=== PATIENT | female | born 1960 | race Caucasian/White ===

== ENCOUNTER 2022-10-07 07:04 | Outpatient (CLI) | payer OTHER, SELFPAY ==
--- OUTSIDE RECORDS SUMMARY | 2022-10-07 07:08 | XMS_ITS | Encounter Summary ---
:1960 Author Organization [facility] Address [address] [place] [address] Care Team Providers Name Role Phone Unavailable Primary Care Provider Unavailable Reason for Visit Reason Comments Body Fluid Exposure Encounter Details Date Type Department Care Team Description 01/05/2021 - Emergency [facility] Exposure Biological 01/06/[address] Fluid (Primary Dx) [facility] [address] Social History Tobacco Use Types Packs/Day Years Used Date Smoking Tobacco: Never Sex Assigned at Date Recorded Not on file documented as of this encounter Plan of Treatment Not on filedocumented as of this encounter Visit Diagnoses Diagnosis Exposure Biological Fluid - Primary documented in this encounter
--- OUTSIDE RECORDS SUMMARY | 2022-10-07 07:08 | XMS_ITS | Encounter Summary ---
:1960 Author Organization [facility] Address [address] [place] [address] Care Team Providers Name Role Phone Unavailable Primary Care Provider Unavailable Encounter Details Date Type Department Care Team Description 10/07/2014 Hospital Encounter HX [facility] OBGYSavanna Chaves M.D. Social History Tobacco Use Types Packs/Day Years Used Date Smoking Tobacco: Never Assessed Sex Assigned at Date Recorded Not on file documented as of this encounter Last Filed Vital Signs Vital Sign Reading Time Taken Comments Blood Pressure 122/76 10/07/2014 1:49 PM DRAWING OPERATOR Pulse - - Temperature - - Respiratory Rate - - Oxygen Saturation - - Inhaled Oxygen Concentration - - Weight - - Height 168 cm (5' 6.14) 10/07/2014 1:49 PM DRAWING OPERATOR Body Mass Index - - documented in this encounter Progress Notes Savanna Galeas M.D. - 10/07/2014 1:39 PM CST [id number] CHIEF COMPLAINT/REASON FOR VISIT Vaginal dryness. HISTORY OF PRESENT ILLNESS Ms. Carpenter is a 54-year-old white female who I saw in June of this year with the complaints of vaginal dryness and pain with intercourse. She was perimenopausal. She has not had a period in the last year. She has been using Vagifem twice a day. She states she is noting less pain with intercourse and is happy with that, but is wondering whether she is really seeing much of a change with vaginal dryness. VITAL SIGNS Please see the EMR. PHYSICAL EXAMINATION The introitus does seem to be much more flexible to digital exam. It appears to be well estrogenizedand well moisturized. Bimanual exam shows no tenderness. IMPRESSION/REPORT/PLAN Good response to vaginal estrogen therapy. PLAN: I discussed with the patient the fact that since I do think she has seen improvement with her pain with intercourse, that I do believe she is having a good response; that it may take a little longer to see the improvement vaginally. We discussed not placing the tablet quite so deeply in the vagina and also discussed the possibility of switching to cream therapy, but she would like to stay with the tablet a little bit longer. We have recommended that she try this for 3 more months. She does have 2 refills left after the next 3 months. If she is satisfied, then she may continue for the full year. Otherwise, she is to return in 3 months and we will discuss this further. Savanna Galeas M.D./sommer Electronically Signed By: SAVANNA GALEAS MD On: 10/08/2014 02:54 PM Source: [facility] MHSDOLBEYNONRADSYS Document Id: [id number] ING OPERATOR documented in this encounter Miscellaneous Notes Miscellaneous - Conversion, Historical Provider Ser - 10/07/2014 1:49 PM DRAWING OPERATOR Adult State Appellate Clerk Intake/History Adult State Appellate Clerk Intake/History Entered On: 10/07/2014 13:51 DRAWING OPERATOR Performed On: 10/07/2014 13:49 DRAWING OPERATOR by AL PORTER Intake Chief Complaint : recheck on vagifem Onset of Symptoms : dryness some discharge no odor no itching Ambulatory Intake Additional Information : no menses x 1 yr Systolic Blood Pressure : 122 mmHg Diastolic Blood Pressure : 76 mmHg NIBP Mean : 91 mmHg BP Location : Left upper extremity Blood Pressure Cuff Size : Regular Height : 168 cm(Converted to: 5 ft 6 inch(es), 66 inch(es)) AL PORTER - 10/07/2014 13:49 DRAWING OPERATOR General Info Information Given By : Patient Languages : Togolese Is Patient Female and 13-50 no hysterectomy : Yes Status : Confirmed negative Are you ? : No AL PORTER - 10/07/2014 13:49 DRAWING OPERATOR Subjective Pain Symptoms : No AL PORTER 10/07/2014 13:49 DRAWING OPERATOR Dependent Habits Tobacco Use/Currently Using : No Exposure to Tobacco Smoke : Other: Never Smoking Status : Never smoker AL PORTER 10/07/2014 13:49 DRAWING OPERATOR Tobacco Use Grid Last Use : never AL PORTER 10/07/2014 13:49 DRAWING OPERATOR Caffeine Use Grid Caffeine Use : Current Type : Coffee Frequency : Daily AL PORTER 10/07/2014 13:49 DRAWING OPERATOR ID Screen Travel Within Last 21 Days : [place] 10/07/2014 13:49 DRAWING OPERATOR [facility] Document Id: [id number] DRAWING OPERATOR!33 documented in this encounter Plan of Treatment Not on filedocumented as of this encounter Visit Diagnoses Not on filedocumented in this encounter
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
--- OUTSIDE RECORDS SUMMARY | 2022-10-07 07:08 | XMS_ITS | Encounter Summary ---
:1960 Author Organization [facility] Address [address] [place] [address] Care Team Providers Name Role Phone Unavailable Primary Care Provider Unavailable Encounter Details Date Type Department Care Team Description 12/26/2014 Hospital Encounter [facility]X [facility] Leopoldo Jarvis M.D. [address] [place], [place] [address] (Wo rk) Social History Tobacco Use Types Packs/Day Years Used Date Smoking Tobacco: Never Assessed Sex Assigned at Date Recorded Not on file documented as of this encounter Last Filed Vital Signs Vital Sign Reading Time Taken Comments Blood Pressure 98/60 12/26/2014 2:47 PM EMT I/99 Pulse 72 12/26/2014 2:47 PM EMT I/99 Temperature - - Respiratory Rate 20 12/26/2014 2:47 PM EMT I/99 Oxygen Saturation - - Inhaled Oxygen Concentration - - Weight 67 kg (147 lb 11.3 oz) 12/26/2014 2:47 PM EMT I/99 Height 168 cm (5' 6.14) 12/26/2014 2:47 PM EMT I/99 Body Mass Index 23.74 12/26/2014 2:47 PM EMT I/99 documented in this encounter Progress Notes Micah Jarvis M.D. - 12/26/2014 2:36 PM CST [id number] CHIEF COMPLAINT/REASON FOR VISIT Heel pain. On review, this patient's today for a chief complaint of heel pain. On review, no history of any injury, no change in usual activity, she states it seems to act up when she has been on feet longer and has been walking more. Does not really have the pain when she first wakes up in the morning as much though. PAST MEDICAL/SURGICAL HISTORY Remarkable for hypothyroidism. She is coming up due for a physical on review with the patient. We discussed getting her set up for future labs, et cetera. It looks like her physical is in December. MEDICATIONS Please see EMR. ALLERGIES Please see EMR. PHYSICAL EXAMINATION Shows vital signs to be stable. Very pleasant. Appears to be in no distress. Examination reveals findings consistent with plantar fascitis of the left foot. On review, she has no erythema, no rubor, and there is no history of trauma as I said. IMPRESSION/REPORT/PLAN Plantar fascitis left foot. PLAN: May take anti-inflammatories, ice after offending activities, and stretches. I also discussed I in fact got her set up with arch supports here from the clinic she is going to try in her new shoes. Also discussed importance of choosing shoes wisely and also getting rid of shoes when they are wearing out from the inside out. Finally, discussed stretching techniques for the foot and also discussed using a rolling pin technique to help stretch out the bottom of the foot. Will review this when I see her for a physical in the next month. Micah Jarvis M.D./sommer Electronically Signed By: MICAH JARVIS MD On: 12/31/2014 05:55 PM Source: [facility] MHSDOLBEYNONRADSYS Document Id: [id number] I/99 documented in this encounter Miscellaneous Notes Miscellaneous - Lashay Clark L.P.N. - 12/26/2014 2:52 PM CST Health Assessment Health Assessment Entered On: 12/26/2014 14:54 EMT I/99 Performed On: 12/26/2014 14:52 EMT I/99 by LASHAY CLARK LPN Health Assessment Complete Health Assessment Complete or Modified : Annual Health Assessment Annual Health Assessment Completed : Yes LASHAY CLARK LPN - 12/26/2014 14:52 EMT I/99 Nutrition Nutrition Risk Factors by History Adult : None LASHAY CLARK LPN - 12/26/2014 14:52 EMT I/99 Functional Current Daily Living Assistance : None LASHAY CLARK LPN - 12/26/2014 14:52 EMT I/99 Dependent Habits Tobacco Use/Currently Using : No Exposure to Tobacco Smoke : Other: Never Smoking Status : Never smoker LASHAY CLARK LPN - 12/26/2014 14:52 EMT I/99 Tobacco Use Grid Last Use : never LASHAY CLARK LPN - 12/26/2014 14:52 EMT I/99 Alcohol Use : Yes LASHAY CLARK LPN - 12/26/2014 14:52 EMT I/99 Caffeine Use Grid Caffeine Use : Current Type : Coffee Frequency : Daily LASHAY CLARK LPN - 12/26/2014 14:52 EMT I/99 AUDIT Tool How Often Do You Have A Drink : Monthly or less How Many Drinks in a Day When Drinking : 1 or 2 Six or More Drinks On One Occassion : Never Audit Phase 1 Score : 1 LASHAY CLARK LPN - 12/26/2014 14:52 EMT I/99 Psychosocial Domestic Abuse Concerns : None Christian Preference : No qualifying data available. LASHAY CLARK LPN - 12/26/2014 14:52 EMT I/99 Advance Directive Advanced Directives : No Advance Directive Additional Information : No LASHAY CLARK LPN - 12/26/2014 14:52 EMT I/99 Educ Needs Learning Style Preference Adult Grid Patient : Demonstration, Printed materials, Verbal explanation, Video/Educational TV Family : None LASHAY CLARK LPN - 12/26/2014 14:52 EMT I/99 Source: [facility] POWERCHART Document Id: [id number] EMT I/99!36 I/99 Miscellaneous - Lashay Clark L.P.N. 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 Temperature Oral : 36.7 DegC(Converted to: 98.1 DegF) Peripheral Pulse Rate : 72 /min Respiratory Rate : 20 /min Heart Rhythm : Regular Systolic Blood Pressure : 98 mmHg Diastolic Blood Pressure : 60 mmHg NIBP Mean : 73 mmHg BP Location : Right upper extremity Blood Pressure Cuff Size : Regular Height : 168 cm(Converted to: 5 ft 6 inch(es), 66 inch(es)) Actual Weight : 67.0 kg(Converted to: 147 lb 11 oz) Weight Source : Standing scale Dosing Weight Clinic : 67 kg Clinic BSA : 1.77 Body Mass Index : 23.74 kg/m2 LASHAY CLARK LPN - 12/26/2014 14:47 EMT I/99 General Info Information Given By : Patient Preferred Communication Mode : Verbal Languages : Turkish Is Patient Female and 13-50 no hysterectomy : No LASHAY CLARK LPN - 12/26/2014 14:47 EMT I/99 Subjective Pain Symptoms : Yes LASHAY CLARK LPN - 12/26/2014 14:47 EMT I/99 Pain Scale Pain Scale Verbal 0-10 : Open LASHAY CLARK LPN - 12/26/2014 14:47 EMT I/99 Pain Pain Assessment Grid Pain 1 Location : Other: Heel Laterality : Left Intensity : 3 LASHAY CLARK LPN - 12/26/2014 14:47 EMT I/99 Dependent Habits Tobacco Use/Currently Using : No Exposure to Tobacco Smoke : Other: Never Smoking Status : Never smoker LASHAY CLARK LPN - 12/26/2014 14:47 EMT I/99 Tobacco Use Grid Last Use : never LASHAY CLARK LPN - 12/26/2014 14:47 EMT I/99 Caffeine Use Grid Caffeine Use : Current Type : Coffee Frequency : Daily LASHAY CLARK LPN - 12/26/2014 14:47 EMT I/99 ID Screen Travel Within Last 21 Days : No LASHAY CLARK LPN - 12/26/2014 14:47 EMT I/99 [facility] Document Id: [id number] EMT I/99!47 I/99 documented in this encounter Plan of Treatment Not on filedocumented as of this encounter Visit Diagnoses Not on filedocumented in this encounter
--- OUTSIDE RECORDS SUMMARY | 2022-10-07 07:08 | XMS_ITS | Encounter Summary ---
:1960 Author Organization [facility] Address [address] [place] [address] Care Team Providers Name Role Phone Unavailable Primary Care Provider Unavailable Encounter Details Date Type Department Care Team Description 01/21/2015 Hospital Encounter HX [facility] OBGYSavanna Chaves M.D. Social History Tobacco Use Types Packs/Day Years Used Date Smoking Tobacco: Never Assessed Sex Assigned at Date Recorded Not on file documented as of this encounter Last Filed Vital Signs Vital Sign Reading Time Taken Comments Blood Pressure 120/74 01/21/2015 3:39 PM DENTAL MANAGER Pulse - - Temperature - - Respiratory Rate - - Oxygen Saturation - - Inhaled Oxygen Concentration - - Weight - - Height 167 cm (5' 5.75) 01/21/2015 3:39 PM DENTAL MANAGER Body Mass Index - - documented in this encounter Progress Notes Savanna Galeas M.D. - 01/21/2015 3:30 PM CST [id number] CHIEF COMPLAINT/REASON FOR VISIT Abnormal uterine bleeding. HISTORY OF PRESENT ILLNESS Ibis is a 54-year-old white female who when I saw her previously in September of 2014 was perimenopausal, was complaining of vaginal dryness and we had tried her on vaginal cream and had switched herto a Vagifem tablet for the vaginal dryness. She has been doing well with this. She does state that she has had some breast tenderness that was present prior to the Vagifem, but then this increased andshe had 16 days of vaginal bleeding close to a period. This started on January 01 and she still isspotting today. The patient did not have significant cramping with the bleeding. I explained to the patient that our understanding of vaginal cream and Vagifem tablets is that it does not raise the systemic level of estrogen and, therefore, I do not believe that it is the cause for her bleeding. She has stopped the Vagifem and she has been bleeding because she worried that the tablet would not be absorbed, but I have told her that she may restart this after we have our biopsy results available. She consented to an endometrial biopsy. During this procedure the universal protocol was utilized. The patient's identity was confirmed by no less than 2 patient identifiers, correct procedure was verified, correct site was verified and marked as applicable and a final pause was completed. With a accountant clerk present, a bed bimanual exam was performed. The uterus was upper limits of normal size, symmetrical, nontender and mid position. The adnexa without masses. A speculum was then placed exposing the cervix. The uterus was anteverted. The cervix visualized and the patient was asked if shewas allergic to local anesthetic or iodine, which she declined. The cervix was then sprayed with Hurricaine, because of the position of the cervix, a single-tooth tenaculum was applied to the anterior lip of the cervix to allow the canal to be straightened. The Pipelle was then inserted. The uterus sounded 8 cm and a moderate amount of tissue obtained with the Pipelle. This was submitted for pathologic evaluation. IMPRESSION/REPORT/PLAN Perimenopausal bleeding. PLAN: The patient may restart her Vagifem tablets, now that her bleeding has lessened significantly.We will await the biopsy results. I am expecting this will be proliferative endometrium, and due to a spontaneous production of estrogen either by her ovaries or by other exogenous estrogen sources. Wedid discuss the fact that if hyperplasia was present, then she would need to use progesterone and I would recommend she would stop the Vagifem during progesterone therapy. The patient tolerated the procedure well. I will call her with the results of her biopsy. Savanna Galeas M.D./sommer Electronically Signed By: SAVANNA GALEAS MD On: 01/23/2015 08:21 AM Source: [facility] MHSDOLBEYNONRADSYS Document Id: [id number] AL MANAGER documented in this encounter Miscellaneous Notes Miscellaneous - Savanna Galeas M.D. - 01/21/2015 4:00 PM CST Ambulatory Patient Summary [facility] [address] [place] [address] [place] [id number] Visit Information Name: ANABELL MIRELLA HAINES [facility] Number: [id number] Current Date: 01/21/2015 16:00:40 Physicians Attending Provider: SAVANNA GALEAS MD Primary Care Provider: PCP, UNASSIGNED - ZACHARY SHARPE YANCYANAMIRELLA FARRAH has been given the following list of follow-up instructions, medication list,and patient education materials: Follow-up Instructions Your Medications Here is a list of your medications. It is important to take your medications as directed. Use a pillbox or chart to help remind you to take your medications. Please let your doctor or nurse know if you have problems taking your medications. Medication/Strength How to Take Indications/Special Instructions/Comments/Notes for Patient Medication Changes/Routing albuterol (albuterol 90 mcg/inh inhalation aerosol with adapter) 2 puff(s), Inhalation, four times aday as needed for Shortness of breath / Wheezing aspirin (aspirin 81 mg oral tablet) 1 Tablet(s), Oral, once a day calcium-vitamin D (Caltrate 600+D Soft Chews oral tablet, chewable) 1 Tablet(s), Chewed, two times aday estradiol topical (Vagifem 10 mcg vaginal tablet) 10 mcg, Vaginal, 2 times a week fexofenadine (Kathi 180 mg oral tablet) 1 Tablet(s), Oral, once a day glucosamine-chondroitin (Cosamin DS 500 mg-400 mg oral tablet) once a day guaifenesin (Mucinex 600 mg oral tablet, extended release) 1 Tablet(s), Oral, every 12 hours levothyroxine (Synthroid 125 mcg (0.125 mg) oral tablet) 1 Tablet(s), Oral, once a day levothyroxine (Synthroid 125 mcg (0.125 mg) oral tablet) 1 Tablet(s), Oral, once a day mometasone nasal (Nasonex 50 mcg/inh nasal spray) 2 [place](s), Nostrils(Both), once a day naproxen (naproxen) 200 mg, Oral, once a day omeprazole (omeprazole 20 mg oral enteric coated tablet) 1 Tablet(s), Oral, once a day (do not crushor chew) omeprazole (omeprazole 20 mg oral enteric coated tablet) 1 Tablet(s), Oral, once a day (do not crushor chew) pseudoephedrine (Sudafed 60 mg oral tablet) 1 Tablet(s), Oral, four times a day as needed for Congestion SUMAtriptan (sumatriptan 50 mg oral tablet) 2 Tablet(s), Oral, once as needed for migraine headache Stop Taking the Following Medications: Medication list as of 01-21-15 16:00 Attention: If you have any medications at home that are not on this list, DO NOT take them until youcontact your provider for clarification. Give a copy of your medication list to your primary care provider. Update your medication list any time medications or doses are changed and carry your medication list at all times in case of emergency. 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 Your Goals/Additional instructions: Source: [facility] POWERCHART Document Id: [id number] AL MANAGER Miscellaneous - Savanna Galeas M.D. - 01/21/2015 4:00 PM CST Ambulatory Discharge Medication List [facility] [address] [place] [id number] Visit Information Name: MIRELLA BROOKS [facility] Number: [id number] Visit Date: 01/21/2015 16:00:38 Attending Provider: SAVANNA GALEAS MD Primary Care Provider: PCP, UNASSIGNED - ANA HUNTSON FARRAH has been given the following list of medications: Your Medications It is important to take your medications as directed. Use a pill box or chart to help remind you to take your medications. Please let your doctor or nurse know if you have problems taking your medications. Medication/Strength How to Take Indications/Special Instructions/Comments/Notes for Patient Medication Changes/Routing albuterol (albuterol 90 mcg/inh inhalation aerosol with adapter) 2 puff(s), Inhalation, four times aday as needed for Shortness of breath / Wheezing aspirin (aspirin 81 mg oral tablet) 1 Tablet(s), Oral, once a day calcium-vitamin D (Caltrate 600+D Soft Chews oral tablet, chewable) 1 Tablet(s), Chewed, two times aday estradiol topical (Vagifem 10 mcg vaginal tablet) 10 mcg, Vaginal, 2 times a week fexofenadine (Kathi 180 mg oral tablet) 1 Tablet(s), Oral, once a day glucosamine-chondroitin (Cosamin DS 500 mg-400 mg oral tablet) once a day guaifenesin (Mucinex 600 mg oral tablet, extended release) 1 Tablet(s), Oral, every 12 hours levothyroxine (Synthroid 125 mcg (0.125 mg) oral tablet) 1 Tablet(s), Oral, once a day levothyroxine (Synthroid 125 mcg (0.125 mg) oral tablet) 1 Tablet(s), Oral, once a day mometasone nasal (Nasonex 50 mcg/inh nasal spray) 2 [place](s), Nostrils(Both), once a day naproxen (naproxen) 200 mg, Oral, once a day omeprazole (omeprazole 20 mg oral enteric coated tablet) 1 Tablet(s), Oral, once a day (do not crushor chew) omeprazole (omeprazole 20 mg oral enteric coated tablet) 1 Tablet(s), Oral, once a day (do not crushor chew) pseudoephedrine (Sudafed 60 mg oral tablet) 1 Tablet(s), Oral, four times a day as needed for Congestion SUMAtriptan (sumatriptan 50 mg oral tablet) 2 Tablet(s), Oral, once as needed for migraine headache Stop Taking the Following Medications: Medication list as of 01-21-15 16:00 Attention: If you have any medications at home that are not on this list, DO NOT take them until youcontact your provider for clarification. Give a copy of your medication list to your primary care provider. Update your medication list any time medications or doses are changed and carry your medication list at all times in case of emergency. 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 Intake/History Entered On: 01/21/2015 15:45 DENTAL MANAGER Performed On: 01/21/2015 15:39 DENTAL MANAGER by AL PORTER Intake Chief Complaint : Heavy bleeding x 16 + days LMP Date : 01/01/2015 Ambulatory Intake Additional Information : some spotting today lots of clots lots of cramping @ beginning of menses Systolic Blood Pressure : 120 mmHg Diastolic Blood Pressure : 74 mmHg NIBP Mean : 89 mmHg BP Location : Left upper extremity Blood Pressure Cuff Size : Regular Height : 167 cm(Converted to: 5 ft 6 inch(es), 66 inch(es)) AL PORTER - 01/21/2015 15:39 DENTAL MANAGER General Info Information Given By : Patient Languages : Palauan Is Patient Female and 13-50 no hysterectomy : Yes Status : Confirmed negative Are you ? : No AL PORTER 01/21/2015 15:39 DENTAL MANAGER Subjective Pain Symptoms : No AL PORTER 01/21/2015 15:39 DENTAL MANAGER Dependent Habits Tobacco Use/Currently Using : No Exposure to Tobacco Smoke : Other: Never Smoking Status : Never smoker AL PORTER 01/21/2015 15:39 DENTAL MANAGER Tobacco Use Grid Last Use : never AL PORTER 01/21/2015 15:39 DENTAL MANAGER Caffeine Use Grid Caffeine Use : Current Type : Coffee Frequency : Daily AL PORTER 01/21/2015 15:39 DENTAL MANAGER ID Screen Travel Within Last 21 Days : No AL PORTER 01/21/2015 15:39 DENTAL MANAGER Source: [facility] [employer] Document Id: [id number] DENTAL MANAGER!33 documented in this encounter Plan of Treatment Not on filedocumented as of this encounter Procedures Procedure Name Priority Date/Time Associated Diagnosis Comme nts SURGICAL PATHOLOGY Routine 01/21/2015 10:50 AM Re sults for this DENTAL MANAGER procedure are i n the results section. documented in this encounter Results Pathology Surgical Pathology (01/21/2015 10:50 AM DENTAL MANAGER) Specimen (Source) Anatomical Collection Method Collection Time Re ceived Time Location / / Volume Laterality 01/21/2015 10:50 AM DENTAL MANAGER Narrative [facility] - 01/23/2015 9:47 AM DENTAL MANAGER [facility] in [address] [place] [address] Patient Name: MIRELLA BROOKS Patient ID #: [id number] Collected: 01/21/2015 Address: City/State/Zip: [address] [place] [address] ??[phone] Received: Reported: 01/22/2015 01/23/2015 Soc. Sec. #: ?/Age/Sex 1960 (Age: 54) ??F Physician(s): ML GALEAS MD Copy To: ? [facility] ??[id number] [address] [facility], ??[place] ??[address] SURGICAL PATHOLOGY REPORT FINAL DIAGNOSIS: ENDOMETRIAL BIOPSY: --- SIMPLE HYPERPLASIA WITH GLANDULAR AN D STROMAL BREAKDOWN AND FIBRIN THROMBI. CASE REVIEWED WITH DR. ARTIS BERRIOS. pap/01/23/2015 MALINA WILEY M.D. Report electronically released. Interpretation by MALINA WILEY M.D. SPECIMEN(S) RECEIVED: ENDOMETRIAL BIOPSY CLINICAL HISTORY: POSTMENOPAUSAL BLEEDING GROSS DESCRIPTION: Submitted as endometrial biopsy are hemo rrhagic ren tissue fragments filtering to 2 cm. ESB, one cassette. ([id number]) [facility] [place]/01/22/2015 MICROSCOPIC DESCRIPTION: Reviewed by Malina Wiley M.D.; Path ologist [facility]/01/23/2015 Savanna Galeas M.D. LAB SURG PATH ORDERABLES Performing Organization Address City/State/ZIP Code Phon e Number [facility] documented in this encounter Visit Diagnoses Not on filedocumented in this encounter
--- OUTSIDE RECORDS SUMMARY | 2022-10-07 07:08 | XMS_ITS | Encounter Summary ---
:1960 Author Organization [facility] Address [address] [place] [address] Care Team Providers Name Role Phone Unavailable Primary Care Provider Unavailable Encounter Details Date Type Department Care Team Description 01/21/2015 Hospital Encounter HX NO MAPPING Doug Rodriguez M.D. 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 However, the narrative phrase printed from the coding software may appear abbreviated, or result in slightly different terminology. Coded By: ROSALIE MULLER Date Saved: 01/28/2015 05:16 pm [facility] Document Id: [id number] documented in this encounter Plan of Treatment Not on filedocumented as of this encounter Visit Diagnoses Not on filedocumented in this encounter
--- OUTSIDE RECORDS SUMMARY | 2022-10-07 07:08 | XMS_ITS | Encounter Summary ---
:1960 Author Organization [facility] Address [address] [place] [address] Care Team Providers Name Role Phone Unavailable Primary Care Provider Unavailable Encounter Details Date Type Department Care Team Description 01/16/2015 Hospital Encounter HX [facility] Destiny Syed M.D. [address] [place], [place] [phone] (Wo rk) Social History Tobacco Use Types Packs/Day Years Used Date Smoking Tobacco: Never Assessed Sex Assigned at Date Recorded Not on file documented as of this encounter Last Filed Vital Signs Vital Sign Reading Time Taken Comments Blood Pressure - - Pulse - - Temperature - - Respiratory Rate - - Oxygen Saturation - - Inhaled Oxygen Concentration - - Weight - - Height 167 cm (5' 5.75) 01/16/2015 4:27 PM [employer] Body Mass Index - - documented in this encounter Miscellaneous Notes Telephone Encounter - Conversion, Historical Provider Ser - 11/11/2015 12:52 PM CST *Phone MessageMapMyFitness joaquin Document Contains Addenda Addendum by KANDICE TORRES LPN on 11 November 2015 16:27:46 [employer] LMTCB to schedule an appointment. 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 Med [facility]) To: Family Med 2E Nurse; Sent: 11/11/2015 12:52:19 [employer] Subject: *Phone Message- joaquin Caller is: ( x ) Patient ( ) Mother ( ) Father ( ) Spouse ( ) Daughter ( ) Son ( ) Pharmacy ( ) Other: Physician: Patient MRN #: Reason for Call: Message: would like a call, was a pt of hand knitter and would like joaquin to take over hormone therapy [phone] Advice/Action: Source used: ( ) Verbalizes understanding of instructions ( ) Instructed to call back if symptoms worsen or do not resolve ( ) Refused to see provider ( ) Appointment Scheduled ( ) OK to leave message on voice mail ( ) Patient told to expect return call: ( ) today ( ) tomorrow ( ) next work day ( ) Patient's email ( ) Patient told physician out of office, will call upon return call on ( ) ( ) Patient told physician out of office, routed to other physician ( ) Other ( ) Call back telephone number ( ) Call back cell phone number ( ) [facility] Document Id: [id number] documented in this encounter Plan of Treatment Not on filedocumented as of this encounter Procedures Procedure Name Priority Date/Time Associated Diagnosis Comme nts BI BREAST SCREENING Routine 01/16/2015 4:34 PM Re sults for this BILATERAL [employer] procedure are i n the results section. documented in this encounter Results BI Breast Screening Bilateral (01/16/2015 4:34 PM [employer]PER[employer]) Anatomical Region Laterality Modality Breast Bilateral Mammography Specimen (Source) Anatomical Collection Method Collection Time Re ceived Time Location / / Volume Laterality 01/16/2015 4:34 PM [employer] Addenda Addendum by ProviderDevaughn M.D. o n 01/16/2015 4:34 PM [employer] RAD^^^OW MA Mammo Screening w ??CADD 01/16/2015 16:34:03 Impressions 01/20/2015 9:36 AM [employer] No mammographic findings for malignancy in either breast. Recommendations: ??I recommend a follow- up mammogram in 1 year, self breast exams at least once per month and clinical breast exam at least once per year. ??Of note, benign f indings should not deter biopsy in the setting of a palpable abno rmality. ??The false negative rate of mammography is approximately 10% . CODE: 1-NEGATIVE Appropriate letter sent. Full field digital mammography is used a nd Computer Aided Detection is performed on the digital mammogram im ages. 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 Breast density diminishes mammographic s ensitivity for detection of malignancy. Procedure Note Angel Marti M.D. / ProviderOfelia M.D. - 04/06/2017 EXAM: IN Mammo Screening w/ CADD INDICATION: screen COMPARISON: 12/20/2012, 10/26/2011, 10/23 FINDINGS: Heterogeneously dense breast p arenchyma bilaterally. Breast density diminishes mammographic s ensitivity for detection of malignancy. IMPRESSION: No mammographic findings for malignancy in either breast. Recommendations: I recommend a follow-up mammogram in 1 year, self breast exams at least once per month and clinical breast exam at least once per year. Of note, benign fin dings should not deter biopsy in the setting of a palpable abno rmality. The false negative rate of mammography is approximately 10% . CODE: 1-NEGATIVE Appropriate letter sent. Full field digital mammography is used a nd Computer Aided Detection is performed on the digital mammogram im ages. Caitlyn Norman R.T.(R), R.T.(R)(M) IMG BI PROCEDURES documented in this encounter Visit Diagnoses Not on filedocumented in this encounter
--- OUTSIDE RECORDS SUMMARY | 2022-10-07 07:08 | XMS_ITS | Encounter Summary ---
:1960 Author Organization [facility] Address [address] [place] [address] Care Team Providers Name Role Phone Unavailable Primary Care Provider Unavailable Encounter Details Date Type Department Care Team Description 08/28/2013 Hospital Encounter HX NO MAPPING Torin Haddad M.D. [address] [phone] (Wo rk) Social History Tobacco Use Types Packs/Day Years Used Date Smoking Tobacco: Never Assessed Sex Assigned at Date Recorded Not on file documented as of this encounter Plan of Treatment Not on filedocumented as of this encounter Visit Diagnoses Not on filedocumented in this encounter
--- OUTSIDE RECORDS SUMMARY | 2022-10-07 07:08 | XMS_ITS | Encounter Summary ---
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 REVISED REPORT - 29-Sep-2016 10:20:00 EXAM: CT scan of the Head without IV con trast COMPARISON: None. IMPRESSION/FINDINGS: Normal head CT. This includes normal intracranial conten ts, specifically no acute hemorrhage, infarction, mass effect, or fracture. The paranasal sinuses are clear. Electronically signed by: Hasmukh Christensen MD. [id number] 29-Sep-2016 10:20 Jeremy Pierce MD [phone] 29-Sep-2016 10:[address] PROCEDURES documented in this encounter Visit Diagnoses Not on filedocumented in this encounter
--- OUTSIDE RECORDS SUMMARY | 2022-10-07 07:08 | XMS_ITS | Encounter Summary ---
:1960 Author Organization [facility] Address [address] [place] [address] Care Team Providers Name Role Phone Unavailable Primary Care Provider Unavailable Encounter Details Date Type Department Care Team Description 10/23/[address] [facility] Luisa Zuniga i, M.D. [address] [place] [address] [id number] (Wo rk) Social History Tobacco Use Types Packs/Day Years Used Date Smoking Tobacco: Never Assessed Sex Assigned at Date Recorded Not on file documented as of this encounter Miscellaneous Notes Miscellaneous - Ariel, Historical Provider Ser - 10/26/2013 12:58 PM NETWORK OPERATIONS PROJECT MANAGER General Message Document Contains Addenda Addendum by TERESITA CHAHAL on 26 October 2013 13:39:28 NETWORK OPERATIONS PROJECT MANAGER noted From: ADELINE LUTZ To: ZACHARY Zuniga Nurse; Sent: 10/26/2013 12:58:17 NETWORK OPERATIONS PROJECT MANAGER Subject: General Message All preop information, dictation 10/22/2013, EKG 08/15/2013 and labs 10/23/[address] Thierry Reich @ [facility] [phone]. Source: [facility] POWERCHART Document Id: [id number] Miscellaneous - Norma Zuniga M.D. - 10/23/2013 2:44 PM CST Results Notification Document Contains Addenda Addendum by NORMA ZUNIGA MD on 24 October 2013 13:01:35 NETWORK OPERATIONS PROJECT MANAGER noted. Addendum by ZULEYMA MARC on 24 October 2013 12:47:58 NETWORK OPERATIONS PROJECT MANAGER From: ZULEYMA MRAC (ZACHARY Zuniga Nurse) To: NORMA ZUNIGA MD; Sent: 10/24/2013 12:47:58 NETWORK OPERATIONS PROJECT MANAGER Show up: 10/24/2013 12:47:00 NETWORK OPERATIONS PROJECT MANAGER Subject: RE: Results Notification Addendum by ZULEYMA MARC on 24 October 2013 12:47:50 NETWORK OPERATIONS PROJECT MANAGER patient notified, patient wanted you to know that her brother had a PE many years ago. From: NORMA ZUNIGA MD To: ZACHARY Zuniga Nurse; Sent: 10/23/2013 14:44:33 NETWORK OPERATIONS PROJECT MANAGER ! Show up: 10/23/2013 20:44:33 [facility] Subject: Results Notification Actions: Notify patient of results Reminder Comments: negative for infection Results: Date Result Name Ind Value Ref Range 10/23/2013 14:16 UA Color YELLOW (YELLOW - ) 10/23/2013 14:16 UA Spec Grav 1.025 (>=1.030 - ) 10/23/2013 14:16 UA pH 6.0 (8.5 - ) 10/23/2013 14:16 UA Protein Negative (Negative - ) 10/23/2013 14:16 UA Glucose Negative (Negative - ) 10/23/2013 14:16 UA Ketones Negative (Negative - ) 10/23/2013 14:16 UA Bili Negative (Negative - ) 10/23/2013 14:16 UA Urobilinogen 0.2 (1.0 - ) 10/23/2013 14:16 UA Blood Negative (Negative - ) 10/23/2013 14:16 UA Nitrite Negative (Negative - ) 10/23/2013 14:16 UA Leuk Est Negative (Negative - ) 10/23/2013 14:16 UA WBC 1-3 10/23/2013 14:16 UA RBC Negative (0-2 - ) 10/23/2013 14:16 UA Bacteria (*) Few (Negative - ) 10/23/2013 14:16 UA Mucous Negative (Negative - ) 10/23/2013 14:16 UA Comments sperm present 10/23/2013 14:16 UA Epi Few (Negative - ) 10/23/2013 14:16 UA Casts None Seen (None Seen - ) 10/23/2013 14:16 UA Crystals None Seen (None Seen - ) Source: [facility] POWERCHART Document Id: [id number] Electronically signed by Conversion, [facility] Potter Or Ceramic Artist [id number] at 04/27/2017 2:59 PM CDT documented in this encounter Plan of Treatment Not on filedocumented as of this encounter Procedures Procedure Name Priority Date/Time Associated Comments Diagnosis URINALYSIS WITH Routine 10/23/2013 2:16 PM Result s for this MICROSCOPIC NETWORK OPERATIONS PROJECT MANAGER procedure are i n the results section. documented in this encounter Results (ABNORMAL) Urinalysis, Complete, Includes Microscopic (10/23/2013 2:16 PM NETWORK OPERATIONS PROJECT MANAGER) [facility] gist Method Time Signature Source Clean Void POWERCHART Urine HXUr Color YELLOW YELLOW POWERCHART Glucose Negative Negative POWERCHART HXBILIRUBIN Negative Negative POWERCHART Ketones, QL(U) Negative Negative POWERCHART Specific 1.025 >=1.030 POWERCHART Cranks, POCT, U pH, POCT, Urine 6.0 8.5 POWERCHART Protein, Ur, Dip Negative Negative POWERCHART Urobilinogen 0.2 1.0 POWERCHART HXNITRITE Negative Negative POWERCHART HXBLOOD Negative Negative POWERCHART Leukocyte Negative Negative POWERCHART Esterase HXUr WBC 1-3 POWERCHART Red Blood Cell Negative 0 - 2 POWERCHART Clump, Urine HXUr Bacteria Few (A) Negative POWERCHART HXUr Epithelial Few Negative POWERCHART HX MUCOUS Negative Negative POWERCHART THREADS HX Ur Casts None Seen None Seen POWERCHART Crystals None Seen None Seen POWERCHART Comment sperm POWERCHART present Specimen (Source) Anatomical Collection Method Collection Time Re ceived Time Location / / Volume Laterality Urine 10/23/2013 2:16 PM NETWORK OPERATIONS PROJECT MANAGER Norma Zuniga M.D. LAB URINE ORDERABLES Performing Organization Address City/State/ZIP Code Phon e Number POWERCHART documented in this encounter Visit Diagnoses Not on filedocumented in this encounter
--- OUTSIDE RECORDS SUMMARY | 2022-10-07 07:08 | XMS_ITS | Encounter Summary ---
:1960 Author Organization [facility] Address [address] [place] [address] Care Team Providers Name Role Phone Unavailable Primary Care Provider Unavailable Encounter Details Date Type Department Care Team Description 07/15/2014 Hospital Encounter HX [facility] OBGYSavanna Chaves M.D. Social History Tobacco Use Types Packs/Day Years Used Date Smoking Tobacco: Never Assessed Sex Assigned at Date Recorded Not on file documented as of this encounter Last Filed Vital Signs Vital Sign Reading Time Taken Comments Blood Pressure 120/78 07/15/2014 3:48 PM CDT Pulse - - Temperature - - Respiratory Rate - - Oxygen Saturation - - Inhaled Oxygen Concentration - - Weight - - Height 168 cm (5' 6.14) 07/15/2014 3:48 PM CDT Body Mass Index - - documented in this encounter Progress Notes Savanna Rodriguez M.D. - 07/15/2014 3:36 PM CDT [id number] CHIEF COMPLAINT/REASON FOR VISIT Menopausal symptoms. HISTORY OF PRESENT ILLNESS Ms. Carpenter is a 53-year-old white female, is here with the complaints of hot flashes and vaginal changes that she attributes to the menopause. She states her primary concern is her vaginal complaints. She states she can handle her hot flashes. Of interest is that the patient had been treated with vaginal estrogen previously by Dr. Gerald Yang and I did do a transvaginal taping for her for urinaryincontinence in 2009. In 2008 Dr. Yang had thought she was perimenopausal at that time. VITAL SIGNS Blood pressure of 120/78. PHYSICAL EXAMINATION On bimanual exam her introitus is not stenotic. There is some evidence of vaginal moisture but it isslightly decreased and the patient does state that the exam feels like intercourse, not particularlypainful but not particularly normal. IMPRESSION/REPORT/PLAN Menopausal vulvovaginal symptoms. PLAN: After the patient was allowed to change clothes, I discussed with her vaginal estrogen therapy. We discussed the fact that this does not raise her systemic levels of estrogen, and that we do not need to provide her with progesterone therapy at the same time, that she will probably note no signifi cant improvement in her hot flashes, but that hopefully she will see improvement. We decided on using Vagifem tablets as opposed to cream. We did discuss the advantage of allowing her to apply the cream to certain areas if she feels that these need this area of special application, but she is desirousof trying the tablet first. She is instructed to begin this twice a week. If she finds that she can control her symptoms with a less than twice a week dosage she is welcome to stretch out the interval between doses, but I recommended that she keep the dose at the at least 1 tablet a week. Approximately 30 minutes of exam and consultation time associated with this visit. Savanna Rodriguez M.D./sommer Electronically Signed By: SAVANNA RODRIGUEZ MD On: 07/16/2014 11:39 AM Source: [facility] MHSDOLBEYNONRADSYS Document Id: [id number] documented in this encounter Miscellaneous Notes Miscellaneous - Savanna Rodriguez M.D. - 07/15/2014 4:10 PM CDT Ambulatory Patient Summary [facility] [address] [place] [address] [id number] Visit Information Name: CATHERINE CARPENTER [facility] Number: [id number] Current Date: 07/15/2014 16:10:38 Physicians Attending Provider: SAVANNA RODRIGUEZ MD Primary Care Provider: PCP, UNASSIGNED - CATHERINE HUNT has been given the following list of [...] tablet) 1 Tablet(s), Oral, once a day *calcium-vitamin D (Caltrate 600+D Soft Chews oral tablet, chewable) 1 Tablet(s), Chewed, two times a day fexofenadine (Kathi 180 mg oral tablet) 1 Tablet(s), Oral, once a day guaifenesin (Mucinex 600 mg oral tablet, extended release) 1 Tablet(s), Oral, every 12 hours levothyroxine (Synthroid 125 mcg (0.125 mg) oral tablet) 1 Tablet(s), Oral, once a day mometasone nasal (Nasonex 50 mcg/inh nasal spray) 2 [place](s), Nostrils(Both), once a day omeprazole (omeprazole 20 mg oral enteric coated tablet) 1 Tablet(s), Oral, once a day (do not crushor chew) pseudoephedrine (Sudafed 60 mg oral tablet) 1 Tablet(s), Oral, four times a day as needed for Congestion sumatriptan (sumatriptan 50 mg oral tablet) 2 Tablet(s), Oral, once as needed for migraine headache * You have let us know that you are not taking this medication as listed. Please talk with your primary care provider or the health care provider who prescribed the medication as soon as possible. Stop Taking the Following Medications: Medication list as of 07-15-14 16:10 Attention: If you have any medications at home that are not on this list, DO NOT take them until youcontact your provider for clarification. Give a copy of your medication list to your primary care provider. Update your medication list any time medications or doses are changed and carry your medication list at all times in case of emergency. Electronically Signed By: SAVANNA RODRIGUEZ MD Signed On:15-JUL-2014 16:10:31 Your Allergies & Intolerances Substance Reaction Symptoms [...] Active 07/21/2011 Well adult exam Active 10/26/2011 Your Upcoming Appointments Date Time Location Reason Provider No Appointments found Attention: Contact your local Clinic if further appointment detail needed. Your Goals/Additional instructions: Source: [facility] POWERCHART Document Id: [id number] Miscellaneous - Savanna Rodriguez M.D. - 07/15/2014 4:10 PM CDT Ambulatory Discharge Medication List [address] [id number] Visit Information Name: CATHERINE CARPENTER [facility] Number: [id number] Visit Date: 07/15/2014 16:10:36 Attending Provider: SAVANNA RODRIGUEZ MD Primary Care Provider: PCP, UNASSIGNED - CATHERINE HUNT has been given the following list of [...] tablet) 1 Tablet(s), Oral, once a day *calcium-vitamin D (Caltrate 600+D Soft Chews oral tablet, chewable) 1 Tablet(s), Chewed, two times a day fexofenadine (Kathi 180 mg oral tablet) 1 Tablet(s), Oral, once a day guaifenesin (Mucinex 600 mg oral tablet, extended release) 1 Tablet(s), Oral, every 12 hours levothyroxine (Synthroid 125 mcg (0.125 mg) oral tablet) 1 Tablet(s), Oral, once a day mometasone nasal (Nasonex 50 mcg/inh nasal spray) 2 [place](s), Nostrils(Both), once a day omeprazole (omeprazole 20 mg oral enteric coated tablet) 1 Tablet(s), Oral, once a day (do not crushor chew) pseudoephedrine (Sudafed 60 mg oral tablet) 1 Tablet(s), Oral, four times a day as needed for Congestion sumatriptan (sumatriptan 50 mg oral tablet) 2 Tablet(s), Oral, once as needed for migraine headache * You have let us know that you are not taking this medication as listed. Please talk with your primary care provider or the health care provider who prescribed the medication as soon as possible. Stop Taking the Following Medications: Medication list as of 07-15-14 16:10 Attention: If you have any medications at home that are not on this list, DO NOT take them until youcontact your provider for clarification. Give a copy of your medication list to your primary care provider. Update your medication list any time medications or doses are changed and carry your medication list at all times in case of emergency. Electronically Signed By: SAVANNA RODRIGUEZ MD Signed On:15-JUL-2014 16:10:31 Additional Information: Source: [facility] POWERCHART Document Id: [id number] Miscellaneous - Conversion, Historical Provider Ser - 07/15/2014 3:48 PM CDT Adult Heel Stainer Intake/History Adult Heel Stainer Intake/History Entered On: 07/15/2014 15:51 CDT Performed On: 07/15/2014 15:48 CDT by AL PORTER Intake Chief Complaint : menopausal sx vaginal dryness, hot flashes Onset of Symptoms : painfull intercourse Ambulatory Intake Additional Information : no menses x 6 months Systolic Blood Pressure : 120 mmHg Diastolic Blood Pressure : 78 mmHg NIBP Mean : 92 mmHg BP Location : Left upper extremity Blood Pressure Cuff Size : Regular Height : 168 cm(Converted to: 5 ft 6 inch(es), 66 inch(es)) AL PORTER - 07/15/2014 15:48 CDT General Info Information Given By : Patient Languages : Slovenian Is Patient Female and 13-50 no hysterectomy : Yes Status : Confirmed negative Are you ? : No AL PORTER - 07/15/2014 15:48 CDT Subjective Pain Symptoms : No AL PORTER 07/15/2014 15:48 CDT Dependent Habits Tobacco Use/Currently Using : No Exposure to Tobacco Smoke : Other: Never Smoking Status : Never smoker AL PORTER - 07/15/2014 15:48 CDT Tobacco Use Grid Last Use : never AL PORTER 07/15/2014 15:48 CDT Caffeine Use Grid Caffeine Use : Current Type : Coffee Frequency : Daily AL PORTER - 07/15/2014 15:48 CDT [facility] Document Id: [id number] CDT!31 documented in this encounter Plan of Treatment Not on filedocumented as of this encounter Visit Diagnoses Not on filedocumented in this encounter
--- OUTSIDE RECORDS SUMMARY | 2022-10-07 07:08 | XMS_ITS | Encounter Summary ---
:1960 Author Organization [facility] Address [address] [place] [address] Care Team Providers Name Role Phone Unavailable Primary Care Provider Unavailable Encounter Details Date Type Department Care Team Description 04/29/2015 Hospital Encounter HX NO MAPPING Doug Rodriguez M.D. Social History Tobacco Use Types Packs/Day Years Used Date Smoking Tobacco: Never Assessed Sex Assigned at Date Recorded Not on file documented as of this encounter Miscellaneous Notes Miscellaneous - Conversion, Historical Provider Ser - 04/29/2015 11:59 PM CDT Coding Summary-Paper Based CODING DATE: 05/14/2015 FINAL [facility] STATUS: * Discharged to Home or Self Care PAYOR: [employer] ADMIT DX: REASON FOR VISIT DX: FINAL DX: PRINCIPAL: 616.0 Cervicitis and Endocervicitis SECONDARY: 622.8 Other Specified Noninflammatory Disorders of Cervix 621.30 Endometrial hyperplasia, not otherwise specified PROCEDURES DOCTOR NAME DATE NOTE: The code number assigned matches the documented diagnosis and / or procedure in the patient's chart. However, the narrative phrase printed from the coding software may appear abbreviated, or result in slightly different terminology. Coded By: ROSALIE MULLER Date Saved: 05/14/2015 09:53 pm Source: [facility] Document Id: [id number] documented in this encounter Plan of Treatment Not on filedocumented as of this encounter Visit Diagnoses Not on filedocumented in this encounter
--- OUTSIDE RECORDS SUMMARY | 2022-10-07 07:08 | XMS_ITS | Encounter Summary ---
:1960 Author Organization [facility] Address [address] [place] [address] Care Team Providers Name Role Phone Unavailable Primary Care Provider Unavailable Encounter Details Date Type Department Care Team Description 01/16/2015 Hospital Encounter [facility]X [facility] Leopoldo Jarvis M.D. [address] [place], [place] [address] (Wo rk) Social History Tobacco Use Types Packs/Day Years Used Date Smoking Tobacco: Never Assessed Sex Assigned at Date Recorded Not on file documented as of this encounter Last Filed Vital Signs Vital Sign Reading Time Taken Comments Blood Pressure 106/64 01/16/2015 2:59 PM TECHNICAL COMMUNICATION TEACHER Pulse 72 01/16/2015 2:59 PM TECHNICAL COMMUNICATION TEACHER Temperature - - Respiratory Rate - - Oxygen Saturation - - Inhaled Oxygen Concentration - - Weight 67.9 kg (149 lb 11.1 oz) 01/16/2015 2:59 PM TECHNICAL COMMUNICATION TEACHER Height 167 cm (5' 5.75) 01/16/2015 2:59 PM TECHNICAL COMMUNICATION TEACHER Body Mass Index 24.35 01/16/2015 2:59 PM TECHNICAL COMMUNICATION TEACHER documented in this encounter H&P Notes Micah Jarvis M.D. - 01/16/2015 2:45 PM CST [id number] CHIEF COMPLAINT/REASON FOR VISIT Annual examination. On review, this patient presents for scheduled annual examination. On review, in general she is doing well. She has had, for the last 2 weeks, she has been having menstrual bleeding, in fact is currently bleeding for today's visit so it has been probably closer to 3 weeks. 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 In the past she has been seen by Doug Rodriguez in this regard. We also discussed her plantar fascitis which had been much improved after a visit I had with her on 12/26. She would like to have another set of orthotics which we set her up for today. PAST MEDICAL/SURGICAL HISTORY Reviewed. 1. Mild intermittent asthma. 2. Hypothyroidism. 3. GERD. 4. Allergic rhinitis. 5. History of atrial fibrillation status post ablation back in 1999 with no recurrent issues. 6. Osteoarthritis of the right knee status post right arthroscopic surgery. 8. Right torn labrum. 9. Status post tubal ligation. 10. Status post bladder sling for stress incontinence. 11. History of migraines with aura. FAMILY HISTORY Mother had coronary artery disease and stroke. Her father also had coronary artery disease and congestive heart failure. Her maternal grandmother also had a stroke. No family history of malignant hyperthermia that she knows of, or colon cancer. 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 She has occasional alcohol intake. Denies tobacco use. MEDICATIONS Albuterol inhaler as needed. Kathi 180 mg by mouth daily. Aspirin. Caltrate. Cosamin. Mucinex 600 mg by mouth 2 times a day as needed. Naproxen as needed. Nasonex. Omeprazole 20 mg by mouth daily. Sudafed. Sumatriptan 100 mg by mouth at bedtime. Synthroid 125 mcg by mouth each day. Vagifem. ALLERGIES Calcium channel blockers, cats and Tenormin. SYSTEMS REVIEW Negative for ongoing generalized, eye, ENT, cardiac, respiratory, GI, skin, neurologic, mental health, lymphatic, or blood concerns. VITAL SIGNS Temperature 36.8, heart rate 72, blood pressure 106/64. Height of 167. Weight of 67.9. BMI 24.35. PHYSICAL EXAMINATION GENERAL: On review, she is thin, healthy in appearance. Very pleasant and cooperative on interview. HEENT: Her head is atraumatic. Ears are clear. Oropharynx moist. Pupils are PERRLA. NECK: Supple. LUNGS: Clear. CARDIOVASCULAR: Regular rate and rhythm. BREASTS: Reveal normal breasts on palpation and inspection. <__IM_1: Words cut off/unclear __> PELVIS: I did not do a pelvic examination today because she is actively bleeding and will plan to follow up with DIRECTOR PRODUCT DEVELOPMENT for that. EXTREMITIES: No cyanosis, clubbing or edema. IMPRESSION/REPORT/PLAN 1. Annual examination. 2. Menometrorrhagia. I advised followup with Gynecology. 3. Plantar fascitis, improved. 4. Primary hypothyroidism with recently reassuring TSH. PLAN: At this point, I think in general she is doing well. She does need to follow up with gynecology, as we discussed. For now, continue with the current medication regimen. No particular changes are made in her currentmedications. In regard to her asthma, I reviewed an asthma action plan with her. Her ACT score is 25. Micah Jarvis M.D./sommer Electronically Signed By: MICAH JARVIS MD On: 02/22/2015 09:19 PM Source: [facility] MHSDOLBEYNONRADSYS Document Id: [id number] documented in this encounter Procedure Notes Conversion, Historical Provider Ser - 01/16/2015 10:06 AM CST Asthma Control Test (12 yrs and older) Asthma Control Test (12 yrs and older) Entered On: 01/17/2015 10:07 TECHNICAL COMMUNICATION TEACHER Performed On: 01/16/2015 10:06 TECHNICAL COMMUNICATION TEACHER by JUAN LUIS GALEANO ACT Past 4 weeks asthma interfered with work, school, or home : None of the Time Past 4 weeks how often short of breath : Not at all Past 4 weeks symptoms effect sleep : Not at all Past 4 weeks how often inhaler or nebulizer used : Not at all Past 4 weeks rate your asthma control : Completely controlled ACT Score : 25 JUAN LUIS GALEANO - 01/17/2015 10:06 TECHNICAL COMMUNICATION TEACHER Source: [facility] POWERCHART Document Id: [id number] TECHNICAL COMMUNICATION TEACHER!8 documented in this encounter Nursing Notes Conversion, Historical Provider Ser - 01/16/2015 10:08 AM CST Asthma Assessment Asthma Assessment Entered On: 01/17/2015 10:17 TECHNICAL COMMUNICATION TEACHER Performed On: 01/16/2015 10:08 TECHNICAL COMMUNICATION TEACHER by FROYLANJUAN LUIS Abdelrahman History ED visits past yr for asthma w/o hospital stay : 0 Hospitalizations/Overnight Stays in Past yr for Asthma : 0 JUAN LUIS GALEANO - 01/17/2015 10:08 TECHNICAL COMMUNICATION TEACHER Asthma Precipitating Factors Grid Animals : Yes Mold : Yes Pollen : Yes Smoke : Yes Upper Respiratory Infection : Yes Weather Changes : Yes JUAN LUIS GALEANO - 01/17/2015 10:08 TECHNICAL COMMUNICATION TEACHER Asthma Control/Therapy Test Scores Asthma Action Plan Provided/Reviewed : Provided to the patient SHELLIE AVILA Anne - 01/29/2015 13:14 TECHNICAL COMMUNICATION TEACHER Adult Asthma Control Test Score : 25 Asthma Action Plan Copy : Scanned into EMR JUAN LUIS GALEANO - 01/17/2015 10:08 TECHNICAL COMMUNICATION TEACHER [facility]: [id number] TECHNICAL COMMUNICATION TEACHER!3 documented in this encounter Miscellaneous Notes Miscellaneous - Isacc Han R.N. - 01/23/2016 11:44 AM CST Med Management-Synthroid Document Contains Addenda Addendum by LASHAY CLARK LPN on 23 January 2016 13:54:49 TECHNICAL COMMUNICATION TEACHER TSH entered. Patient notified and will call back to schedule lab appt at a better convenience. Addendum by MICAH JARVIS MD on 23 January 2016 12:49:14 TECHNICAL COMMUNICATION TEACHER From: MICAH JARVIS MD To: [facility] Med Nurse; Sent: 01/23/2016 12:49:14 TECHNICAL COMMUNICATION TEACHER Subject: FW: Med Management-Synthroid needs tsh Addendum by MICAH JARVIS MD on 23 January 2016 12:49:02 TECHNICAL COMMUNICATION TEACHER Approved Order:levothyroxine (Synthroid 125 mcg (0.125 mg) oral tablet) 1 tab(s) PO Daily Qty: 30 tab(s) Refills: 0 Route To Pharmacy - [facility] Signed by MICAH JARVIS MD 01/23/2016 12:48:58 From: ISACC HAN RN ( Nurse Line) To: MICAH JARVIS MD; Sent: 01/23/2016 11:44:57 TECHNICAL COMMUNICATION TEACHER Subject: Med Management-Synthroid On hold pending signature Order:levothyroxine (Synthroid 125 mcg (0.125 mg) oral tablet) 1 tab(s) PO Daily Qty: 30 tab(s) Refills: 0 Route To Pharmacy - [facility] Caller is: ( ) Patient ( ) Mother ( ) Father ( ) Spouse ( ) Daughter ( ) Son ( [facility] ) Pharmacy ( ) Other: Provider: [facility]: Name of Medications Needing Refill:Synthroid Last Refill Date: Additional Information:Comp exam 01/16/15 Per EMR- last TSH 08/15/13 Last / Future Appointment:No pending appt Disposition: ( ) Send to Pharmacy ( ) Call to Pharmacy ( ) 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 - 04/10/2015 2:31 PM CDT Med Management - synthroid Document Contains Addenda Addendum by MICAH JARVIS MD on 10 Apr 2015 17:50:32 CDT From: MICAH JARVIS MD Sent: 04/10/2015 17:50:32 CDT Subject: RE:Med Management - synthroid Approved Order:levothyroxine (Synthroid 125 mcg (0.125 mg) oral tablet) 1 tab(s) PO Daily Qty: 90 tab(s) Refills: 0 Route To Pharmacy [facility] Signed by MICAH JARVIS MD 04/10/2015 17:50:28 [facility]: [facility]AC[facility] GAN [facility] To: MICAH JARVIS MD; Sent: 04/10/2015 14:31:41 CDT Subject: Med Management - synthroid On hold pending signature Order:levothyroxine (Synthroid 125 mcg (0.125 mg) oral tablet) 1 tab(s) PO Daily Qty: 90 tab(s) Refills: 0 Route To Pharmacy - [facility] Caller is: ( ) Patient ( ) Mother ( ) Father ( ) Spouse ( ) Daughter ( ) Son ( [facility] ) Pharmacy ( ) Other: Provider: [facility]: [place] Name of Medications Needing Refill: Synthroid Last Refill Date: Additional Information: Comp exam 01/16/15 does discuss med, however recent TSH results not noted in EMR - ok to reorder?? Last / Future Appointment: Disposition: ( ) Send to Pharmacy ( ) Call to Pharmacy ( ) Patient will pick pack worker Script ( ) Mail Rx to Patient Source: [facility] POWERCHART Document Id: [id number] Electronically signed by Conversion, [facility] Service Or Work Dispatcher [id number] at 04/25/2017 1:01 AM CDT Miscellaneous - Santana Stephens, L.P.N. - 01/16/2015 2:59 PM CST Adult Convenience Store Manager Intake/History Adult Convenience Store Manager Intake/History Entered On: 01/16/2015 15:03 TECHNICAL COMMUNICATION TEACHER Performed On: 01/16/2015 14:59 TECHNICAL COMMUNICATION TEACHER by SANTANA STEPHENS Intake Chief Complaint : physical Temperature Oral : 36.8 DegC(Converted to: 98.2 DegF) Peripheral Pulse Rate : 72 /min Heart Rhythm : Regular Systolic Blood Pressure : 106 mmHg Diastolic Blood Pressure : 64 mmHg NIBP Mean : 78 mmHg BP Location : Right upper extremity Blood Pressure Cuff Size : Regular Height : 167.0 cm(Converted to: 5 ft 6 inch(es), 66 inch(es)) Actual Weight : 67.9 kg(Converted to: 149 lb 11 oz) Weight Source : Standing scale Dosing Weight Clinic : 67.9 kg Clinic BSA : 1.77 Body Mass Index : 24.35 kg/m2 SANTANA STEPHENS - 01/16/2015 14:59 TECHNICAL COMMUNICATION TEACHER General Info Information Given By : Patient Preferred Communication Mode : Verbal Languages : [place] Is Patient Female and 13-50 no hysterectomy : No SANTANA STEPHENS 01/16/2015 14:59 TECHNICAL COMMUNICATION TEACHER Subjective Pain Symptoms : Yes SANTANA STEPHENS 01/16/2015 14:59 TECHNICAL COMMUNICATION TEACHER Pain Scale Pain Scale Verbal 0-10 : Open SANTANA STEPHENS 01/16/2015 14:59 TECHNICAL COMMUNICATION TEACHER Pain Pain Assessment Grid Pain 1 Location : Foot Laterality : Left (Comment: heel [SANTANA STPEHENS 01/16/2015 14:59 TECHNICAL COMMUNICATION TEACHER] ) SANTANA STEPHENS 01/16/2015 14:59 TECHNICAL COMMUNICATION TEACHER Dependent Habits Tobacco Use/Currently Using : No Exposure to Tobacco Smoke : Other: Never Smoking Status : Never smoker SANTANA STEPHENS 01/16/2015 14:59 TECHNICAL COMMUNICATION TEACHER Tobacco Use Grid Last Use : never SANTANA STEPHENS 01/16/2015 14:59 TECHNICAL COMMUNICATION TEACHER Caffeine Use Grid Caffeine Use : Current Type : Coffee Frequency : Daily SANTANA STEPHENS 01/16/2015 14:59 TECHNICAL COMMUNICATION TEACHER ID Screen Travel Within Last 21 Days : No SANTANA STEPHENS 01/16/2015 14:59 TECHNICAL COMMUNICATION TEACHER [facility] Document Id: [id number] TECHNICAL COMMUNICATION TEACHER!45 NICAL COMMUNICATION TEACHER Miscellaneous - Santana Stephens L.P.N. - 01/16/2015 2:59 PM CST Health Assessment Health Assessment Entered On: 01/16/2015 15:05 TECHNICAL COMMUNICATION TEACHER Performed On: 01/16/2015 14:59 TECHNICAL COMMUNICATION TEACHER by SANTANA STEPHENS Health Assessment Complete Health Assessment Complete or Modified : Annual Health Assessment Annual Health Assessment Completed : Yes SANTANA STEPHENS 01/16/2015 14:59 TECHNICAL COMMUNICATION TEACHER Nutrition Nutrition Risk Factors by History Adult : None SANTANA STEPHENS 01/16/2015 14:59 TECHNICAL COMMUNICATION TEACHER Functional Current Daily Living Assistance : None SANTANA STEPHENS 01/16/2015 14:59 TECHNICAL COMMUNICATION TEACHER Dependent Habits Tobacco Use/Currently Using : No Exposure to Tobacco Smoke : Other: Never Smoking Status : Never smoker SANTANA STEPHENS P - 01/16/2015 14:59 TECHNICAL COMMUNICATION TEACHER Tobacco Use Grid Last Use : never SANTANA STEPHENS 01/16/2015 14:59 TECHNICAL COMMUNICATION TEACHER Caffeine Use Grid Caffeine Use : Current Type : Coffee Frequency : Daily SANTANA STEPHENS P - 01/16/2015 14:59 TECHNICAL COMMUNICATION TEACHER Psychosocial Domestic Abuse Concerns : None Latter-Day Preference : No qualifying data available. SANTANA STEPHENS P 01/16/2015 14:59 TECHNICAL COMMUNICATION TEACHER Advance Directive Advanced Directives : No Advance Directive Additional Information : No SANTANA STEPHENS - 01/16/2015 14:59 TECHNICAL COMMUNICATION TEACHER Educ Needs Learning Style Preference Adult Grid Patient : Video/Educational TV, Demonstration Family : None SANTANA STEPHENS 01/16/2015 14:59 TECHNICAL COMMUNICATION TEACHER Source: [facility] [employer] [facility] Document Id: [id number] TECHNICAL COMMUNICATION TEACHER!30 NICAL COMMUNICATION TEACHER documented in this encounter Plan of Treatment Not on filedocumented as of this encounter Visit Diagnoses Not on filedocumented in this encounter
--- OUTSIDE RECORDS SUMMARY | 2022-10-07 07:08 | XMS_ITS | Encounter Summary ---
:1960 Author Organization [facility] Address [address] [place] [address] Care Team Providers Name Role Phone Unavailable Primary Care Provider Unavailable Encounter Details Date Type Department Care Team Description 04/29/2015 Hospital Encounter HX [facility] OBGYSavanna Chaves M.D. Social History Tobacco Use Types Packs/Day Years Used Date Smoking Tobacco: Never Assessed Sex Assigned at Date Recorded Not on file documented as of this encounter Last Filed Vital Signs Vital Sign Reading Time Taken Comments Blood Pressure 110/68 04/29/2015 1:49 PM CDT Pulse - - Temperature - - Respiratory Rate - - Oxygen Saturation - - Inhaled Oxygen Concentration - - Weight - - Height 167 cm (5' 5.75) 04/29/2015 1:49 PM CDT Body Mass Index - - documented in this encounter Progress Notes Savanna Galeas M.D. - 04/29/2015 1:41 PM CDT [id number] CHIEF COMPLAINT/REASON FOR VISIT Followup on endometrial hyperplasia. HISTORY OF PRESENT ILLNESS Ibis is a 54-year-old postmenopausal female, who was started on vaginal estrogens because of complaints of vaginal dryness and dyspareunia. She presented on the 21 of January with a complaint of abnormal uterine bleeding, and an endometrial biopsy was performed that showed simple hyperplasia with glandular and stromal breakdown. The patient was treated with 3 months of progesterone therapy 10 days each month, which she completed in March and she now returns for an endometrial biopsy. The patientstated she had minimal bleeding after each course of progesterone. VITAL SIGNS Blood pressure 110/68. PHYSICAL EXAMINATION GENERAL: Showed a well-nourished, well-developed female. PROCEDURE During this procedure the universal protocol was utilized. The patient's identity was confirmed by no less than 2 patient identifiers, correct procedure was verified, correct site was verified and marked as applicable and a final pause was completed. With a rod mill operator present, a sterile speculum was placed in vagina exposing the cervix. The cervix was then sprayed with Hurricaine, prepped with Betadine and prior to doing this the patient was asked if she was allergic which she declined as she had 3 months ago. The Pipelle was attempted to be inserted. It could not be inserted. A single-tooth tenaculum was applied to the anterior lip of the cervix.Using the cervical os binder the cervix was dilated and the Pipelle then advance to 7.5 cm, and a specimen obtained by suction. The patient tolerated the procedure well. A small amount of tissue was obtained and submitted for pathologic evaluation. I reassured the patient that I believe this will showthat the hyperplasia has resolved. I did advise her that we should have the results next week that she should hear from me with those results, and that if she does not hear in 2 weeks to give me a call. She informed to me that she would be traveling and so therefore I can leave a message if the results are expected and I explained to her what an expected result means. The patient is comfortable with this. If she needs further therapy she will return for this. Savanna Galeas M.D./sommer Electronically Signed By: SAVANNA GALEAS MD On: 04/30/2015 11:00 AM Source: [facility] MHSDOLBEYNONRADSYS Document Id: [id number] documented in this encounter Miscellaneous Notes Miscellaneous - Savanna Galeas M.D. - 04/29/2015 3:56 PM CDT Ambulatory Patient Summary [address] [id number] Visit Information Name: CATHERINE BROOKS [facility] Number: [id number] Current Date: 04/29/2015 15:56:35 Physicians Attending Provider: SAVANNA GALEAS MD Primary Care Provider: PCP, UNASSIGNED - OW CATHERINE BROOKS has been given the following list of [...] tablet) 1 Tablet(s), Oral, once a day medroxyPROGESTERone (Provera 10 mg oral tablet) 1 Tablet(s), Oral, once a day I tab PO Daily for 10 days starting 34 4 and 54 mometasone nasal (Nasonex 50 mcg/inh nasal spray) 2 Henning(s), Nostrils(Both), once a day naproxen (naproxen) 200 [...] the Following Medications: Medication list as of 04-29-15 15:56 Attention: If you have any medications at [...] Electronically Signed By: SAVANNA GALEAS MD Signed On:29-APR-2015 15:56:25 Your Allergies & Intolerances Substance Reaction Symptoms [...] appointment detail needed. Your Goals/Additional instructions: Source: [facility] POWERCHART Document Id: [id number] Miscellaneous - Savanna Galeas M.D. - 04/29/2015 3:56 PM CDT Ambulatory Discharge Medication List [facility] [address] [facility] [place] [id number] Visit Information Name: CATHERINE BROOKS [facility] Number: [id number] Visit Date: 04/29/2015 15:56:33 Attending Provider: SAVANNA GALEAS MD Primary Care Provider: PCP, UNASSIGNED - OW CATHERINE BROOKS has been given the following list of [...] tablet) 1 Tablet(s), Oral, once a day medroxyPROGESTERone (Provera 10 mg oral tablet) 1 Tablet(s), Oral, once a day I tab PO Daily for 10 days starting 01/294 and 5 mometasone nasal (Nasonex 50 mcg/inh nasal spray) 2 Henning(s), Nostrils(Both), once a day naproxen (naproxen) 200 [...] the Following Medications: Medication list as of 04-29-15 15:56 Attention: If you have any medications at [...] Electronically Signed By: SAVANNA GALEAS MD Signed On:29-APR-2015 15:56:25 Additional Information: Source: [facility] POWERCHART Document Id: [id number] Miscellaneous - Antolin Reich - 04/29/2015 1:49 PM CDT Adult Interactive Project Manager Intake/History Adult Interactive Project Manager Intake/History Entered On: 04/29/2015 13:53 CDT Performed On: 04/29/2015 13:49 CDT by ANTOLIN REICH Intake Chief Complaint : endo biopsy Systolic Blood Pressure : 110 mmHg Diastolic Blood Pressure : 68 mmHg NIBP Mean : 82 mmHg BP Location : Left upper extremity Blood Pressure Cuff Size : Large Height : 167 cm(Converted to: 5 ft 6 inch(es), 66 inch(es)) ANTOLIN REICH - 04/29/2015 13:49 CDT General Info Information Given By : Patient Preferred Communication Mode : Verbal Languages : Austrian Is Patient Female and 13-50 no hysterectomy : ANTOLIN Gama - 04/29/2015 13:49 CDT Subjective Pain Symptoms : ANTOLIN Gama - 04/29/2015 13:49 CDT Dependent Habits Tobacco Use/Currently Using : No Exposure to Tobacco Smoke : Other: Never Smoking Status : Never smoker ANTOLIN REICH - 04/29/2015 13:49 CDT Caffeine Use Grid Caffeine Use : Current Type : Coffee Frequency : Daily ANTOLIN REICH - 04/29/2015 13:49 CDT ID Screen Travel Within Last 21 Days : No Contact with someone with Ebola : No ANTOLIN REICH - 04/29/2015 13:49 CDT Source: [facility] [place] Document Id: [id number] CDT!28 documented in this encounter Plan of Treatment Not on filedocumented as of this encounter Procedures Procedure Name Priority Date/Time Associated Diagnosis Comme nts SURGICAL PATHOLOGY Routine 04/29/2015 11:32 AM Re sults for this CDT procedure are i n the results section. documented in this encounter Results Pathology Surgical Pathology (04/29/2015 11:32 AM CDT) Specimen (Source) Anatomical Collection Method Collection Time Re ceived Time Location / / Volume Laterality 04/29/2015 11:32 AM CDT Narrative [facility] - 05/01/2015 10:06 AM CDT [facility] in [address] [place] [id number] Patient Name: CATHERINE BROOKS Patient ID #: [id number] Collected: 04/29/2015 Address: City/State/Zip: [address] [place] [address] ??[phone] Received: Reported: 04/30/2015 05/01/2015 Soc. Sec. #: ?/Age/Sex (Age: 54) ??F Physician(s): ML GALEAS MD Copy To: ? [facility] ??[id number] [address] [facility], ??[place] ??[address] SURGICAL PATHOLOGY REPORT FINAL DIAGNOSIS: ENDOMETRIUM, BIOPSY: --- SUPERFICIAL FRAGMENTS OF PROLIFERATI VE TYPE ENDOMETRIUM AND ACCOMPANYING MILD ACUTE AND CHRONIC CERV ICITIS WITH SQUAMOUS METAPLASIA. pap/05/01/2015 KEESHA LIN M.D. Report electronically released. Interpretation by KEESHA LIN M.D. SPECIMEN(S) RECEIVED: ENDOMETRIAL BIOPSY CLINICAL HISTORY: ENDOMETRIAL HYPERPLASIA GROSS DESCRIPTION: Submitted as endometrial biopsy are ren tissue fragments filtering to 0.5 cm. ESB, one cassette. ([id number]) [facility]/04/30/2015 MICROSCOPIC DESCRIPTION: Reviewed by Keesha Lin M.D.; Patholo [facility]/05/01/2015 Savanna Galeas M.D. LAB SURG PATH ORDERABLES Performing Organization Address City/State/ZIP Code Phon e Number [facility] documented in this encounter Visit Diagnoses Not on filedocumented in this encounter
--- OUTSIDE RECORDS SUMMARY | 2022-10-07 07:08 | XMS_ITS | Encounter Summary ---
:1960 Author Organization [facility] Address [address] [place] [address] Care Team Providers Name Role Phone Unavailable Primary Care Provider Unavailable Encounter Details Date Type Department Care Team Description 10/22/2013 Hospital Encounter HX [facility] Norma Christensen M.D. INTERNMED [address] [facility], [facility] [address] [place], [place] [address] (Wo rk) Social History Tobacco Use Types Packs/Day Years Used Date Smoking Tobacco: Never Assessed Sex Assigned at Date Recorded Not on file documented as of this encounter Last Filed Vital Signs Vital Sign Reading Time Taken Comments Blood Pressure 104/70 10/22/2013 3:37 PM INVESTIGATOR FRAUD Pulse 80 10/22/2013 3:37 PM INVESTIGATOR FRAUD Temperature - - Respiratory Rate 16 10/22/2013 3:37 PM INVESTIGATOR FRAUD Oxygen Saturation - - Inhaled Oxygen Concentration - - Weight 63.4 kg (139 lb 12.4 oz) 10/22/2013 3:37 PM INVESTIGATOR FRAUD Height - - Body Mass Index 22.46 08/22/2013 7:58 AM CDT documented in this encounter H&P Notes Norma Christensen M.D. - 10/22/2013 3:03 PM CST [id number] CHIEF COMPLAINT/REASON FOR VISIT This is a preoperative examination for a right hip arthroscopy and labral repair with Dr. Shani Reich at [facility] on October 30, 2013. HISTORY OF PRESENT ILLNESS Mrs. Carpenter is a 53-year-old female who comes in today for preoperative examination. She has no complaints other than right hip pain. She states that she has been in her usual state of health and hasnot had any issues. She recently just completed a colonoscopy and did well with the anesthesia. Her METS are estimated to be greater than 4 and she has not had any issues with anesthesia in the past except having some nausea after completing procedure. She does not have a history of coronary disease, diabetes mellitus, heart failure, chronic kidney disease or stroke. MEDICATIONS Albuterol 2 puffs 4 times a day as needed for shortness of breath. Calcium plus vitamin D 1 tablet twice a day. Kathi 180 mg daily. Levothyroxine 125 mcg daily. Nasonex 50 mcg 2 sprays to both nostrils daily. Omeprazole 20 mg daily. Sumatriptan 100 mg once as needed for migraine headache. Aspirin 81 mg daily, she has not been taking this for the last month. Mucinex as needed. Sudafed as needed for congestion. ALLERGIES Environmental. Food. Calcium channel francisco j. Cats. Tenormin. SYSTEMS REVIEW Denies fevers, chills, chest pain, shortness of breath, nausea, vomiting, diarrhea, dysuria, leg swelling, orthopnea, PND. Positive for right hip pain. PAST MEDICAL/SURGICAL HISTORY 1. Mild intermittent asthma. 2. Hypothyroidism. 3. [...] colon cancer. 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 She has occasional alcohol intake. Denies tobacco use. VITAL SIGNS TEMP: 36.3 degrees Celsius. HEART RATE: 80. RESPIRATORY RATE: 16. BLOOD PRESSURE: 104/70. WEIGHT: 63.4 kg. PHYSICAL EXAMINATION GENERAL: Resting comfortably, in no apparent distress. EYES: Pupils equal, round and reactive to light. Extraocular muscles intact. No scleral icterus, conjunctival injection. THROAT: No pharyngeal erythema or exudate noted. NECK: Supple. No cervical lymphadenopathy palpated. HEART: Regular rate and rhythm. No murmurs, rubs or gallops. LUNGS: Clear to auscultation bilaterally. No wheezes, rales or rhonchi. ABDOMEN: Soft, nontender, nondistended. Normal bowel sounds. No suprapubic tenderness to palpation. EXTREMITIES: No lower extremity edema noted. +2 pedal pulses bilaterally. NEURO: Alert and orient x3. Antalgic gait noted. DIAGNOSTIC: EKG 08/15/2013: Normal sinus rhythm at 93 beats per minute. Normal intervals. No acute ST changes noted. Urinalysis: Negative for infection. IMPRESSION/REPORT/PLAN Preoperative examination. I have been asked to evaluate Mrs. Carpenter for surgery. Dr. Shani Reich is planning to do a right hip arthroscopy and labrum repair at [facility] on October 30, 2013. Her RCRI is estimated to be 0. She is low risk for the proposed procedure and is cleared for any level of anesthesia up to and including general anesthesia. She was instructed to not restart aspirin therapy prior to her surgery and also told to hold all medications except Synthroid themorning of her procedure. Please fax a copy of this to [phone]. Norma Christensen M.D./carl cc: Electronically Signed By: NORMA CHRISTENSEN MD On: 10/24/2013 07:55 AM Source: [facility] MHSDOLBEYNONRADSYS Document Id: [id number] STIGATOR FRAUD documented in this encounter Miscellaneous Notes Miscellaneous - Norma Christensen M.D. - 10/22/2013 4:09 PM CST Ambulatory Patient Summary [facility] [address] [place] [id number] Visit Information Name: CATHERINE CARPENTER [facility] Number: [id number] Current Date: 10/22/2013 16:09:48 Physicians Attending Provider: NORMA CHRISTENSEN MD Primary Care Provider: NORMA CHRISTENSEN MD CATHERINE CARPENTER FARRAH has been given the following list [...] chewable) 1 Tablet(s), Chewed, two times aday fexofenadine (Kathi 180 mg oral tablet) 1 Tablet(s), Oral, once a day guaifenesin (Mucinex 600 mg oral tablet, extended release) 1 Tablet(s), Oral, every 12 hours levothyroxine (Synthroid 125 mcg (0.125 mg) oral tablet) 1 Tablet(s), Oral, once a day mometasone nasal (Nasonex 50 mcg/inh nasal spray) 2 [place](s), Nostrils(Both), once a day omeprazole (omeprazole 20 mg oral enteric coated tablet) 1 Tablet(s), Oral, once a day (do not crushor chew) pseudoephedrine (Sudafed 60 mg oral tablet) 1 Tablet(s), Oral, four times a day as needed for Congestion sumatriptan (sumatriptan 50 mg oral tablet) 2 Tablet(s), Oral, once as needed for migraine headache Stop Taking the Following Medications: Medication list as of 10-22-13 16:09 Attention: If you have any medications at home that are not on this list, DO NOT take them until youcontact your provider for clarification. Give a copy of your medication list to your primary care provider. Update your medication list any time medications or doses are changed and carry your medication list at all times in case of emergency. Your Allergies & Intolerances Substance Reaction Symptoms [...] appointment detail needed. Your Goals/Additional instructions: Source: [facility] POWERCHART Document Id: [id number] STIGATOR FRAUD Miscellaneous - Norma Christensen M.D. - 10/22/2013 4:09 PM CST Ambulatory Depart Summary [facility] [address] [place] [id number] Visit Information Name: CATHERINE CARPENTER [facility] Number: [id number] Visit Date: 10/22/2013 16:09:42 Attending Provider: NORMA CHRISTENSEN MD Primary Care Provider: NORMA CHRISTENSEN MD CATHERINE CARPENTER has been given the following list of [...] chewable) 1 Tablet(s), Chewed, two times aday fexofenadine (Kathi 180 mg oral tablet) 1 Tablet(s), Oral, once a day guaifenesin (Mucinex 600 mg oral tablet, extended release) 1 Tablet(s), Oral, every 12 hours levothyroxine (Synthroid 125 mcg (0.125 mg) oral tablet) 1 Tablet(s), Oral, once a day mometasone nasal (Nasonex 50 mcg/inh nasal spray) 2 [place](s), Nostrils(Both), once a day omeprazole (omeprazole 20 mg oral enteric coated tablet) 1 Tablet(s), Oral, once a day (do not crushor chew) pseudoephedrine (Sudafed 60 mg oral tablet) 1 Tablet(s), Oral, four times a day as needed for Congestion sumatriptan (sumatriptan 50 mg oral tablet) 2 Tablet(s), Oral, once as needed for migraine headache Stop Taking the Following Medications: Medication list as of 10-22-13 16:09 Attention: If you have any medications at home that are not on this list, DO NOT take them until youcontact your provider for clarification. Give a copy of your medication list to your primary care provider. Update your medication list any time medications or doses are changed and carry your medication list at all times in case of emergency. 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 shani Reich at [facility] on 10-30. Fax to [phone] or dictate to [phone] Temperature Oral : 36.3 DegC(Converted to: 97.3 DegF) Peripheral Pulse Rate : 80 /min Respiratory Rate : 16 /min Systolic Blood Pressure : 104 mmHg Diastolic Blood Pressure : 70 mmHg NIBP Mean : 81 mmHg BP Location : Right upper extremity Blood Pressure Cuff Size : Regular Actual Weight : 63.4 kg(Converted to: 139 lb 12 oz) Dosing Weight Clinic : 63.4 kg ZULEYMA MARC 10/22/2013 15:37 INVESTIGATOR FRAUD General Info Information Given By : Patient Preferred Communication Mode : Verbal Languages : Uzbek ZULEYMA MARC 10/22/2013 15:37 INVESTIGATOR FRAUD Subjective Pain Symptoms : Yes ZULEYMA MARC 10/22/2013 15:37 INVESTIGATOR FRAUD Pain Pain Assessment Grid Pain 1 Location : Hip Laterality : Right ZULEYMA MARC 10/22/2013 15:37 INVESTIGATOR FRAUD Dependent Habits Tobacco Use/Currently Using : No Exposure to Tobacco Smoke : Other: Never Smoking Status : Never smoker Alcohol Use : Yes ZULEYMA MARC 10/22/2013 15:37 INVESTIGATOR FRAUD Caffeine Use Grid Caffeine Use : Current Type : Coffee Frequency : Daily ZULEYMA MARC 10/22/2013 15:37 INVESTIGATOR FRAUD [email or web address] Document Id: [id number] INVESTIGATOR FRAUD!34 documented in this encounter Plan of Treatment Not on filedocumented as of this encounter Visit Diagnoses Not on filedocumented in this encounter
--- OUTSIDE RECORDS SUMMARY | 2022-10-07 07:08 | XMS_ITS | Encounter Summary ---
:1960 Author Organization [facility] Address [address] [place] [address] Care Team Providers Name Role Phone Unavailable Primary Care Provider Unavailable Encounter Details Date Type Department Care Team Description 10/16/2013 Hospital Encounter HX [facility]ILY[facility] Elaine Lua M.D. Social History Tobacco Use Types Packs/Day Years Used Date Smoking Tobacco: Never Assessed Sex Assigned at Date Recorded Not on file documented as of this encounter Last Filed Vital Signs Vital Sign Reading Time Taken Comments Blood Pressure 102/62 10/16/2013 10:03 AM WATCHGUARD Pulse 76 10/16/2013 10:03 AM WATCHGUARD Temperature - - Respiratory Rate - - Oxygen Saturation - - Inhaled Oxygen Concentration - - Weight 64 kg (141 lb 1.5 oz) 10/16/2013 10:03 AM WATCHGUARD Height - - Body Mass Index 22.68 08/22/2013 7:58 AM CDT documented in this encounter Progress Notes Miky Lua M.D. - 10/16/2013 9:45 AM CST [id number] CHIEF COMPLAINT/REASON FOR VISIT Ear discomfort. HISTORY OF PRESENT ILLNESS Catherine presents with onset of irritation about the right ear that she would like have checked as sheis facing right hip surgery relatively soon and best wishes are offered this regard. Interest is expressed in seeking to identify any evidence of infection. No other acute symptomatic concerns are voiced. SYSTEMS REVIEW No other current acute HEENT or cardiorespiratory positive. MEDICATIONS As per EMR. VITAL SIGNS As charted. PHYSICAL EXAMINATION Healthy-appearing female. HEENT: TMs and canals completely clear evidence of infection. I see 1 tiny hair in the right external auditory canal and the patient declined removal of this. There is no pain on retraction of the pinna. Slight tenderness is evident at the right TMJ joint but overall the patient tolerates jaw range ofmotion quite well. Nose is free of congestion. Nasopharynx is not red. NECK: Without acute adenopathy. CARDIOVASCULAR: Regular. LUNGS: Clear. IMPRESSION/REPORT/PLAN Right ear region discomfort as described, etiology uncertain with quite benign exam. Possible low grade TMJ. DIAGNOSTIC: None further at this time. THERAPEUTIC: Conservative with local heat to the area as well as nonsteroidal. Seek to avoid chewingor biting on firm foods for now, i.e. a softer diet. PATIENT ED: Reviewed the above. Followup as needed lack of steady clinical quieting. Miky Lua M.D./elisha Electronically Signed By: MIKY LUA MD On: 10/17/2013 03:29 PM Source: [facility] MHSDOLBEYNONRADSYS Document Id: [id number] HGUARD documented in this encounter Miscellaneous Notes Miscellaneous - Miky Lua M.D. - 10/16/2013 10:20 AM CST Ambulatory Patient Summary [facility] [address] [place] [id number] Visit Information Name: CATHERINE BROOKS [facility] Number: [id number] Current Date: 10/16/2013 10:20:14 Physicians Attending Provider: MIKY LUA MD Primary Care Provider: NORMA ZUNIGA MD CATHERINE BROOKS has been given the following [...] you have problems taking your medications. Medication/Strength Dose Route Frequency Indications/Special Instructions/Comments/Notes calcium-vitamin D (Caltrate 600+D Soft Chews oral tablet, chewable) 1 tab(s) Chewed two times a day albuterol (albuterol 90 mcg/inh inhalation aerosol with adapter) 2 puff(s) Inhalation four times a day as needed for Shortness of breath / Wheezing mometasone nasal (Nasonex 50 mcg/inh nasal spray) 2 spray(s) Nostrils(Both) once a day fexofenadine (Kathi 180 mg oral tablet) 180 mg Oral once a day omeprazole (omeprazole 20 mg oral enteric coated tablet) 20 mg Oral once a day (do not crush or chew) levothyroxine (Synthroid 125 mcg (0.125 mg) oral tablet) 125 mcg Oral once a day sumatriptan (sumatriptan 50 mg oral tablet) 100 mg Oral once as needed for migraine headache pseudoephedrine (Sudafed 60 mg oral tablet) 60 mg Oral four times a day as needed for Congestion guaifenesin (Mucinex 600 mg oral tablet, extended release) 600 mg Oral every 12 hours aspirin (aspirin 81 mg oral tablet) 1 tab(s) Oral once a day Attention: If you have any medications at home that are not on this list, DO NOT take them until youcontact your provider for clarification. Your Allergies & Intolerances Substance Reaction Symptoms [...] Upcoming Appointments Date Time Location Reason Provider 10/22/2013 15:10 [facility] preop for hip surgery 10/30/[address] Reich in the [facility]-will bring forms Norma Zuniga MD Attention: Contact your local Clinic if further appointment detail needed. Your Goals/Additional instructions: Source: [facility] POWERCHART Document Id: [id number] HGUARD Miscellaneous - Miky Lua M.D. - 10/16/2013 10:20 AM CST Ambulatory Depart Summary [facility] [address] [place] [address] Visit Information Name: CATHERINE BROOKS [facility] Number: [id number] Visit Date: 10/16/2013 10:20:13 Attending Provider: MIKY LUA MD Primary Care Provider: NORMA ZUNIGA MD CATHERINE BROOKS has been given the following list of medications: Your Medications It is important to take your medications as directed. Use a pill box or chart to help remind you to take your medications. Please let your doctor or nurse know if you have problems taking your medications. Medication/Strength Dose Route Frequency Indications/Special Instructions/Comments/Notes calcium-vitamin D (Caltrate 600+D Soft Chews oral tablet, chewable) 1 tab(s) Chewed two times a day albuterol (albuterol 90 mcg/inh inhalation aerosol with adapter) 2 puff(s) Inhalation four times a day as needed for Shortness of breath / Wheezing mometasone nasal (Nasonex 50 mcg/inh nasal spray) 2 spray(s) Nostrils(Both) once a day fexofenadine (Kathi 180 mg oral tablet) 180 mg Oral once a day omeprazole (omeprazole 20 mg oral enteric coated tablet) 20 mg Oral once a day (do not crush or chew) levothyroxine (Synthroid 125 mcg (0.125 mg) oral tablet) 125 mcg Oral once a day sumatriptan (sumatriptan 50 mg oral tablet) 100 mg Oral once as needed for migraine headache pseudoephedrine (Sudafed 60 mg oral tablet) 60 mg Oral four times a day as needed for Congestion guaifenesin (Mucinex 600 mg oral tablet, extended release) 600 mg Oral every 12 hours aspirin (aspirin 81 mg oral tablet) 1 tab(s) Oral once a day Attention: If you have any medications at home that are not on this list, DO NOT take them until youcontact your provider for clarification. Additional Information: Source: 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 Intake/History Entered On: 10/16/2013 10:06 WATCHGUARD Performed On: 10/16/2013 10:03 WATCHGUARD by MONICA MOREL Intake Chief Complaint : Rightside ear pain Temperature Oral : 36.7 DegC(Converted to: 98.1 DegF) Peripheral Pulse Rate : 76 /min Heart Rhythm : Regular Systolic Blood Pressure : 102 mmHg Diastolic Blood Pressure : 62 mmHg NIBP Mean : 75 mmHg BP Location : Right upper extremity Blood Pressure Cuff Size : Regular Actual Weight : 64 kg(Converted to: 141 lb 2 oz) Weight Source : Standing scale Dosing Weight Clinic : 64 kg MONICA MOREL - 10/16/2013 10:03 WATCHGUARD General Info Information Given By : Patient Languages : Omani MONICA MOREL - 10/16/2013 10:03 WATCHGUARD Subjective Pain Symptoms : Yes MONICA MOREL - 10/16/2013 10:03 WATCHGUARD Pain Pain Assessment Grid Pain 1 Location : Ear MONICA MOREL - 10/16/2013 10:03 WATCHGUARD Dependent Habits Tobacco Use/Currently Using : No Exposure to Tobacco Smoke : Other: Never Smoking Status : Never smoker MONICA MOREL - 10/16/2013 10:03 WATCHGUARD Caffeine Use Grid Caffeine Use : Current Type : Coffee Frequency : Daily MONICA MOREL - 10/16/2013 10:03 WATCHGUARD Source: [facility] POWERCHART Document Id: [id number] WATCHGUARD!32 HGUARD documented in this encounter Plan of Treatment Not on filedocumented as of this encounter Visit Diagnoses Not on filedocumented in this encounter
--- OUTSIDE RECORDS SUMMARY | 2022-10-07 07:08 | XMS_ITS | Clinical Summary ---
:1960 Author Organization [facility] Address [address] [place] [address] Care Team Providers Name Role Phone Unavailable Primary Care Provider Unavailable Source Comments Patient records contain information from all sites at [facility]. For routine questions regarding patient records, call [phone] during business hours, M-F 8:00 AM - 5:00 PM Central Time. 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 Overview: Asthma, Instrinsic, unspecified Immunizations Name Administration Dates Next Due H1N1 Inj 12/10/2009 Influenza (IM) Preservative Free 09/03/2009, 10/01/2008 Influenza Split 09/26/2006 Influenza, Seasonal, Injectable 09/19/2007 Influenza, Unspecified 09/11/2013, 08/12/2012, 08/18/2011, 09/07/2010 PPSV23 01/16/2015, 02/13/2004 Td (Adult), adsorbed 10/26/2011 Td Preservative Free (TENIVAC, 02/13/2004 DECAVAC) influenza high dose (65 years or 09/17/2016 older) (PF) Social History Tobacco Use Types Packs/Day Years Used Date Smoking Tobacco: Never Sex Assigned at Date Recorded Not on file Last Filed Vital Signs Vital Sign Reading Time Taken Comments Blood Pressure 109/55 09/29/2016 4:15 PM NIBP - Value from CDT [employer]. Pulse 92 09/29/2016 4:15 PM Value from [employer]. CDT Temperature - - Respiratory Rate 20 09/29/2016 4:15 PM [facility] 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
--- OUTSIDE RECORDS SUMMARY | 2022-10-07 07:08 | XMS_ITS | Encounter Summary ---
:1960 Author Organization [facility] Address [address] [place] [address] Care Team Providers Name Role Phone Unavailable Primary Care Provider Unavailable Encounter Details Date Type Department Care Team Description 01/06/2015 Hospital Encounter HX [facility] Leopoldo Jarvis M.D. [address], [place] [address] (Wo rk) Social History [...] - - Height 168 cm (5' 6.14) 01/06/2015 8:17 AM MAIL COURIER Body Mass Index - - documented in this encounter Miscellaneous Notes Miscellaneous - Micah Jarvis M.D. - 01/09/2015 8:52 AM CST Results Notification Document Contains Addenda Addendum by JAY STEPHENS on 09 January 2015 15:27:08 MAIL COURIER pt notified From: MICAH JARVIS MD To: ZACHARY Jarvis Nurse; Sent: 01/09/2015 08:52:41 MAIL COURIER ! Show up: 01/09/2015 08:52:41 MAIL COURIER Subject: Results Notification Actions: Notify patient of results Reminder Comments: Labs are reassuring Results: Date Result Name Ind Value Ref Range 01/06/2015 08:27 Glucose Fasting 88 mg/dL (70 - 99) 01/06/2015 08:27 Cholesterol 191 mg/dL ( - <=200) 01/06/2015 08:27 Trig 88 mg/dL ( - <=150) 01/06/2015 08:27 HDL 58 mg/dL (40 - 60) 01/06/2015 08:27 LDL Calculated (H) 115 mg/dL (0 - 100) 01/06/2015 08:27 Chol/HDL Ratio 3.29 (2.20 - 4.40) 01/06/2015 08:27 LDL/HDL 2 Source: [facility] AssisteraCHART Document Id: [id number] Electronically signed by Conversion, [facility] Wreath Machine Tender [id number] at 04/24/2017 7:59 PM CDT documented in this encounter Plan of Treatment Not on filedocumented as of this encounter Procedures Procedure Name Priority Date/Time Associated Diagnosis Comme nts LIPID PANEL, S Routine 01/06/2015 8:27 AM Results for this MAIL COURIER procedure are i n the results section. GLUCOSE, FASTING, Routine 01/06/2015 8:27 AM Resu lts for this S/P MAIL COURIER procedure are i n the results section. documented in this encounter Results Glucose, Fasting (01/06/2015 8:27 AM MAIL COURIER) P athologist Signature Glucose, 88 70 - 99 POWERCHART Fasting, S MGDL Specimen (Source) Anatomical Collection Method Collection Time Re ceived Time Location / / Volume Laterality Blood 01/06/2015 8:27 AM MAIL COURIER Micah Jarvis M.D. LAB BLOOD NON ADD-ON Performing Organization Address City/State/ZIP Code Phon e Number POWERCHART (ABNORMAL) Lipid Panel (01/06/2015 8:27 AM MAIL COURIER) Patholo gist Method Time Signature Calculated LDL 115 (H) 0 - 100 POWERCHART MGDL Total 3.29 2.20 - POWERCHART Cholesterol/HDL 4.40 Ratio Cholesterol, Total 191 <=200 POWERCHART MGDL HX HDL 58 40 - 60 POWERCHART MGDL Triglycerides 88 <=150 POWERCHART MGDL HXLDL/HDL 2 POWERCHART Specimen (Source) Anatomical Collection Method Collection Time Re ceived Time Location / / Volume Laterality Blood 01/06/2015 8:27 AM MAIL COURIER Micah Jarvis M.D. LAB BLOOD ADD-ON Performing Organization Address City/State/ZIP Code Phon e Number POWERCHART documented in this encounter Visit Diagnoses Not on filedocumented in this encounter
--- OUTSIDE RECORDS SUMMARY | 2022-10-07 07:09 | XMS_ITS | Encounter Summary ---
:1960 Author Organization [facility] Address [address] [place] [address] Care Team Providers Name Role Phone Unavailable Primary Care Provider Unavailable Encounter Details Date Type Department Care Team Description 05/05/2012 Hospital Encounter HX [facility] Misael Shaw M.D. [address] [place] [address], [address] [place], [place] [phone] (Wo rk) Social History Tobacco Use Types Packs/Day Years Used Date Smoking Tobacco: Never Assessed Sex Assigned at Date Recorded Not on file documented as of this encounter Last Filed Vital Signs Vital Sign Reading Time Taken Comments Blood Pressure 106/68 05/05/2012 9:15 AM CDT Pulse - - Temperature - - Respiratory Rate - - Oxygen Saturation - - Inhaled Oxygen Concentration - - Weight 67 kg (147 lb 11.3 oz) 05/05/2012 9:15 AM CDT Height 170.5 cm (5' 7.13) 05/05/2012 9:15 AM CDT Body Mass Index 23.05 05/05/2012 9:15 AM CDT documented in this encounter Nursing Notes Isacc Camp, L.P.N. - 05/05/2012 9:13 AM CDT Nurse Only Documentation Nurse Only Documentation Entered On: 05/05/2012 9:15 CDT Performed On: 05/05/2012 9:13 CDT by ISACC CAMP Nurse Only Documentation Nurse Only Visit Documentation : Saw Dr Tucker in clinic in March. Patient now arrives in clinic stating medrol dose pack helped trochanteric bursitis pain 50- 75% but now pain is escalating. Wanting tosee if she can get an injection and possible PT. Placed on Dr Hardy schedule for evaluation and treatment of right hip trochanteric bursitis. ISACC CAMP - 05/05/2012 9:13 CDT Allergy Allergies (Active) calcium channel blockers Estimated Onset Date: Unspecified ; Reactions: lips burn ; Created By: BETH LUNA; Reaction Status: Active ; Category: Drug ; Substance: calcium channel blockers ; Type:Allergy ; Updated By: BETH LUNA; Reviewed Date: 04/25/2012 11:11 CDT Cats Estimated Onset Date: Unspecified ; Created By: BETH LUNA; Reaction Status: Active ; Category: Environment ; Substance: Cats ; Type: Allergy ; Updated By: BETH LUNA; Reviewed Date:04/25/2012 11:11 CDT Other Environmental Estimated Onset Date: Unspecified ; Reactions: Itchy watery eyes ; Comment: seasonal, hayfever ; Created By: DENISE ZAPIEN; Reaction Status: Active ; Category: Drug ; Substance: Other Environmental ; Type: Allergy ; Severity: Moderate ; Updated By: DENISE ZAPIEN; Reviewed Date: 04/25/2012 11:13 CDT Other food Estimated Onset Date: Unspecified ; Reactions: Itching ; Comment: kiwi ; Created By: DENISE ZAPIEN; Reaction Status: Active ; Category: Drug ; Substance: Other food ; Type: Allergy ; Severity: Mild ; Updated By: DENISE ZAPIEN; Reviewed Date: 04/25/2012 11:12 CDT Tenormin Estimated Onset Date: Unspecified ; Reactions: insomnia, depression, breathing problems ; Created By: ROVERTO GONZALEZ; Reaction Status: Active ; Category: Drug ; Substance: Tenormin ; Type: Allergy ; Updated By: ROVERTO GONZALEZ; Reviewed Date: 04/25/2012 11:11 CDT 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 Intake/History Entered On: 05/05/2012 9:19 CDT Performed On: 05/05/2012 9:15 CDT by DENISE ZAPIEN Intake Chief Complaint : Right hip pain, pain on the outside of the hip Medrol dose pack worked for a while Onset of Symptoms : gradually increased since tuesday Systolic Blood Pressure : 106mmHg Diastolic Blood Pressure : 68mmHg NIBP Mean : 81mmHg BP Location : Right upper extremity Blood Pressure Cuff Size : Regular Height : 170.5cm(Converted to: 5ft 7inch(es), 67.13inch(es)) Actual Weight : 67.0kg(Converted to: 147lb 11oz) Dosing Weight Clinic : 67.00kg Clinic BSA : 1.78 Body Mass Index : 23.05kg/m2 DENISE ZAPIEN - 05/05/2012 9:15 CDT Subjective Pain Symptoms : Yes DENISE ZAPIEN - 05/05/2012 9:15 CDT Pain Pain Assessment Grid Pain 1 Location : Hip Laterality : Right Intensity : 5 DENISE ZAPIEN - 05/05/2012 9:15 CDT Dependent Habits Tobacco Use/Currently Using : No Smoking Status : Former smoker DENISE ZAPIEN - 05/05/2012 9:15 CDT Allergy Allergies (Active) calcium channel blockers Estimated Onset Date: Unspecified ; Reactions: lips burn ; Created By: BETH LUNA; Reaction Status: Active ; Category: Drug ; Substance: calcium channel blockers ; Type:Allergy ; Updated By: BETH LUNA; Reviewed Date: 05/05/2012 9:15 CDT Cats Estimated Onset Date: Unspecified ; Created By: BETH LUNA; Reaction Status: Active ; Category: Environment ; Substance: Cats ; Type: Allergy ; Updated By: BETH LUNA; Reviewed Date:05/05/2012 9:15 CDT Other Environmental Estimated Onset Date: Unspecified ; Reactions: Itchy watery eyes ; Comment: seasonal, hayfever ; Created By: DENISE ZAPIEN; Reaction Status: Active ; Category: Drug ; Substance: Other Environmental ; Type: Allergy ; Severity: Moderate ; Updated By: DENISE ZAPIEN; Reviewed Date: 05/05/2012 9:15 CDT Other food Estimated Onset Date: Unspecified ; Reactions: Itching ; Comment: kiwi ; Created By: DENISE ZAPIEN; Reaction Status: Active ; Category: Drug ; Substance: Other food ; Type: Allergy ; Severity: Mild ; Updated By: DENISE ZAPIEN; Reviewed Date: 05/05/2012 9:15 CDT Tenormin Estimated Onset Date: Unspecified ; Reactions: insomnia, depression, breathing problems ; Created By: ROVERTO GONZALEZ; Reaction Status: Active ; Category: Drug ; Substance: Tenormin ; Type: Allergy ; Updated By: ROVERTO GONZALEZ; Reviewed Date: 05/05/2012 9:15 CDT Source[facility] GreenlotsCHART Document Id: [id number] documented in this encounter Plan of Treatment Not on filedocumented as of this encounter Visit Diagnoses Not on filedocumented in this encounter
--- OUTSIDE RECORDS SUMMARY | 2022-10-07 07:09 | XMS_ITS | Encounter Summary ---
:1960 Author Organization [facility] Address [address] [place] [address] Care Team Providers Name Role Phone Unavailable Primary Care Provider Unavailable Encounter Details Date Type Department Care Team Description 11/05/2010 Hospital Encounter HX [facility] SURGERY Elian Pritchett M.D. Social History Tobacco Use Types Packs/Day Years Used Date Smoking Tobacco: Never Assessed Sex Assigned at Date Recorded Not on file documented as of this encounter Progress Notes Elian Pritchett M.D. - 11/05/2010 12:00 AM CST [id number] HISTORY OF PRESENT ILLNESS Ms. Carpenter has a keratotic appearing lesion on the right elbow and a smaller one adjacent to it. Both of these are about 6 or 7 mm in diameter. Both lesions were removed using the hyfrecator today without any difficulty. IMPRESSION / REPORT / PLAN The patient is released to see us again on a p.r.n. basis. If the lesions recur, I advised her that we will excise them. Elian Pritchett M.D. srbereket Electronically Signed By:ELIAN PRITCHETT MD On 11/13/2010 08:49 AM Source: [facility] MHSDOLBEYNONRADSYS Document Id: [id number] [employer]ARE [employer] documented in this encounter Plan of Treatment Not on filedocumented as of this encounter Visit Diagnoses Not on filedocumented in this encounter
--- OUTSIDE RECORDS SUMMARY | 2022-10-07 07:09 | XMS_ITS | Encounter Summary ---
:1960 Author Organization [facility] Address [address] [place] [address] Care Team Providers Name Role Phone Unavailable Primary Care Provider Unavailable Encounter Details Date Type Department Care Team Description 08/01/2013 Hospital Encounter HX [facility] Howard Peñaloza M.D. [address] [place] [address] [phone] (Wo rk) Social History Tobacco Use Types Packs/Day Years Used Date Smoking Tobacco: Never Assessed Sex Assigned at Date Recorded Not on file documented as of this encounter Progress Notes Kisha Aguilar, C.O.T. - 08/01/2013 11:06 AM CDT [facility] Exam [facility] Exam Entered On: 08/01/2013 11:22 CDT Performed On: 08/01/2013 11:06 CDT by KISHA AGUILAR Chief Complaint and History Pain Symptoms : No Smoking Status : Former smoker Comment : Pt here for complete eye exam No [facility] Family History Reviewed : 08/01/2013 CDT KISHA AGUILAR - 08/01/2013 11:06 CDT Optometry Exam Familty History Grid Cancer : Grandparents, uncle Cardiovascular : Mother, Father Diabetes : aunt Respiratory : Self Stroke : Mother, Grandparents Thyroid : Self KISHA AGUILAR - 08/01/2013 11:06 CDT Vision Testing Right Eye Vision Testing : With glasses - primary, 20/20 Left Eye Vision Testing : With glasses - primary, 20/20 Both Eyes Vision Testing : With glasses - primary, 20/20 KISHA AGUILAR - 08/01/2013 11:06 CDT Refraction Current Glasses Rx Grid Glasses/RE Glasses/LE Sphere : -0.50 -0.75 ADD : +1.25 +1.25 KISHA AGUILAR 08/01/2013 11:06 CDT KISHA AGUILAR 08/01/2013 11:06 CDT Right Eye Manifest Grid Date : 07/21/2011 CDT 08/01/2013 CDT Performed by : Tech Sphere : -0.50 -0.25 Visual Acuity Distance : 20/20 20/20 ADD : +1.25 +1.50 Visual Acuity Near : J-1+ J-1 KISHA AGUILAR 08/01/2013 11:06 CDT KISHA AGUILAR - 08/01/2013 11:06 CDT Left Eye Manifest Grid Date : 07/21/2011 CDT 08/01/2013 CDT Performed by : Tech Sphere : -0.75 -0.75 Visual Acuity Distance : 20/20 20/20 ADD : +1.25 +1.50 Visual Acuity Near : J-1+ J-1 KISHA AGUILAR 08/01/2013 11:06 CDT KISHA AGUILAR 08/01/2013 11:06 CDT Ocular Testing EOMS : Normal Pupils : PERRLA Cover Test : Normal Comment : castellano full KISHA AGUILAR 08/01/2013 11:06 CDT Intraoccular Pressures Intraoccular Pressures Grid Date : 07/21/2011 CDT 07/21/2011 CDT 08/01/2013 CDT 08/01/2013 CDT Eye : RE LE RE LE Applanation : 16 16 16 16 Eye Drops : Fluress Fluress Comments : 3:31 KISHA AGUILAR 08/01/2013 11:06 CDT KISHA AGUILAR 08/01/2013 11:06 CDT KISHA AGUILAR 08/01/2013 11:06 CDT KISHA AGUILAR 08/01/2013 11:06 CDT Source: [facility] POWERCHART Document Id: [id number] documented in this encounter H&P Notes Willy Villa M.D. - 08/01/2013 10:54 AM CDT [id number] Very pleasant lady comes in today for just a routine check on her eyes, but she has had to have steroids in the past. No signs of glaucoma. No signs of cataracts. IMPRESSION/REPORT/PLAN We will see her back in 2 years. I did discuss that we would like to dilate her eyes at that time. Otherwise, everything looks fairly stable. Willy Villa M.D./ernestine Electronically Signed By: WILLY VILLA MD On: 08/06/2013 07:56 AM Source: [facility] MHSDOLBEYNONRADSYAbdelrahman Document Id: [id number] documented in this encounter Plan of Treatment Not on filedocumented as of this encounter Visit Diagnoses Not on filedocumented in this encounter
--- OUTSIDE RECORDS SUMMARY | 2022-10-07 07:09 | XMS_ITS | Encounter Summary ---
:1960 Author Organization [facility] Address [address] [place] [address] Care Team Providers Name Role Phone Unavailable Primary Care Provider Unavailable Encounter Details Date Type Department Care Team Description 10/16/2010 Hospital Encounter HX [facility] OBGYN Savanna Rodriguez M.D. Social History Tobacco Use Types Packs/Day Years Used Date Smoking Tobacco: Never Assessed Sex Assigned at Date Recorded Not on file documented as of this encounter Progress Notes Savanna Rodriguez M.D. - 10/16/2010 12:00 AM CST [id number] HISTORY OF PRESENT ILLNESS Ms. Carpenter is a 50-year-old white female who had seen me previously regarding loss of urine while running. Exam disclosed a mild cystocele and her history was consistent with pure stress incontinence. I did discuss with her urologic evaluation prior to surgery and also provided her with a pamphlet from the [employer] describing the TVT procedure. The patient is now desirous of proceeding with surgery and here to discuss the risks of surgery. She has opted not to perform urologic evaluation. IMPRESSION / REPORT / PLAN The procedure is again reviewed with the patient. The risk of injury to the bladder discussed. The need for cystoscopy discussed. The possibility of voiding difficulties after surgery including a 20% chance that she may need to leave the hospital with an indwelling catheter and a 10% chance that she may need intermittent self-catheterization postoperatively. She understands the need for surgical clearance. She understands the 20% failure rate of the mesh procedure and the need for decreased activity for a month after surgery. She is also advised today to stop her 81 mg aspirin program to reduce the possibility of bleeding at surgery. Savanna Rodriguez M.D. 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 - 10/16/2010 8:58 AM CST Ambulatory Patient Summary [address] [address] Visit Information Name: CATHERINE CARPENTER Current Date: 10/16/2010 08:58:32 Primary Care Provider: MARGI ARNOLD MD Your Medications Here is a list of your medications. It is important to take your medications as directed. Use a pillbox or chart to help remind you to take your medications. Please let your doctor or nurse know if you have problems taking your medications. Medication/Strength Dose Route Frequency Indications/Special Instructions/Comments fluticasone (Flovent 110 mcg/inh inhalation aerosol with adapter) 2 puff(s) Inhalation two times a day aspirin (aspirin 81 mg oral tablet) 1 tab(s) Oral once a day albuterol (albuterol 90 mcg/inh inhalation aerosol with adapter) 2 puff(s) Inhalation four times a day as needed for Shortness of breath / Wheezing famotidine (Pepcid 20 mg oral tablet) 20 mg Oral once a day fexofenadine (Kathi 180 mg oral tablet) 1 tab(s) Oral once a day mometasone nasal (Nasonex 50 mcg/inh nasal spray) 2 spray(s) Nostrils(Both) once a day levothyroxine (Synthroid 125 mcg (0.125 mg) oral tablet) 1 tab(s) Oral once a day Your Allergies & Intolerances Substance Reaction Symptoms Category Comments Tenormin insomnia Drug Tenormin depression Drug Tenormin breathing problems Drug Your Problem List Problem Status Onset Comments Allergic Rhinitis, Cause Unspecified Active 04/10/2007 Unspecified Hypothyroidism Active 04/10/2007 Papanicolaou Smear of Cervix with Low Grade Squamous Intraepithelial Lesion (LGSIL) Active 05/13/2008 Rash and Other Nonspecific Skin Eruption Active 05/15/2009 Excessive or Frequent Menstruation Active 08/06/2009 Premenstrual Tension Syndromes Active 08/06/2009 Routine General Medical Examination at a Health Care Facility Active 08/15/2009 Your Recommendations We want to make sure you get the tests, immunizations, and guidance you need to stay healthy. Here is a customized list of recommendations, based on information we have in your medical record. Your doctor may have additional recommendations for you, based on your personal medical history and risk factors. You can help us by calling us to make an appointment when you are due for your tests. Additional information regarding recommendations: Test/Treatment Last Done Next Due Additional Information Screening Mammogram every 1 year Women 40-75 10/06/2009 10/06/2010 X-rays of breast to check for breast cancer. Screening Pap Smear every 3 years Women 21-65 07/29/2010 07/28/2013 Checks for signs of cancer of the cervix. Lipid Panel every 5 years Age 20-75 02/13/2008 02/11/2013 Checks blood for good (HDL) and bad (LDL) cholesterol. Know your numbers, they are one indicator of your risk for heart attack and stroke. Vaccine: Tetanus every 10 years 02/13/2004 02/10/2014 Immunization to help prevent you from getting the serious disease Tetanus (Lockjaw). Your Upcoming Appointments Date Time Location Reason Provider 10/19/2010 08:30 [facility] Lab preop 10/23/2010 09:30 [facility] PREOP - SURG 12-1- Margi Fowler MD 11/10/2010 08:30 [facility] PATIENT SAFETY SITTER 2 WK PSTOP Blanca Gee NP 12/08/2010 08:30 [facility] PATIENT SAFETY SITTER 6 WK PSTOP Savanna Rodriguez MD Your Goals/Additional instructions: Source: [facility] POWERCHART Document Id: [id number] Electronically signed by Conversion, [facility] Superintendent [employer] [phone] at 05/02/2017 4:19 AM CDT Miscellaneous - Savanna Rodriguez M.D. - 10/16/2010 8:58 AM CST Ambulatory Depart Summary [facility] [address] [place] [id number] Visit Information Name: CATHERINE CARPENTER Current Date: 10/16/2010 08:58:31 Primary Care Provider: MARGI ARNOLD MD CATHERINE CARPENTER has been given the following list of medications: Your Medications It is important to take your medications as directed. Use a pill box or chart to help remind you to take your medications. Please let your doctor or nurse know if you have problems taking your medications. Medication/Strength Dose Route Frequency Indications/Special Instructions/Comments fluticasone (Flovent 110 mcg/inh inhalation aerosol with adapter) 2 puff(s) Inhalation two times a day aspirin (aspirin 81 mg oral tablet) 1 tab(s) Oral once a day albuterol (albuterol 90 mcg/inh inhalation aerosol with adapter) 2 puff(s) Inhalation four times a day as needed for Shortness of breath / Wheezing famotidine (Pepcid 20 mg oral tablet) 20 mg Oral once a day fexofenadine (Kathi 180 mg oral tablet) 1 tab(s) Oral once a day mometasone nasal (Nasonex 50 mcg/inh nasal spray) 2 spray(s) Nostrils(Both) once a day levothyroxine (Synthroid 125 mcg (0.125 mg) oral tablet) 1 tab(s) Oral once a day Additional Information: Yes - Current list of reconciled medications is provided and explained to the patient and/or family, guardian/caregiver. 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 Representative Intake/History Entered On: 10/16/2010 8:36 SLICING MACHINE FEEDER Performed On: 10/16/2010 8:34 SLICING MACHINE FEEDER by AL PORTER Intake Chief Complaint: Consult about TVT scheduled 10/28/2010 Systolic Blood Pressure: 104mmHg Diastolic Blood Pressure: 68mmHg NIBP Mean: 80mmHg BP Location: Left upper extremity AL PORTER 10/16/2010 8:34 SLICING MACHINE FEEDER Subjective Pain Symptoms: No AL PORTER 10/16/2010 8:34 SLICING MACHINE FEEDER Dependent Habits Tobacco Use/Currently Using: No AL PORTER 10/16/2010 8:34 SLICING MACHINE FEEDER Allergies Allergies (Active) Tenormin Estimated Onset Date: Unspecified ; Reactions: insomnia, depression, breathing problems ; Created By: ROVERTO GONZALEZ; Reaction Status: Active ; Category: Drug ; Substance: Tenormin ; Type: Allergy ; Updated By: ROVERTO GONZALEZ; Reviewed Date: 06/22/2010 8:26 CDT [facility] Document Id: [id number] SLICING MACHINE FEEDER!11 documented in this encounter Plan of Treatment Not on filedocumented as of this encounter Visit Diagnoses Not on filedocumented in this encounter
--- OUTSIDE RECORDS SUMMARY | 2022-10-07 07:09 | XMS_ITS | Encounter Summary ---
:1960 Author Organization [facility] Address [address] [place] [address] Care Team Providers Name Role Phone Unavailable Primary Care Provider Unavailable Encounter Details Date Type Department Care Team Description 08/15/2013 Hospital Encounter HX [facility] LAB Luisa Christensen i, M.D. [address] [facility], [facility] [address] [phone] (Wo rk) Social History Tobacco Use Types Packs/Day Years Used Date Smoking Tobacco: Never Assessed Sex Assigned at Date Recorded Not on file documented as of this encounter Plan of Treatment Not on filedocumented as of this encounter Procedures Procedure Name Priority Date/Time Associated Diagnosis Comme nts LIPID PANEL, S Routine 08/15/2013 10:13 AM Result s for this CDT procedure are i n the results section. CBC WITHOUT Routine 08/15/2013 10:13 AM Results for this DIFFERENTIAL, B CDT procedure ar e in the results section. THYROID-STIMULATING Routine 08/15/2013 10:13 AM R esults for this HORMONE-SENSITIVE CDT procedure are in (S-TSH) the results section. T4 (THYROXINE), Routine 08/15/2013 10:13 AM Resul ts for this FREE, S CDT procedure are i n the results section. BASIC METABOLIC Routine 08/15/2013 10:13 AM Resul ts for this PANEL, S/P CDT procedure are i n the results section. documented in this encounter Results CBC without Differential (08/15/2013 10:13 AM CDT) P athologist Signature Leukocytes 8.2 3.4 - 10.5 POWERCHART X109L Erythrocytes 4.47 3.90 - 5.03 POWERCHART [id number] Hemoglobin 13.9 12.0 - 15.5 POWERCHART GDL Hematocrit 42.9 34.9 - 44.5 POWERCHART MCV 96.0 82.0 - 98.0 POWERCHART FL HX RDW 13.8 11.9 - 15.5 POWERCHART Platelet Count 305 150 - 450 POWERCHART X109L Specimen (Source) Anatomical Collection Method Collection Time Re ceived Time Location / / Volume Laterality Blood 08/15/2013 10:13 AM CDT Ju Christensen M.D. LAB BLOOD ADD-ON Performing Organization Address City/State/ZIP Code Phon e Number POWERCHART Thyroid-Stimulating Hormone-Sensitive (s-TSH) (08/15/2013 10:13 AM CDT) athologist Signature TSH 1.15 0.30 - 5.00 POWERCHART (Thyrotropin) MIUL Specimen (Source) Anatomical Collection Method Collection Time Re ceived Time Location / / Volume Laterality Blood 08/15/2013 10:13 AM CDT Ju Christensen M.D. LAB BLOOD ADD-ON Performing Organization Address City/State/ZIP Code Phon e Number POWERCHART (ABNORMAL) Lipid Panel (08/15/2013 10:13 AM CDT) [facility] gist Method Time Signature Calculated LDL 103 (H) 0 - 100 POWERCHART MGDL Total 3.31 2.20 - POWERCHART Cholesterol/HDL 4.40 Ratio Cholesterol, Total 179 <=200 POWERCHART MGDL HX HDL 54 40 - 60 POWERCHART MGDL Triglycerides 111 <=150 POWERCHART MGDL HXLDL/HDL 2 POWERCHART Specimen (Source) Anatomical Collection Method Collection Time Re ceived Time Location / / Volume Laterality Blood 08/15/2013 10:13 AM CDT Ju Christensen M.D. LAB BLOOD ADD-ON Performing Organization Address City/State/ZIP Code Phon e Number POWERCHART T4 (Thyroxine), Free (08/15/2013 10:13 AM CDT) P athologist Signature T4 (Thyroxine), 1.73 0.80 - 1.80 POWERCHART Free, S NGDL Specimen (Source) Anatomical Collection Method Collection Time Re ceived Time Location / / Volume Laterality Blood 08/15/2013 10:13 AM CDT Ju Christensen M.D. LAB BLOOD ADD-ON Performing Organization Address City/State/ZIP Code Phon e Number POWERCHART (ABNORMAL) BMP (Basic Metabolic Panel) (08/15/2013 10:13 AM CDT) Analysis [facility]formed [facility] Time Signature BUN (Blood Urea 18 6 - 21 POWERCHART Nitrogen), S MGDL Chloride, S 103 100 - 108 POWERCHART MMOLL CO2 Total 29 26 - 102 POWERCHART MMOLL Creatinine 1.0 0.6 - 1.1 POWERCHART MGDL Glucose, 90 70 - 99 POWERCHART Fasting, S MGDL Calcium, Total, 10.5 (H) 8.9 - 10.1 POWERCHART S MGDL Sodium, S 138 135 - 145 POWERCHART MMOLL Potassium, S 4.3 3.6 - 5.2 POWERCHART MMOLL HXeGFR (MDRD) 59 (L) >=60 POWERCHART [id number] eGFR >60 >=60 POWERCHART Black/ [id number] [place] Specimen (Source) Anatomical Collection Method Collection Time Re ceived Time Location / / Volume Laterality Blood 08/15/2013 10:13 AM CDT Ju Christensen M.D. LAB BLOOD ADD-ON Performing Organization Address City/State/ZIP Code Phon e Number POWERCHART documented in this encounter Visit Diagnoses Not on filedocumented in this encounter
--- OUTSIDE RECORDS SUMMARY | 2022-10-07 07:09 | XMS_ITS | Encounter Summary ---
:1960 Author Organization [facility] Address [address] [place] [address] Care Team Providers Name Role Phone Unavailable Primary Care Provider Unavailable Encounter Details Date Type Department Care Team Description 12/20/2012 Hospital Encounter HX [facility] INTERNMED Ann Marie Abrams M.D. [address] [place] [address] (Wo rk) Social History Tobacco Use Types Packs/Day Years Used Date Smoking Tobacco: Never Assessed Sex Assigned at Date Recorded Not on file documented as of this encounter Last Filed Vital Signs Vital Sign Reading Time Taken Comments Blood Pressure 114/76 12/20/2012 1:55 PM VULCANIZING PRESS OPERATOR Pulse 76 12/20/2012 1:55 PM VULCANIZING PRESS OPERATOR Temperature - - Respiratory Rate 16 12/20/2012 1:55 PM VULCANIZING PRESS OPERATOR Oxygen Saturation - - Inhaled Oxygen Concentration - - Weight 66.5 kg (146 lb 9.7 oz) 12/20/2012 1:55 PM VULCANIZING PRESS OPERATOR Height 168 cm (5' 6.14) 12/20/2012 1:55 PM VULCANIZING PRESS OPERATOR Body Mass Index 23.56 12/20/2012 1:55 PM VULCANIZING PRESS OPERATOR documented in this encounter H&P Notes Ann Marie Serna M.D. - 12/20/2012 1:02 PM CST [id number] CHIEF COMPLAINT/REASON FOR VISIT Mrs. Carpenter comes in today in order to establish care and have an annual physical done. HISTORY OF PRESENT ILLNESS Mrs. Carpenter is a 52-year-old middle-aged female, G4, P4, A0 with a history of allergic rhinitis, bronchial asthma, classic migraine with aura, osteoarthritis of the knees status post right knee arthroscopy, past history of atrial fibrillation status post radiofrequency ablation back in 1999 without any recurrence of arrhythmia, that was seen and evaluated today in order to establish primary care and have her annual physical. The patient has no physical complaints at the present time. She did have influenza around [facility] and ended up going [facility] in [facility] due to persistent symptoms of nasal stuffiness, purulent nasal discharge, productive cough, wheezing, and progressive shortness of breath. Therefore, was prescribed amoxicillin for 10 days and she already completed therapy. Since she was treated, she has not been wheezing. Has not been needing her short-acting beta agonist since this past weekend. She uses her inhaled corticosteroid daily but has not been very compli ant on her non-sedating antihistamine and daily internasal steroid for her allergic rhinitis. She denies any daytime asthma symptoms and no nocturnal asthma symptoms either. She does admit that when she gets an upper respiratory tract infection, it might last several weeks. Denies any recent Emergency Department visit. At the present time, she denies any fever, chills, cough, sore throat. She does have residual nasal stuffiness that is clear, watery discharge now. No shortness of breath. No pleuritic chest pain. No palpitations or irregular heart rate. No nausea, vomiting, abdominal pain, diarrhea,dysuria, or foul-smelling urine. PAST MEDICAL/SURGICAL HISTORY 1. Allergic rhinitis 2. Bronchial asthma 3. Classic migraines with aura 4. Gastroesophageal reflux disease 5. Hypothyroidism 6. Osteoarthritis of the knee status post right arthroscopic surgery 7. Past history of atrial fibrillation status post radiofrequency ablation back in 1999 8. Status post bladder sling, stress incontinence surgery 9. Status post tubal ligation TOXIC HABITS: No tobacco. Drinks alcohol very seldom, 1-2 drinks a month. No illicit drug exposure. SOCIAL HISTORY , lives in [place]. Has 4 grown kids. No grand kids. 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 FAMILY HISTORY Mother had early coronary artery disease. She at 55 after having open heart surgery, CABG by 4-bypass graft. Had a stroke after the surgery. Also her father had early coronary artery disease beginning at the age of 5555 years old and at the age of 7474 years old of congestive heart failure. She also has 2 brothers and 1 sister, all alive. One of her brothers has high cholesterol. CURRENT MEDICATIONS Reviewed as per EMR. No changes done on today's visit. SYSTEMS REVIEW All systems reviewed and remarkable for residual nasal stuffiness with watery nasal discharge, but otherwise no additional respiratory symptoms. No cardiopulmonary positives. No gastrointestinal complaints or genitourinary complaints. VITAL SIGNS TEMPERATURE: 36.1 RESPIRATORY RATE: 16/min HEART RATE: 76 bpm BLOOD PRESSURE: 114/76 mmHg WEIGHT: 66.5 kg HEIGHT: 168 cm PHYSICAL EXAM GENERAL: Well groomed, well nourished, pleasant female, in no acute respiratory distress or pain. Oriented in time, person or place. HEENT: Normocephalic, atraumatic, normal hair distribution. No periorbital edema. Extraocular movements intact. No jaundice. Conjunctiva not injected. Pupillary light reflex reactive bilaterally. Pupils symmetric. Nasal mucosa intact. Moist oral mucosa. Oropharynx non- erythematous. External auditory c anals clear and intact. Tympanic membranes translucent with visible cone of light bilaterally. Neck supple, trachea midline. No visible or palpable goiter. No cervical or supraclavicular lymphadenopathy. No audible carotid bruits. No JVD or HJR at 30 degrees. LUNGS: Clear to auscultation bilaterally. HEART: Regular rate and rhythm. No audible murmurs. No S3, no S4. No rubs or clicks. ABDOMEN: Non-distended, soft, depressible. Normal and active bowel sounds, nontender. No palpable organomegaly. EXTREMITIES: No pitting edema, normal distribution. No skin discoloration. IMPRESSION/REPORT/PLAN 1. Allergic rhinitis. Patient noncompliant with Kathi and Flonase. Reinforcement of daily use of Kathi and daily use of Flonase and reinforced also that she should avoid known allergens and triggers. Also I did orient her that if her allergic rhinitis is uncontrolled, her asthma is going to be exac erbated and will worsen. She agreed and understood that she will take her Flonase and Kathi as sheis supposed to. 2. Bronchial asthma, status post acute exacerbation. Patient recently treated for acute bacterial sinusitis complicated by bronchitis with amoxicillin for 14 days, and so far she has not had any further daytime asthma symptoms or nocturnal symptoms, and she is not using the short-acting beta agonist therapy anymore since this past weekend. She is doing much better. Since she has mild persistent asthma, she will continue using inhaled corticosteroids with fluticasone daily and albuterol as needed forrescue therapy. Asthma at the present time considered well controlled. 3. Classic migraines with aura. Patient has not had any migraines. Over the last year, she only had 2 episodes of migraines. She uses sumatriptan for acute abortive therapy. No preventive prophylactic therapy since her migraines are not that often. Will continue current medical therapy. 4. Hypothyroidism, well controlled and stable. Will repeat TSH prior to next visit to be sure that her current Synthroid dose is adequate, although patient without any clinical signs or symptoms suggestive of uncontrolled thyroid disorder. 5. Gastroesophageal reflux disease. Will continue on daily omeprazole. Will follow up with patient within 3 months for annual physical, labs prior. Ann Marie Serna M.D./ernestine Electronically Signed By: ANN MARIE SERNA MD On: 12/27/2012 09:41 AM Source: [facility] MHSDOLBEYNONRADSYS Document Id: [id number] ANIZING PRESS OPERATOR documented in this encounter Procedure Notes Conversion, Historical Provider Ser - 12/20/2012 1:55 PM CST Asthma Control Test (12 yrs and older) Asthma Control Test (12 yrs and older) Entered On: 12/20/2012 14:03 VULCANIZING PRESS OPERATOR Performed On: 12/20/2012 13:55 VULCANIZING PRESS OPERATOR by ZULEYMA MARC ACT Past 4 weeks asthma interfered with work, school, or home : A little of the Time Past 4 weeks how often short of breath : Not at all Past 4 weeks symptoms effect sleep : 2 or 3 nights a week Past 4 weeks how often inhaler or nebulizer used : 3 or more times per day Past 4 weeks rate your asthma control : Poorly controlled ACT Score : 14 ZULEYMA MARC - 12/20/2012 13:55 VULCANIZING PRESS OPERATOR Source: [facility] POWERCHART Document Id: [id number] documented in this encounter Miscellaneous Notes Telephone Encounter - Ryne Bowman Sree RSandiNSandi - 02/19/2013 4:08 PM CDT concerns re: upcoming colonoscopy Document Contains Addenda Addendum by ZULEYMA MARC on 20 February 2013 16:17:55 CDT patient notified Addendum by ANN MARIE SERNA MD on 20 February 2013 13:28:04 CDT From: ANN MARIE SERNA MD To: ZACHARY Serna Nurse; Sent: 02/20/2013 13:28:04 CDT Subject: RE: concerns re: upcoming colonoscopy Addendum by ANN MARIE SERNA MD on 20 February 2013 13:27:52 CDT needs ekg indeed needs preop too and HbA1C i ordered for screening of diabetes Addendum by ZULEYMA MARC on 19 February 2013 16:18:20 CDT From: ZULEYMA MARC (ZACHARY Serna Nurse) To: ANN MARIE SERNA MD; Sent: 02/19/2013 16:18:20 CDT Subject: FW: concerns re: upcoming colonoscopy Addendum by ZULEYMA MARC on 19 February 2013 16:18:08 CDT Spoke with patient and let her know you are out, but that she does need a pre- op. Patient is wondering about the A1C and wants to verify that all labs for pre-op are ordered. From: RYNE BOWMAN To: ZACHARY Serna Nurse; Sent: 02/19/2013 16:08:57 CDT Subject: concerns re: upcoming colonoscopy Caller is: ) Patient ( ) Mother ( ) Father ( ) Spouse ( ) Daughter ( ) Son ( ) Pharmacy ( ) Other: Physician: Sonny Patient MRN #: Reason for Call: Message: S. concerns regarding colonoscopy B. 1- Was seen in Nov and told to do labs in February prior to her colonoscopy. Scheduling told her sheneeds to do a Pre-Op for her colonoscopy and she needs an EKG prior to colonoscopy since she's >50yrs. 2- Also, she was ordered an A1C and she states she is not diabetic. A. 1- Can Dr. Dennis order the EKG? 2- Does she need an A1C and pre-op? R. Please give a call back tomorrow. Nurseline advised she does need a pre-op within 30 days of her colonoscopy. Advice/Action: Source used: ( ) Verbalizes understanding [...] back cell phone number ( ) Source: [facility] POWERCHART Document Id: [id number] Electronically signed by Conversion, [facility] Filter Tender [id number] at 04/27/2017 6:47 PM CDT Telephone Encounter - Conversion, Historical Provider Ser - 01/10/2013 10:11 AM CST Phone Message From: ASHLEY ALBERTO Sent: 01/10/2013 10:11:13 VULCANIZING PRESS OPERATOR Subject: Phone Message Caller is: ( ) Patient ( ) Mother ( ) Father ( ) Spouse ( ) Daughter ( ) Son ( ) Pharmacy ( ) Other: Physician: Patient MRN #: Reason for Call: Message: pt calling to see what PCP recently ordered for calcium supplement Advice/Action: Source used: ( ) Verbalizes understanding [...] back cell phone number ( ) Source: [facility] [employer] Document Id: [id number] Miscellaneous - Ann Marie Serna M.D. - 12/20/2012 2:54 PM VULCANIZING PRESS OPERATOR Ambulatory Patient Summary [address] [address] Visit Information Name: CATHERINE CARPENTER [facility] Number: [id number] Current Date: 12/20/2012 14:54:37 Physicians Attending Provider: ANN MARIE SERNA MD Primary Care Provider: PCP, UNASSIGNED Your Medications Here is a list of your medications. It is important to take your medications as directed. Use a pillbox or chart to help remind you to take your medications. Please let your doctor or nurse know if you have problems taking your medications. Medication/Strength Dose Route Frequency Indications/Special Instructions/Comments calcium-vitamin D (Caltrate 600+D Soft Chews oral tablet, chewable) 1 tab(s) Chewed two times a day albuterol (albuterol 90 mcg/inh inhalation aerosol with adapter) 2 puff(s) Inhalation four times a day as needed for Shortness of breath / Wheezing mometasone nasal (Nasonex 50 mcg/inh nasal spray) 2 spray(s) Nostrils(Both) once a day ketotifen ophthalmic (ketotifen 0.025% ophthalmic solution) 1 drop(s) Eyes(Both) every 8 hours fluticasone (fluticasone 220 mcg/inh inhalation aerosol with adapter) 1 puff Inhalation two times a day fexofenadine (Kathi 180 [...] Oral once as needed for migraine headache *pseudoephedrine (Sudafed 60 mg oral tablet) 60 mg Oral four times a day as needed for Congestion *guaifenesin (Mucinex 600 mg oral tablet, extended release) 600 mg Oral every 12 hours aspirin (aspirin 81 mg oral tablet) 1 tab(s) Oral once a day * You have let us know that you are not taking this medication as listed. Please talk with your primary care provider or the health care provider who prescribed the medication as soon as possible. Attention: If you have any medications at [...] Time Location Reason Provider No Appointments found Your Goals/Additional instructions: Source: [facility] POWERCHART Document Id: [id number] ANIZING PRESS OPERATOR Miscellaneous - Ann Marie Serna M.D. - 12/20/2012 2:54 PM VULCANIZING PRESS OPERATOR Ambulatory Depart Summary [facility] [address] [place] [address] Visit Information Name: CATHERINE CARPENTER FARRAH [facility] Number: [id number] Visit Date: 12/20/2012 14:54:36 Attending Provider: ANN MARIE SERNA MD Primary Care Provider: PCP, UNASSIGNED CATHERINE CARPENTER has been given the following list of medications: Your Medications It is important to take your medications as directed. Use a pill box or chart to help remind you to take your medications. Please let your doctor or nurse know if you have problems taking your medications. Medication/Strength Dose Route Frequency Indications/Special Instructions/Comments calcium-vitamin D (Caltrate 600+D Soft Chews oral tablet, chewable) 1 tab(s) Chewed two times a day albuterol (albuterol 90 mcg/inh inhalation aerosol with adapter) 2 puff(s) Inhalation four times a day as needed for Shortness of breath / Wheezing mometasone nasal (Nasonex 50 mcg/inh nasal spray) 2 spray(s) Nostrils(Both) once a day ketotifen ophthalmic (ketotifen 0.025% ophthalmic solution) 1 drop(s) Eyes(Both) every 8 hours fluticasone (fluticasone 220 mcg/inh inhalation aerosol with adapter) 1 puff Inhalation two times a day fexofenadine (Kathi 180 [...] Oral once as needed for migraine headache *pseudoephedrine (Sudafed 60 mg oral tablet) 60 mg Oral four times a day as needed for Congestion *guaifenesin (Mucinex 600 mg oral tablet, extended release) 600 mg Oral every 12 hours aspirin (aspirin 81 mg oral tablet) 1 tab(s) Oral once a day * You have let us know that you are not taking this medication as listed. Please talk with your primary care provider or the health care provider who prescribed the medication as soon as possible. Attention: If you have any medications at home that are not on this list, DO NOT take them until youcontact your provider for clarification. Additional Information: Source: [facility] POWERCHART Document Id: [id number] ANIZING PRESS OPERATOR Miscellaneous - Conversion, Historical Provider Ser - 12/20/2012 2:05 PM VULCANIZING PRESS OPERATOR Quality Measures Quality Measures Entered On: 12/20/2012 14:05 VULCANIZING PRESS OPERATOR Performed On: 12/20/2012 14:05 VULCANIZING PRESS OPERATOR by ZULEYMA MARC Asthma Asthma Action Plan Provided/Reviewed : Provided to the patient Asthma Action Plan Copy : Scanned into EMR SHELLIE AVILA - 06/06/2013 10:32 CDT ED visits past yr for asthma w/o hospital stay : 0 Hospitalizations/Overnight Stays in Past yr for Asthma : 0 ZULEYMA MARC - 12/20/2012 14:05 VULCANIZING PRESS OPERATOR Source: [facility] [employer] Document Id: [id number] Miscellaneous - Conversion, Historical Provider Ser - 12/20/2012 1:55 PM VULCANIZING PRESS OPERATOR Adult Ships Or [employer]arg[employer] Loader Intake/History Adult Ships Or Barges Loader Intake/History Entered On: 12/20/2012 14:02 VULCANIZING PRESS OPERATOR Performed On: 12/20/2012 13:55 VULCANIZING PRESS OPERATOR by ZULEYMA MARC Intake Chief Complaint : Establish Care - medication refills completed: health assessment & ACT Temperature Oral : 36.1C(Converted to: 97.0DegF) Peripheral Pulse Rate : 76/min Respiratory Rate : 16/min Systolic Blood Pressure : 114mmHg Diastolic Blood Pressure : 76mmHg NIBP Mean : 89mmHg BP Location : Right upper extremity Blood Pressure Cuff Size : Regular Height : 168cm(Converted to: 5ft 6inch(es), 66.14inch(es)) Actual Weight : 66.5kg(Converted to: 146lb 10oz) Dosing Weight Clinic : 66.50kg Clinic BSA : 1.76 Body Mass Index : 23.56kg/m2 ZULEYMA MARC 12/20/2012 13:55 VULCANIZING PRESS OPERATOR Subjective Pain Symptoms : No ZULEYMA MARC 12/20/2012 13:55 VULCANIZING PRESS OPERATOR Dependent Habits Tobacco Use/Currently Using : No Exposure to Tobacco Smoke : Other: Never Smoking Status : Never smoker Alcohol Use : Yes ZULEYMA MARC 12/20/2012 13:55 VULCANIZING PRESS OPERATOR Caffeine Use Grid Caffeine Use : Current Type : Coffee Frequency : Daily ZULEYMA MARC 12/20/2012 13:55 VULCANIZING PRESS OPERATOR Allergy Allergies (Active) calcium channel blockers Estimated Onset Date: Unspecified ; Reactions: lips burn ; Created By: BETH LUNA; Reaction Status: Active ; Category: Drug ; Substance: calcium channel blockers ; Type:Allergy ; Updated By: BETH LUNA; Reviewed Date: 12/20/2012 13:46 VULCANIZING PRESS OPERATOR Cats Estimated Onset Date: Unspecified ; Created By: BETH LUNA; Reaction Status: Active ; Category: Environment ; Substance: Cats ; Type: Allergy ; Updated By: BETH LUNA; Reviewed Date:12/20/2012 13:46 VULCANIZING PRESS OPERATOR Other Environmental Estimated Onset Date: Unspecified ; Reactions: Itchy watery eyes ; Comment: seasonal, hayfever ; Created By: DENISE ZAPIEN; Reaction Status: Active ; Category: Drug ; Substance: Other Environmental ; Type: Allergy ; Severity: Moderate ; Updated By: DENISE ZAPIEN; Reviewed Date: 12/20/2012 13:46 VULCANIZING PRESS OPERATOR Other food Estimated Onset Date: Unspecified ; Reactions: Itching ; Comment: kiwi ; Created By: DENISE ZAPIEN; Reaction Status: Active ; Category: Drug ; Substance: Other food ; Type: Allergy ; Severity: Mild ; Updated By: DENISE ZAPIEN; Reviewed Date: 12/20/2012 13:46 VULCANIZING PRESS OPERATOR Tenormin Estimated Onset Date: Unspecified ; Reactions: insomnia, depression, breathing problems ; Created By: ROVERTO GONZALEZ; Reaction Status: Active ; Category: Drug ; Substance: Tenormin ; Type: Allergy ; Updated By: ROVERTO GONZALEZ; Reviewed Date: 12/20/2012 13:46 VULCANIZING PRESS OPERATOR Source: [employer] Document Id: [id number] Miscellaneous - Conversion, Historical Provider Ser - 12/20/2012 1:55 PM VULCANIZING PRESS OPERATOR Health Assessment Health Assessment Entered On: 12/20/2012 14:05 VULCANIZING PRESS OPERATOR Performed On: 12/20/2012 13:55 VULCANIZING PRESS OPERATOR by ZULEYMA MARC Health Assessment Complete Health Assessment Complete or Modified : Annual Health Assessment Annual Health Assessment Completed : Yes ZULEYMA MARC 12/20/2012 13:55 VULCANIZING PRESS OPERATOR Nutrition Nutrition Risk Factors by History Adult : ZULEYMA [place] 12/20/2012 13:55 VULCANIZING PRESS OPERATOR Functional Current Daily Living Assistance : ZULEYMA Rowland 12/20/2012 13:55 VULCANIZING PRESS OPERATOR Dependent Habits Tobacco Use/Currently Using : No Exposure to Tobacco Smoke : Other: Never Smoking Status : Never smoker ZULEYMA MARC 12/20/2012 13:55 VULCANIZING PRESS OPERATOR Caffeine Use Grid Caffeine Use : Current Type : Coffee Frequency : Daily ZULEYMA MARC 12/20/2012 13:55 VULCANIZING PRESS OPERATOR Psychosocial Domestic Abuse Concerns : ZULEYMA Rowland 12/20/2012 13:55 VULCANIZING PRESS OPERATOR Advance Directive Advanced Directives : ZULEYMA [place] 12/20/2012 13:55 VULCANIZING PRESS OPERATOR Educ Needs Learning Style Preference Adult Grid Patient : Demonstration Family : ZULEYMA Rowland 12/20/2012 13:55 VULCANIZING PRESS OPERATOR Source: [employer] Document Id: [id number] documented in this encounter Plan of Treatment Not on filedocumented as of this encounter Visit Diagnoses Not on filedocumented in this encounter
--- OUTSIDE RECORDS SUMMARY | 2022-10-07 07:09 | XMS_ITS | Encounter Summary ---
:1960 Author Organization [facility] Address [address] [place] [address] Care Team Providers Name Role Phone Unavailable Primary Care Provider Unavailable Encounter Details Date Type Department Care Team Description 06/20/2012 Hospital Encounter [facility]X [facility] MRI Adolfo Hardy Jr., M.D. [address] [place] [address] (Wo rk) Social History Tobacco Use Types Packs/Day Years Used Date Smoking Tobacco: Never Assessed Sex Assigned at Date Recorded Not on file documented as of this encounter Plan of Treatment Not on filedocumented as of this encounter Procedures Procedure Name Priority Date/Time Associated Diagnosis Comme nts MR HIP RIGHT WITH Routine 06/20/2012 2:56 PM Resu lts for this IV CONTRAST CDT procedure are i n the results section. documented in this encounter Results MR Hip Right with IV Contrast (06/20/2012 2:56 PM CDT) Anatomical Region Laterality Modality Lower Extremity, Hip Right Magnetic Resonance Specimen (Source) Anatomical Collection Method Collection Time Re ceived Time Location / / Volume Laterality 06/20/2012 2:56 PM CDT Addenda Addendum by Provider, My Cantor 06/20/2012 2:56 PM CDT RAD^^^OW MR Hip Right w contrast 06/20/2012 14:56:00 Impressions 06/21/2012 7:14 AM CDT 1. Small anterior superior right labral tear. 2. Small amount of fluid adjacent to the right greater trochanter, the proper clinical setting this can be seen with trochanteric bursitis. 3. Mild distal gluteus medius and minimu s tendinopathy. Narrative 06/21/2012 7:14 AM CDT EXAM: ??MR Hip Right w/ contrast (MRI ar throgram). AGE: ??51 years old. GENDER: ??Female. INDICATION: ??Probable femoral acetabula r impingement rt hip COMPARISON: ??Examination performed in [place] with plain radiographs of the right hip and pelvis April 25, 2012. FINDINGS: During injection, patient moved, needle need to be repositioned, transiently there was some infiltration of the pericapsular soft tissues. Tiny tear at the chondral labral junctio n involving the anterior superior right labrum with an associated approximately 5 mm x 4 mm. Labral cyst/ganglia (series 4 image 6, s eries 3 image 6, series 5 image 18, series 6 image 18 on series 8 image 10 and series 7 image 10). Small amount of subchondral cystic changes and marginal osteophytes along the peripheral margin of the right hip. Very tiny bony protuberance along the peripheral m argin of the proximal right lateral femoral head neck junction (seri es 8 image 15). Small amount of fluid along the peripher al margin of the right greater trochanter (series 8 image 18, s eries 4 image 15), suggestive of mild right trochanteric bursitis; cli nical correlation with point tenderness would be helpful. Tendinopathy of the distal gluteus mediu s and minimus tendons. TECHNIQUE: Using sterile technique, local anesthesi a, and fluoroscopic guidance, a 22-gauge spinal needle was advanced in to the patient's right hip joint. Intra-articular position was conf irmed with a small joint of iodinated contrast. Subsequently, 10 mL of a 1:200 solution of gadolinium and sterile saline were injec lisbeth into the right hip joint. Images were saved to the archive for doc umentation. Patient tolerated the procedure well and there were no imm ediate complications. Fluoroscopy time was 41 seconds. Patient seen, evaluated, and history rev iewed. Discussed risks, benefits, alternatives for procedure, an d obtained informed consent. Risks discussed included but were not li mited to risk of infection. Patient understands information and ques tions answered. Immediately prior to starting the procedure, in the presence of the assisting personnel, procedural pause was conducte d to verify correct patient identity and verification of procedure t o be performed, and as applicable, correct side and site, corre ct patient position, availability of implants, special equipm ent, or special requirements, and all image and specimen identificatio n data. During this procedure the [facility] Protocol was utilized. The patient's identity was confirmed by no less than 2 patient iden tifiers, correct procedure was verified, correct site was verified and marked as applicable and a final pause was completed. Procedure Note Angel Marti M.D. / ProviderOfelia M.D. - 04/20/2017 EXAM: MR Hip Right w/ contrast (MRI arth rogram). AGE: [age] years old. GENDER: Female. INDICATION: Probable femoral acetabular impingement rt hip COMPARISON: Examination performed in [facility] with plain radiographs of the right hip and pelvis April 25, 2012. FINDINGS: During injection, patient moved, needle need to be repositioned, transiently there was some infiltration of the pericapsular soft tissues. Tiny tear at the chondral labral junctio n involving the anterior superior right labrum with an associated approximately 5 mm x 4 mm. Labral cyst/ganglia (series 4 image 6, s eries 3 image 6, series 5 image 18, series 6 image 18 on series 8 image 10 and series 7 image 10). Small amount of subchondral cystic changes and marginal osteophytes along the peripheral margin of the right hip. Very tiny bony protuberance along the peripheral m argin of the proximal right lateral femoral head neck junction (seri es 8 image 15). Small amount of fluid along the peripher al margin of the right greater trochanter (series 8 image 18, s eries 4 image 15), suggestive of mild right trochanteric bursitis; cli nical correlation with point tenderness would be helpful. Tendinopathy of the distal gluteus mediu s and minimus tendons. TECHNIQUE: Using sterile technique, local anesthesi a, and fluoroscopic guidance, a 22-gauge spinal needle was advanced in to the patient's right hip joint. Intra-articular position was conf irmed with a small joint of iodinated contrast. Subsequently, 10 mL of a 1:200 solution of gadolinium and sterile saline were injec lisbeth into the right hip joint. Images were saved to the archive for doc umentation. Patient tolerated the procedure well and there were no imm ediate complications. Fluoroscopy time was 41 seconds. Patient seen, evaluated, and history rev iewed. Discussed risks, benefits, alternatives for procedure, an d obtained informed consent. Risks discussed included but were not li mited to risk of infection. Patient understands information and ques tions answered. Immediately prior to starting the procedure, in the presence of the assisting personnel, procedural pause was conducte d to verify correct patient identity and verification of procedure t o be performed, and as applicable, correct side and site, corre ct patient position, availability of implants, special equipm ent, or special requirements, and all image and specimen identificatio n data. During this procedure the [facility] Protocol was utilized. The patient's identity was confirmed by no less than 2 patient iden tifiers, correct procedure was verified, correct site was verified and marked as applicable and a final pause was completed. IMPRESSION: 1. Small anterior superior right labral tear. 2. Small amount of fluid adjacent to the right greater trochanter, the proper clinical setting this can be seen with trochanteric bursitis. 3. Mild distal gluteus medius and minimu s tendinopathy. Tracey Dickson.T.(R)(CT), R.T.(R), R.T.(R)(MR) I MG MRI PROCEDURES documented in this encounter Visit Diagnoses Not on filedocumented in this encounter
--- OUTSIDE RECORDS SUMMARY | 2022-10-07 07:09 | XMS_ITS | Encounter Summary ---
:1960 Author Organization [facility] Address [address] [place] [address] Care Team Providers Name Role Phone Unavailable Primary Care Provider Unavailable Encounter Details Date Type Department Care Team Description 05/11/2011 Hospital Encounter HX [facility] INTERNMED Zully Arnold M.D. [address] [place], [place] [address] (Wo rk) Social History Tobacco Use Types Packs/Day Years Used Date Smoking Tobacco: Never Assessed Sex Assigned at Date Recorded Not on file documented as of this encounter Progress Notes Margi Arnold M.D. - 05/11/2011 12:00 AM CDT [id number] HISTORY OF PRESENT ILLNESS Catherine comes in today primarily because her eyes have been bothering her. For a couple of weeks she has been somewhat uncomfortable, mostly with very itchy eyes. She is using moisturizing drops. She has been taking Kathi regularly, but she is still uncomfortable. She states she has not really been wheezing, having sweats, chills or fevers. She is not short of breath. She does feel as if her asthma may act up at some point. She did do the asthma control test on which she scored a total of 22. We also made out an asthma action plan. She does state that she has one from in the past. CURRENT MEDICATIONS Kathi 180 mg daily. Albuterol inhaler as needed. Aspirin 81 mg daily. Flovent 110 mcg. She has been taking 2 puffs twice daily. Nasonex spray as needed. Omeprazole 20 mg daily. Synthroid 125 mcg daily. PAST MEDICAL / SURGICAL HISTORY 1) Asthma. 2) Hypothyroidism. 3) History of menometrorrhagia, status post hysterectomy. VITALS SIGNS TEMP: 37.1 Celsius PULSE: 72 RESP RATE: 16 BLOOD PRESSURE: 120/64 WEIGHT: 69.9 kg PHYSICAL EXAM GENERAL: She appears well. SKIN: Warm and dry. HEAD: Unremarkable. EYES: Conjunctivae and fundi appear benign. ENT: Ears and pharynx are clear. LUNGS: Clear to auscultation. HEART: Sounds are regular. IMPRESSION / REPORT / PLAN 1) Allergic symptoms, probably worse now because of high pollen count. PLAN: 1) We are going to start with ketotifen eye drops. If these are not helpful, we would consider Patanol. 2) Asthma action plan. 3) I did give her a prescription for 220 mcg Flovent inhaler, as this should be less expensive than what she is doing now. My Kowalski Electronically Signed By: MARGI ARNOLD MD On: 05/13/2011 06:23 PM Source: [facility] [email or web address] Document Id: [id number] documented in this encounter Miscellaneous Notes Miscellaneous - Dede Small LSandiP.N. - 05/12/2011 9:01 AM CDT Quality Measures Quality Measures Entered On: 05/12/2011 9:01 CDT Performed On: 05/12/2011 9:01 CDT by DEDE SMALL Asthma Asthma Control Test (ACT) Score: 22 DEDE SMALL - 05/12/2011 9:01 CDT Source: [facility] POWERCHART Document Id: [id number] CDT!3 Miscellaneous - Dede Small L.P.N. - 05/11/2011 12:34 PM CDT Adult Contingents Supervisor Intake/History Adult Contingents Supervisor Intake/History Entered On: 05/11/2011 12:37 CDT Performed On: 05/11/2011 12:34 CDT by DEDE SMALL Intake Chief Complaint: c/o increased allergy syptoms over the weekend Temperature Core: 37.1C(Converted to: 98.8DegF) Peripheral Pulse Rate: 72/min Systolic Blood Pressure: 120mmHg Diastolic Blood Pressure: 64mmHg NIBP Mean: 83mmHg BP Location: Right upper extremity Actual Weight: 69.900kg(Converted to: 154lb 2oz) Dosing Weight Clinic: 69.90kg DEDE SMALL - 05/11/2011 12:34 CDT Subjective Pain Symptoms: No DEDE SMALL - 05/11/2011 12:34 CDT Dependent Habits Tobacco Use/Currently Using: No Alcohol Use: No DEDE SMALL - 05/11/2011 12:34 CDT Allergy Allergies (Active) calcium channel blockers Estimated Onset Date: Unspecified ; Reactions: lips burn ; Created By: BETH LUNA; Reaction Status: Active ; Category: Drug ; Substance: calcium channel blockers ; Type:Allergy ; Updated By: BETH LUNA; Reviewed Date: 12/08/2010 8:43 FAMILY RESOURCE COORDINATOR Cats Estimated Onset Date: Unspecified ; Created By: BETH LUNA; Reaction Status: Active ; Category: Environment ; Substance: Cats ; Type: Allergy ; Updated By: BETH LUNA; Reviewed Date:12/08/2010 8:43 FAMILY RESOURCE COORDINATOR Tenormin Estimated Onset Date: Unspecified ; Reactions: insomnia, depression, breathing problems ; Created By: ROVERTO GONZALEZ; Reaction Status: Active ; Category: Drug ; Substance: Tenormin ; Type: Allergy ; Updated By: ROVERTO GONZALEZ; Reviewed Date: 12/08/2010 8:43 FAMILY RESOURCE COORDINATOR Source: [facility] [employer]ART Document Id: [id number] CDT!16 documented in this encounter Plan of Treatment Not on filedocumented as of this encounter Visit Diagnoses Not on filedocumented in this encounter
--- OUTSIDE RECORDS SUMMARY | 2022-10-07 07:09 | XMS_ITS | Encounter Summary ---
:1960 Author Organization [facility] Address [address] [place] [address] Care Team Providers Name Role Phone Unavailable Primary Care Provider Unavailable Encounter Details Date Type Department Care Team Description 08/15/2013 Hospital Encounter HX [facility] LAB Luisa Christensen i, M.D. [address] [place] [address], [facility] [address] [place] [phone] (Wo rk) Social History Tobacco Use Types Packs/Day Years Used Date Smoking Tobacco: Never Assessed Sex Assigned at Date Recorded Not on file documented as of this encounter Plan of Treatment Not on filedocumented as of this encounter Visit Diagnoses Not on filedocumented in this encounter
--- OUTSIDE RECORDS SUMMARY | 2022-10-07 07:09 | XMS_ITS | Encounter Summary ---
:1960 Author Organization [facility] Address [address] [place] [address] Care Team Providers Name Role Phone Unavailable Primary Care Provider Unavailable Encounter Details Date Type Department Care Team Description 08/22/2013 Hospital Encounter HX [facility] Norma Zuniga M.D. INTERNMED [address] [facility], [facility] [address], [place] [address] (Wo rk) Social History Tobacco Use Types Packs/Day Years Used Date Smoking Tobacco: Never Assessed Sex Assigned at Date Recorded Not on file documented as of this encounter Last Filed Vital Signs Vital Sign Reading Time Taken Comments Blood Pressure 110/72 08/22/2013 7:58 AM CDT Pulse 76 08/22/2013 7:58 AM CDT Temperature - - Respiratory Rate 18 08/22/2013 7:58 AM CDT Oxygen Saturation - - Inhaled Oxygen Concentration - - Weight 62.9 kg (138 lb 10.7 oz) 08/22/2013 7:58 AM CDT Height 168 cm (5' 6.14) 08/22/2013 7:58 AM CDT Body Mass Index 22.29 08/22/2013 7:58 AM CDT documented in this encounter H&P Notes Norma Zuniga M.D. - 08/22/2013 7:48 AM CDT [id number] CHIEF COMPLAINT/REASON FOR VISIT Establish care and colonoscopy. HISTORY OF PRESENT ILLNESS Mrs. Styles is a 53-year-old female who comes in today to establish care and to get set up for colonoscopy. She states she is not having any current issues and has been trying to remain very active. Her METs are estimated to be greater than 4 and she has not had any issues with anesthesia in the pastexcept for having some nausea after completing a procedure. She is due for a screening colonoscopy and denies a family history of colon cancer. She has not had any issues with blood in her stool or nausea or vomiting or diarrhea. CURRENT MEDICATIONS Albuterol 2 puffs 4 times a day as needed for shortness of breath. Calcium vitamin D twice a day. Kathi 180 mg daily as needed for allergy symptoms. Fluticasone 1 puff twice a day. Synthroid 125 mcg daily. Nasonex 2 sprays both nostrils daily as needed. Omeprazole 20 mg daily. Sumatriptan 100 mg once as needed for migraine. Aspirin 81 mg daily. Mucinex 600 mg every 12 hours as needed for allergy symptoms. Sudafed 60 mg 4 times a day as needed for congestion. ALLERGIES Environmental. Kiwi. Calcium channel blockers. Cats. Tenormin. SYSTEMS REVIEW Denies fevers, chills, chest pain, shortness of breath, leg swelling, nausea, vomiting, diarrhea, blood in stool, dysuria. PAST MEDICAL/SURGICAL HISTORY 1. Mild intermittent asthma. [...] colon cancer. 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 She has occasional alcohol intake. Denies tobacco use. VITAL SIGNS TEMPERATURE: 37 degrees Celsius. HEART RATE: 76. RESPIRATORY RATE: 18. BLOOD PRESSURE: 110/72. Her weight is 62.9 kg. PHYSICAL EXAMINATION GENERAL: Resting comfortably in no apparent distress. EYES: Pupils equal, round, reactive to light. Extraocular muscles intact. No scleral icterus or conjunctival injection. ENT: No pharyngeal erythema or exudate noted. Moist mucous membranes. NECK: Supple. No cervical lymphadenopathy. No thyromegaly. HEART: Regular rate and rhythm. No murmurs, rubs or gallops. LUNGS: Clear to auscultation bilaterally. No wheezes, rales or rhonchi. ABDOMEN: Soft, nontender, nondistended. Normal bowel sounds. No rebound or guarding. EXTREMITIES: No edema. +2 pedal pulses bilaterally. NEURO: Alert and oriented times 3. Cranial nerves intact. Normal gait. DIAGNOSTIC: EKG: Normal sinus rhythm at 93 beats per minute. Normal intervals. No acute ST changes noted. Labs: Hemoglobin 13.9, hematocrit 42.9%, white blood cells 8.2, platelets 305. Sodium 138, potassium4.3, glucose 90, creatinine 1, BUN 18, calcium 10.5. TSH 1.15, free T4 1.738. Cholesterol 179, triglycerides 111, HDL 54, LDL 103. IMPRESSION/REPORT/PLAN 1. Preoperative examination. Mrs. Styles is a 53-year-old female who is here for medical clearance for her screening colonoscopy. She is low risk for the proposed procedure and is a suitable candidate. She is cleared for any level of anesthesia up to and including general anesthesia. She will complete the colonoscopy prep including Dulcolax the day before and GoLYTELY prep. She will stop her aspirin5 days prior to the scheduled procedure. She will also take her levothyroxine the morning of her procedure and hold all other medications. 2. Hypothyroidism. Her thyroid function tests are at goal. Continue on her current dose of Synthroid. Norma Zuniga M.D./celeste Electronically Signed By: NORMA ZUNIGA MD On: 08/29/2013 08:53 AM Source: [facility] MHSDOLBEYNONRADSYS Document Id: [id number] documented in this encounter Procedure Notes Conversion, Historical Provider Ser - 08/22/2013 8:30 AM CDT GI Procedures Scheduling Questionnaire GI Procedures Scheduling Questionnaire Entered On: 08/22/2013 8:31 CDT Performed On: 08/22/2013 8:30 CDT by ZULEYMA MARC GI Procedure Scheduling Questionnaire GI Arlyn/Currently taking Coumadin Currently taking Coumadin : No Currently taking Plavix : No Patient is a Diabetic : No Stent in Past 12 Months : No Antibiotics Prior to Dental Procedure : No History of Bacterial Endocarditis : No History of Heart Valve Replacement : No History of Joint Replacement : No ZULEYMA MARC - 08/22/2013 8:30 CDT GI Arlyn/Patient Instructions Given : In person ZULEYMA MARC - 08/22/2013 8:30 CDT Source: [employer] Document Id: [id number]!12 documented in this encounter Miscellaneous Notes Miscellaneous - Norma Zuniga M.D. - 08/22/2013 8:18 AM CDT Ambulatory Patient Summary [facility] [address] [place] [id number] Visit Information Name: CATHERINE BROOKS [facility] Number: [id number] Current Date: 08/22/2013 08:18:50 Physicians Attending Provider: NORMA ZUNIGA MD Primary Care Provider: NORMA ZUNIGA MD Your Medications Here is a list of your medications. It is important to take your medications as directed. Use a pillbox or chart to help remind you to take your medications. Please let your doctor or nurse know if you have problems taking your medications. Medication/Strength Dose Route Frequency Indications/Special Instructions/Comments/Notes polyethylene glycol 3350 with electrolytes (GoLYTELY oral powder for reconstitution) 240 mL Oral every 10 minutes start the evening before your scheduled colonoscopy bisacodyl (bisacodyl 5 mg oral delayed release tablet) 10 mg Oral two times a day start the day before your colonoscopy *calcium-vitamin D (Caltrate 600+D Soft Chews oral tablet, chewable) 1 tab(s) Chewed two times a day albuterol (albuterol 90 mcg/inh inhalation aerosol with adapter) 2 puff(s) Inhalation four times a day as needed for Shortness of breath / Wheezing *mometasone nasal (Nasonex 50 mcg/inh nasal spray) 2 spray(s) Nostrils(Both) once a day *fluticasone (fluticasone 220 mcg/inh inhalation aerosol with adapter) 1 puff Inhalation two times aday *fexofenadine (Kathi 180 mg oral tablet) 180 mg [...] release) 600 mg Oral every 12 hours *aspirin (aspirin 81 mg oral tablet) 1 tab(s) [...] No Appointments found Your Goals/Additional instructions: Source: [facility] POWERCHART Document Id: [id number] Miscellaneous - Norma Zuniga M.D. - 08/22/2013 8:18 AM CDT Ambulatory Depart Summary [facility] [address] [place] [address] Visit Information Name: CATHERINE BROOKS [facility] Number: [id number] Visit Date: 08/22/2013 08:18:50 Attending Provider: NORMA ZUNIGA MD Primary Care Provider: NORMA ZUNIGA MD ANABELL HAINES CATHERINE YAN has been given the following list of medications: Your Medications It is important to take your medications as directed. Use a pill box or chart to help remind you to take your medications. Please let your doctor or nurse know if you have problems taking your medications. Medication/Strength Dose Route Frequency Indications/Special Instructions/Comments/Notes polyethylene glycol 3350 with electrolytes (GoLYTELY oral powder for reconstitution) 240 mL Oral every 10 minutes start the evening before your scheduled colonoscopy bisacodyl (bisacodyl 5 mg oral delayed release tablet) 10 mg Oral two times a day start the day before your colonoscopy *calcium-vitamin D (Caltrate 600+D Soft Chews oral tablet, chewable) 1 tab(s) Chewed two times a day albuterol (albuterol 90 mcg/inh inhalation aerosol with adapter) 2 puff(s) Inhalation four times a day as needed for Shortness of breath / Wheezing *mometasone nasal (Nasonex 50 mcg/inh nasal spray) 2 spray(s) Nostrils(Both) once a day *fluticasone (fluticasone 220 mcg/inh inhalation aerosol with adapter) 1 puff Inhalation two times aday *fexofenadine (Kathi 180 mg oral tablet) 180 mg [...] release) 600 mg Oral every 12 hours *aspirin (aspirin 81 mg oral tablet) 1 tab(s) [...] youcontact your provider for clarification. Additional Information: Yes - . 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 Entered On: 08/22/2013 8:02 CDT Performed On: 08/22/2013 7:58 CDT by ZULEYMA MARC Intake Chief Complaint : Pre-op for colonoscopy - establish care - review labs Temperature Oral : 37.0 DegC(Converted to: 98.6 DegF) Peripheral Pulse Rate : 76 /min Respiratory Rate : 18 /min Systolic Blood Pressure : 110 mmHg Diastolic Blood Pressure : 72 mmHg NIBP Mean : 85 mmHg BP Location : Right upper extremity Blood Pressure Cuff Size : Regular Height : 168 cm(Converted to: 5 ft 6 inch(es), 66.14 inch(es)) Actual Weight : 62.9 kg(Converted to: 138 lb 11 oz) Dosing Weight Clinic : 62.9 kg Clinic BSA : 1.71 Body Mass Index : 22.29 kg/m2 ZULEYMA MARC - 08/22/2013 7:58 CDT General Info Information Given By : Patient Languages : Zambian ZULEYMA MARC - 08/22/2013 7:58 CDT Subjective Pain Symptoms : No ZULEYMA MARC - 08/22/2013 7:58 CDT Dependent Habits Tobacco Use/Currently Using : No Exposure to Tobacco Smoke : Other: Never Smoking Status : Never smoker Alcohol Use : Yes ZULEYMA MARC - 08/22/2013 7:58 CDT Caffeine Use Grid Caffeine Use : Current Type : Coffee Frequency : Daily ZULEYMA MARC - 08/22/2013 7:58 CDT [facility] Document Id: [id number] CDT!31 Telephone Encounter - Conversion, Historical Provider Ser - 08/06/2013 9:00 AM CDT Phone Message - Labs prior to appointment - ok to wait Document Contains Addenda Addendum by ZULEYMA MARC on 10 August 2013 13:31:26 CDT Call patient at [phone]. patient notified the orders are in Addendum by NORMA ZUNIGA MD on 10 August 2013 13:07:39 CDT From: NORMA ZUNIGA MD To: ZACHARY Zuniga Nurse; Sent: 08/10/2013 13:07:39 CDT Subject: RE: Phone Message - Labs prior to appointment - ok to wait yes. Labs are ordered. From: ZULEYMA MARC (ZACHARY Zuniga Nurse) To: NORMA ZUNIGA MD; Sent: 08/06/2013 09:00:35 CDT Subject: Phone Message - Labs prior to appointment - ok to wait Caller is: ( ) Patient ( ) Mother ( ) Father ( ) Spouse ( ) Daughter ( ) Son ( ) Pharmacy ( ) Other: Physician: Fermin Patient MRN #: Reason for Call: Message: Patient would like to schedule her labs prior to her physical, which is also a pre-op for colonoscopy so she wants to make sure there are orders to blood work and EKG Advice/Action: Source used: ( ) Verbalizes understanding [...] back cell phone number ( ) Source: [facility] [employer] Document Id: [id number] documented in this encounter Plan of Treatment Not on filedocumented as of this encounter Visit Diagnoses Not on filedocumented in this encounter
--- OUTSIDE RECORDS SUMMARY | 2022-10-07 07:09 | XMS_ITS | Encounter Summary ---
:1960 Author Organization [facility] Address [address] [place] [address] Care Team Providers Name Role Phone Unavailable Primary Care Provider Unavailable Encounter Details Date Type Department Care Team Description 11/10/2012 Hospital Encounter HX [facility] XRAY Provider, Marisoli owen Social History Tobacco Use Types Packs/Day Years Used Date Smoking Tobacco: Never Assessed Sex Assigned at Date Recorded Not on file documented as of this encounter Plan of Treatment Not on filedocumented as of this encounter Procedures Procedure Name Priority Date/Time Associated Diagnosis Comme nts DX HIP AND PELVIS Routine 11/10/2012 1:08 PM Resu lts for this RIGHT 1 VIEW [employer] procedure are i n the results section. documented in this encounter Results DX Hips And Pelvis Right 1 View (11/10/2012 1:08 PM [employer]) Anatomical Region Laterality Modality Lower Extremity, Pelvis, Hip Right Radiographi c Imaging Specimen (Source) Anatomical Collection Method Collection Time Re ceived Time Location / / Volume Laterality 11/10/2012 1:08 PM [employer] Addenda Addendum by Provider, My Cantor 11/10/2012 1:08 PM [employer] RAD^^^OW XR Hip Right Lat w/Pelvis 11/10/2012 13:08:33 Impressions 11/10/2012 1:43 PM [employer] ??No appreciable acute osseous injury. Degenerative findings as noted above. Narrative 11/10/2012 1:43 PM [employer] EXAM: ??XR Pelvis Hip Right 1 view AGE: ??52 years old. GENDER: ??Female. INDICATION: ??Dick order, not otherwise specified. COMPARISON: ??17/08/2012. FINDINGS: ??Negative for fractures. Mild/moderate degenerative changes both hips, more pronounced on left. Moderate facet arthropathy lower lumbar spine. Procedure Note Angel Marti M.D. / Provider, Ofelia fine M.D. - 04/20/2017 EXAM: XR Pelvis Hip Right 1 view AGE: [age] years old. GENDER: Female. INDICATION: Dick order, not otherwise sp ecified. COMPARISON: 17/08/2012. FINDINGS: Negative for fractures. Mild/moderate degenerative changes both hips, more pronounced on left. Moderate facet arthropathy lower lumbar spine. IMPRESSION: No appreciable acute osseous injury. Degenerative findings as noted above. Violeta Matthew(Yessi) [facility] documented in this encounter Visit Diagnoses Not on filedocumented in this encounter
--- OUTSIDE RECORDS SUMMARY | 2022-10-07 07:09 | XMS_ITS | Encounter Summary ---
:1960 Author Organization [facility] Address [address] [place] [address] Care Team Providers Name Role Phone Unavailable Primary Care Provider Unavailable Encounter Details Date Type Department Care Team Description 08/04/2011 Hospital Encounter HX [facility] Howard Bright M.D. [address] [place], [place] [phone] (Wo rk) Social History Tobacco Use Types Packs/Day Years Used Date Smoking Tobacco: Never Assessed Sex Assigned at Date Recorded Not on file documented as of this encounter Plan of Treatment Not on filedocumented as of this encounter Visit Diagnoses Not on filedocumented in this encounter
--- OUTSIDE RECORDS SUMMARY | 2022-10-07 07:09 | XMS_ITS | Encounter Summary ---
:1960 Author Organization [facility] Address [address] [place] [address] Care Team Providers Name Role Phone Unavailable Primary Care Provider Unavailable Encounter Details Date Type Department Care Team Description 06/23/2012 Hospital Encounter HX [facility] Poncho Hardy Jr., M.D. [address] [place] [address] (Wo rk) Social History Tobacco Use Types Packs/Day Years Used Date Smoking Tobacco: Never Assessed Sex Assigned at Date Recorded Not on file documented as of this encounter Last Filed Vital Signs Vital Sign Reading Time Taken Comments Blood Pressure 100/66 06/23/2012 8:32 AM CDT Pulse - - Temperature - - Respiratory Rate - - Oxygen Saturation - - Inhaled Oxygen Concentration - - Weight 68.8 kg (151 lb 10.8 oz) 06/23/2012 8:32 AM CDT Height 168 cm (5' 6.14) 06/23/2012 8:32 AM CDT Body Mass Index 24.38 06/23/2012 8:32 AM CDT documented in this encounter Progress Notes Poncho Hardy Jr., M.D. - 06/23/2012 12:00 AM CDT [id number] CHIEF COMPLAINT Right hip pain HISTORY OF PRESENT ILLNESS Catherine is a 51-year-old female who presents to the clinic today for a follow-up of her persistent right hip pain. Since our last visit the patient has noted no alleviation of her symptoms. She reports having a lot of difficulty sleeping. The patient rates her pain a 3-4/10 in severity during day with it being much worse at night. She notes she is active individual, and her pain hinders her quality of life. She has no other complaints at this time. VITAL SIGNS HEIGHT: 168 cm WEIGHT: 68.8 kg BLOOD PRESSURE: 100/66 mmHg PHYSICAL EXAM GENERAL: The patient is a pleasant female in no acute distress. Well developed, well nourished, near ideal weight. MENTAL: The patient has a normal mood and affect. She is alert and oriented to person, place, and time. EXTREMITIES: Physical exam unchanged from previous evaluation. DIAGNOSTIC TESTS IMAGING: X-rays taken 04/25/2012 of the bilateral hip (1 view) demonstrates some left hip osteophytes formation of the lateral aspect of the acetabulum. No acute right hip injury. MRI taken 06/20/2012 of the right hip demonstrates a small anterior superior right labral tear, a small amount of fluid adjacent to the right greater trochanter, and mild distal gluteus medius and minimus tendinopathy. IMPRESSION / REPORT / PLAN 1. Right hip femoral acetabular impingement. PLAN: 1. The patient was referred to Radiology for an intraarticular steroid injection in her right hip. 2. Discussed the possibility of a referral in the future to have an evaluation in [place] for a possible arthroscopy if the patient's symptoms persist and continue to affect her quality of life. 3. She will follow-up with us in 6 weeks. The patient was offered a department summary but declined. This document serves as a record of services personally performed by Dr. Poncho Hardy. It was created on their behalf by Julio Cesar Robert, a trained medical assembler. The creation of this record is based on the scribe's personal observations and the provider's statements to them. This document has been checked and approved by the attending provider. Poncho Hardy Jr., M.D. ct Electronically Signed By: PONCHO HARDY MD On: 07/11/2012 10:50 AM Source: [facility] MHSDOLBEYNONRADSYS Document Id: [id number] documented in this encounter Miscellaneous Notes Miscellaneous - Poncho Hardy Jr., M.D. - 06/23/2012 9:37 AM CDT [facility]art [facility] [address] [facility], [place] [address] Visit Information Name: CATHERINE BROOKS Visit Date: 06/23/2012 09:37:13 Attending Provider: PONCHO HARDY MD Primary Care Provider: CUCO ARNOLD MD CATHERINE BROOKS has been given the following list of medications: Your Medications It is important to take your medications as directed. Use a pill box or chart to help remind you to take your medications. Please let your doctor or nurse know if you have problems taking your medications. Medication/Strength Dose Route Frequency Indications/Special Instructions/Comments albuterol (albuterol 90 mcg/inh inhalation aerosol with adapter) 2 puff(s) Inhalation four times a day as needed for Shortness of breath / Wheezing omeprazole (omeprazole 20 mg oral enteric coated tablet) 20 mg Oral once a day mometasone nasal (Nasonex 50 mcg/inh nasal spray) 2 spray(s) Nostrils(Both) once a day fexofenadine (Kathi 180 mg oral tablet) 180 mg Oral once a day levothyroxine (Synthroid 125 mcg (0.125 mg) oral tablet) 125 mcg Oral once a day sumatriptan (sumatriptan 50 mg oral tablet) 100 mg Oral once as needed for migraine headache fluticasone (fluticasone 220 mcg/inh inhalation aerosol with adapter) 1 puff Inhalation two times a day fexofenadine (Kathi 180 mg oral tablet) 180 mg Oral once a day for 90 Days ketotifen ophthalmic (ketotifen 0.025% ophthalmic solution) 1 drop(s) Eyes(Both) every 8 hours aspirin (aspirin 81 mg oral tablet) 1 tab(s) Oral once a day Attention: If you have any medications at home that are not on this list, DO NOT take them until youcontact your provider for clarification. Additional Information: Source: [facility] POWERCHART Document Id: [id number] Miscellaneous - Poncho Hardy Jr., M.D. - 06/23/2012 9:37 AM CDT Ambulatory Patient Summary [facility] [address] [place] [id number] Visit Information Name: CATHERINE BROOKS Current Date: 06/23/2012 09:37:14 Physicians Attending Provider: PONCHO HARDY MD Primary Care Provider: CUCO ARNOLD MD Your Medications Here is a list of your medications. It is important to take your medications as directed. Use a pillbox or chart to help remind you to take your medications. Please let your doctor or nurse know if you have problems taking your medications. Medication/Strength Dose Route Frequency Indications/Special Instructions/Comments albuterol (albuterol 90 mcg/inh inhalation aerosol with adapter) 2 puff(s) Inhalation four times a day as needed for Shortness of breath / Wheezing omeprazole (omeprazole 20 mg oral enteric coated tablet) 20 mg Oral once a day mometasone nasal (Nasonex 50 mcg/inh nasal spray) 2 spray(s) Nostrils(Both) once a day fexofenadine (Kathi 180 mg oral tablet) 180 mg Oral once a day levothyroxine (Synthroid 125 mcg (0.125 mg) oral tablet) 125 mcg Oral once a day sumatriptan (sumatriptan 50 mg oral tablet) 100 mg Oral once as needed for migraine headache fluticasone (fluticasone 220 mcg/inh inhalation aerosol with adapter) 1 puff Inhalation two times a day fexofenadine (Kathi 180 mg oral tablet) 180 mg Oral once a day for 90 Days ketotifen ophthalmic (ketotifen 0.025% ophthalmic solution) 1 drop(s) Eyes(Both) every 8 hours aspirin (aspirin 81 mg oral tablet) [...] No Appointments found Your Goals/Additional instructions: Source: [facility] POWERCHART Document Id: [id number] Miscellaneous - Elaine Lopez LSandiP.N. 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 Entered On: 06/23/2012 8:36 CDT Performed On: 06/23/2012 8:32 CDT by ELAINE LOPEZ Intake Chief Complaint : Rt hip pain MRI on 06-20-12 Pt states that symptoms have not changed; pt here for MRI results and to discuss recommended treatement options Systolic Blood Pressure : 100mmHg Diastolic Blood Pressure : 66mmHg NIBP Mean : 77mmHg BP Location : Right upper extremity Blood Pressure Cuff Size : Regular Height : 168cm(Converted to: 5ft 6inch(es), 66.14inch(es)) Actual Weight : 68.8kg(Converted to: 151lb 11oz) Dosing Weight Clinic : 68.80kg Clinic BSA : 1.79 Body Mass Index : 24.38kg/m2 ELAINE LOPEZ - 06/23/2012 8:32 CDT Subjective Pain Symptoms : Yes ELAINE LOPEZ - 06/23/2012 8:32 CDT Dependent Habits Tobacco Use/Currently Using : No Exposure to Tobacco Smoke : Other: Never Smoking Status : Never smoker ELAINE LOPEZ - 06/23/2012 8:32 CDT Allergy Allergies (Active) calcium channel blockers Estimated Onset Date: Unspecified ; Reactions: lips burn ; Created By: BETH LUNA; Reaction Status: Active ; Category: Drug ; Substance: calcium channel blockers ; Type:Allergy ; Updated By: BETH LUNA; Reviewed Date: 06/23/2012 8:32 CDT Cats Estimated Onset Date: Unspecified ; Created By: BETH LUNA; Reaction Status: Active ; Category: Environment ; Substance: Cats ; Type: Allergy ; Updated By: BETH LUNA; Reviewed Date:06/23/2012 8:32 CDT Other Environmental Estimated Onset Date: Unspecified ; Reactions: Itchy watery eyes ; Comment: seasonal, hayfever ; Created By: DENISE ZAPIEN; Reaction Status: Active ; Category: Drug ; Substance: Other Environmental ; Type: Allergy ; Severity: Moderate ; Updated By: DENISE ZAPIEN; Reviewed Date: 06/23/2012 8:32 CDT Other food Estimated Onset Date: Unspecified ; Reactions: Itching ; Comment: kiwi ; Created By: DENISE ZAPIEN; Reaction Status: Active ; Category: Drug ; Substance: Other food ; Type: Allergy ; Severity: Mild ; Updated By: DENISE ZAPIEN; Reviewed Date: 06/23/2012 8:32 CDT Tenormin Estimated Onset Date: Unspecified ; Reactions: insomnia, depression, breathing problems ; Created By: ROVERTO GONZALEZ; Reaction Status: Active ; Category: Drug ; Substance: Tenormin ; Type: Allergy ; Updated By: ROVERTO GONZALEZ; Reviewed Date: 06/23/2012 8:32 CDT Source: [facility] GigaBryteCHART Document Id: [id number] documented in this encounter Plan of Treatment Not on filedocumented as of this encounter Visit Diagnoses Not on filedocumented in this encounter
--- OUTSIDE RECORDS SUMMARY | 2022-10-07 07:09 | XMS_ITS | Encounter Summary ---
:1960 Author Organization [facility] Address [address] [place] [address] Care Team Providers Name Role Phone Unavailable Primary Care Provider Unavailable Encounter Details Date Type Department Care Team Description 08/28/2012 Hospital Encounter HX [facility] Poncho Hardy Jr., M.D. [address] [place] [address] (Wo rk) Social History Tobacco Use Types Packs/Day Years Used Date Smoking Tobacco: Never Assessed Sex Assigned at Date Recorded Not on file documented as of this encounter Last Filed Vital Signs Vital Sign Reading Time Taken Comments Blood Pressure 100/64 08/28/2012 10:30 AM CDT Pulse - - Temperature - - Respiratory Rate - - Oxygen Saturation - - Inhaled Oxygen Concentration - - Weight 69.2 kg (152 lb 8.9 oz) 08/28/2012 10:30 AM CDT Height 169 cm (5' 6.54) 08/28/2012 10:30 AM CDT Body Mass Index 24.23 08/28/2012 10:30 AM CDT documented in this encounter Progress Notes Poncho Hardy Jr., M.D. - 08/28/2012 12:00 AM CDT [id number] CHIEF COMPLAINT Follow up of right hip pain HISTORY OF PRESENT ILLNESS Catherine is a 52-year-old female who presents to the clinic today for a follow up of her right hip pain. The patient reports that her hip is still continuing to bother her. The patient did receive a cortisone injection in her hip since our last visit which did improve her pain by approximately half, making it manageable. She notes that her range of motion has not improved with the injection. She still reports having a limp and this causes pain in her right knee and lower back. In our last visit, we discussed the possibility of a referral to [place] for a possible hip arthroscopy. She would like to explore this option as well as another possible hip injection. She notes that her hip pain is continuing to affect her quality of life. The patient has no other complaints at this time. VITAL SIGNS HEIGHT: 169 cm WEIGHT: 69.2 kg BLOOD PRESSURE: 100/64 mmHg PHYSICAL EXAM GENERAL: The patient is a pleasant female in no acute distress. Well developed, well nourished, near ideal weight. MENTAL: The patient has a normal mood and affect. She is alert and oriented to person, place, and time. EXTREMITIES: Examined the right hip today. Normal range of motion of the hip as follows: flexion to 90 degrees, extension to 20 degrees, abduction to 45 degrees with mild tenderness, adduction 30 degrees, internal rotation to 30 degrees, and external rotation to 40 degrees with pain. Straight leg raise was normal. Full range of motion of the knee Full range of motion of the ankle Positive Ousmane's Negative Fader's GAIT: normal heel-toe gait. NEUROLOGICAL: Normal deep tendon reflexes of bilateral patellar and Achilles tendon. DIAGNOSTIC TESTS IMAGING: X-rays taken 04/25/2012 of [...] Right hip femoral acetabular impingement. PLAN: 1. I referred the patient to [facility] for evaluation of possible hip arthroscopy. 2. The patient is concerned about a future trip to [place] and would like another hip injection. She was also referred to [facility] for another right hip injection. 3. She will follow up p.r.n. The patient was offered a department summary but declined. This document serves as a record of services personally performed by Dr. Poncho Hardy. It was created on their behalf by Julio Cesar Robert, a trained medical records technician. The creation of this record is based on the scribe's personal observations and the provider's statements to them. This document has been checked and approved by the attending provider. Poncho Hardy Jr., M.D. ct Electronically Signed By: PONCHO HARDY MD On: 08/28/2012 12:06 PM Source: [facility] MHSDOLBEYNONRADSYS Document Id: [id number] documented in this encounter Miscellaneous Notes Miscellaneous - Elaine Lopez, L.P.N. - 08/28/2012 10:30 AM CDT Adult Epidemiology Investigator Intake/History Adult Epidemiology Investigator Intake/History Entered On: 08/28/2012 10:33 CDT Performed On: 08/28/2012 10:30 CDT by ELAINE LOPEZ Intake Chief Complaint : Rt hip pian Pt continues to have some pain in her hip; she would like another injection into hip and would like [facility] Systolic Blood Pressure : 100mmHg Diastolic Blood Pressure : 64mmHg NIBP Mean : 76mmHg BP Location : Left upper extremity Blood Pressure Cuff Size : Large Height : 169cm(Converted to: 5ft 7inch(es), 66.54inch(es)) Actual Weight : 69.2kg(Converted to: 152lb 9oz) Dosing Weight Clinic : 69.20kg Clinic BSA : 1.80 Body Mass Index : 24.23kg/m2 ELAIEN LOPEZ - 08/28/2012 10:30 CDT Subjective Pain Symptoms : Yes ELAINE LOPEZ - 08/28/2012 10:30 CDT Dependent Habits Tobacco Use/Currently Using : No Exposure to Tobacco Smoke : Other: Never Smoking Status : Never smoker ELAINE LOPEZ - 08/28/2012 10:30 CDT Allergy Allergies (Active) calcium channel blockers Estimated Onset Date: Unspecified ; Reactions: lips burn ; Created By: BETH LUNA; Reaction Status: Active ; Category: Drug ; Substance: calcium channel blockers ; Type:Allergy ; Updated By: BETH LUNA; Reviewed Date: 08/28/2012 10:30 CDT Cats Estimated Onset Date: Unspecified ; Created By: BETH LUNA; Reaction Status: Active ; Category: Environment ; Substance: Cats ; Type: Allergy ; Updated By: BETH LUNA; Reviewed Date:08/28/2012 10:30 CDT Other Environmental Estimated Onset Date: Unspecified ; Reactions: Itchy watery eyes ; Comment: seasonal, hayfever ; Created By: DENISE ZAPIEN; Reaction Status: Active ; Category: Drug ; Substance: Other Environmental ; Type: Allergy ; Severity: Moderate ; Updated By: DENISE ZAPIEN; Reviewed Date: 08/28/2012 10:30 CDT Other food Estimated Onset Date: Unspecified ; Reactions: Itching ; Comment: kiwi ; Created By: DENISE ZAPIEN; Reaction Status: Active ; Category: Drug ; Substance: Other food ; Type: Allergy ; Severity: Mild ; Updated By: DENISE ZAPIEN; Reviewed Date: 08/28/2012 10:30 CDT Tenormin Estimated Onset Date: Unspecified ; Reactions: insomnia, depression, breathing problems ; Created By: ROVERTO GONZALEZ; Reaction Status: Active ; Category: Drug ; Substance: Tenormin ; Type: Allergy ; Updated By: ROVERTO GONZALEZ; Reviewed Date: 08/28/2012 10:30 CDT Source: [facility] ColdSparkCHART Document Id: [id number] documented in this encounter Plan of Treatment Not on filedocumented as of this encounter Visit Diagnoses Not on filedocumented in this encounter
--- OUTSIDE RECORDS SUMMARY | 2022-10-07 07:09 | XMS_ITS | Encounter Summary ---
:1960 Author Organization [facility] Address [address] [place] [address] Care Team Providers Name Role Phone Unavailable Primary Care Provider Unavailable Encounter Details Date Type Department Care Team Description 06/26/2012 Hospital Encounter HX [facility] Adolfo Hardy Jr., M.D. [address] [place] [address] (Wo rk) Social History Tobacco Use Types Packs/Day Years Used Date Smoking Tobacco: Never Assessed Sex Assigned at Date Recorded Not on file documented as of this encounter Last Filed Vital Signs Vital Sign Reading Time Taken Comments Blood Pressure 131/79 06/26/2012 2:40 PM CDT Pulse 88 06/26/2012 2:40 PM CDT Temperature - - Respiratory Rate - - Oxygen Saturation - - Inhaled Oxygen Concentration - - Weight - - Height - - Body Mass Index - - documented in this encounter Procedure Notes Wild Tang, R.N. - 06/26/2012 2:40 PM CDT Procedure Documentation Procedure Documentation Entered On: 06/26/2012 15:03 CDT Performed On: 06/26/2012 14:40 CDT by WILD TANG RN Checklist Amb/Home Prep Complete Procedure/Site Verified by Allied Health Staff : Yes Procedure/Site Verified by Nurse : Yes Procedure/Site Verified by Provider : Yes Procedure/Site Verified by Patient/Family : Yes Relevant Documentation/Images : Yes Surgical/Procedure Consent Signed : Yes WILD TANG RN - 06/26/2012 14:40 CDT Pain Symptoms : Yes Procedure Site Preped With : ChloraPrep WILD TANG RN - 06/26/2012 14:40 CDT Vitals/Ht/Wt Peripheral Pulse Rate : 88/min Systolic Blood Pressure : 131mmHg Diastolic Blood Pressure : 79mmHg NIBP Mean : 96mmHg BP Location : Right upper extremity Blood Pressure Cuff Size : Regular SpO2 : 99% Oxygen Therapy : Room air WILD TANG Andrade RN - 06/26/2012 14:40 CDT Allergy Allergies (Active) calcium channel blockers Estimated Onset Date: Unspecified ; Reactions: lips burn ; Created By: BETH LUNA; Reaction Status: Active ; Category: Drug ; Substance: calcium channel blockers ; Type:Allergy ; Updated By: BETH LUNA; Reviewed Date: 06/26/2012 14:40 CDT Cats Estimated Onset Date: Unspecified ; Created By: BETH LUNA; Reaction Status: Active ; Category: Environment ; Substance: Cats ; Type: Allergy ; Updated By: BETH LUNA; Reviewed Date:06/26/2012 14:40 CDT Other Environmental Estimated Onset Date: Unspecified ; Reactions: Itchy watery eyes ; Comment: seasonal, hayfever ; Created By: DENISE ZAPIEN; Reaction Status: Active ; Category: Drug ; Substance: Other Environmental ; Type: Allergy ; Severity: Moderate ; Updated By: DENISE ZAPIEN; Reviewed Date: 06/26/2012 14:40 CDT Other food Estimated Onset Date: Unspecified ; Reactions: Itching ; Comment: kiwi ; Created By: DENISE ZAPIEN; Reaction Status: Active ; Category: Drug ; Substance: Other food ; Type: Allergy ; Severity: Mild ; Updated By: DENISE ZAPIEN; Reviewed Date: 06/26/2012 14:40 CDT Tenormin Estimated Onset Date: Unspecified ; Reactions: insomnia, depression, breathing problems ; Created By: ROVERTO GONZALEZ; Reaction Status: Active ; Category: Drug ; Substance: Tenormin ; Type: Allergy ; Updated By: ROVERTO GONZALEZ; Reviewed Date: 06/26/2012 14:40 CDT Pain Pain Assessment Grid Location : Hip (Comment: Right hip [EDUAR TANGSALMA Zafar RN - 06/26/2012 14:40 CDT] ) Intensity : 2 WILD TANG RN - 06/26/2012 14:40 CDT Preprocedural Pause Correct Patient Identity : Patient verbalizes self, Patient verbalizes Correct Procedure Site/Side Verified By : Patient/responsible libertarian, Nurse, MD, Allied Health Staff Site Marking : Yes Pre-Procedure Pause Verbal Confirm. of : Procedure, Site, Side, Patient Position, Patient ID Preprocedural Pause : 14:50 SUPPLIER QUALITY ENGINEER Start Time : 14:55 SUPPLIER QUALITY ENGINEER WILD TANG RN - 06/26/2012 14:40 CDT Postprocedure Procedure Tolerance : Good End Time : 15:02 SUPPLIER QUALITY ENGINEER Procedure/Specimen(s) Sent to Lab : No Follow Up Care Given : Yes Comments : Pain, post procedure 0/10 WILD TANG RN - 06/26/2012 14:40 CDT Procedure Education Ambulatory Procedure Education Grid Procedure Type : Steroid Injection (Comment: [id number] [WILD TANG RN - 06/26/2012 14:40 CDT]) WILD TANG RN - 06/26/2012 14:40 CDT Advance Directive Advanced Directives : No WILD TANG RN - 06/26/2012 14:40 CDT Source: [employer] Document Id: [id number] documented in this encounter Miscellaneous Notes Miscellaneous - Wild Tang RSandiNSandi - 06/29/2012 10:46 AM CDT Discharge Follow Up Discharge Follow Up Entered On: 06/29/2012 10:47 CDT Performed On: 06/29/2012 10:46 CDT by WILD TANG community development specialist Follow Up Follow Up Attempted : No answer Follow Up Completed : Via telephone Procedure Date : 06/26/2012 CDT Proceduralist : ANGEL MARTI MD Reason for Follow Up : Right hip injection WILD TANG RN - 06/29/2012 10:46 CDT Source: [employer] Document Id: [id number] documented in this encounter Plan of Treatment Not on filedocumented as of this encounter Procedures Procedure Name Priority Date/Time Associated Comments Diagnosis RF MAJOR JOINT Routine 06/26/2012 2:30 PM Results for this ASPIRATION OR CDT procedure are in INJECTION the results section. documented in this encounter Results FL Major Joint Aspiration or Injection (06/26/2012 2:30 PM CDT) Anatomical Region Laterality Modality Joint Radiographic Imaging Specimen (Source) Anatomical Collection Method Collection Time Re ceived Time Location / / Volume Laterality 06/26/2012 2:30 PM CDT Addenda Addendum by Provider, My Cantor 06/26/2012 2:30 PM CDT RAD^^^OW FL Hip Injection Right 06/26/2012 14:30:00 Impressions 06/27/2012 6:35 AM CDT ??Preinjection patient rated the pain level as 2/10. Post injection patient rated the pain as 0/10 . No immediate complications. Narrative 06/27/2012 6:35 AM CDT EXAM: ??FL Hip Injection Right AGE: ??51 years old. GENDER: ??Female. INDICATION: ??RIGHT HIP PAIN. COMPARISON: ??None. FINDINGS: TECHNIQUE: Using sterile technique, local anesthesi a and fluoroscopic guidance, a 22-gauge spinal needle was advanced in to the patient's right hip joint. ??Intra-articular positioning was confirmed with a small injection of iodinated contrast. ??Image s were saved to the archive for documentation. ??Subsequently, 4 mL of 2% Lidocaine solution and 1 mL of ??40 mg of Kenalog were injected i nto the right hip joint. Patient tolerated the procedure well and there were no immediate complications. Fluoroscopy time was 10 seconds. Patient seen, evaluated, and history rev iewed. ??Discussed risks, benefits, alternatives for procedure, an d obtained informed consent. Risks discussed included but were not li mited to infection and failure to relieve pain. ??Patient under stands information and questions answered. ??Immediately prior to starting the procedure, in the presence of the assisting personnel, procedural pause was conducted to verify correct patient iden tity and verification of procedure to be performed, and as applic able, correct side and site, correct patient position, availability o f implants, special equipment, or special requirements, and all image and specimen identification data. ?? During this proc edure the [place] Protocol was utilized. The patient?s identity was confirmed by no less than two patient identifiers, correct procedu re was verified, correct site was verified and marked as applicable an d a final pause was completed. Procedure Note Angel Marti M.D. / Provider, Ofelia fine M.D. - 04/19/2017 EXAM: FL Hip Injection Right AGE: [age] years old. GENDER: Female. INDICATION: RIGHT HIP PAIN. COMPARISON: None. FINDINGS: TECHNIQUE: Using sterile technique, local anesthesi a and fluoroscopic guidance, a 22-gauge spinal needle was advanced in to the patient's right hip joint. Intra-articular positioning was c onfirmed with a small injection of iodinated contrast. Images were saved to the archive for documentation. Subsequently, 4 mL of 2% Lidocaine solution and 1 mL of 40 mg of Kenalog were injected int o the right hip joint. Patient tolerated the procedure well and there were no immediate complications. Fluoroscopy time was 10 seconds. Patient seen, evaluated, and history rev iewed. Discussed risks, benefits, alternatives for procedure, an d obtained informed consent. Risks discussed included but were not li mited to infection and failure to relieve pain. Patient underst ands information and questions answered. Immediately prior to starting the procedure, in the presence of the assisting personnel, procedural pause was conducted to verify correct patient iden tity and verification of procedure to be performed, and as applic able, correct side and site, correct patient position, availability o f implants, special equipment, or special requirements, and all image and specimen identification data. During this procedu re the [place] Protocol was utilized. The patient?s identity was confirmed by no less than two patient identifiers, correct procedu re was verified, correct site was verified and marked as applicable an d a final pause was completed. IMPRESSION: Preinjection patient rated t he pain level as 2/10. Post injection patient rated the pain as 0/10 . No immediate complications. Historical Provider IMG FLUOROSCOPY PROCEDURES documented in this encounter Visit Diagnoses Not on filedocumented in this encounter
--- OUTSIDE RECORDS SUMMARY | 2022-10-07 07:09 | XMS_ITS | Encounter Summary ---
:1960 Author Organization [facility] Address [address] [place] [address] Care Team Providers Name Role Phone Unavailable Primary Care Provider Unavailable Encounter Details Date Type Department Care Team Description 08/31/2012 Hospital Encounter HX [facility] Adolfo Hardy Jr., M.D. [address] [place] [address] (Wo rk) Social History Tobacco Use Types Packs/Day Years Used Date Smoking Tobacco: Never Assessed Sex Assigned at Date Recorded Not on file documented as of this encounter Last Filed Vital Signs Vital Sign Reading Time Taken Comments Blood Pressure 133/84 08/31/2012 10:48 AM CDT Pulse 83 08/31/2012 10:48 AM CDT Temperature - - Respiratory Rate - - Oxygen Saturation - - Inhaled Oxygen Concentration - - Weight - - Height - - Body Mass Index - - documented in this encounter Procedure Notes Wild Tang, R.N. - 08/31/2012 10:28 AM CDT Procedure Documentation Procedure Documentation Entered On: 08/31/2012 10:48 CDT Performed On: 08/31/2012 10:28 CDT by WILD TANG RN Checklist Ambulatory Procedure : Right hip injection WILD TANG RN - 08/31/2012 10:28 CDT Amb/Home Prep Complete Procedure/Site Verified by Allied Health Staff : Yes Procedure/Site Verified by Nurse : Yes Procedure/Site Verified by Provider : Yes Procedure/Site Verified by Patient/Family : Yes Relevant Documentation/Images : Yes Surgical/Procedure Consent Signed : Yes WILD TANG Andrade RN - 08/31/2012 10:28 CDT Pain Symptoms : Yes Procedure Site Preped With : ChloraPrep WILD TANG RN - 08/31/2012 10:28 CDT Vitals/Ht/Wt Temperature Oral : 97.1DegF Peripheral Pulse Rate : 84/min Systolic Blood Pressure : 133mmHg Diastolic Blood Pressure : 88mmHg NIBP Mean : 103mmHg BP Location : Right upper extremity Blood Pressure Cuff Size : Regular SpO2 : 95% WILD TANG RN - 08/31/2012 10:28 CDT Allergy Allergies (Active) calcium channel blockers Estimated Onset Date: Unspecified ; Reactions: lips burn ; Created By: BETH LUNA; Reaction Status: Active ; Category: Drug ; Substance: calcium channel blockers ; Type:Allergy ; Updated By: BETH LUNA; Reviewed Date: 08/31/2012 10:28 CDT Cats Estimated Onset Date: Unspecified ; Created By: BETH LUNA; Reaction Status: Active ; Category: Environment ; Substance: Cats ; Type: Allergy ; Updated By: BETH LUNA; Reviewed Date:08/31/2012 10:28 CDT Other Environmental Estimated Onset Date: Unspecified ; Reactions: Itchy watery eyes ; Comment: seasonal, hayfever ; Created By: DENISE ZAPIEN; Reaction Status: Active ; Category: Drug ; Substance: Other Environmental ; Type: Allergy ; Severity: Moderate ; Updated By: DENISE ZAPIEN; Reviewed Date: 08/31/2012 10:28 CDT Other food Estimated Onset Date: Unspecified ; Reactions: Itching ; Comment: kiwi ; Created By: DENISE ZAPIEN; Reaction Status: Active ; Category: Drug ; Substance: Other food ; Type: Allergy ; Severity: Mild ; Updated By: DENISE ZAPIEN; Reviewed Date: 08/31/2012 10:28 CDT Tenormin Estimated Onset Date: Unspecified ; Reactions: insomnia, depression, breathing problems ; Created By: ROVERTO GONZALEZ; Reaction Status: Active ; Category: Drug ; Substance: Tenormin ; Type: Allergy ; Updated By: ROVERTO GONZALEZ; Reviewed Date: 08/31/2012 10:28 CDT Pain Pain Assessment Grid Location : Hip (Comment: Right [WILD TANG RN - 08/31/2012 10:28 CDT] ) Intensity : 2 WILD TANG RN - 08/31/2012 10:28 CDT Preprocedural Pause Correct Patient Identity : Patient wristband ID, Patient verbalizes Correct Procedure Site and Side : Right Correct Procedure Site/Side Verified By : Patient/responsible republican, Nurse, MD, Allied Health Staff Site Marking : Yes Pre-Procedure Pause Verbal Confirm. of : Procedure, Site, Side, Patient ID Preprocedural Pause : 10:33 REWORK OPERATOR Start Time : 10:37 REWORK OPERATOR WILD TANG RN - 08/31/2012 10:28 CDT Postprocedure Procedure Tolerance : Good End Time : 10:48 REWORK OPERATOR Procedure/Specimen(s) Sent to Lab : No Follow Up Care Given : Yes WILD TANG RN - 08/31/2012 10:28 CDT Advance Directive Advanced Directives : No WILD TANG RN - 08/31/2012 10:28 CDT [facility]: [id number] documented in this encounter Miscellaneous Notes Miscellaneous - Wild Tang RTha - 09/06/2012 3:50 PM CDT Discharge Follow Up Discharge Follow Up Entered On: 09/06/2012 15:53 CDT Performed On: 09/06/2012 15:50 CDT by WILD TANG chief catalyst operator Follow Up Follow Up Completed : Via telephone Procedure Date : 08/31/2012 CDT Proceduralist : ANGEL MARTI MD Reason for Follow Up : Follow up post right hip injection WILD TANG RN - 09/06/2012 15:50 CDT Uncontrolled Pain Uncontrolled Pain : No Have symptoms improved? : Yes Do you have any questions about your discharge instructions? : No Do you have any questions or concerns regarding your medications? : No Other : No Bleeding : No Headache : No Dizziness : No Nausea/Vomiting : No Respiratory Symptoms : No Fever/Chills : No Voiding Problems : No WILD TANG RN - 09/06/2012 15:50 CDT Source: [employer] Document Id: [id number] Miscellaneous - Wild Tang R.N. - 08/31/2012 10:48 AM CDT Ambulatory Vitals Height Weight Ambulatory Vitals Height Weight Entered On: 08/31/2012 10:48 CDT Performed On: 08/31/2012 10:48 CDT by WILD TANG RN Vitals/Ht/Wt Peripheral Pulse Rate : 83/min Systolic Blood Pressure : 133mmHg Diastolic Blood Pressure : 84mmHg NIBP Mean : 100mmHg BP Location : Right upper extremity Blood Pressure Cuff Size : Regular SpO2 : 98% WILD TANG RN - 08/31/2012 10:48 CDT Source: [employer] Document Id: [id number] documented in this encounter Plan of Treatment Not on filedocumented as of this encounter Procedures Procedure Name Priority Date/Time Associated Comments Diagnosis RF MAJOR JOINT Routine 08/31/2012 10:30 AM Result s for this ASPIRATION OR CDT procedure are in INJECTION the results section. documented in this encounter Results FL Major Joint Aspiration or Injection (08/31/2012 10:30 AM CDT) Anatomical Region Laterality Modality Joint Radiographic Imaging Specimen (Source) Anatomical Collection Method Collection Time Re ceived Time Location / / Volume Laterality 08/31/2012 10:30 AM CDT Addenda Addendum by Provider, My Cantor 08/31/2012 10:30 AM CDT RAD^^^OW [place] Hip Injection Right 08/31/2012 10:30:00 Impressions 08/31/2012 11:55 AM CDT ??Preinjection patient rated pain as 2/10. Post injection patient rated pain at zero outer 10. Narrative 08/31/2012 11:55 AM CDT EXAM: ??FL Hip Injection Right AGE: ??52 years old. GENDER: ??Female. INDICATION: ??right hip pain TECHNIQUE: Using sterile technique, local anesthesi a [...] data. ?? During this proc edure the [place] Protocol was utilized. The patient?s identity was confirmed by no less than two patient identifiers, correct procedu re was verified, correct site was verified and marked as applicable an d a final pause was completed. Procedure Note Angel Marti M.D. / Provider, Ofelia fine M.D. - 04/20/2017 EXAM: FL Hip Injection Right AGE: [age] years old. GENDER: Female. INDICATION: right hip pain TECHNIQUE: Using sterile technique, local anesthesi a [...] Discussed risks, benefits, alternatives for procedure, an keshia obtained informed consent. Risks discussed included but [...] identification data. During this procedu re the [place] Protocol was utilized. The patient?s identity was confirmed by no less than two patient identifiers, correct procedu re was verified, correct site was verified and marked as applicable an d a final pause was completed. IMPRESSION: Preinjection patient rated p ain as 2/10. Post injection patient rated pain at zero outer 10. Nusrat Caldwell R.T.(R)(CT), R.T.(R) IMG FLUOROSCOPY PRO CEDURES documented in this encounter Visit Diagnoses Not on filedocumented in this encounter
--- OUTSIDE RECORDS SUMMARY | 2022-10-07 07:09 | XMS_ITS | Encounter Summary ---
:1960 Author Organization [facility] Address [address] [place] [address] Care Team Providers Name Role Phone Unavailable Primary Care Provider Unavailable Encounter Details Date Type Department Care Team Description 10/28/2010 Hospital Encounter HX NO MAPPING Doug Rodriguez M.D. Social History Tobacco Use Types Packs/Day Years Used Date Smoking Tobacco: Never Assessed Sex Assigned at Date Recorded Not on file documented as of this encounter Plan of Treatment Not on filedocumented as of this encounter Visit Diagnoses Not on filedocumented in this encounter
--- OUTSIDE RECORDS SUMMARY | 2022-10-07 07:09 | XMS_ITS | Encounter Summary ---
:1960 Author Organization [facility] Address [address] [place] [address] Care Team Providers Name Role Phone Unavailable Primary Care Provider Unavailable Encounter Details Date Type Department Care Team Description 07/21/2011 Hospital Encounter [facility]X [facility] Howard Peñaloza M.D. [address] [place], [place] [phone] (Wo rk) Social History Tobacco Use Types Packs/Day Years Used Date Smoking Tobacco: Never Assessed Sex Assigned at Date Recorded Not on file documented as of this encounter Progress Notes Conversion, Historical Provider Ser - 07/21/2011 3:18 PM CDT [facility] Exam [facility] Exam Entered On: 07/21/2011 15:34 CDT Performed On: 07/21/2011 15:18 CDT by SARAH GARCIA Chief Complaint and History Chief Complaint: Routine exam Pain Symptoms: No Comment: no changes or concerns today. ROS - heart and lungs wnl SARAH GARCIA - 07/21/2011 15:18 CDT Vision Testing Right Eye Vision Testing: Without correction, 20/20 Left Eye Vision Testing: Without correction, 20/25 Near Vision Right Eye: Without correction, J-3 Near Vision Left Eye: Without correction, J-1+ SARAH GARCIA - 07/21/2011 15:18 CDT Refraction Right Eye Manifest Grid Date: 07/21/2011 CDT Sphere: -0.50 (Comment: [facility] [SARAH GARCIA - 07/21/2011 15:18 CDT] ) Visual Acuity Distance: 20/20 ADD: +1.25 Visual Acuity Near: J-1+ SARAH GARCIA - 07/21/2011 15:18 CDT Left Eye Manifest Grid Date: 07/21/2011 CDT Sphere: -0.75 (Comment: [facility] [SARAH GARCIA - 07/21/2011 15:18 CDT] ) Visual Acuity Distance: 20/20 ADD: +1.25 Visual Acuity Near: J-1+ SARAH GARCIA - 07/21/2011 15:18 CDT Ocular Testing EOMS: Normal Comment: 3-2 3-2 Pupils: PERRLA Comment: FTCF SARAH GARCIA - 07/21/2011 15:18 CDT Intraoccular Pressures Intraoccular Pressures Grid Date: 07/21/2011 CDT 07/21/2011 CDT Eye: RE LE Applanation: 16 16 Comments: 3:31 SARAH GARCIA - 07/21/2011 15:18 CDT SARAH GARCIA - 07/21/2011 15:18 CDT Eye Drops Exam Phenylephrine 2.5% Eye Drops Eye: Both eyes Phenylephrine 2.5% Eye Drops Amount: One drop Phenylephrine 2.5% Eye Drops Time: 15:33 SKILLED LABOR Phenylephrine 2.5% Eye Drops Comment: PT WOULD LIKE REV Tropicamide 0.5% Eye Drops Eye: Both eyes Tropicamide 0.5% Eye Drops Amount: One drop Tropicamide 10% Eye Drops Time: 15:33 SKILLED LABOR SARAH GARCIA - 07/21/2011 15:18 CDT Source: [facility] [place] Document Id: [id number] CDT!49 Willy Villa M.D. - 07/21/2011 12:00 AM CDT [id number] CHIEF COMPLAINT/REASON FOR VISIT A very pleasant lady who comes in today for a good complete full exam. PHYSICAL EXAM EYES: She is looking very good. She does have some myopia in both the right and left eyes and a little bit of increased presbyopia. Also, she does have some allergies, although there are no allergy symptoms right now. She is using Acular as needed for that. Everything looks quite stable. IMPRESSION/REPORT/PLAN 1) Myopia. 2) Allergies. PLAN: We will give her Manifest Rx for the myopia to help with nighttime vision. I recommend that she consider Zaditor as an [id number], less expensive alternative to Acular. Otherwise, everything looks good. I would like to see her back again in one year's time. Willy Villa M.D. kks Electronically Signed By: WILLY VILLA MD On: 07/28/2011 04:37 PM Source: [facility] MHSDOLBEYNONRADSYS Document Id: [id number] documented in this encounter Miscellaneous Notes Miscellaneous - Willy Villa M.D. - 07/21/2011 4:14 PM CDT Ambulatory Patient Summary [address] [address] Visit Information Name: CATHERINE BROOKS Current Date: 07/21/2011 16:14:46 Primary Care Provider: MARGI ARNOLD MD Your Medications Here is a list of your medications. It is important to take your medications as directed. Use a pillbox or chart to help remind you to take your medications. Please let your doctor or nurse know if you have problems taking your medications. Medication/Strength Dose Route Frequency Indications/Special Instructions/Comments ketotifen ophthalmic (ketotifen 0.025% ophthalmic solution) 1 drop(s) Eyes(Both) every 8 hours fluticasone (Flovent 220 mcg/inh inhalation aerosol with adapter) 1 [...] tablet) 125 mcg Oral once a day fluticasone (Flovent 110 mcg/inh inhalation aerosol with adapter) 2 puff(s) Inhalation two times a day aspirin (aspirin 81 mg oral tablet) 1 tab(s) Oral once a day albuterol (albuterol 90 mcg/inh inhalation aerosol with adapter) 2 puff(s) Inhalation four times a day as needed for Shortness of breath / Wheezing Your Allergies & Intolerances Substance Reaction Symptoms Category Comments calcium channel blockers lips burn Drug Tenormin insomnia Drug Tenormin depression Drug Tenormin breathing problems Drug Cats Environment Your Problem List Problem Status Onset Comments Allergic Rhinitis, Cause Unspecified Active 04/10/2007 Unspecified Hypothyroidism Active 04/10/2007 Papanicolaou Smear of Cervix with Low Grade Squamous Intraepithelial Lesion (LGSIL) Active 05/13/2008 Rash and Other Nonspecific Skin Eruption Active 05/15/2009 Excessive or Frequent Menstruation Active 08/06/2009 Premenstrual Tension Syndromes Active 08/06/2009 Routine General Medical Examination at a Health Care Facility Active 08/15/2009 Asthma, Instrinsic, unspecified Active Breast Screening, Unspecified Active 10/23/2010 Urinary Retention Active 11/03/2010 Myopia Active 07/21/2011 Your Recommendations We want to make sure [...] Test/Treatment Last Done Next Due Additional Information Asthma Control Test every 1 year 05/12/2011 05/11/2012 Asthma Action Plan every 1 year 07/21/2011 Screening Mammogram every 1 year Women 40-75 10/23/2010 10/23/2011 X-rays of breast to check for breast cancer. Screening Pap Smear every 3 years Women 21-65 07/29/2010 07/28/2013 Checks for signs of cancer of the cervix. Lipid Panel every 5 years Age 20-75 02/13/2008 02/11/2013 Checks blood for good (HDL) and bad (LDL) cholesterol. Know your numbers, they are one indicator of your risk for heart attack and stroke. Vaccine: Flu every 1 year 09/07/2010 09/07/2011 Immunization to help prevent you from getting the flu strain expected to be a problem for that year's flu season. Vaccine: Tetanus every 10 years 02/13/2004 02/10/2014 Immunization to help prevent you from getting the serious disease Tetanus (Lockjaw). Your Upcoming Appointments Date Time Location Reason Provider 10/26/2011 07:45 [facility] Mammo [facility]AMMO 10/26/2011 08:30 [facility] Margi Villanueva MD Your Goals/Additional instructions: Source: [facility] POWERCHART Document Id: [id number] Miscellaneous - Willy Villa M.D. - 07/21/2011 4:14 PM CDT Ambulatory Depart Summary [address] [address] Visit Information Name: CATHERINE BROOKS Current Date: 07/21/2011 16:14:45 Primary Care Provider: MARGI ARNOLD MD CATHERINE BROOKS has been given the following list of medications: Your Medications It is important to take your medications as directed. Use a pill box or chart to help remind you to take your medications. Please let your doctor or nurse know if you have problems taking your medications. Medication/Strength Dose Route Frequency Indications/Special Instructions/Comments ketotifen ophthalmic (ketotifen 0.025% ophthalmic solution) 1 drop(s) Eyes(Both) every 8 hours fluticasone (Flovent 220 mcg/inh inhalation aerosol with adapter) 1 [...] tablet) 125 mcg Oral once a day fluticasone (Flovent 110 mcg/inh inhalation aerosol with adapter) 2 puff(s) Inhalation two times a day aspirin (aspirin 81 mg oral tablet) 1 tab(s) Oral once a day albuterol (albuterol 90 mcg/inh inhalation aerosol with adapter) 2 puff(s) Inhalation four times a day as needed for Shortness of breath / Wheezing Additional Information: Source: [facility] POWERCHART Document Id: [id number] Electronically signed by Conversion, [facility] Hand [id number] at 05/01/2017 10:21 PM CDT documented in this encounter Plan of Treatment Not on filedocumented as of this encounter Visit Diagnoses Not on filedocumented in this encounter
--- OUTSIDE RECORDS SUMMARY | 2022-10-07 07:09 | XMS_ITS | Encounter Summary ---
:1960 Author Organization [facility] Address [address] [place] [address] Care Team Providers Name Role Phone Unavailable Primary Care Provider Unavailable Encounter Details Date Type Department Care Team Description 10/29/2010 Hospital Encounter HX [facility] OBGYN Savanna Galeas M.D. Social History Tobacco Use Types Packs/Day Years Used Date Smoking Tobacco: Never Assessed Sex Assigned at Date Recorded Not on file documented as of this encounter Progress Notes Savanna Galeas M.D. - 10/29/2010 12:00 AM CST [id number] Document Contains Addenda HISTORY OF PRESENT ILLNESS Catherine underwent a transvaginal taping yesterday morning. She was unable to void and therefore she left the hospital with a Suh catheter indwelling. She removed this at home this morning. She presented to the office, where a postvoid residual showed only 35 mL of urine. This was very concentrated urine. I did tell the patient that I wanted her to go home, drink plenty of liquids and if she has any difficulty with voiding, I asked her to come back to the clinic this afternoon. Otherwise, I hope that she will continue to note improved voiding through the rest of the day. I have also called in a prescription for Macrobid one daily and if she has any doubts about her voiding, even though she thinks she is doing well, I would have her start this and take it once per day for the next 10 days. This was called to her pharmacy of choice in [place]. ADDENDUM: She states she has been unable to void since leaving the office. She was able to dribble a few drops out when trying to void here. The surgical site is healing well. A postvoid residual catheterization is performed with a red rubber catheter and approximately 325 mL of urine was drained. It was light yellow and nonconcentrated urine. Prior to inserting the catheter, with a mirror we did instruct the patient in the location of her urethral orifice and explained self-catheterization to her. She is ready to begin self-catheterization. IMPRESSION / REPORT / PLAN 1) Urinary retention, urinary self-catheterization. I told the patient that she should catheterize before bedtime and at any time she feels the pressure she felt upon arrival to the clinic. We want to keep her residuals hopefully getting smaller. If she reaches two day in a row where her largest postvoid residual is 150 mL, then she may stop her self-catheterization program. Finally, we did tell her to sweet pickle maker the prescription for Macrobid that was called in for her this morning and begin that on a once daily basis while she is undergoing self-catheterization. 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 ADMINISTRATIVE BILLING Total Time: Approximately 20 minutes spent with the patient. Savanna Galeas M.D. srw Electronically Signed By:SAVANNA GALEAS MD On 11/03/2010 08:51 AM Source: [facility] MHSDOLBEYNONRADSYS Document Id: [id number] I MEDIA SPECIALIST documented in this encounter Miscellaneous Notes Miscellaneous - Conversion, Historical Provider Ser - 10/29/2010 8:55 AM MULTI MEDIA SPECIALIST Adult Hospital Staff Pharmacist Intake/History Adult Hospital Staff Pharmacist Intake/History Entered On: 10/29/2010 8:56 MULTI MEDIA SPECIALIST Performed On: 10/29/2010 8:55 MULTI MEDIA SPECIALIST by AL PORTER Intake Chief Complaint: Post op TVT check residual Systolic Blood Pressure: 112mmHg Diastolic Blood Pressure: 72mmHg NIBP Mean: 85mmHg BP Location: Left upper extremity AL PORTER - 10/29/2010 8:55 MULTI MEDIA SPECIALIST Subjective Pain Symptoms: No AL PORTER Andrade 10/29/2010 8:55 MULTI MEDIA SPECIALIST Dependent Habits Tobacco Use/Currently Using: No AL PORTER Andrade 10/29/2010 8:55 MULTI MEDIA SPECIALIST Allergies Allergies (Active) calcium channel blockers Estimated Onset Date: Unspecified ; Reactions: lips burn ; Created By: BETH LUNA; Reaction Status: Active ; Category: Drug ; Substance: calcium channel blockers ; Type:Allergy ; Updated By: BETH LUNA; Reviewed Date: 10/23/2010 9:40 MULTI MEDIA SPECIALIST Cats Estimated Onset Date: Unspecified ; Created By: BETH LUNA; Reaction Status: Active ; Category: Environment ; Substance: Cats ; Type: Allergy ; Updated By: BETH LUNA; Reviewed Date:10/23/2010 9:40 MULTI MEDIA SPECIALIST Tenormin Estimated Onset Date: Unspecified ; Reactions: insomnia, depression, breathing problems ; Created By: ROVERTO GONZALEZ; Reaction Status: Active ; Category: Drug ; Substance: Tenormin ; Type: Allergy ; Updated By: ROVERTO GONZALEZ; Reviewed Date: 10/23/2010 9:40 MULTI MEDIA SPECIALIST Source: [facility] POWERCHART Document Id: [id number] MULTI MEDIA SPECIALIST!11 documented in this encounter Plan of Treatment Not on filedocumented as of this encounter Visit Diagnoses Not on filedocumented in this encounter
--- OUTSIDE RECORDS SUMMARY | 2022-10-07 07:09 | XMS_ITS | Encounter Summary ---
:1960 Author Organization [facility] Address [address] [place] [address] Care Team Providers Name Role Phone Unavailable Primary Care Provider Unavailable Encounter Details Date Type Department Care Team Description 10/23/2010 Hospital Encounter HX [facility] INTERNMED Zully Arnold M.D. [address] [place], [place] [address] (Wo rk) Social History Tobacco Use Types Packs/Day Years Used Date Smoking Tobacco: Never Assessed Sex Assigned at Date Recorded Not on file documented as of this encounter Progress Notes Margi Arnold M.D. - 10/23/2010 12:00 AM CST [id number] CHIEF COMPLAINT / REASON FOR VISIT Catherine comes in for a preanesthetic evaluation at the request of Dr. Doug Rodriguez. She is going to be having a sling procedure for urinary incontinence. HISTORY OF PRESENT ILLNESS ONGOING MEDICAL PROBLEMS: 1) Asthma. She feels she is quite well controlled currently. She is on a chronic steroid inhaler and has extremely rare use of a rescue inhaler. 2) GE reflux. Symptoms are pretty well controlled providing she stays on her medication. 3) History of supraventricular tachycardia. She is status post radiofrequency ablation with resolution of symptoms. 4) Hypothyroidism, on replacement. 5) Family history of premature coronary artery disease. Her lipids have been satisfactory. She did recently have a stress test that was negative. PAST MEDICAL/SURGICAL HISTORY 1) Status post right knee arthroscopy. 2) Status post tubal ligation. 3) She has never had problems with an anesthetic. CURRENT MEDICATIONS Albuterol 90 mcg inhalation as needed. Kathi 180 mg daily. Aspirin 81 mg daily. Flovent 110 mcg twice daily. Nasonex 50 mcg 2 sprays in each nostril daily. Pepcid 20 mg daily. Synthroid 125 mcg daily. ALLERGIES Beta blockers caused difficulty breathing. Calcium channel blockers caused mouth burning. She also has some type of reaction to tetanus vaccine. Cats. Kiwi fruit. SOCIAL HISTORY She is and lives in [place] with her . 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 She has 4 grown children. HABITS: Smoking negative. Alcohol is 2-3 glasses of wine per week. FAMILY HISTORY Mother at age 55. She was having coronary artery bypass grafting and had an intraoperative stroke. Father of severe ischemic cardiomyopathy in his mid 70s. She has 2 brothers and 1 sister. One brother has had hyperlipidemia. SYSTEMS REVIEW Positive for recent URI, although she thinks that has resolved. VITAL SIGNS TEMP: 36.7 degreesC PULSE: 68 RESP RATE: 16 BLOOD PRESSURE: 114/74 HEIGHT: 171.3 cm WEIGHT: 72.8 kg PHYSICAL EXAM GENERAL: She appears comfortable. SKIN: Warm and dry. No worrisome lesions. HEAD: Unremarkable. ENT: Ears and pharynx are clear. Neck is supple without masses. No carotid bruits are heard. HEART: Sounds are regular without added sounds. LUNGS: Clear to auscultation without any wheezes or rhonchi. ABDOMEN: Soft with positive bowel sounds. No abnormal masses are palpated. EXTREMITIES: Legs are without edema. NEURO: Alert, oriented. Speech clear and fluent. Face symmetric. Deep tendon reflexes are symmetric. IMPRESSION/REPORT/PLAN DIAGNOSTIC: Hemoglobin 13.3 grams. White count 7,300. Platelet count 289,000. INR is 1. Sodium 138. Potassium 3.7. Chloride 104. Bicarbonate 28. TSH 2.83. 1) ASA category 2 for anesthesia. 2) She had a breast exam with Dr. Rodriguez. We will schedule a mammogram. 3) Asthma. She does not need any extra treatment at this time. 4) She had her flu shot already this fall. Margi Arnold M.D. [facility] cc: Doug Rodriguez M.D. Electronically Signed By:MARGI ARNOLD MD On 10/28/2010 01:14 PM Source: [facility] MHSDOLBEYNONRADSYS Document Id: [id number] NISTRATIVE AIDE documented in this encounter Miscellaneous Notes Miscellaneous - Margi Arnold M.D. - 10/23/2010 4:55 PM CST Reminder Msg Document Contains Addenda Addendum by BETH LUNA on 26 October 2010 15:35:05 ADMINISTRATIVE AIDE pt. notified From: MARGI ARNOLD MD To: BETH LUNA Sent: 10/23/2010 16:55:12 ADMINISTRATIVE AIDE ! Show up: 10/23/2010 16:49:00 ADMINISTRATIVE AIDE Subject: Reminder Msg Actions: Notify patient of results Due Date/Time: 10/23/2010 16:49:00 ADMINISTRATIVE AIDE Source: [facility] POWERCHART Document Id: [id number] Electronically signed by Ariel [facility] miguel Field Map Technician [id number] at 05/02/2017 4:19 AM CDT Miscellaneous - Margi Arnold M.D. - 10/23/2010 10:23 AM CST Ambulatory Patient Summary [facility] [address] [place] [place] [address] Visit Information Name: CATHERINE BROOKS Current Date: 10/23/2010 10:23:51 Primary Care Provider: MARGI ARNOLD MD Your Medications Here is a list of your medications. It is important to take your medications as directed. Use a pillbox or chart to help remind you to take your medications. Please let your doctor or nurse know if you have problems taking your medications. Medication/Strength Dose Route Frequency Indications/Special Instructions/Comments mometasone nasal (Nasonex 50 mcg/inh nasal spray) 2 spray(s) Nostrils(Both) once a day levothyroxine (Synthroid 125 mcg (0.125 mg) oral tablet) 125 mcg Oral once a day famotidine (Pepcid 20 mg oral tablet) 20 mg Oral once a day fluticasone (Flovent 110 mcg/inh inhalation aerosol with adapter) 2 puff(s) Inhalation two times a day aspirin (aspirin 81 mg oral tablet) 1 tab(s) Oral once a day albuterol (albuterol 90 mcg/inh inhalation aerosol with adapter) 2 puff(s) Inhalation four times a day as needed for Shortness of breath / Wheezing fexofenadine (Kathi 180 mg oral tablet) 1 [...] unspecified Active Breast Screening, Unspecified Active 10/23/2010 Your Recommendations We want to make sure [...] Information Asthma Control Test every 1 year 10/23/2010 Asthma Action Plan every 1 year 10/23/2010 Screening Mammogram every 1 year Women 40-75 [...] Upcoming Appointments Date Time Location Reason Provider 11/10/2010 08:30 [facility] FIG CAPRIFIER 2 [facility] PSTOP Blanca Gee NP 12/08/2010 08:30 [facility] FIG CAPRIFIER 6 [facility] PSTOP Doug Rodriguez MD Your Goals/Additional instructions: Source: [facility] POWERCHART Document Id: [id number] Electronically signed by Ariel [facility] Field Map Technician [id number] at 05/02/2017 4:19 AM CDT Miscellaneous - Margi Arnold M.D. - 10/23/2010 10:23 AM CST Ambulatory Depart Summary [address] [address] Visit Information Name: CATHERINE BROOKS Current Date: 10/23/2010 10:23:50 Primary Care Provider: MARGI ARNOLD MD CATHERINE BROOKS has been given the following list of medications: Your Medications It is important to take your medications as directed. Use a pill box or chart to help remind you to take your medications. Please let your doctor or nurse know if you have problems taking your medications. Medication/Strength Dose Route Frequency Indications/Special Instructions/Comments mometasone nasal (Nasonex 50 mcg/inh nasal spray) 2 spray(s) Nostrils(Both) once a day levothyroxine (Synthroid 125 mcg (0.125 mg) oral tablet) 125 mcg Oral once a day famotidine (Pepcid 20 mg oral tablet) 20 mg Oral once a day fluticasone (Flovent 110 mcg/inh inhalation aerosol with adapter) 2 puff(s) Inhalation two times a day aspirin (aspirin 81 mg oral tablet) 1 tab(s) Oral once a day albuterol (albuterol 90 mcg/inh inhalation aerosol with adapter) 2 puff(s) Inhalation four times a day as needed for Shortness of breath / Wheezing fexofenadine (Kathi 180 mg oral tablet) 1 tab(s) Oral once a day Additional Information: Yes - Current list of reconciled medications is provided and explained to the patient and/or family, guardian/caregiver. Source: [facility] POWERCHART Document Id: [id number] Electronically signed by Conversion, [facility] Field Map Technician [id number] at 05/02/2017 4:19 AM CDT Miscellaneous - Conversion, Historical Provider Ser - 10/23/2010 9:40 AM ADMINISTRATIVE AIDE Adult Commercial Sewing Instructor Intake/History Adult Commercial Sewing Instructor Intake/History Entered On: 10/23/2010 9:45 ADMINISTRATIVE AIDE Performed On: 10/23/2010 9:40 ADMINISTRATIVE AIDE by BETH LUNA Intake Chief Complaint: pre-op Temperature Oral: 36.7C(Converted to: 98.1DegF) Peripheral Pulse Rate: 68/min Respiratory Rate: 16/min Systolic Blood Pressure: 114mmHg Diastolic Blood Pressure: 74mmHg NIBP Mean: 87mmHg BP Location: Right upper extremity Heart Rhythm: Regular Height: 171.30cm(Converted to: 5ft 7in, 67.44in) Actual Weight: 72.800kg Actual Weight Conversion to Pounds: 160.160lb Weight Source: Standing scale Dosing Weight Clinic: 72.80kg Clinic BSA: 1.86 Body Mass Index: 25kg/m2 BETH LUNA - 10/23/2010 9:40 ADMINISTRATIVE AIDE Subjective Pain Symptoms: Yes BETH LUNA - 10/23/2010 9:40 ADMINISTRATIVE AIDE Pain Pain Assessment Grid Pain 1 Location: Hip Laterality: Right Intensity: 2 BETH LUNA - 10/23/2010 9:40 ADMINISTRATIVE AIDE Dependent Habits Tobacco Use/Currently Using: No Alcohol Use: No BETH LUNA - 10/23/2010 9:40 ADMINISTRATIVE AIDE Allergies Allergies (Active) calcium channel blockers Estimated Onset Date: Unspecified ; Reactions: lips burn ; Created By: BETH LUNA; Reaction Status: Active ; Category: Drug ; Substance: calcium channel blockers ; Type:Allergy ; Updated By: BETH LUNA; Reviewed Date: 10/23/2010 9:40 ADMINISTRATIVE AIDE Cats Estimated Onset Date: Unspecified ; Created By: BETH LUNA; Reaction Status: Active ; Category: Environment ; Substance: Cats ; Type: Allergy ; Updated By: BETH LUNA; Reviewed Date:10/23/2010 9:40 ADMINISTRATIVE AIDE Tenormin Estimated Onset Date: Unspecified ; Reactions: insomnia, depression, breathing problems ; Created By: ROVERTO GONZALEZ; Reaction Status: Active ; Category: Drug ; Substance: Tenormin ; Type: Allergy ; Updated By: ROVERTO GONZALEZ; Reviewed Date: 10/23/2010 9:40 ADMINISTRATIVE AIDE [facility] Document Id: [id number] ADMINISTRATIVE AIDE!29 documented in this encounter Plan of Treatment Not on filedocumented as of this encounter Visit Diagnoses Not on filedocumented in this encounter
--- OUTSIDE RECORDS SUMMARY | 2022-10-07 07:09 | XMS_ITS | Encounter Summary ---
:1960 Author Organization [facility] Address [address] [place] [address] Care Team Providers Name Role Phone Unavailable Primary Care Provider Unavailable Encounter Details Date Type Department Care Team Description 10/29/2010 Hospital Encounter [facility]X [facility] Doug Min M.D. Social History Tobacco Use Types Packs/Day Years Used Date Smoking Tobacco: Never Assessed Sex Assigned at Date Recorded Not on file documented as of this encounter Plan of Treatment Not on filedocumented as of this encounter Visit Diagnoses Not on filedocumented in this encounter
--- OUTSIDE RECORDS SUMMARY | 2022-10-07 07:09 | XMS_ITS | Encounter Summary ---
:1960 Author Organization [facility] Address [address] [place] [address] Care Team Providers Name Role Phone Unavailable Primary Care Provider Unavailable Encounter Details Date Type Department Care Team Description 12/04/2012 Hospital Encounter HX [facility] Jessica Heller M.D. Social History Tobacco Use Types Packs/Day Years Used Date Smoking Tobacco: Never Assessed Sex Assigned at Date Recorded Not on file documented as of this encounter Last Filed Vital Signs Vital Sign Reading Time Taken Comments Blood Pressure 126/78 12/04/2012 4:23 PM ELECTRIC TRUCKER Pulse 68 12/04/2012 4:23 PM ELECTRIC TRUCKER Temperature - - Respiratory Rate 16 12/04/2012 4:23 PM ELECTRIC TRUCKER Oxygen Saturation - - Inhaled Oxygen Concentration - - Weight 67.4 kg (148 lb 9.4 oz) 12/04/2012 4:23 PM ELECTRIC TRUCKER Height - - Body Mass Index 23.6 08/28/2012 10:30 AM CDT documented in this encounter Progress Notes Tianna Heller M.D. - 12/04/2012 4:12 PM CST [id number] CHIEF COMPLAINT/REASON FOR VISIT Upper respiratory illness. HISTORY OF PRESENT ILLNESS [id number] presents today with a 2-week history of fever, sore throat, cough, wheezing, history of asthma but does not feel like that is what is going on even though she feels a little short of breath. She just gets a burning sensation when she uses her inhaler and has felt feverish. Just cannot seem to shake it after having this for 2 weeks. She actually had a flu test done last week that was negative but she did get a flu shot earlier this season as well. CURRENT MEDICATIONS Per EMR VITAL SIGNS TEMPERATURE: 37.1 degrees PULSE: 68 RESPIRATIONS: 16 BP: 126/78 WEIGHT: 67.4 kg PHYSICAL EXAMINATION ENT: TMs normal. Throat normal. Sinuses nontender. NECK: No adenopathy. LUNGS: With a few scattered crackles, rhonchi noted, rare wheezes. CARDIOVASCULAR: Rate and rhythm regular without murmur or ectopy. IMPRESSION/REPORT/PLAN Refractory upper respiratory infection with bronchitis in a patient with underlying history of asthma. Because of her history of asthma I am going to put her on amoxicillin especially with this lingering for 2 weeks. She will try it twice a day for 10 days. I did not put her on steroids because of no real wheezes evident today. She will get back on her fluticasone which she has not been real good about using. Continue other asthma meds as needed. Followup if problems or concerns, especially high fever. Tianna Heller M.D./jv Electronically Signed By: TIANNA HELLER MD On: 12/07/2012 05:01 PM Source: [facility] MHSDOLBEYNONRADSYS Document Id: [id number] TRIC TRUCKER documented in this encounter Miscellaneous Notes Miscellaneous - Ann Marie Serna M.D. - 12/25/2012 8:26 AM ELECTRIC TRUCKER Results Notification Document Contains Addenda Addendum by ZULEYMA MARC on 25 December 2012 14:18:24 ELECTRIC TRUCKER patient to be notified via mail by radiology From: ANN MARIE SERNA MD To: ZACHARY Serna Nurse Sent: 12/25/2012 08:26:17 ELECTRIC TRUCKER ! Show up: 12/25/2012 14:26:17 [facility] Subject: Results Notification Actions: Notify Patient of Future Order Source: [facility] POWERCHART Document Id: [id number] Electronically signed by Conversion, [facility] Daytime Caregiver [id number] at 04/27/2017 2:12 PM CDT Miscellaneous - Tianna Heller M.D. - 12/04/2012 4:47 PM CST Ambulatory Patient Summary [facility] [address] [place] [address] Visit Information Name: CATHERINE BROOKS [facility] Number: [id number] Current Date: 12/04/2012 16:47:30 Physicians Attending Provider: TIANNA HELLER MD Primary Care Provider: PCP, UNASSIGNED Your Medications Here is a list of your medications. It is important to take your medications as directed. Use a pillbox or chart to help remind you to take your medications. Please let your doctor or nurse know if you have problems taking your medications. Medication/Strength Dose Route Frequency Indications/Special Instructions/Comments amoxicillin (Amoxil 875 mg oral tablet) 875 mg Oral two times a day for 10 Days pseudoephedrine (Sudafed 60 mg oral tablet) 60 mg Oral four times a day as needed for Congestion guaifenesin (Mucinex 600 mg oral tablet, extended release) 600 mg Oral every 12 hours omeprazole (omeprazole 20 mg oral enteric coated tablet) 20 mg Oral once a day further refills will be addressed at appt. on 12-10-12 levothyroxine (Synthroid 125 mcg (0.125 mg) oral tablet) 125 mcg Oral once a day further refills will be addressed at upcoming appt 12-20-12 albuterol (albuterol 90 mcg/inh inhalation aerosol with adapter) 2 puff(s) Inhalation four times a day as needed for Shortness of breath / Wheezing mometasone nasal (Nasonex 50 mcg/inh nasal spray) 2 spray(s) Nostrils(Both) once a day fexofenadine (Kathi 180 mg oral tablet) 180 mg Oral once a day sumatriptan (sumatriptan 50 mg oral tablet) 100 mg Oral once as needed for migraine headache fluticasone (fluticasone 220 mcg/inh inhalation aerosol with adapter) 1 puff Inhalation two times a day *ketotifen ophthalmic (ketotifen 0.025% ophthalmic solution) 1 drop(s) [...] Upcoming Appointments Date Time Location Reason Provider 12/20/2012 12:30 [facility] Mammo annual 12/20/2012 13:30 [facility] annual med review Pal MARX, Ann Marie Balbuena Your Goals/Additional instructions: Source: [facility] POWERCHART Document Id: [id number] TRIC TRUCKER Miscellaneous - Tianna Heller M.D. - 12/04/2012 4:47 PM CST Ambulatory Depart Summary [address] [address] Visit Information Name: CATHERINE BROOKS [facility] Number: [id number] Visit Date: 12/04/2012 16:47:28 Attending Provider: TIANNA HELLER MD Primary Care Provider: PCP, UNASSIGNED CATHERINE BROOKS has been given the following list of medications: Your Medications It is important to take your medications as directed. Use a pill box or chart to help remind you to take your medications. Please let your doctor or nurse know if you have problems taking your medications. Medication/Strength Dose Route Frequency Indications/Special Instructions/Comments amoxicillin (Amoxil 875 mg oral tablet) 875 mg Oral two times a day for 10 Days pseudoephedrine (Sudafed 60 mg oral tablet) 60 mg Oral four times a day as needed for Congestion guaifenesin (Mucinex 600 mg oral tablet, extended release) 600 mg Oral every 12 hours omeprazole (omeprazole 20 mg oral enteric coated tablet) 20 mg Oral once a day further refills will be addressed at appt. on 12-10-12 levothyroxine (Synthroid 125 mcg (0.125 mg) oral tablet) 125 mcg Oral once a day further refills will be addressed at upcoming appt 12-20-12 albuterol (albuterol 90 mcg/inh inhalation aerosol with adapter) 2 puff(s) Inhalation four times a day as needed for Shortness of breath / Wheezing mometasone nasal (Nasonex 50 mcg/inh nasal spray) 2 spray(s) Nostrils(Both) once a day fexofenadine (Kathi 180 mg oral tablet) 180 mg Oral once a day sumatriptan (sumatriptan 50 mg oral tablet) 100 mg Oral once as needed for migraine headache fluticasone (fluticasone 220 mcg/inh inhalation aerosol with adapter) 1 puff Inhalation two times a day *ketotifen ophthalmic (ketotifen 0.025% ophthalmic solution) 1 drop(s) [...] your provider for clarification. Additional Information: Source: [facility] POWERCHART Document Id: [id number] TRIC TRUCKER Miscellaneous - Conversion, Historical Provider Ser - 12/04/2012 4:23 PM ELECTRIC TRUCKER Adult Mortgage Clerk Intake/History Adult Mortgage Clerk Intake/History Entered On: 12/04/2012 16:26 ELECTRIC TRUCKER Performed On: 12/04/2012 16:23 ELECTRIC TRUCKER by DENISE NAVARRO Intake Chief Complaint : URI/fever/aches for 2 weeks Temperature Oral : 37.1C(Converted to: 98.8DegF) Peripheral Pulse Rate : 68/min Respiratory Rate : 16/min Heart Rhythm : Regular Systolic Blood Pressure : 126mmHg Diastolic Blood Pressure : 78mmHg NIBP Mean : 94mmHg BP Location : Right upper extremity Blood Pressure Cuff Size : Regular Oxygen Therapy : Room air Actual Weight : 67.4kg(Converted to: 148lb 9oz) Weight Source : Standing scale Dosing Weight Clinic : 67.40kg DENISE NAVARRO 12/04/2012 16:23 ELECTRIC TRUCKER General Info Information Given By : Patient Preferred Communication Mode : Verbal Languages : Bulgarian DENISE NAVARRO 12/04/2012 16:23 ELECTRIC TRUCKER Subjective Pain Symptoms : Yes DENISE NAVARRO 12/04/2012 16:23 ELECTRIC TRUCKER Pain Pain Assessment Grid Pain 1 Location : Generalized (Comment: body aches [DENISE NAVARRO 12/04/2012 16:23 ELECTRIC TRUCKER] ) DENISE NAVARRO 12/04/2012 16:23 ELECTRIC TRUCKER Dependent Habits Tobacco Use/Currently Using : No Exposure to Tobacco Smoke : Other: Never Smoking Status : Never smoker Alcohol Use : Yes DENISE NAVARRO 12/04/2012 16:23 ELECTRIC TRUCKER Caffeine Use Grid Caffeine Use : Current Type : Coffee Frequency : Daily DENISE NAVARRO 12/04/2012 16:23 ELECTRIC TRUCKER Allergy Allergies (Active) calcium channel blockers Estimated Onset Date: Unspecified ; Reactions: lips burn ; Created By: BETH LUNA; Reaction Status: Active ; Category: Drug ; Substance: calcium channel blockers ; Type:Allergy ; Updated By: BETH LUNA; Reviewed Date: 12/04/2012 16:20 ELECTRIC TRUCKER Cats Estimated Onset Date: Unspecified ; Created By: BETH LUNA; Reaction Status: Active ; Category: Environment ; Substance: Cats ; Type: Allergy ; Updated By: BETH LUNA; Reviewed Date:12/04/2012 16:20 ELECTRIC TRUCKER Other Environmental Estimated Onset Date: Unspecified ; Reactions: Itchy watery eyes ; Comment: seasonal, hayfever ; Created By: DENISE ZAPIEN; Reaction Status: Active ; Category: Drug ; Substance: Other Environmental ; Type: Allergy ; Severity: Moderate ; Updated By: DENISE ZAPIEN; Reviewed Date: 12/04/2012 16:20 ELECTRIC TRUCKER Other food Estimated Onset Date: Unspecified ; Reactions: Itching ; Comment: kiwi ; Created By: DENISE ZAPIEN; Reaction Status: Active ; Category: Drug ; Substance: Other food ; Type: Allergy ; Severity: Mild ; Updated By: DENISE ZAPIEN; Reviewed Date: 12/04/2012 16:20 ELECTRIC TRUCKER Tenormin Estimated Onset Date: Unspecified ; Reactions: insomnia, depression, breathing problems ; Created By: ROVERTO GONZALEZ; Reaction Status: Active ; Category: Drug ; Substance: Tenormin ; Type: Allergy ; Updated By: ROVERTO GONZALEZ; Reviewed Date: 12/04/2012 16:20 ELECTRIC TRUCKER Source: [facility] [employer] Document Id: [id number] documented in this encounter Plan of Treatment Not on filedocumented as of this encounter Procedures Procedure Name Priority Date/Time Associated Diagnosis Comme nts BI BREAST SCREENING Routine 12/20/2012 1:01 PM Re sults for this BILATERAL ELECTRIC TRUCKER procedure are i n the results section. documented in this encounter Results BI Breast Screening Bilateral (12/20/2012 1:01 PM ELECTRIC TRUCKER) Anatomical Region Laterality Modality Breast Bilateral Mammography Specimen (Source) Anatomical Collection Method Collection Time Re ceived Time Location / / Volume Laterality 12/20/2012 1:01 PM ELECTRIC TRUCKER Addenda Addendum by Provider, My Cantor 12/20/2012 1:01 PM ELECTRIC TRUCKER RAD^^^OW MA Mammo Screening Bilat w/ CADD 12/20/2012 13:01:39 Impressions 12/20/2012 4:06 PM ELECTRIC TRUCKER BI-RADS code 1, negative Recommendations: ??I recommend a follow- up mammogram [...] on the digital mammogram im ages. Narrative 12/20/2012 4:06 PM ELECTRIC TRUCKER EXAM: [place] Mammo Screening w/ CADD INDICATION: annual COMPARISON: 2003, 2007, 2008, 2009, 2010 FINDINGS: Heterogeneously dense breasts. Nothing suspicious. Procedure Note Nikolay Arriaga M.D. / Provider, Ofelia fine M.D. - 04/15/2017 EXAM: [place] Mammo Screening w/ CADD INDICATION: annual COMPARISON: 2003, 2007, 2008, 2009, 2010 FINDINGS: Heterogeneously dense breasts. Nothing suspicious. IMPRESSION: BI-RADS code 1, negative Recommendations: I recommend a follow-up mammogram in [...] performed on the digital mammogram im ages. Michelle Matthew(Yessi) IMG BI PROCEDURES documented in this encounter Visit Diagnoses Not on filedocumented in this encounter
--- OUTSIDE RECORDS SUMMARY | 2022-10-07 07:09 | XMS_ITS | Encounter Summary ---
:1960 Author Organization [facility] Address [address] [place] [address] Care Team Providers Name Role Phone Unavailable Primary Care Provider Unavailable Encounter Details Date Type Department Care Team Description 10/26/2011 Hospital Encounter HX [facility] INTERNMED Zully Arnold M.D. [address] [place], [place] [address] (Wo rk) Social History Tobacco Use Types Packs/Day Years Used Date Smoking Tobacco: Never Assessed Sex Assigned at Date Recorded Not on file documented as of this encounter H&P Notes Margi Arnold M.D. - 10/26/2011 12:00 AM CST [id number] CHIEF COMPLAINT / REASON FOR VISIT Ms. Carpenter comes in for a physical and followup on medical problems. HISTORY OF PRESENT ILLNESS ONGOING MEDICAL PROBLEMS: [...] has never had problems with an anesthetic. 4) Status post urethral sling procedure. ALLERGIES Beta blockers caused difficulty breathing. Calcium channel blockers caused mouth burning. She also has some type of reaction to tetanus vaccine. Cats. Kiwi fruit. SOCIAL HISTORY She is and lives in [place] with her . She has 4 grown children. 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. HABITS: Smoking negative. Alcohol: About 2 glasses of wine per week. FAMILY HISTORY Mother at age 55. She was having coronary artery bypass grafting and had an intraoperative stroke. Father of severe ischemic cardiomyopathy in his mid 70s. She has 2 brothers and 1 sister. One brother has had hyperlipidemia. CURRENT MEDICATIONS Ketotifen eyedrops. Fluticasone 220 mg one puff twice daily. Sumatriptan 50 mg two tablets as needed for migraine. Levothyroxine 125 mcg daily. Kathi 180 mg daily, if she can get it. Albuterol inhalation 2 puffs as needed, uses very infrequently. Mometasone nasal spray, 2 puffs in each nostril daily. Omeprazole 20 mg daily. Aspirin, takes very occasionally. REVIEW OF SYSTEMS Positive for rare GE reflux symptoms, depending on what she eats, and feeling an occasional hot spot in her left foot. VITAL SIGNS TEMP: 36.7 degreesC PULSE: 72 RESP RATE: 16 BLOOD PRESSURE: 120/72 WEIGHT: 70.4 kg PHYSICAL EXAM GENERAL: She appears comfortable. SKIN: Warm and dry. No worrisome lesions are noted. LYMPH NODES: Negative. MUSCULOSKELETAL: Bone and joints negative. NEURO: Alert, oriented. Speech clear and fluent. Cranial nerves 2 through 12 intact. Deep tendon reflexes are symmetric. HEAD: Unremarkable. EYES: Conjunctivae and fundi appear benign. ENT: Ears and pharynx are clear. Teeth are in good repair. Neck is supple without masses. No carotid bruits are heard. HEART: Sounds are regular without added sounds. LUNGS: Clear to auscultation. BREASTS: Without mass, dimpling or discharge. There is no axially adenopathy. ABDOMEN: Soft, positive bowel sounds. No abnormal masses are palpated. PELVIS: Normal external genitalia, vaginal wall and cervix. Pap smear was obtained. IMPRESSION/REPORT/PLAN 1) Asthma, very well controlled only on fluticasone on a regular basis. 2) Occasional migraine. Continue as needed sumatriptan. 3) Hypothyroidism, on replacement. Check TSH. 4) Continue Synthroid. 5) Allergic symptoms. May continue her fexofenadine and the Nasonex regularly. 6) Gastroesophageal reflux disease, doing well with omeprazole, avoiding coffee. 7) History of abnormal Pap smear. Repeat was sent today. 8) Mammogram today. 9) No old enough for colonoscopy. We did give her a tetanus vaccine update today. She had a previous significant reaction to the pt so we just used a diphtheria and tetanus vaccine today. My Kowalski Electronically Signed By: MARGI ARNOLD MD On: 10/29/2011 01:19 PM Source: [facility] MHSDOLBEYNONRADSYS Document Id: [id number] UCE DEPARTMENT SUPERVISOR documented in this encounter Miscellaneous Notes Miscellaneous - Margi Arnold M.D. - 11/04/2011 2:12 PM CST Results Notification Document Contains Addenda Addendum by BETH LUNA on 04 November 2011 15:22:13 PRODUCE DEPARTMENT SUPERVISOR pt. notified From: MARGI ARNOLD MD To: BETH LUNA Sent: 11/04/2011 14:12:40 PRODUCE DEPARTMENT SUPERVISOR ! Show up: 11/04/2011 20:12:40 [facility] Subject: Results Notification Actions: Notify patient of results Due Date/Time: 11/04/2011 15:12:00 PRODUCE DEPARTMENT SUPERVISOR Source: [facility] POWERCHART Document Id: [id number] Electronically signed by Ariel [facility] Continuous Miner Operator [id number] at 05/01/2017 12:35 PM CDT Miscellaneous - Margi Arnold M.D. - 10/26/2011 2:33 PM CST Results Notification Document Contains Addenda Addendum by BETH LUNA on 27 October 2011 12:09:03 PRODUCE DEPARTMENT SUPERVISOR pt. notified From: MARGI ARNOLD MD To: BETH LUNA Sent: 10/26/2011 14:33:15 PRODUCE DEPARTMENT SUPERVISOR ! Show up: 10/26/2011 20:33:15 [facility] Subject: Results Notification Actions: Notify patient of results Due Date/Time: 10/26/2011 15:32:00 PRODUCE DEPARTMENT SUPERVISOR Source: [facility] [place] Document Id: [id number] Electronically signed by Ariel, [facility] Continuous Miner Operator [id number] at 05/01/2017 12:35 PM CDT Miscellaneous - Margi Arnold M.D. - 10/26/2011 9:17 AM CST Ambulatory Patient Summary [facility] [address] [place] [id number] Visit Information Name: CATHERINE CARPENTER Current Date: 10/26/2011 09:17:33 Primary Care Provider: MARGI ARNOLD MD Your [...] 07/21/2011 Well adult exam Active 10/26/2011 Your Recommendations We want to make sure [...] 05/11/2012 Asthma Action Plan every 1 year 10/26/2011 Screening Mammogram every 1 year Women 40-75 10/23/2010 10/24/2011 X-rays of breast to check for breast cancer. Vaccine: Flu every 1 year 08/18/2011 08/17/2012 Immunization to help prevent you from getting the flu strain expected to be a problem for that year's flu season. Your Upcoming Appointments Date Time Location Reason Provider No Appointments found Your Goals/Additional instructions: Source: [facility] POWERCHART Document Id: [id number] UCE DEPARTMENT SUPERVISOR Miscellaneous - Conversion, Historical Provider Ser - 10/26/2011 8:27 AM PRODUCE DEPARTMENT SUPERVISOR Adult Gm Video Intake/History Adult Gm Video Intake/History Entered On: 10/26/2011 8:31 PRODUCE DEPARTMENT SUPERVISOR Performed On: 10/26/2011 8:27 PRODUCE DEPARTMENT SUPERVISOR by BETH LUNA Intake Chief Complaint : physical Ambulatory Intake Additional Information : no pap Temperature Core : 36.7C(Converted to: 98.1DegF) Peripheral Pulse Rate : 72/min Respiratory Rate : 16/min Systolic Blood Pressure : 120mmHg Diastolic Blood Pressure : 72mmHg NIBP Mean : 88mmHg BP Location : Right upper extremity Heart Rhythm : Irregular Actual Weight : 70.4kg(Converted to: 155lb 3oz) Weight Source : Standing scale Dosing Weight Clinic : 70.40kg BETH LUNA - 10/26/2011 8:27 PRODUCE DEPARTMENT SUPERVISOR Subjective Pain Symptoms : No BETH LUNA - 10/26/2011 8:27 PRODUCE DEPARTMENT SUPERVISOR Dependent Habits Tobacco Use/Currently Using : No Smoking Status : Never smoker Alcohol Use : No BETH LUNA - 10/26/2011 8:27 PRODUCE DEPARTMENT SUPERVISOR Allergy Allergies (Active) calcium channel blockers Estimated Onset Date: Unspecified ; Reactions: lips burn ; Created By: BETH LUNA; Reaction Status: Active ; Category: Drug ; Substance: calcium channel blockers ; Type:Allergy ; Updated By: BETH LUNA; Reviewed Date: 10/26/2011 8:24 PRODUCE DEPARTMENT SUPERVISOR Cats Estimated Onset Date: Unspecified ; Created By: BETH LUNA; Reaction Status: Active ; Category: Environment ; Substance: Cats ; Type: Allergy ; Updated By: BETH LUNA; Reviewed Date:10/26/2011 8:24 PRODUCE DEPARTMENT SUPERVISOR Tenormin Estimated Onset Date: Unspecified ; Reactions: insomnia, depression, breathing problems ; Created By: ROVERTO GONZALEZ; Reaction Status: Active ; Category: Drug ; Substance: Tenormin ; Type: Allergy ; Updated By: ROVERTO GONZALEZ; Reviewed Date: 10/26/2011 8:24 PRODUCE DEPARTMENT SUPERVISOR Source: [facility] POWERCHART Document Id: [id number] PRODUCE DEPARTMENT SUPERVISOR!21 documented in this encounter Plan of Treatment Not on filedocumented as of this encounter Procedures Procedure Name Priority Date/Time Associated Diagnosis Comme nts PATHOLOGY ANODE WORKER Routine 10/26/2011 12:00 AM Results for this CYTOLOGY PRODUCE DEPARTMENT SUPERVISOR procedure are i n the results section. documented in this encounter Results Pathology ANODE WORKER Cytology (10/26/2011 12:00 AM PRODUCE DEPARTMENT SUPERVISOR) Specimen (Source) Anatomical Location Collection Method / Collectio n Time Received Time / Laterality Volume 10/26/2011 Narrative [facility] - 11/04/2011 11:42 AM PRODUCE DEPARTMENT SUPERVISOR [address] [place], [place] [id number] ? Patient: CATHERINE CARPENTER [address] [place], [place] ??[id number] Soc. Sec. #: /Age/Sex: 1960 (Age: 51)F Collected: ? 10/26/2011 Received: ?10/27/2011 Reported: ?11/04/2011 Physician(s): USAMA ARNOLD MD Copy To: [facility] ??[id number] [address] [facility] [place] ??[address] CYTOPATHOLOGY ANODE WORKER REPORT FINAL CYTOLOGIC DIAGNOSIS Pap Smear - ThinPrep: NEGATIVE FOR INTRAEPITHELIAL LESION OR MALIGNANCY REACTIVE/REPARATIVE CHANGES. ENDOCERVICAL CELLS/COMPONENT PRESENT. SATISFACTORY SPECIMEN FOR EVALUATION. ??This specimen required a physician interpretation under CLIA 1987 ?? Electronically Signed Out By ddg/11/04/2011 ARTIS BERRIOS M.D. [facility] The Pap test is a screening procedure an d, as such, is subject to both false positive and false negative results as evidenced by published data. ??It is not a diagnostic test and results should be inter preted in the context of the patient's h istory and other clinical findings. ??Obtaining per iodic Pap tests may help to minimize the consequences of any false negatives that may occur. SPECIMEN(S) RECEIVED: Pap Smear - ThinPrep CLINICAL HISTORY: Other Clinical Conditions: HPV TYPING REQUESTED: IF ASCUS Margi Arnold M.D. LAB PAP COPATH ORDERABLES Performing Organization Address City/State/ZIP Code Phon e Number [facility] documented in this encounter Visit Diagnoses Not on filedocumented in this encounter
--- OUTSIDE RECORDS SUMMARY | 2022-10-07 07:09 | XMS_ITS | Encounter Summary ---
:1960 Author Organization [facility] Address [address] [place] [address] Care Team Providers Name Role Phone Unavailable Primary Care Provider Unavailable Encounter Details Date Type Department Care Team Description 10/26/2011 Hospital Encounter [facility] Ninfa Justin M.D. [address] [place], [place] [address] (Wo rk) Social History Tobacco Use Types Packs/Day Years Used Date Smoking Tobacco: Never Assessed Sex Assigned at Date Recorded Not on file documented as of this encounter Plan of Treatment Not on filedocumented as of this encounter Procedures Procedure Name Priority Date/Time Associated Diagnosis Comme nts BI BREAST SCREENING Routine 10/26/2011 8:04 AM Re sults for this BILATERAL PARTS ANALYST procedure are i n the results section. documented in this encounter Results BI Breast Screening Bilateral (10/26/2011 8:04 AM PARTS ANALYST) Anatomical Region Laterality Modality Breast Bilateral Mammography Specimen (Source) Anatomical Collection Method Collection Time Re ceived Time Location / / Volume Laterality 10/26/2011 8:04 AM PARTS ANALYST Addenda Addendum by Provider, My Cantor 10/26/2011 8:04 AM PARTS ANALYST RAD^^^OW MA Mammo Screening Bilat w/ CADD 10/26/2011 08:04:01 Narrative 10/26/2011 4:35 PM PARTS ANALYST INDICATION Screening. DISCUSSION MLO and CC views are compared with multi ple years dating back to 02/13/2004. Heterogeneously dense breast tissue can obscure small masses. ??No change. Recommendations: I recommend a follow-up mammogram in 1 year, self breast exams at least once per month and clinic al breast exam at least once per year. ??Of note, benign findings should not deter biopsy in the setting of a palpable abnormality. ??The false negati ve rate of mammography is approximately 10%. CODE: 1-NEGATIVE Appropriate letter sent. Full field digital mammography is used a nd Computer Aided Detection is performed on the digital mammogram image s. FOR RADIOLOGY USE ONLY: ??___Results int o computer ??___Letter written and sent ___2 copies of report made ??___Form to dental scheduler ??___Patient called ___Written in incomplete book ??___Preli minary report to doctor My Vital ?D: Procedure Note David Rae M.D. / ProviderDevaughn M.D. - 04/21/2017 INDICATION Screening. DISCUSSION MLO and CC views are compared with multi ple years dating back to 02/13/2004. Heterogeneously dense breast tissue can obscure small masses. No change. Recommendations: I recommend a follow-up mammogram in 1 year, self breast exams at least once per month and clinic al breast exam at least once per year. Of note, benign findings should no t deter biopsy in the setting of a palpable abnormality. The false negative rate of mammography is approximately 10%. CODE: 1-NEGATIVE Appropriate letter sent. Full field digital mammography is used a nd Computer Aided Detection is performed on the digital mammogram image s. FOR RADIOLOGY USE ONLY: ___Results into computer ___Letter written and sent ___2 copies of report made ___Form to sd heduler ___Patient called ___Written in incomplete book ___Prelimi nary report to doctor My Vital T: 10/26/2011 03:23 pm Sadie Matthew(R), R.TSandi(R)(M) IMG BI PROCEDU RES documented in this encounter Visit Diagnoses Not on filedocumented in this encounter
--- OUTSIDE RECORDS SUMMARY | 2022-10-07 07:09 | XMS_ITS | Encounter Summary ---
:1960 Author Organization [facility] Address [address] [place] [address] Care Team Providers Name Role Phone Unavailable Primary Care Provider Unavailable Encounter Details Date Type Department Care Team Description 11/10/2010 Hospital Encounter [facility]X [facility] OBGYN Sherrie Diaz A PRN, C.N.P., M.S.N. Social History Tobacco Use Types Packs/Day Years Used Date Smoking Tobacco: Never Assessed Sex Assigned at Date Recorded Not on file documented as of this encounter Progress Notes Sherrie Diaz, M.S.N. - 11/10/2010 12:00 AM CST [id number] CHIEF COMPLAINT / REASON FOR VISIT Catherine is seen for a 2-week postoperative visit status post tension-free vaginal sling for urinary stress incontinence. HISTORY OF PRESENT ILLNESS She is feeling well postoperatively. Has had no bowel or bladder problems, although did initially have some difficulty voiding immediately postoperatively and lasting up to about a week postoperative. Over the past few days, she feels that things have really improved significantly and she has no current issues or problems with voiding, although it is not what she would consider completely normal. She denies any dysuria. No unusual vaginal discharge. She had no concerns about her suprapubic incisions. CURRENT MEDICATIONS Fexofenadine. Albuterol. Aspirin. Flovent. Levothyroxine. Nasonex. Omeprazole. ALLERGIES Tenormin. Calcium channel blockers. Cats. VITAL SIGNS TEMP: 36.6 degreesC PULSE: 72 RESP RATE: 16 BLOOD PRESSURE: 108/64, left arm PHYSICAL EXAM GENERAL: Alert and oriented, pleasant, talkative, 50-year-old female in no acute distress. SKIN: Warm, pink and dry. Her suprapubic sites are healing well. A small amount of glue is removed from the left suprapubic incision. PELVIS: Vaginal exam was not performed. IMPRESSION / REPORT / PLAN 1) A 50-year-old female status post tension-free vaginal tape (TVT) with cystoscopy, doing well postoperatively now, initially having some problems with urinary retention and voiding difficulty. We discussed gradual increase in activity, lifting restrictions, and her questions were answered today. Follow up with Dr. Doug Rodriguez at 6 weeks, sooner should she have any problems, questions or concerns. Rupal NicoleFSandiNTang cla Electronically Signed By:SHERRIE DIAZ TOP WADDY On 11/18/2010 01:57 PM Source: [facility] MHSDOLBEYNONRADSYS Document Id: [id number] EMIC ASSISTANT documented in this encounter Nursing Notes Conversion, Historical Provider Ser - 09/11/2010 9:58 AM CDT SURGERY DATE SURGERY SCHEDULED 10/28/2010 - TVT SUBURETHREL SLING, CYSTOSCOPY - ADAL Electronically Signed By:CHRYSTAL REESE On 09/11/2010 09:58 am Source: [facility] POWERCHART Document Id: [id number] documented in this encounter Miscellaneous Notes Miscellaneous - Sherrie Diaz, M.S.N. - 11/10/2010 9:08 AM CST Ambulatory Patient Summary [facility] [address] [place] [address] Visit Information Name: CATHERINE BROOKS Current Date: 11/10/2010 09:08:30 Primary Care Provider: CUCO ARNOLD MD Your Medications Here is a list of your medications. It is important to take your medications as directed. Use a pillbox or chart to help remind you to take your medications. Please let your doctor or nurse know if you have problems taking your medications. Medication/Strength Dose Route Frequency Indications/Special Instructions/Comments sulfamethoxazole-trimethoprim (Bactrim DS oral tablet) 1 tab(s) Oral once a day bethanechol (Urecholine 10 mg oral tablet) 10 mg Oral three times a day omeprazole (omeprazole 20 mg oral enteric coated tablet) 20 mg Oral once a day nitrofurantoin (Macrobid 100 mg oral capsule) 1 cap(s) Oral once a day mometasone nasal (Nasonex [...] Unspecified Active 10/23/2010 Urinary Retention Active 11/03/2010 Your Recommendations We want to make sure [...] Information Asthma Control Test every 1 year 11/10/2010 Asthma Action Plan every 1 year 11/10/2010 Screening Mammogram every 1 year Women 40-75 [...] Upcoming Appointments Date Time Location Reason Provider 12/08/2010 08:30 [facility] [address] PSTOP Doug Rodriguez MD Your Goals/Additional instructions: Source: [facility] POWERCHART Document Id: [id number] Electronically signed by Ariel [facility] Cane Flume Watcher [id number] at 05/02/2017 5:09 AM CDT Miscellaneous - Sherrie Diaz, M.S.N. - 11/10/2010 9:08 AM CST Ambulatory Depart Summary [facility] [address] [place] [address] Visit Information Name: CATHERINE BROOKS Current Date: 11/10/2010 09:08:29 Primary Care Provider: CUCO ARNOLD MD CATHERINE BROOKS has been given the following list of medications: Your Medications It is important to take your medications as directed. Use a pill box or chart to help remind you to take your medications. Please let your doctor or nurse know if you have problems taking your medications. Medication/Strength Dose Route Frequency Indications/Special Instructions/Comments sulfamethoxazole-trimethoprim (Bactrim DS oral tablet) 1 tab(s) Oral once a day bethanechol (Urecholine 10 mg oral tablet) 10 mg Oral three times a day omeprazole (omeprazole 20 mg oral enteric coated tablet) 20 mg Oral once a day nitrofurantoin (Macrobid 100 mg oral capsule) 1 cap(s) Oral once a day mometasone nasal (Nasonex [...] to the patient and/or family, guardian/caregiver. Source: [facility] POWERCHART Document Id: [id number] Electronically signed by Ariel, [facility] Cane Flume Watcher [id number] at 05/02/2017 5:09 AM CDT Miscellaneous - Conversion, Historical Provider Ser - 11/10/2010 8:39 AM ACADEMIC ASSISTANT Adult Food Beverage Attendant Intake/History Document Has Been Updated Adult Food Beverage Attendant Intake/History Entered On: 11/10/2010 8:43 ACADEMIC ASSISTANT Performed On: 11/10/2010 8:39 ACADEMIC ASSISTANT by JOHANNA BOYKIN Intake Chief Complaint: 2 week post op check Sling procedure 10/28/2010 JOHANNA BOYKIN - 11/10/2010 8:50 ACADEMIC ASSISTANT LMP Date: 10/14/2010 Temperature Oral: 36.6C(Converted to: 97.9DegF) Peripheral Pulse Rate: 72/min Respiratory Rate: 16/min Systolic Blood Pressure: 108mmHg Diastolic Blood Pressure: 64mmHg NIBP Mean: 79mmHg BP Location: Left upper extremity JOHANNA BOYKIN 11/10/2010 8:39 ACADEMIC ASSISTANT Subjective Pain Symptoms: JOHANNA Tejeda 11/10/2010 8:39 ACADEMIC ASSISTANT Dependent Habits Tobacco Use/Currently Using: JOHANNA Tejeda 11/10/2010 8:39 ACADEMIC ASSISTANT Allergies Allergies (Active) calcium channel blockers Estimated Onset Date: Unspecified ; Reactions: lips burn ; Created By: BETH LUNA; Reaction Status: Active ; Category: Drug ; Substance: calcium channel blockers ; Type:Allergy ; Updated By: BETH LUNA; Reviewed Date: 10/23/2010 9:40 ACADEMIC ASSISTANT Cats Estimated Onset Date: Unspecified ; Created By: BETH LUNA; Reaction Status: Active ; Category: Environment ; Substance: Cats ; Type: Allergy ; Updated By: BETH LUNA; Reviewed Date:10/23/2010 9:40 ACADEMIC ASSISTANT Tenormin Estimated Onset Date: Unspecified ; Reactions: insomnia, depression, breathing problems ; Created By: ROVERTO GONZALEZ; Reaction Status: Active ; Category: Drug ; Substance: Tenormin ; Type: Allergy ; Updated By: ROVERTO GONZALEZ; Reviewed Date: 10/23/2010 9:40 ACADEMIC ASSISTANT Source: [facility] LopolyCHART Document Id: [id number] ACADEMIC ASSISTANT!3 documented in this encounter Plan of Treatment Not on filedocumented as of this encounter Visit Diagnoses Not on filedocumented in this encounter
--- OUTSIDE RECORDS SUMMARY | 2022-10-07 07:09 | XMS_ITS | Encounter Summary ---
:1960 Author Organization [facility] Address [address] [place] [address] Care Team Providers Name Role Phone Unavailable Primary Care Provider Unavailable Encounter Details Date Type Department Care Team Description 07/29/2010 Hospital Encounter HX [facility] Savanna Galeas M.D. Social History Tobacco Use Types Packs/Day Years Used Date Smoking Tobacco: Never Assessed Sex Assigned at Date Recorded Not on file documented as of this encounter Progress Notes Savanna Galeas M.D. - 07/29/2010 12:00 AM CDT [id number] HISTORY OF PRESENT ILLNESS Catherine presents today first for her Pap smear. She would like to come to the FOUNDRY OPERATOR department for these services. She is having no CAFETERIA DIRECTOR difficulties other than she does have some difficulty with stress urinary incontinence, especially when she runs. PHYSICAL EXAM GENERAL: Well-nourished, well-developed female. BREASTS: The breasts were symmetrical without masses, skin changes or nipple discharge. The patient is encouraged to continue on a regular self-breast exam program, and to be getting regular mammograms. The patient had her last mammogram in September of 2009. PELVIS: The vulva and vagina were without lesions. There is a mild cystocele anteriorly and some evidence of urethral hypermobility. The uterus is midposition and mobile. The adnexa are without masses or tenderness. IMPRESSION / REPORT / PLAN 1) Normal CAFETERIA DIRECTOR exam. RECOMMENDATIONS: 1) The patient is to continue self-breast exam. 2) She is to get a mammogram in September. 3) Discussed with the patient Flavio rome. I did give her a pamphlet on the [employer] on the TVT suburethral sling, and did discuss with her whether urodynamics would be advisable prior to surgery if she is desirous of proceeding with surgery. The patient will consider her options. She will be notified of the results of her Pap smear and followup appropriately. My [employer] Electronically Signed By:SAVANNA GALEAS MD On 08/10/2010 10:05 AM Source: [facility] MHSDOLBEYNONRADSYS Document Id: [id number] documented in this encounter Miscellaneous Notes Miscellaneous - Conversion, Historical Provider Ser - 07/29/2010 8:32 AM CDT Adult And Taxi Instructor Bus Trolley Intake/History Adult And Taxi Instructor Bus Trolley Intake/History Entered On: 07/29/2010 8:40 CDT Performed On: 07/29/2010 8:32 CDT by AL PORTER Intake Chief Complaint: Consult for sling pap smear Onset of Symptoms: stress incontinence LMP Date: 07/11/2010 Systolic Blood Pressure: 90mmHg (LOW) Diastolic Blood Pressure: 60mmHg NIBP Mean: 70mmHg BP Location: Left upper extremity Height: 170.00cm(Converted to: 5ft 7in, 5.58ft, 66.93in) Clinic BSA: 1.88 Actual Weight: 74.800kg(Converted to: 164.906lb) Body Mass Index: 26kg/m2 Dosing Weight Clinic: 74.80kg AL PORTER - 07/29/2010 8:32 CDT Subjective Pain Symptoms: No AL PORTER - 07/29/2010 8:32 CDT Dependent Habits Tobacco Use/Currently Using: No AL PORTER - 07/29/2010 8:32 CDT Allergies Allergies (Active) Tenormin Estimated Onset Date: Unspecified ; Reactions: insomnia, depression, breathing problems ; Created By: ROVERTO GONZALEZ; Reaction Status: Active ; Category: Drug ; Substance: Tenormin ; Type: Allergy ; Updated By: ROVERTO GONZALEZ; Reviewed Date: 06/22/2010 8:26 CDT Source: [facility] [employer] Document Id: [id number]!18 documented in this encounter Plan of Treatment Not on filedocumented as of this encounter Procedures Procedure Name Priority Date/Time Associated Comments Diagnosis ZZPATHOLOGY NON-CAFETERIA DIRECTOR Routine 07/29/2010 12:00 Resu lts for this CYTOLOGY AM CDT procedure are i n the results section. documented in this encounter Results ZZPATHOLOGY NON-CAFETERIA DIRECTOR CYTOLOGY (07/29/2010 12:00 AM CDT) Specimen (Source) Anatomical Location Collection Method / Collectio n Time Received Time / Laterality Volume 07/29/2010 Narrative [facility] - 08/19/20 10 2:51 PM CDT PATIENT IMAGES Choose the Image button to view related documents. Historical Provider LAB PATHOLOGY/CYTOLOGY ORDER SUSANA Performing Organization Address City/State/ZIP Code Phon e Number [facility] documented in this encounter Visit Diagnoses Not on filedocumented in this encounter
--- OUTSIDE RECORDS SUMMARY | 2022-10-07 07:09 | XMS_ITS | Encounter Summary ---
:1960 Author Organization [facility] Address [address] [place] [address] Care Team Providers Name Role Phone Unavailable Primary Care Provider Unavailable Encounter Details Date Type Department Care Team Description 07/22/2011 Hospital Encounter [facility]X [facility] Howard Bright M.D. [address] [place], [place] [phone] (Wo rk) Social History Tobacco Use Types Packs/Day Years Used Date Smoking Tobacco: Never Assessed Sex Assigned at Date Recorded Not on file documented as of this encounter Plan of Treatment Not on filedocumented as of this encounter Visit Diagnoses Not on filedocumented in this encounter
--- OUTSIDE RECORDS SUMMARY | 2022-10-07 07:09 | XMS_ITS | Encounter Summary ---
:1960 Author Organization [facility] Address [address] [place] [address] Care Team Providers Name Role Phone Unavailable Primary Care Provider Unavailable Encounter Details Date Type Department Care Team Description 06/20/2012 Hospital Encounter [facility]X [facility] DTI Adolfo Hardy Jr., M.D. [address] [place] [id number] (Wo rk) Social History Tobacco Use Types Packs/Day Years Used Date Smoking Tobacco: Never Assessed Sex Assigned at Date Recorded Not on file documented as of this encounter Plan of Treatment Not on filedocumented as of this encounter Procedures Procedure Name Priority Date/Time Associated Comments Diagnosis FL HIP ARTHROGRAM Routine 06/20/2012 2:54 PM Resu lts for this RIGHT CDT procedure are i n the results section. documented in this encounter Results FL Hip Right Arthrogram (06/20/2012 2:54 PM CDT) Anatomical Region Laterality Modality Lower Extremity, Hip Right Radiographic Imagin g Specimen (Source) Anatomical Collection Method Collection Time Re ceived Time Location / / Volume Laterality 06/20/2012 2:54 PM CDT Addenda Addendum by Provider, My Cantor 06/20/2012 2:54 PM CDT RAD^^^OW FL Arthrogram Hip Right 06/20/2012 14:54:23 Impressions 06/20/2012 4:01 PM CDT ??See MRI arthrogram report. Narrative 06/20/2012 4:01 PM CDT EXAM: ??FL Arthrogram Hip Right AGE: ??51 years old. GENDER: ??Female. INDICATION: ??Probable femoral acetabula r impingement right hip COMPARISON: ??None. FINDINGS: ??Examination performed conjun ction with MRI arthrogram of the right hip. Please refer to MRI arthr ogram report. Procedure Note Angel Marti M.D. / ProviderOfelia M.D. - 04/20/2017 EXAM: FL Arthrogram Hip Right AGE: [age] years old. GENDER: Female. 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 FINDINGS: Examination performed conjunct ion with MRI arthrogram of the right hip. Please refer to MRI arthr ogram report. IMPRESSION: See MRI arthrogram report. Huyen RUDD FLUOROSCOPY PROCEDURES documented in this encounter Visit Diagnoses Not on filedocumented in this encounter
--- OUTSIDE RECORDS SUMMARY | 2022-10-07 07:09 | XMS_ITS | Encounter Summary ---
:1960 Author Organization [facility] Address [address] [place] [address] Care Team Providers Name Role Phone Unavailable Primary Care Provider Unavailable Encounter Details Date Type Department Care Team Description 12/20/2012 Hospital Encounter HX [facility] Zuleyka Bear M.D. [address] [place] [address] (Wo rk) Social History Tobacco Use Types Packs/Day Years Used Date Smoking Tobacco: Never Assessed Sex Assigned at Date Recorded Not on file documented as of this encounter Miscellaneous Notes Miscellaneous - Neha Bowman, RSandiN. - 12/01/2012 2:13 PM CST Med Managementx 2 Document Contains Addenda Addendum by TOM NANCE MD on 01 December 2012 15:42:52 DIRECTOR OF WORKFORCE DEVELOPMENT From: TOM NANCE MD To: KARLA MARY Sent: 12/01/2012 15:42:51 DIRECTOR OF WORKFORCE DEVELOPMENT Subject: RE:FW: Med Managementx 2 Approved Order Order: omeprazole (omeprazole 20 mg oral enteric coated tablet) 1 tab(s) PO Daily further refills will be addressed at appt. on 12-10-12 Qty: 30 tab(s) Refills: 0 Route To Pharmacy [facility] Signed by TOM NANCE MD 12/01/2012 15:42:48 Approved Order Order: levothyroxine (Synthroid 125 mcg (0.125 mg) oral tablet) 1 tab(s) PO Daily further refills will be addressed at upcoming appt 12-20-12 Qty: 30 tab(s) Refills: 0 Route To Pharmacy [facility] Signed by TOM NANCE MD 12/01/2012 15:42:48 Addendum by KARLA MARY on 01 December 2012 14:17:08 DIRECTOR OF WORKFORCE DEVELOPMENT From: KARLA MARY To: TOM NANCE MD; Sent: 12/01/2012 14:17:08 DIRECTOR OF WORKFORCE DEVELOPMENT Subject: FW: Med Managementx 2 From: NEHA BOWMAN To: KARLA MARY; Sent: 12/01/2012 14:13:02 DIRECTOR OF WORKFORCE DEVELOPMENT Subject: Med Managementx 2 On hold pending signature Order Order: omeprazole (omeprazole 20 mg oral enteric coated tablet) 1 tab(s) PO Daily further refills will be addressed at appt. on 12-10-12 Qty: 30 tab(s) Refills: 0 Route To [facility] On hold pending signature Order Order: levothyroxine (Synthroid 125 mcg (0.125 mg) oral tablet) 1 tab(s) PO Daily further refills will be addressed at upcoming appt 12-20-12 Qty: 30 tab(s) Refills: 0 Route To [facility] Caller is: ) Patient ( ) Mother ( ) Father ( ) Spouse ( ) Daughter ( ) Son ( ) Pharmacy ( ) Other: Physician: [facility] Patient MRN #: Reason for Call: Message: S. omeprazole and levothyroxine refills B. last appt: phys 10-26-11 future appt: establish care 12-20-12 A. She will run out of meds prior to her appt. R. Please advise. Advice/Action: Source used: ( ) Verbalizes understanding [...] back cell phone number ( ) Source: [facility] POWERCHART Document Id: [id number] Electronically signed by [facility]el [facility] [address] Glassware Replacer [id number] at 04/27/2017 6:48 PM CDT documented in this encounter Plan of Treatment Not on filedocumented as of this encounter Visit Diagnoses Not on filedocumented in this encounter
--- OUTSIDE RECORDS SUMMARY | 2022-10-07 07:09 | XMS_ITS | Encounter Summary ---
:1960 Author Organization [facility] Address [address] [place] [address] Care Team Providers Name Role Phone Unavailable Primary Care Provider Unavailable Encounter Details Date Type Department Care Team Description 10/23/2010 Hospital Encounter HX [facility] MAMMO Ninfa Justin M.D. [address] [place], [place] [address] (Wo rk) Social History Tobacco Use Types Packs/Day Years Used Date Smoking Tobacco: Never Assessed Sex Assigned at Date Recorded Not on file documented as of this encounter Plan of Treatment Not on filedocumented as of this encounter Procedures Procedure Name Priority Date/Time Associated Diagnosis Comme nts BI BREAST SCREENING Routine 10/23/2010 12:09 PM R esults for this BILATERAL BRINE PROCESS OPERATOR procedure are i n the results section. documented in this encounter Results BI Breast Screening Bilateral (10/23/2010 12:09 PM BRINE PROCESS OPERATOR) Anatomical Region Laterality Modality Breast Bilateral Mammography Specimen (Source) Anatomical Collection Method Collection Time Re ceived Time Location / / Volume Laterality 10/23/2010 12:09 PM BRINE PROCESS OPERATOR Addenda Addendum by Provider, My Cantor 10/23/2010 12:09 PM BRINE PROCESS OPERATOR RAD^^^OW MA Mammo Screening Bilat 10/23/2010 12:09:55 Narrative 10/24/2010 5:42 PM BRINE PROCESS OPERATOR Comparison with 10/06/2009, 02/13/2004. Bilateral digital screening mammogram de monstrates heterogeneously dense breast parenchyma bilaterally. ??Breast density diminishes mammographic sensitivity for detection of malignancy. ??No suspicious calcifications. ??No masses. ??No architectural distortion. ? ?Nothing for malignancy in either breast. ??No appreciable change from 07/2009, 02/13/2004. Recommendations: I recommend a follow-up mammogram in [...] ___2 copies of report made ??___Form to account development representative ??___Patient called ___Written in incomplete book ??___Preli minary report to doctor Angel Shah. Kaia, ?? cer ?D: 1 12/23/2009T: 10/23/2010 06:10 pm M.DSandi Procedure Note Angel Marti M.D. / ProviderOfelia M.D. - 04/22/2017 Comparison with 10/06/2009, 02/13/2004. Bilateral digital screening mammogram de monstrates heterogeneously dense breast parenchyma bilaterally. Breast de nsity diminishes mammographic sensitivity for detection of malignancy. No suspicious calcifications. No masses. No architectural distortion. Not ladonna for malignancy in either breast. No appreciable change from 10/06, 02/13/2004. Recommendations: I recommend a follow-up mammogram in [...] ___2 copies of report made ___Form to sc heduler ___Patient called ___Written in incomplete book ___Prelimi ashleyy report to doctor chavo Marshall T: 06:10 pm My Caitlyn Matthew(R), RSandiTSandi(R)(M) IMG BI PROCEDURES documented in this encounter Visit Diagnoses Not on filedocumented in this encounter
--- OUTSIDE RECORDS SUMMARY | 2022-10-07 07:09 | XMS_ITS | Encounter Summary ---
:1960 Author Organization [facility] Address [address] [place] [address] Care Team Providers Name Role Phone Unavailable Primary Care Provider Unavailable Encounter Details Date Type Department Care Team Description 10/19/2010 Hospital Encounter HX [facility] LAB Doug Rodriguez M. D. Social History Tobacco Use Types Packs/Day Years Used Date Smoking Tobacco: Never Assessed Sex Assigned at Date Recorded Not on file documented as of this encounter Miscellaneous Notes Miscellaneous - Doug Rodriguez M.D. - 10/23/2010 1:05 PM CST Reminder Msg Document Contains Addenda Addendum by CLAYTON TEJADA on 23 October 2010 14:45:19 SERVICE LIAISON REPRESENTATIVE pt notified of results From: SOLO REYNA MD To: CLAYTON TEJADA Sent: 10/23/2010 13:05:41 SERVICE LIAISON REPRESENTATIVE ! Show up: 10/23/2010 13:05:00 SERVICE LIAISON REPRESENTATIVE Subject: Reminder Msg Actions: Notify patient of results Due Date/Time: 10/23/2010 13:05:00 SERVICE LIAISON REPRESENTATIVE Source: [facility] POWERCHART Document Id: [id number] Electronically signed by Ariel [facility] Claim Trainee [id number] at 05/02/2017 4:19 AM CDT Miscellaneous - Doug Rodriguez M.D. - 10/21/2010 8:22 AM CST Reminder Msg From: SOLO REYNA MD To: ERIK PERDOMO Sent: 10/21/2010 08:22:42 SERVICE LIAISON REPRESENTATIVE ! Show up: 10/21/2010 08:22:00 SERVICE LIAISON REPRESENTATIVE Subject: Reminder Msg Actions: Notify patient of results Due Date/Time: 10/21/2010 08:22:00 SERVICE LIAISON REPRESENTATIVE Source: [facility] [employer] Document Id: [id number] Electronically signed by Ariel [facility] Claim Trainee [id number] at 05/02/2017 4:19 AM CDT documented in this encounter Plan of Treatment Not on filedocumented as of this encounter Visit Diagnoses Not on filedocumented in this encounter
--- OUTSIDE RECORDS SUMMARY | 2022-10-07 07:09 | XMS_ITS | Encounter Summary ---
:1960 Author Organization [facility] Address [address] [place] [address] Care Team Providers Name Role Phone Unavailable Primary Care Provider Unavailable Encounter Details Date Type Department Care Team Description 08/18/2011 Hospital Encounter HX [facility] Zully Eaton M.D. [address] [place], [place] [address] (Wo rk) Social History Tobacco Use Types Packs/Day Years Used Date Smoking Tobacco: Never Assessed Sex Assigned at Date Recorded Not on file documented as of this encounter Procedure Notes Conversion, Historical Provider Ser - 09/03/2011 3:00 PM CDT PPD Reading PPD Reading Entered On: 09/03/2011 16:44 CDT Performed On: 09/03/2011 15:00 CDT by ISACC HARRINGTON PPD Reading MM of Induration: 0mm PPD Interpretation: Negative ISACC HARRINGTON - 09/03/2011 16:44 CDT Source: [facility] POWERCHART Document Id: [id number] CDT!4 documented in this encounter Plan of Treatment Not on filedocumented as of this encounter Visit Diagnoses Not on filedocumented in this encounter
--- OUTSIDE RECORDS SUMMARY | 2022-10-07 07:09 | XMS_ITS | Encounter Summary ---
:1960 Author Organization [facility] Address [address] [place] [address] Care Team Providers Name Role Phone Unavailable Primary Care Provider Unavailable Encounter Details Date Type Department Care Team Description 10/28/2010 Hospital Encounter HX NO MAPPING Blanca Gee APRN, C.N.P., M.S.N. Social History Tobacco Use Types Packs/Day Years Used Date Smoking Tobacco: Never Assessed Sex Assigned at Date Recorded Not on file documented as of this encounter Plan of Treatment Not on filedocumented as of this encounter Visit Diagnoses Not on filedocumented in this encounter
--- OUTSIDE RECORDS SUMMARY | 2022-10-07 07:09 | XMS_ITS | Encounter Summary ---
:1960 Author Organization [facility] Address [address] [place] [address] Care Team Providers Name Role Phone Unavailable Primary Care Provider Unavailable Encounter Details Date Type Department Care Team Description 12/08/2010 Hospital Encounter HX [facility] Savanna Min M.D. Social History Tobacco Use Types Packs/Day Years Used Date Smoking Tobacco: Never Assessed Sex Assigned at Date Recorded Not on file documented as of this encounter Progress Notes Savanna Galeas M.D. - 12/08/2010 12:00 AM CST [id number] HISTORY OF PRESENT ILLNESS Ibis underwent a TVT transvaginal taping and cystoscopy on 10/28/2010. She is here for her 6-week checkup. She is doing well with no difficulties. She is having no voiding difficulties. She has been back to work since December 03, 2010. PHYSICAL EXAM GENITALIA: Exam shows her suprapubic incisions to be healing well, and vaginal palpation of the anterior vaginal wall shows no mesh erosion, pain, or mass. IMPRESSION / REPORT / PLAN 1) Normal 6-week checkup. PLAN: The patient will continue normal activities. My [place] Electronically Signed By:SAVANNA GALEAS MD On 12/10/2010 10:06 AM Source: [facility] MHSDOLBEYNONRADSYS Document Id: [id number] C.O.D. BILLER documented in this encounter Miscellaneous Notes Miscellaneous - Savanna Galeas M.D. - 12/08/2010 8:59 AM CST School or Work Excuse School or Work Excuse Entered On: 12/08/2010 9:00 C.O.D. BILLER Performed On: 12/08/2010 8:59 C.O.D. BILLER by SAVANNA GALEAS MD School or Work Excuse Date Patient Seen: 12/03/2010 C.O.D. BILLER Date of Return to School/Work Without Restrictions: 12/03/2010 C.O.D. BILLER SAVANNA GALEAS MD - 12/08/2010 8:59 C.O.D. BILLER [facility] Document Id: [id number] C.O.D. BILLER!4 C.O.D. BILLER Miscellaneous - Conversion, Historical Provider Ser - 12/08/2010 8:45 AM C.O.D. 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 BILLER Performed On: 12/08/2010 8:45 C.O.D. BILLER by ADARSH CHILDS Intake Chief Complaint: 6 week post op - bladder sling Systolic Blood Pressure: 102mmHg Diastolic Blood Pressure: 70mmHg NIBP Mean: 81mmHg Actual Weight: 74.800kg(Converted to: 164lb 14oz) Dosing Weight Clinic: 74.80kg ADARSH CHILDS - 12/08/2010 8:45 C.O.D. BILLER Subjective Pain Symptoms: No ADARSH CHILDS - 12/08/2010 8:45 C.O.D. BILLER Dependent Habits Tobacco Use/Currently Using: No ADARSH CHILDS - 12/08/2010 8:45 C.O.D. BILLER Allergies Allergies (Active) calcium channel blockers Estimated Onset Date: Unspecified ; Reactions: lips burn ; Created By: BETH LUNA; Reaction Status: Active ; Category: Drug ; Substance: calcium channel blockers ; Type:Allergy ; Updated By: BETH LUNA; Reviewed Date: 12/08/2010 8:43 C.O.D. BILLER Cats Estimated Onset Date: Unspecified ; Created By: BETH LUNA; Reaction Status: Active ; Category: Environment ; Substance: Cats ; Type: Allergy ; Updated By: BETH LUNA; Reviewed Date:12/08/2010 8:43 C.O.D. BILLER Tenormin Estimated Onset Date: Unspecified ; Reactions: insomnia, depression, breathing problems ; Created By: ROVERTO GONZALEZ; Reaction Status: Active ; Category: Drug ; Substance: Tenormin ; Type: Allergy ; Updated By: ROVERTO GONZALEZ; Reviewed Date: 12/08/2010 8:43 C.O.D. BILLER Source: [facility] [employer] Document Id: [id number] C.O.D. BILLER!12 documented in this encounter Plan of Treatment Not on filedocumented as of this encounter Visit Diagnoses Not on filedocumented in this encounter
--- OUTSIDE RECORDS SUMMARY | 2022-10-07 07:09 | XMS_ITS | Encounter Summary ---
:1960 Author Organization [facility] Address [address] [place] [address] Care Team Providers Name Role Phone Unavailable Primary Care Provider Unavailable Encounter Details Date Type Department Care Team Description 04/25/2012 Hospital Encounter HX [facility] ORTHO Misael Tucker M.D. [address] [place] [address] [address] [place], [place] [id number] (Wo rk) Social History Tobacco Use Types Packs/Day Years Used Date Smoking Tobacco: Never Assessed Sex Assigned at Date Recorded Not on file documented as of this encounter Last Filed Vital Signs Vital Sign Reading Time Taken Comments Blood Pressure 118/80 04/25/2012 11:13 AM CDT Pulse - - Temperature - - Respiratory Rate - - Oxygen Saturation - - Inhaled Oxygen Concentration - - Weight 68 kg (149 lb 14.6 oz) 04/25/2012 11:13 AM CDT Height 166.9 cm (5' 5.71) 04/25/2012 11:13 AM CDT Body Mass Index 24.41 04/25/2012 11:13 AM CDT documented in this encounter Progress Notes Misael Tucker M.D. - 04/25/2012 12:00 AM CDT [id number] HISTORY OF PRESENT ILLNESS This healthy 51-year-old very active female is here for right hip pain. The patient has had episodes of right hip bursitis in the past and on one occasion had a successful injection. The patient is an active runner and athlete in other respects and has had intermittent mild soft tissue discomfort in the hip for many years. She says that in childhood she had some form of slippage or dislocation but this apparently was a minor event as well. Now the patient has recurrence of some pain in the lateral aspect of the hip which she says is different from the bursitis that she had previously. Systemically the patient is perfectly healthy. 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 PHYSICAL EXAM Alert robust-appearing female. Transfer seated to standing position intact. Gait pattern excellent including transfers onto the examining table. Right lower extremity shows excellent exam in all areas except for tenderness over the posterior aspect of the trochanteric bursa. There is no swelling, crepitation, skin lesion or other abnormality in this area. RADIOGRAPHS: Survey of pelvis and right hip films today shows no significant structural abnormality. IMPRESSION/REPORT/PLAN Right hip trochanteric bursitis PLAN 1) Explanation and reassurance 2) Continue full activities including running 3) Medrol Dosepak 4) Return for injection if needed after the Medrol Misael Tucker M.D. [facility] Electronically Signed By: MISAEL TUCKER MD On: 04/26/2012 02:10 PM Source: [facility] MHSDOLBEYNONRADSYS Document Id: [id number] documented in this encounter Miscellaneous Notes Miscellaneous - Misael Tucker M.D. - 04/25/2012 11:47 AM CDT Ambulatory Depart Summary [address] [address] Visit Information Name: CATHERINE BROOKS Visit Date: 04/25/2012 11:47:41 Attending Provider: MISAEL TUCKER MD Primary Care Provider: CUCO ARNOLD MD CATHERINE BROOKS has been given the following list of medications: Your Medications It is important to take your medications as directed. Use a pill box or chart to help remind you to take your medications. Please let your doctor or nurse know if you have problems taking your medications. Medication/Strength Dose Route Frequency Indications/Special Instructions/Comments methylPREDNISolone (Medrol Dosepak 4 mg oral tablet) See special instructions Oral as directed for 6Days albuterol (albuterol 90 mcg/inh inhalation aerosol with [...] your provider for clarification. Additional Information: Source: [facility] POWERCHART Document Id: [id number] Miscellaneous - Misael Tucker M.D. - 04/25/2012 11:47 AM CDT Ambulatory Patient Summary [facility] [address] [place] [id number] Visit Information Name: CATHERINE BROOKS Current Date: 04/25/2012 11:47:41 Physicians Attending Provider: MISAEL TUCKER MD Primary Care Provider: CUCO ARNOLD MD Your Medications Here is a list of your medications. It is important to take your medications as directed. Use a pillbox or chart to help remind you to take your medications. Please let your doctor or nurse know if you have problems taking your medications. 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 Pain mostly when walking, and wakes her up at night. Pain after sitting too long and trying to stand up straight. Systolic Blood Pressure : 118mmHg Diastolic Blood Pressure : 80mmHg NIBP Mean : 93mmHg BP Location : Right upper extremity Blood Pressure Cuff Size : Regular Height : 166.9cm(Converted to: 5ft 6inch(es), 65.71inch(es)) Actual Weight : 68.0kg(Converted to: 149lb 15oz) Dosing Weight Clinic : 68.00kg Clinic BSA : 1.78 Body Mass Index : 24.41kg/m2 DENISE ZAPIEN - 04/25/2012 11:13 CDT Subjective Pain Symptoms : Yes DENISE ZAPIEN - 04/25/2012 11:13 CDT Pain Pain Assessment Grid Pain 1 Location : Hip Laterality : Right Intensity : 6 DEINSE ZAPIEN - 04/25/2012 11:13 CDT Dependent Habits Tobacco Use/Currently Using : No Smoking Status : Former smoker DENISE ZAPIEN - 04/25/2012 11:13 CDT Allergy Allergies (Active) calcium channel blockers [...] GONZALEZ; Reviewed Date: 04/25/2012 11:11 CDT Source: [facility] [employer] Document Id: [id number] CDT!24 documented in this encounter Plan of Treatment Not on filedocumented as of this encounter Procedures Procedure Name Priority Date/Time Associated Diagnosis Comme nts DX HIP AND PELVIS Routine 04/25/2012 11:24 AM Res ults for this RIGHT 1 VIEW CDT procedure are i n the results section. documented in this encounter Results DX Hips And Pelvis Right 1 View (04/25/2012 11:24 AM CDT) Anatomical Region Laterality Modality Lower Extremity, Pelvis, Hip Right Radiographi c Imaging Specimen (Source) Anatomical Collection Method Collection Time Re ceived Time Location / / Volume Laterality 04/25/2012 11:24 AM CDT Addenda Addendum by ProviderDevaughn M.D. o n 04/25/2012 11:24 AM CDT RAD^^^OW XR Hip Right Lat w/Pelvis 04/25/2012 11:24:15 Impressions 04/25/2012 1:44 PM CDT Skeletally mature individual. Left hip has some osteophyte formation of the lateral aspe ct of the acetabulum. Joint spaces of her hips are fairly well prese rved. Good bone quality. No obvious fractures. Further change of the left hip is mild. Narrative 04/25/2012 1:44 PM CDT EXAM: XR Pelvis Hip Right 1 view INDICATION: right hip pain COMPARISON: None. Procedure Note David Rashid M.D. / ProviderBrigitte M.D. - 04/19/2017 EXAM: XR Pelvis Hip Right 1 view INDICATION: right hip pain COMPARISON: None. IMPRESSION: Skeletally mature individual . Left hip has some osteophyte formation of the lateral aspe ct of the acetabulum. Joint spaces of her hips are fairly well prese rved. Good bone quality. No obvious fractures. Further change of the left hip is mild. Chasity Welch(R) [facility] IM[facility] PROC EDURES documented in this encounter Visit Diagnoses Not on filedocumented in this encounter
--- OUTSIDE RECORDS SUMMARY | 2022-10-07 07:09 | XMS_ITS | Encounter Summary ---
:1960 Author Organization [facility] Address [address] [place] [address] Care Team Providers Name Role Phone Unavailable Primary Care Provider Unavailable Encounter Details Date Type Department Care Team Description 05/05/2012 Hospital Encounter [facility]O Poncho Hardy Jr., M.D. [address] [place] [address] (Wo rk) Social History Tobacco Use Types Packs/Day Years Used Date Smoking Tobacco: Never Assessed Sex Assigned at Date Recorded Not on file documented as of this encounter Progress Notes Poncho Hardy Jr., M.D. - 05/05/2012 12:00 AM CDT [id number] CHIEF COMPLAINT Right hip pain HISTORY OF PRESENT ILLNESS Catherine is a 51-year-old female who presents to the clinic for follow-up of continual moderate right hip pain. The patient previously was evaluation by Dr. Tucker who gave the patient a Medrol DosePak. She reports sufficient but only temporarily relief of her right hip pain. She continues to wake up at night due to her right hip pain. Activity exacerbates her right hip pain. She has used anti-inflammatories without relief, and ice with only slight relief. VITAL SIGNS HEIGHT: 170.5 cm WEIGHT: 67.0 kg BLOOD PRESSURE: 106/68 mmHg PHYSICAL EXAM GENERAL: The patient is a pleasant female in no acute distress. Well developed, well nourished, near ideal weight. EXTREMITIES: Examined the right hip today. Normal range of motion of the hip as follows: flexion 90 degrees, extension 20 degrees, abduction 45 degrees, adduction 30 degrees, internal rotation 30 degrees, and external rotation 40 degrees. Straight leg raise was normal. Full range of motion of the knee Full range of motion of the ankle Positive Ousmane's test, right hip Negative Fadir GAIT: normal heel-toe gait. NEUROLOGICAL: Normal deep tendon reflexes of bilateral patellar and Achilles tendon. Neurovascularly intact MENTAL: The patient has a normal mood and affect. She is alert and oriented to person, place, and time. DIAGNOSTIC IMAGING: X-rays taken 04/25/12 of the right hip (1-view) demonstrates Left hip has some osteophytes formation of the lateral aspect of the acetabulum. IMPRESSION / REPORT / PLAN 1. 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 Plan: I recommended conservative pain management for the patient at this time with the use of anti-inflammatories, heat, and activity modification. She was scheduled today for an MR arthrogram of the right hip. She will follow-up in the clinic after the diagnostic study. The patient was offered a department summary but declined. This document serves as a record of services personally performed by Dr. Poncho Hardy. It was created on their behalf by Jayce Healy, a trained medical officer. The creation of this record is based on the scribe's personal observations and the provider's statements to them. This document has been checked and approved by the attending provider. Poncho Hardy Jr., M.D. ao Electronically Signed By: PONCHO HARDY MD On: 05/05/2012 11:12 AM Source: [facility] MHSDOLBEYNONRADSYS Document Id: [id number] documented in this encounter Miscellaneous Notes Miscellaneous - Isacc Camp L.P.N. - 06/12/2012 5:29 PM CDT MRI Screening Questionnaire MRI Screening Questionnaire Entered On: 06/12/2012 17:34 CDT Performed On: 06/12/2012 17:29 CDT by ISACC CAMP MRI Questionnaire Previous MRI, CT, or X-rays Done : Yes Location of previous MRI, CTor X-ray : xray done in [facility] ISACC CAMP 06/12/2012 17:29 CDT MRI Cannot be Done Grid Automated Internal Cardiac Defibrillator : No Brain aneurysm clips : No Cochlear implant : No History of pacemaker : No Implants with a magnet : No Internal electrodes/wires : No Neurostimulator/Biostimulator : No [place] donovan catheter : No ISACC CAMP 06/12/2012 17:29 CDT Patient Weight > 350 lbs : No ISACC CAMP 06/12/2012 17:29 CDT MRI Risk Factors Grid Age 65 or Older : No Diabetes (document medication) : No History of Kidney/Liver Transplant : No History of Renal Disease : No Hypertension : No Receiving Dialysis : No ISACC CAMP 06/12/2012 17:29 CDT MRI Implants, Devices, Conditions Grid Aneurysm clip : No Bullets/BB's/Shrapnel in Body : No Tattoos/Perm Make-Up/Body Jewelry : Yes (Comment: pierced ears [ISACC CAMP 06/12/2012 17:29 CDT] ) Hearing Aids/Dentures/Partial Plates : No History of cancer : No Eye Surgery/Implant : No Inner Ear Surgery/Implant : No Transdermal Med or EKG Patches : No Shunt : No Penile Implant : No 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 Insurance/Implant : No Control Implants (IUD, diaphragm) : No : No (document number of weeks in Comment) : No Surgery : Yes (Comment: tubal ligation 1988, ablasion on heart, knee scope, bladder sling [ISACC CAMP 06/12/2012 17:29 CDT] ) Intravascular Coil, Filter or Stent : No Drug Infusion Pump : No External Pain Control Device : No Intravascular Catheter/Port : No Magnetic/Elec/Mech Activated Implant : No Prosthesis/Metal Implanted Surgical : No Metal Fragments in Body : No ISACC CAMP 06/12/2012 17:29 CDT Claustrophobic : No Pain/Unable to Lay Still : No Metal In or Removed from Eyes Ever : No Form Completed : Yes Education Materials Provided : Yes ISACC CAMP 06/12/2012 17:29 CDT Source: [facility] POWERCHART Document Id: [id number] Miscellaneous - Poncho Hardy Jr., M.D. - 05/05/2012 11:21 AM CDT Ambulatory Patient Summary [facility] [address] [place] [id number] Visit Information Name: CATHERNIE BROOKS Current Date: 05/05/2012 11:21:13 Physicians Attending Provider: PONCHO HARDY MD Primary [...] No Appointments found Your Goals/Additional instructions: Source: [facility] POWERCHART Document Id: [id number] Miscellaneous - Poncho Hardy Jr., M.D. - 05/05/2012 11:21 AM CDT Ambulatory Depart Summary [facility] [address] [place] [id number] Visit Information Name: CATHERINE BROOKS Visit Date: 05/05/2012 11:21:12 Attending Provider: PONCHO HARDY MD Primary Care [...] your provider for clarification. Additional Information: Source: [facility] POWERCHART Document Id: [id number] documented in this encounter Plan of Treatment Not on filedocumented as of this encounter Visit Diagnoses Not on filedocumented in this encounter
--- OUTSIDE RECORDS SUMMARY | 2022-10-07 07:09 | XMS_ITS | Encounter Summary ---
:1960 Author Organization [facility] Address [address] [place] [address] Care Team Providers Name Role Phone Unavailable Primary Care Provider Unavailable Encounter Details Date Type Department Care Team Description 09/07/2010 Hospital Encounter [facility] Alecia Beltran M.D. [address] [place] [address] (Wo rk) Social History Tobacco Use Types Packs/Day Years Used Date Smoking Tobacco: Never Assessed Sex Assigned at Date Recorded Not on file documented as of this encounter Plan of Treatment Not on filedocumented as of this encounter Visit Diagnoses Not on filedocumented in this encounter
--- OUTSIDE RECORDS SUMMARY | 2022-10-07 07:09 | XMS_ITS | Encounter Summary ---
:1960 Author Organization [facility] Address [address] [place] [address] Care Team Providers Name Role Phone Unavailable Primary Care Provider Unavailable Encounter Details Date Type Department Care Team Description 05/26/2010 Hospital Encounter [facility]X [facility] [place] Provider, [facility] Social History Tobacco Use Types Packs/Day Years Used Date Smoking Tobacco: Never Assessed Sex Assigned at Date Recorded Not on file documented as of this encounter Plan of Treatment Not on filedocumented as of this encounter Visit Diagnoses Not on filedocumented in this encounter
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
--- OUTSIDE RECORDS SUMMARY | 2022-10-07 07:10 | XMS_ITS | Encounter Summary ---
:1960 Author Organization [facility] Address [address] [place] [address] Care Team Providers Name Role Phone Unavailable Primary Care Provider Unavailable Encounter Details Date Type Department Care Team Description 10/23/2007 Hospital Encounter [facility]X [facility] FAMILYPRA Sajan Martinez M.D. [address] [place] [address] (Wo rk) Social History Tobacco Use Types Packs/Day Years Used Date Smoking Tobacco: Never Assessed Sex Assigned at Date Recorded Not on file documented as of this encounter Plan of Treatment Not on filedocumented as of this encounter Visit Diagnoses Not on filedocumented in this encounter
--- OUTSIDE RECORDS SUMMARY | 2022-10-07 07:10 | XMS_ITS | Encounter Summary ---
:1960 Author Organization [facility] Address [address] [place] [address] Care Team Providers Name Role Phone Unavailable Primary Care Provider Unavailable Encounter Details Date Type Department Care Team Description 02/21/2010 Hospital Encounter [facility]X [facility] URGENTCAR Christopher Hurt L, D.O. Social History Tobacco Use Types Packs/Day Years Used Date Smoking Tobacco: Never Assessed Sex Assigned at Date Recorded Not on file documented as of this encounter Plan of Treatment Not on filedocumented as of this encounter Visit Diagnoses Not on filedocumented in this encounter
--- OUTSIDE RECORDS SUMMARY | 2022-10-07 07:10 | XMS_ITS | Encounter Summary ---
:1960 Author Organization [facility] Address [address] [place] [address] Care Team Providers Name Role Phone Unavailable Primary Care Provider Unavailable Encounter Details Date Type Department Care Team Description 08/06/2009 Hospital Encounter [facility] Abdelrahman Bermeo M.D. [address] [place], [place] [address] (Wo rk) Social History Tobacco Use Types Packs/Day Years Used Date Smoking Tobacco: Never Assessed Sex Assigned at Date Recorded Not on file documented as of this encounter Plan of Treatment Not on filedocumented as of this encounter Visit Diagnoses Not on filedocumented in this encounter
--- OUTSIDE RECORDS SUMMARY | 2022-10-07 07:10 | XMS_ITS | Encounter Summary ---
:1960 Author Organization [facility] Address [address] [place] [address] Care Team Providers Name Role Phone Unavailable Primary Care Provider Unavailable Encounter Details Date Type Department Care Team Description 05/09/2009 Hospital Encounter [facility] URGENTCAR Casi Salamanca, P.ASandi [address] [place] [address] (Wo rk) Social History Tobacco Use Types Packs/Day Years Used Date Smoking Tobacco: Never Assessed Sex Assigned at Date Recorded Not on file documented as of this encounter Plan of Treatment Not on filedocumented as of this encounter Visit Diagnoses Not on filedocumented in this encounter
--- OUTSIDE RECORDS SUMMARY | 2022-10-07 07:10 | XMS_ITS | Encounter Summary ---
:1960 Author Organization [facility] Address [address] [place] [address] Care Team Providers Name Role Phone Unavailable Primary Care Provider Unavailable Encounter Details Date Type Department Care Team Description 05/23/2009 Hospital Encounter [facility]X [facility] FAMILYPRA Angel Harley M.D. [address] [place] [address] (Wo rk) Social History Tobacco Use Types Packs/Day Years Used Date Smoking Tobacco: Never Assessed Sex Assigned at Date Recorded Not on file documented as of this encounter Plan of Treatment Not on filedocumented as of this encounter Visit Diagnoses Not on filedocumented in this encounter
--- OUTSIDE RECORDS SUMMARY | 2022-10-07 07:10 | XMS_ITS | Encounter Summary ---
:[address] [facility] Address [address] [place] [address] Care Team Providers Name Role Phone Unavailable Primary Care Provider Unavailable Encounter Details Date Type Department Care Team Description 06/11/2008 Hospital Encounter [facility] Abdelrahman Bermeo M.D. [address] [place], [place] [address] (Wo rk) Social History Tobacco Use Types Packs/Day Years Used Date Smoking Tobacco: Never Assessed Sex Assigned at Date Recorded Not on file documented as of this encounter Plan of Treatment Not on filedocumented as of this encounter Visit Diagnoses Not on filedocumented in this encounter
--- OUTSIDE RECORDS SUMMARY | 2022-10-07 07:10 | XMS_ITS | Encounter Summary ---
:1960 Author Organization [facility] Address [address] [place] [address] Care Team Providers Name Role Phone Unavailable Primary Care Provider Unavailable Encounter Details Date Type Department Care Team Description 11/11/2008 Hospital Encounter [facility] Abdelrahman Bermeo M.D. [address] [place], [place] [address] (Wo rk) Social History Tobacco Use Types Packs/Day Years Used Date Smoking Tobacco: Never Assessed Sex Assigned at Date Recorded Not on file documented as of this encounter Plan of Treatment Not on filedocumented as of this encounter Visit Diagnoses Not on filedocumented in this encounter
--- OUTSIDE RECORDS SUMMARY | 2022-10-07 07:10 | XMS_ITS | Encounter Summary ---
:1960 Author Organization [facility] Address [address] [place] [address] Care Team Providers Name Role Phone Unavailable Primary Care Provider Unavailable Encounter Details Date Type Department Care Team Description 03/17/2009 Hospital Encounter [facility] Zully Eaton M.D. [address], [place] [address] (Wo rk) Social History Tobacco Use Types Packs/Day Years Used Date Smoking Tobacco: Never Assessed Sex Assigned at Date Recorded Not on file documented as of this encounter Plan of Treatment Not on filedocumented as of this encounter Visit Diagnoses Not on filedocumented in this encounter
--- OUTSIDE RECORDS SUMMARY | 2022-10-07 07:10 | XMS_ITS | Encounter Summary ---
:1960 Author Organization [facility] Address [address] [place] [address] Care Team Providers Name Role Phone Unavailable Primary Care Provider Unavailable Encounter Details Date Type Department Care Team Description 01/26/2008 Hospital Encounter [facility] INTERNMED Yahir More M.D. [address] [place] [address] (Wo rk) Social History Tobacco Use Types Packs/Day Years Used Date Smoking Tobacco: Never Assessed Sex Assigned at Date Recorded Not on file documented as of this encounter Plan of Treatment Not on filedocumented as of this encounter Visit Diagnoses Not on filedocumented in this encounter
--- OUTSIDE RECORDS SUMMARY | 2022-10-07 07:10 | XMS_ITS | Encounter Summary ---
:1960 Author Organization [facility] Address [address] [place] [address] Care Team Providers Name Role Phone Unavailable Primary Care Provider Unavailable Encounter Details Date Type Department Care Team Description 08/15/2009 Hospital Encounter [facility]X [facility] INTERNMED Zully Justin M.D. [address], [place] [address] (Wo rk) Social History Tobacco Use Types Packs/Day Years Used Date Smoking Tobacco: Never Assessed Sex Assigned at Date Recorded Not on file documented as of this encounter Plan of Treatment Not on filedocumented as of this encounter Visit Diagnoses Not on filedocumented in this encounter
--- OUTSIDE RECORDS SUMMARY | 2022-10-07 07:10 | XMS_ITS | Encounter Summary ---
:1960 Author Organization [facility] Address [address] [place] [address] Care Team Providers Name Role Phone Unavailable Primary Care Provider Unavailable Encounter Details Date Type Department Care Team Description 10/01/2008 Hospital Encounter [facility] Yahir Nava M.D. [address] [place] [address] (Wo rk) Social History Tobacco Use Types Packs/Day Years Used Date Smoking Tobacco: Never Assessed Sex Assigned at Date Recorded Not on file documented as of this encounter Plan of Treatment Not on filedocumented as of this encounter Visit Diagnoses Not on filedocumented in this encounter
--- OUTSIDE RECORDS SUMMARY | 2022-10-07 07:10 | XMS_ITS | Encounter Summary ---
:1960 Author Organization [facility] Address [address] [place] [address] Care Team Providers Name Role Phone Unavailable Primary Care Provider Unavailable Encounter Details Date Type Department Care Team Description 05/13/2008 Hospital Encounter [facility] Abdelrahman Bermeo M.D. [address] [place], [place] [address] (Wo rk) Social History Tobacco Use Types Packs/Day Years Used Date Smoking Tobacco: Never Assessed Sex Assigned at Date Recorded Not on file documented as of this encounter Plan of Treatment Not on filedocumented as of this encounter Visit Diagnoses Not on filedocumented in this encounter
--- OUTSIDE RECORDS SUMMARY | 2022-10-07 07:10 | XMS_ITS | Encounter Summary ---
:1960 Author Organization [facility] Address [address] [place] [address] Care Team Providers Name Role Phone Unavailable Primary Care Provider Unavailable Encounter Details Date Type Department Care Team Description 07/17/2008 Hospital Encounter [facility]X [facility] INTERNMED Yahir More M.D. [address] [place] [address] (Wo rk) Social History Tobacco Use Types Packs/Day Years Used Date Smoking Tobacco: Never Assessed Sex Assigned at Date Recorded Not on file documented as of this encounter Plan of Treatment Not on filedocumented as of this encounter Visit Diagnoses Not on filedocumented in this encounter
--- OUTSIDE RECORDS SUMMARY | 2022-10-07 07:10 | XMS_ITS | Encounter Summary ---
:1960 Author Organization [facility] Address [address] [place] [address] Care Team Providers Name Role Phone Unavailable Primary Care Provider Unavailable Encounter Details Date Type Department Care Team Description 08/07/2008 Hospital Encounter [facility]X [facility] INTERNMED Yahir More M.D. [address] [place] [address] (Wo rk) Social History Tobacco Use Types Packs/Day Years Used Date Smoking Tobacco: Never Assessed Sex Assigned at Date Recorded Not on file documented as of this encounter Plan of Treatment Not on filedocumented as of this encounter Visit Diagnoses Not on filedocumented in this encounter
--- OUTSIDE RECORDS SUMMARY | 2022-10-07 07:10 | XMS_ITS | Encounter Summary ---
:1960 Author Organization [facility] Address [address] [place] [address] Care Team Providers Name Role Phone Unavailable Primary Care Provider Unavailable Encounter Details Date Type Department Care Team Description 10/14/2009 Hospital Encounter [facility]X [facility] INTERNMED Zully Justin M.D. [address], [place] [address] (Wo rk) Social History Tobacco Use Types Packs/Day Years Used Date Smoking Tobacco: Never Assessed Sex Assigned at Date Recorded Not on file documented as of this encounter Plan of Treatment Not on filedocumented as of this encounter Visit Diagnoses Not on filedocumented in this encounter
--- OUTSIDE RECORDS SUMMARY | 2022-10-07 07:10 | XMS_ITS | Encounter Summary ---
:1960 Author Organization [facility] Address [address] [place] [address] Care Team Providers Name Role Phone Unavailable Primary Care Provider Unavailable Encounter Details Date Type Department Care Team Description 04/15/2008 Hospital Encounter [facility]X [facility] INTERNMED Yahir More M.D. [address] [place] [address] (Wo rk) Social History Tobacco Use Types Packs/Day Years Used Date Smoking Tobacco: Never Assessed Sex Assigned at Date Recorded Not on file documented as of this encounter Plan of Treatment Not on filedocumented as of this encounter Visit Diagnoses Not on filedocumented in this encounter
--- OUTSIDE RECORDS SUMMARY | 2022-10-07 07:10 | XMS_ITS | Encounter Summary ---
:1960 Author Organization [facility] Address [address] [place] [address] Care Team Providers Name Role Phone Unavailable Primary Care Provider Unavailable Encounter Details Date Type Department Care Team Description 10/06/2009 Hospital Encounter [facility]X [facility] INTERNMED Zully Justin M.D. [address], [place] [address] (Wo rk) Social History Tobacco Use Types Packs/Day Years Used Date Smoking Tobacco: Never Assessed Sex Assigned at Date Recorded Not on file documented as of this encounter Plan of Treatment Not on filedocumented as of this encounter Visit Diagnoses Not on filedocumented in this encounter
--- OUTSIDE RECORDS SUMMARY | 2022-10-07 07:10 | XMS_ITS | Encounter Summary ---
:1960 Author Organization [facility] Address [address] [place] [address] Care Team Providers Name Role Phone Unavailable Primary Care Provider Unavailable Encounter Details Date Type Department Care Team Description 09/03/2009 Hospital Encounter [facility] Allan Pitt, P.A.-C. [address] [place] [phone] (Wo rk) Social History Tobacco Use Types Packs/Day Years Used Date Smoking Tobacco: Never Assessed Sex Assigned at Date Recorded Not on file documented as of this encounter Plan of Treatment Not on filedocumented as of this encounter Visit Diagnoses Not on filedocumented in this encounter
--- OUTSIDE RECORDS SUMMARY | 2022-10-07 07:10 | XMS_ITS | Encounter Summary ---
:1960 Author Organization [facility] Address [address] [place] [address] Care Team Providers Name Role Phone Unavailable Primary Care Provider Unavailable Encounter Details Date Type Department Care Team Description 04/18/2008 Hospital Encounter [facility] Howard Bright M.D. [address] [place], [place] [phone] (Wo rk) Social History Tobacco Use Types Packs/Day Years Used Date Smoking Tobacco: Never Assessed Sex Assigned at Date Recorded Not on file documented as of this encounter Plan of Treatment Not on filedocumented as of this encounter Visit Diagnoses Not on filedocumented in this encounter
--- OUTSIDE RECORDS SUMMARY | 2022-10-07 07:10 | XMS_ITS | Encounter Summary ---
:1960 Author Organization [facility] Address [address] [place] [address] Care Team Providers Name Role Phone Unavailable Primary Care Provider Unavailable Encounter Details Date Type Department Care Team Description 10/21/2009 Hospital Encounter [facility] INTERNMED Zully Justin M.D. [address] [place], [place] [phone] (Wo rk) Social History Tobacco Use Types Packs/Day Years Used Date Smoking Tobacco: Never Assessed Sex Assigned at Date Recorded Not on file documented as of this encounter Plan of Treatment Not on filedocumented as of this encounter Visit Diagnoses Not on filedocumented in this encounter
--- OUTSIDE RECORDS SUMMARY | 2022-10-07 07:10 | XMS_ITS | Encounter Summary ---
:1960 Author Organization [facility] Address [address] [place] [address] Care Team Providers Name Role Phone Unavailable Primary Care Provider Unavailable Encounter Details Date Type Department Care Team Description 10/21/2009 Hospital Encounter HX NO MAPPING Provider, Historical Social History Tobacco Use Types Packs/Day Years Used Date Smoking Tobacco: Never Assessed Sex Assigned at Date Recorded Not on file documented as of this encounter Plan of Treatment Not on filedocumented as of this encounter Visit Diagnoses Not on filedocumented in this encounter
--- OUTSIDE RECORDS SUMMARY | 2022-10-07 07:10 | XMS_ITS | Encounter Summary ---
:1960 Author Organization [facility] Address [address] [place] [address] Care Team Providers Name Role Phone Unavailable Primary Care Provider Unavailable Encounter Details Date Type Department Care Team Description 12/21/2007 Hospital Encounter [facility] Howard Peñaloza M.D. [address] [place], [place] [phone] (Wo rk) Social History Tobacco Use Types Packs/Day Years Used Date Smoking Tobacco: Never Assessed Sex Assigned at Date Recorded Not on file documented as of this encounter Plan of Treatment Not on filedocumented as of this encounter Visit Diagnoses Not on filedocumented in this encounter
--- OUTSIDE RECORDS SUMMARY | 2022-10-07 07:10 | XMS_ITS | Encounter Summary ---
:1960 Author Organization [facility] Address [address] [place] [address] Care Team Providers Name Role Phone Unavailable Primary Care Provider Unavailable Encounter Details Date Type Department Care Team Description 05/15/2009 Hospital Encounter [facility] INTERNMED Maverick Gutierrez M.D. [address] [place] [phone] (Wo rk) Social History Tobacco Use Types Packs/Day Years Used Date Smoking Tobacco: Never Assessed Sex Assigned at Date Recorded Not on file documented as of this encounter Plan of Treatment Not on filedocumented as of this encounter Visit Diagnoses Not on filedocumented in this encounter
--- OUTSIDE RECORDS SUMMARY | 2022-10-07 07:10 | XMS_ITS | Encounter Summary ---
:1960 Author Organization [facility] Address [address] [place] [address] Care Team Providers Name Role Phone Unavailable Primary Care Provider Unavailable Encounter Details Date Type Department Care Team Description 08/13/2008 Hospital Encounter [facility] FAMILYPRA Sajan Martinez M.D. [address] [place] [phone] (Wo rk) Social History Tobacco Use Types Packs/Day Years Used Date Smoking Tobacco: Never Assessed Sex Assigned at Date Recorded Not on file documented as of this encounter Plan of Treatment Not on filedocumented as of this encounter Visit Diagnoses Not on filedocumented in this encounter
--- OUTSIDE RECORDS SUMMARY | 2022-10-07 07:10 | XMS_ITS | Encounter Summary ---
:1960 Author Organization [facility] Address [address] [place] [address] Care Team Providers Name Role Phone Unavailable Primary Care Provider Unavailable Encounter Details Date Type Department Care Team Description 12/10/2009 Hospital Encounter [facility] Casi Augustine, P.ASandi [address] [place], [place] [address] (Wo rk) Social History Tobacco Use Types Packs/Day Years Used Date Smoking Tobacco: Never Assessed Sex Assigned at Date Recorded Not on file documented as of this encounter Plan of Treatment Not on filedocumented as of this encounter Visit Diagnoses Not on filedocumented in this encounter
--- OUTSIDE RECORDS SUMMARY | 2022-10-07 07:10 | XMS_ITS | Encounter Summary ---
:1960 Author Organization [facility] Address [address] [place] [address] Care Team Providers Name Role Phone Unavailable Primary Care Provider Unavailable Encounter Details Date Type Department Care Team Description 12/11/2008 Hospital Encounter [facility] Abdelrahman Bermeo M.D. [address] [place], [place] [address] (Wo rk) Social History Tobacco Use Types Packs/Day Years Used Date Smoking Tobacco: Never Assessed Sex Assigned at Date Recorded Not on file documented as of this encounter Plan of Treatment Not on filedocumented as of this encounter Visit Diagnoses Not on filedocumented in this encounter
--- OUTSIDE RECORDS SUMMARY | 2022-10-07 07:11 | XMS_ITS | Encounter Summary ---
:1960 Author Organization [facility] Address [address] [place] [address] Care Team Providers Name Role Phone Unavailable Primary Care Provider Unavailable Encounter Details Date Type Department Care Team Description 03/29/2006 Hospital Encounter [facility] Abdelrahman Bermeo M.D. [address] [place], [place] [address] (Wo rk) Social History Tobacco Use Types Packs/Day Years Used Date Smoking Tobacco: Never Assessed Sex Assigned at Date Recorded Not on file documented as of this encounter Plan of Treatment Not on filedocumented as of this encounter Visit Diagnoses Not on filedocumented in this encounter
--- OUTSIDE RECORDS SUMMARY | 2022-10-07 07:11 | XMS_ITS | Encounter Summary ---
:1960 Author Organization [facility] Address [address] [place] [address] Care Team Providers Name Role Phone Unavailable Primary Care Provider Unavailable Encounter Details Date Type Department Care Team Description 02/20/2007 Hospital Encounter [facility]X [facility] FAMILYPRA Angel Harley M.D. [address] [place] [phone] (Wo rk) Social History Tobacco Use Types Packs/Day Years Used Date Smoking Tobacco: Never Assessed Sex Assigned at Date Recorded Not on file documented as of this encounter Plan of Treatment Not on filedocumented as of this encounter Visit Diagnoses Not on filedocumented in this encounter
--- OUTSIDE RECORDS SUMMARY | 2022-10-07 07:11 | XMS_ITS | Encounter Summary ---
:1960 Author Organization [facility] Address [address] [place] [address] Care Team Providers Name Role Phone Unavailable Primary Care Provider Unavailable Encounter Details Date Type Department Care Team Description 07/11/2006 Hospital Encounter [facility] Vincent Fontana M.D. [address] [place] [address] JAN Sosa [phone] (Wo rk) Social History Tobacco Use Types Packs/Day Years Used Date Smoking Tobacco: Never Assessed Sex Assigned at Date Recorded Not on file documented as of this encounter Plan of Treatment Not on filedocumented as of this encounter Visit Diagnoses Not on filedocumented in this encounter
--- OUTSIDE RECORDS SUMMARY | 2022-10-07 07:11 | XMS_ITS | Encounter Summary ---
:1960 Author Organization [facility] Address [address] [place] [address] Care Team Providers Name Role Phone Unavailable Primary Care Provider Unavailable Encounter Details Date Type Department Care Team Description 05/11/2007 Hospital Encounter [facility]X [facility] ORTHO Provider, Histor ical Social History Tobacco Use Types Packs/Day Years Used Date Smoking Tobacco: Never Assessed Sex Assigned at Date Recorded Not on file documented as of this encounter Plan of Treatment Not on filedocumented as of this encounter Visit Diagnoses Not on filedocumented in this encounter
--- OUTSIDE RECORDS SUMMARY | 2022-10-07 07:11 | XMS_ITS | Encounter Summary ---
:1960 Author Organization [facility] Address [address] [place] [address] Care Team Providers Name Role Phone Unavailable Primary Care Provider Unavailable Encounter Details Date Type Department Care Team Description 08/25/2006 Hospital Encounter [facility] INTERNMED Yahir More M.D. [address] [place] [address] (Wo rk) Social History Tobacco Use Types Packs/Day Years Used Date Smoking Tobacco: Never Assessed Sex Assigned at Date Recorded Not on file documented as of this encounter Plan of Treatment Not on filedocumented as of this encounter Visit Diagnoses Not on filedocumented in this encounter
--- OUTSIDE RECORDS SUMMARY | 2022-10-07 07:11 | XMS_ITS | Encounter Summary ---
:1960 Author Organization [facility] Address [address] [place] [address] Care Team Providers Name Role Phone Unavailable Primary Care Provider Unavailable Encounter Details Date Type Department Care Team Description 09/06/2007 Hospital Encounter [facility] Angel Bashir M.D. [address] [place] [phone] (Wo rk) Social History Tobacco Use Types Packs/Day Years Used Date Smoking Tobacco: Never Assessed Sex Assigned at Date Recorded Not on file documented as of this encounter Plan of Treatment Not on filedocumented as of this encounter Visit Diagnoses Not on filedocumented in this encounter
--- OUTSIDE RECORDS SUMMARY | 2022-10-07 07:11 | XMS_ITS | Encounter Summary ---
:1960 Author Organization [facility] Address [address] [place] [address] Care Team Providers Name Role Phone Unavailable Primary Care Provider Unavailable Encounter Details Date Type Department Care Team Description 02/17/2006 Hospital Encounter [facility]X [facility] INTERNMED Ra Diamante [facility] Ross, M.DSandi [address] [place] [phone] (Wo rk) Social History Tobacco Use Types Packs/Day Years Used Date Smoking Tobacco: Never Assessed Sex Assigned at Date Recorded Not on file documented as of this encounter Plan of Treatment Not on filedocumented as of this encounter Visit Diagnoses Not on filedocumented in this encounter
--- OUTSIDE RECORDS SUMMARY | 2022-10-07 07:11 | XMS_ITS | Encounter Summary ---
:1960 Author Organization [facility] Address [address] [place] [address] Care Team Providers Name Role Phone Unavailable Primary Care Provider Unavailable Encounter Details Date Type Department Care Team Description 07/01/2005 Hospital Encounter [facility] INTERNMED Yahir More M.D. [address] [place] [address] (Wo rk) Social History Tobacco Use Types Packs/Day Years Used Date Smoking Tobacco: Never Assessed Sex Assigned at Date Recorded Not on file documented as of this encounter Plan of Treatment Not on filedocumented as of this encounter Visit Diagnoses Not on filedocumented in this encounter
--- OUTSIDE RECORDS SUMMARY | 2022-10-07 07:11 | XMS_ITS | Encounter Summary ---
:1960 Author Organization [facility] Address [address] [place] [address] Care Team Providers Name Role Phone Unavailable Primary Care Provider Unavailable Encounter Details Date Type Department Care Team Description 04/22/2005 Hospital Encounter [facility]X [facility] Abdelrahman Bermeo M.D. [address] [place], [place] [address] (Wo rk) Social History Tobacco Use Types Packs/Day Years Used Date Smoking Tobacco: Never Assessed Sex Assigned at Date Recorded Not on file documented as of this encounter Plan of Treatment Not on filedocumented as of this encounter Visit Diagnoses Not on filedocumented in this encounter
--- OUTSIDE RECORDS SUMMARY | 2022-10-07 07:11 | XMS_ITS | Encounter Summary ---
:1960 Author Organization [facility] Address [address] [place] [address] Care Team Providers Name Role Phone Unavailable Primary Care Provider Unavailable Encounter Details Date Type Department Care Team Description 02/27/2007 Hospital Encounter [facility] Social History Tobacco Use Types Packs/Day Years Used Date Smoking Tobacco: Never Assessed Sex Assigned at Date Recorded Not on file documented as of this encounter Plan of Treatment Not on filedocumented as of this encounter Visit Diagnoses Not on filedocumented in this encounter
--- OUTSIDE RECORDS SUMMARY | 2022-10-07 07:11 | XMS_ITS | Encounter Summary ---
:1960 Author Organization [facility] Address [address] [place] [address] Care Team Providers Name Role Phone Unavailable Primary Care Provider Unavailable Encounter Details Date Type Department Care Team Description 08/28/2007 Hospital Encounter [facility]X [facility] FAMILYPRA Angel Harley M.D. [address] [place] [phone] (Wo rk) Social History Tobacco Use Types Packs/Day Years Used Date Smoking Tobacco: Never Assessed Sex Assigned at Date Recorded Not on file documented as of this encounter Plan of Treatment Not on filedocumented as of this encounter Visit Diagnoses Not on filedocumented in this encounter
--- OUTSIDE RECORDS SUMMARY | 2022-10-07 07:11 | XMS_ITS | Encounter Summary ---
:1960 Author Organization [facility] Address [address] [place] [address] Care Team Providers Name Role Phone Unavailable Primary Care Provider Unavailable Encounter Details Date Type Department Care Team Description 05/24/2006 Hospital Encounter [facility]X [facility] INTERNMED Ra Diamante [facility] Ross, M.DSandi [address] [place] [phone] (Wo rk) Social History Tobacco Use Types Packs/Day Years Used Date Smoking Tobacco: Never Assessed Sex Assigned at Date Recorded Not on file documented as of this encounter Plan of Treatment Not on filedocumented as of this encounter Visit Diagnoses Not on filedocumented in this encounter
--- OUTSIDE RECORDS SUMMARY | 2022-10-07 07:11 | XMS_ITS | Encounter Summary ---
:1960 Author Organization [facility] Address [address] [place] [address] Care Team Providers Name Role Phone Unavailable Primary Care Provider Unavailable Encounter Details Date Type Department Care Team Description 09/26/2006 Hospital Encounter [facility] Yahir Nava M.D. [address] [place] [address] (Wo rk) Social History Tobacco Use Types Packs/Day Years Used Date Smoking Tobacco: Never Assessed Sex Assigned at Date Recorded Not on file documented as of this encounter Plan of Treatment Not on filedocumented as of this encounter Visit Diagnoses Not on filedocumented in this encounter
--- OUTSIDE RECORDS SUMMARY | 2022-10-07 07:11 | XMS_ITS | Encounter Summary ---
:1960 Author Organization [facility] Address [address] [place] [address] Care Team Providers Name Role Phone Unavailable Primary Care Provider Unavailable Encounter Details Date Type Department Care Team Description 08/24/2007 Hospital Encounter [facility]X [facility] FAMILYPRA Angel Harley M.D. [address] [place] [phone] (Wo rk) Social History Tobacco Use Types Packs/Day Years Used Date Smoking Tobacco: Never Assessed Sex Assigned at Date Recorded Not on file documented as of this encounter Plan of Treatment Not on filedocumented as of this encounter Visit Diagnoses Not on filedocumented in this encounter
--- OUTSIDE RECORDS SUMMARY | 2022-10-07 07:11 | XMS_ITS | Encounter Summary ---
:1960 Author Organization [facility] Address [address] [place] [address] Care Team Providers Name Role Phone Unavailable Primary Care Provider Unavailable Encounter Details Date Type Department Care Team Description 04/12/2005 Hospital Encounter [facility]X [facility] Abdelrahman Bermeo M.D. [address] [place], [place] [address] (Wo rk) Social History Tobacco Use Types Packs/Day Years Used Date Smoking Tobacco: Never Assessed Sex Assigned at Date Recorded Not on file documented as of this encounter Plan of Treatment Not on filedocumented as of this encounter Visit Diagnoses Not on filedocumented in this encounter
--- OUTSIDE RECORDS SUMMARY | 2022-10-07 07:11 | XMS_ITS | Encounter Summary ---
:1960 Author Organization [facility] Address [address] [place] [address] Care Team Providers Name Role Phone Unavailable Primary Care Provider Unavailable Encounter Details Date Type Department Care Team Description 04/10/2007 Hospital Encounter [facility]X [facility] INTERNMED Yahir More M.D. [address] [place] [address] (Wo rk) Social History Tobacco Use Types Packs/Day Years Used Date Smoking Tobacco: Never Assessed Sex Assigned at Date Recorded Not on file documented as of this encounter Plan of Treatment Not on filedocumented as of this encounter Visit Diagnoses Not on filedocumented in this encounter
--- OUTSIDE RECORDS SUMMARY | 2022-10-07 07:11 | XMS_ITS | Encounter Summary ---
:1960 Author Organization [facility] Address [address] [place] [address] Care Team Providers Name Role Phone Unavailable Primary Care Provider Unavailable Encounter Details Date Type Department Care Team Description 04/19/2005 Hospital Encounter HX [facility] OWOC MRI Provider, Historic al Social History Tobacco Use Types Packs/Day Years Used Date Smoking Tobacco: Never Assessed Sex Assigned at Date Recorded Not on file documented as of this encounter Plan of Treatment Not on filedocumented as of this encounter Visit Diagnoses Not on filedocumented in this encounter
--- OUTSIDE RECORDS SUMMARY | 2022-10-07 07:11 | XMS_ITS | Encounter Summary ---
:1960 Author Organization [facility] Address [address] [place] [address] Care Team Providers Name Role Phone Unavailable Primary Care Provider Unavailable Encounter Details Date Type Department Care Team Description 07/03/2007 Hospital Encounter [facility]X [facility] INTERNMED Yahir More M.D. [address] [place] [address] (Wo rk) Social History Tobacco Use Types Packs/Day Years Used Date Smoking Tobacco: Never Assessed Sex Assigned at Date Recorded Not on file documented as of this encounter Plan of Treatment Not on filedocumented as of this encounter Visit Diagnoses Not on filedocumented in this encounter
--- OUTSIDE RECORDS SUMMARY | 2022-10-07 07:11 | XMS_ITS | Encounter Summary ---
:1960 Author Organization [facility] Address [address] [place] [address] Care Team Providers Name Role Phone Unavailable Primary Care Provider Unavailable Encounter Details Date Type Department Care Team Description 09/20/2007 Hospital Encounter HX [facility]OC Abdelrahman Bermeo M.D. [address] [place], [place] [address] (Wo rk) Social History Tobacco Use Types Packs/Day Years Used Date Smoking Tobacco: Never Assessed Sex Assigned at Date Recorded Not on file documented as of this encounter Plan of Treatment Not on filedocumented as of this encounter Visit Diagnoses Not on filedocumented in this encounter
--- OUTSIDE RECORDS SUMMARY | 2022-10-07 07:11 | XMS_ITS | Encounter Summary ---
:1960 Author Organization [facility] Address [address] [place] [address] Care Team Providers Name Role Phone Unavailable Primary Care Provider Unavailable Encounter Details Date Type Department Care Team Description 11/08/2006 Hospital Encounter [facility] Social History Tobacco Use Types Packs/Day Years Used Date Smoking Tobacco: Never Assessed Sex Assigned at Date Recorded Not on file documented as of this encounter Plan of Treatment Not on filedocumented as of this encounter Visit Diagnoses Not on filedocumented in this encounter
--- OUTSIDE RECORDS SUMMARY | 2022-10-07 07:11 | XMS_ITS | Encounter Summary ---
:1960 Author Organization [facility] Address [address] [place] [address] Care Team Providers Name Role Phone Unavailable Primary Care Provider Unavailable Encounter Details Date Type Department Care Team Description 03/07/2007 Hospital Encounter HX NO MAPPING Erika Nleson Au. D. Social History Tobacco Use Types Packs/Day Years Used Date Smoking Tobacco: Never Assessed Sex Assigned at Date Recorded Not on file documented as of this encounter Plan of Treatment Not on filedocumented as of this encounter Visit Diagnoses Not on filedocumented in this encounter
--- OUTSIDE RECORDS SUMMARY | 2022-10-07 07:11 | XMS_ITS | Encounter Summary ---
:1960 Author Organization [facility] Address [address] [place] [address] Care Team Providers Name Role Phone Unavailable Primary Care Provider Unavailable Encounter Details Date Type Department Care Team Description 09/19/2007 Hospital Encounter [facility]X [facility] Angel Bashir M.D. [address] [place] [phone] (Wo rk) Social History Tobacco Use Types Packs/Day Years Used Date Smoking Tobacco: Never Assessed Sex Assigned at Date Recorded Not on file documented as of this encounter Plan of Treatment Not on filedocumented as of this encounter Visit Diagnoses Not on filedocumented in this encounter
--- OUTSIDE RECORDS SUMMARY | 2022-10-07 07:11 | XMS_ITS | Encounter Summary ---
:1960 Author Organization [facility] Address [address] [place] [address] Care Team Providers Name Role Phone Unavailable Primary Care Provider Unavailable Encounter Details Date Type Department Care Team Description 11/17/2006 Hospital Encounter [facility]X [facility]OC FAMILYPRA Casi Do, N.P. [address] [place], [place] [phone] Social History Tobacco Use Types Packs/Day Years Used Date Smoking Tobacco: Never Assessed Sex Assigned at Date Recorded Not on file documented as of this encounter Plan of Treatment Not on filedocumented as of this encounter Visit Diagnoses Not on filedocumented in this encounter
--- OUTSIDE RECORDS SUMMARY | 2022-10-07 07:11 | XMS_ITS | Encounter Summary ---
:1960 Author Organization [facility] Address [address] [place] [address] Care Team Providers Name Role Phone Unavailable Primary Care Provider Unavailable Encounter Details Date Type Department Care Team Description 08/03/2007 Hospital Encounter [facility]X [facility]OC FAMILYPRA Angel Harley M.D. [address] [place] [address] (Wo rk) Social History Tobacco Use Types Packs/Day Years Used Date Smoking Tobacco: Never Assessed Sex Assigned at Date Recorded Not on file documented as of this encounter Plan of Treatment Not on filedocumented as of this encounter Visit Diagnoses Not on filedocumented in this encounter
--- OUTSIDE RECORDS SUMMARY | 2022-10-07 07:11 | XMS_ITS | Encounter Summary ---
:1960 Author Organization [facility] Address [address] [place] [address] Care Team Providers Name Role Phone Unavailable Primary Care Provider Unavailable Encounter Details Date Type Department Care Team Description 05/11/2007 Hospital Encounter [facility] Abdelrahman Bermeo M.D. [address] [place], [place] [address] (Wo rk) Social History Tobacco Use Types Packs/Day Years Used Date Smoking Tobacco: Never Assessed Sex Assigned at Date Recorded Not on file documented as of this encounter Plan of Treatment Not on filedocumented as of this encounter Visit Diagnoses Not on filedocumented in this encounter
--- OUTSIDE RECORDS SUMMARY | 2022-10-07 07:11 | XMS_ITS | Encounter Summary ---
:1960 Author Organization [facility] Address [address] [place] [address] Care Team Providers Name Role Phone Unavailable Primary Care Provider Unavailable Encounter Details Date Type Department Care Team Description 05/21/2005 Hospital Encounter [facility] Vincent Fontana M.D. [address] [place] [address] JAN Sosa [phone] (Wo rk) Social History Tobacco Use Types Packs/Day Years Used Date Smoking Tobacco: Never Assessed Sex Assigned at Date Recorded Not on file documented as of this encounter Plan of Treatment Not on filedocumented as of this encounter Visit Diagnoses Not on filedocumented in this encounter
--- OUTSIDE RECORDS SUMMARY | 2022-10-07 07:11 | XMS_ITS | Encounter Summary ---
:1960 Author Organization [facility] Address [address] [place] [address] Care Team Providers Name Role Phone Unavailable Primary Care Provider Unavailable Encounter Details Date Type Department Care Team Description 06/08/2007 Hospital Encounter [facility] Abdelrahman Bermeo M.D. [address] [place], [place] [address] (Wo rk) Social History Tobacco Use Types Packs/Day Years Used Date Smoking Tobacco: Never Assessed Sex Assigned at Date Recorded Not on file documented as of this encounter Plan of Treatment Not on filedocumented as of this encounter Visit Diagnoses Not on filedocumented in this encounter
--- OUTSIDE RECORDS SUMMARY | 2022-10-07 07:11 | XMS_ITS | Encounter Summary ---
:1960 Author Organization [facility] Address [address] [place] [address] Care Team Providers Name Role Phone Unavailable Primary Care Provider Unavailable Encounter Details Date Type Department Care Team Description 03/21/2006 Hospital Encounter [facility] Social History Tobacco Use Types Packs/Day Years Used Date Smoking Tobacco: Never Assessed Sex Assigned at Date Recorded Not on file documented as of this encounter Plan of Treatment Not on filedocumented as of this encounter Visit Diagnoses Not on filedocumented in this encounter
--- OUTSIDE RECORDS SUMMARY | 2022-10-07 07:11 | XMS_ITS | Encounter Summary ---
:1960 Author Organization [facility] Address [address] [place] [address] Care Team Providers Name Role Phone Unavailable Primary Care Provider Unavailable Encounter Details Date Type Department Care Team Description 03/21/2006 Hospital Encounter [facility] Diamond Pinto M.D. [address] [place] [phone] (Wo rk) Social History Tobacco Use Types Packs/Day Years Used Date Smoking Tobacco: Never Assessed Sex Assigned at Date Recorded Not on file documented as of this encounter Plan of Treatment Not on filedocumented as of this encounter Visit Diagnoses Not on filedocumented in this encounter
--- OUTSIDE RECORDS SUMMARY | 2022-10-07 07:11 | XMS_ITS | Encounter Summary ---
:1960 Author Organization [facility] Address [address] [place] [address] Care Team Providers Name Role Phone Unavailable Primary Care Provider Unavailable Encounter Details Date Type Department Care Team Description 05/03/2007 Hospital Encounter [facility] INTERNMED Yahir More M.D. [address] [place] [address] (Wo rk) Social History Tobacco Use Types Packs/Day Years Used Date Smoking Tobacco: Never Assessed Sex Assigned at Date Recorded Not on file documented as of this encounter Plan of Treatment Not on filedocumented as of this encounter Visit Diagnoses Not on filedocumented in this encounter
--- OUTSIDE RECORDS SUMMARY | 2022-10-07 07:11 | XMS_ITS | Encounter Summary ---
:1960 Author Organization [facility] Address [address] [place] [address] Care Team Providers Name Role Phone Unavailable Primary Care Provider Unavailable Encounter Details Date Type Department Care Team Description 01/23/2007 Hospital Encounter [facility] Addis Dominguez M.D. [address] [place], [place] [phone] (Wo rk) Social History Tobacco Use Types Packs/Day Years Used Date Smoking Tobacco: Never Assessed Sex Assigned at Date Recorded Not on file documented as of this encounter Plan of Treatment Not on filedocumented as of this encounter Visit Diagnoses Not on filedocumented in this encounter
--- OUTSIDE RECORDS SUMMARY | 2022-10-07 07:11 | XMS_ITS | Encounter Summary ---
:1960 Author Organization [facility] Address [address] [place] [address] Care Team Providers Name Role Phone Unavailable Primary Care Provider Unavailable Encounter Details Date Type Department Care Team Description 09/29/2006 Hospital Encounter [facility] Abdelrahman Bermeo M.D. [address] [place], [place] [address] (Wo rk) Social History Tobacco Use Types Packs/Day Years Used Date Smoking Tobacco: Never Assessed Sex Assigned at Date Recorded Not on file documented as of this encounter Plan of Treatment Not on filedocumented as of this encounter Visit Diagnoses Not on filedocumented in this encounter
--- OUTSIDE RECORDS SUMMARY | 2022-10-07 07:11 | XMS_ITS | Encounter Summary ---
:1960 Author Organization [facility] Address [address] [place] [address] Care Team Providers Name Role Phone Unavailable Primary Care Provider Unavailable Encounter Details Date Type Department Care Team Description 05/26/2007 Hospital Encounter [facility] INTERNMED Yahir More M.D. [address] [place] [address] (Wo rk) Social History Tobacco Use Types Packs/Day Years Used Date Smoking Tobacco: Never Assessed Sex Assigned at Date Recorded Not on file documented as of this encounter Plan of Treatment Not on filedocumented as of this encounter Visit Diagnoses Not on filedocumented in this encounter
--- OUTSIDE RECORDS SUMMARY | 2022-10-07 07:11 | XMS_ITS | Encounter Summary ---
:1960 Author Organization [facility] Address [address] [place] [address] Care Team Providers Name Role Phone Unavailable Primary Care Provider Unavailable Encounter Details Date Type Department Care Team Description 08/27/2005 Hospital Encounter [facility] Vincent Fontana M.D. [address] [place] [address] JAN Sosa [phone] (Wo rk) Social History Tobacco Use Types Packs/Day Years Used Date Smoking Tobacco: Never Assessed Sex Assigned at Date Recorded Not on file documented as of this encounter Plan of Treatment Not on filedocumented as of this encounter Visit Diagnoses Not on filedocumented in this encounter
--- OUTSIDE RECORDS SUMMARY | 2022-10-07 07:11 | XMS_ITS | Encounter Summary ---
:1960 Author Organization [facility] Address [address] [place] [address] Care Team Providers Name Role Phone Unavailable Primary Care Provider Unavailable Encounter Details Date Type Department Care Team Description 04/27/2005 Hospital Encounter [facility] INTERNMED Yahir More M.D. [address] [place] [address] (Wo rk) Social History Tobacco Use Types Packs/Day Years Used Date Smoking Tobacco: Never Assessed Sex Assigned at Date Recorded Not on file documented as of this encounter Plan of Treatment Not on filedocumented as of this encounter Visit Diagnoses Not on filedocumented in this encounter
--- OUTSIDE RECORDS SUMMARY | 2022-10-07 07:11 | XMS_ITS | Encounter Summary ---
:1960 Author Organization [facility] Address [address] [place] [address] Care Team Providers Name Role Phone Unavailable Primary Care Provider Unavailable Encounter Details Date Type Department Care Team Description 03/07/2007 Hospital Encounter [facility] ENT Alberto Mills M.D. [address] [place] [phone] (Wo rk) Social History Tobacco Use Types Packs/Day Years Used Date Smoking Tobacco: Never Assessed Sex Assigned at Date Recorded Not on file documented as of this encounter Plan of Treatment Not on filedocumented as of this encounter Visit Diagnoses Not on filedocumented in this encounter
--- OUTSIDE RECORDS SUMMARY | 2022-10-07 07:11 | XMS_ITS | Encounter Summary ---
:1960 Author Organization [facility] Address [address] [place] [address] Care Team Providers Name Role Phone Unavailable Primary Care Provider Unavailable Encounter Details Date Type Department Care Team Description 01/23/2007 Hospital Encounter [facility] INTERNMED Yahir More M.D. [address] [place] [address] (Wo rk) Social History Tobacco Use Types Packs/Day Years Used Date Smoking Tobacco: Never Assessed Sex Assigned at Date Recorded Not on file documented as of this encounter Plan of Treatment Not on filedocumented as of this encounter Visit Diagnoses Not on filedocumented in this encounter
--- OUTSIDE RECORDS SUMMARY | 2022-10-07 07:11 | XMS_ITS | Encounter Summary ---
:1960 Author Organization [facility] Address [address] [place] [address] Care Team Providers Name Role Phone Unavailable Primary Care Provider Unavailable Encounter Details Date Type Department Care Team Description 10/28/2005 Hospital Encounter [facility] INTERNMED Yahir More M.D. [address] [place] [address] (Wo rk) Social History Tobacco Use Types Packs/Day Years Used Date Smoking Tobacco: Never Assessed Sex Assigned at Date Recorded Not on file documented as of this encounter Plan of Treatment Not on filedocumented as of this encounter Visit Diagnoses Not on filedocumented in this encounter
--- OUTSIDE RECORDS SUMMARY | 2022-10-07 07:12 | XMS_ITS | Encounter Summary ---
:1960 Author Organization [facility] Address [address] [place] [address] Care Team Providers Name Role Phone Unavailable Primary Care Provider Unavailable Encounter Details Date Type Department Care Team Description 09/09/2004 Hospital Encounter [facility] INTERNMED Yahir More M.D. [address] [place] [address] (Wo rk) Social History Tobacco Use Types Packs/Day Years Used Date Smoking Tobacco: Never Assessed Sex Assigned at Date Recorded Not on file documented as of this encounter Plan of Treatment Not on filedocumented as of this encounter Visit Diagnoses Not on filedocumented in this encounter
--- OUTSIDE RECORDS SUMMARY | 2022-10-07 07:12 | XMS_ITS | Encounter Summary ---
:1960 Author Organization [facility] Address [address] [place] [address] Care Team Providers Name Role Phone Unavailable Primary Care Provider Unavailable Encounter Details Date Type Department Care Team Description 12/10/2004 Hospital Encounter [facility] Howard Peñaloza M.D. [address] [place], [place] [phone] (Wo rk) Social History Tobacco Use Types Packs/Day Years Used Date Smoking Tobacco: Never Assessed Sex Assigned at Date Recorded Not on file documented as of this encounter Plan of Treatment Not on filedocumented as of this encounter Visit Diagnoses Not on filedocumented in this encounter
--- OUTSIDE RECORDS SUMMARY | 2022-10-07 07:12 | XMS_ITS | Encounter Summary ---
:1960 Author Organization [facility] Address [address] [place] [address] Care Team Providers Name Role Phone Unavailable Primary Care Provider Unavailable Encounter Details Date Type Department Care Team Description 09/29/2004 Hospital Encounter [facility] Vincent Fontana M.D. [address] [place] [address] JAN Sosa [phone] (Wo rk) Social History Tobacco Use Types Packs/Day Years Used Date Smoking Tobacco: Never Assessed Sex Assigned at Date Recorded Not on file documented as of this encounter Plan of Treatment Not on filedocumented as of this encounter Visit Diagnoses Not on filedocumented in this encounter
--- OUTSIDE RECORDS SUMMARY | 2022-10-07 07:12 | XMS_ITS | Encounter Summary ---
:1960 Author Organization [facility] Address [address] [place] [address] Care Team Providers Name Role Phone Unavailable Primary Care Provider Unavailable Encounter Details Date Type Department Care Team Description 02/13/2004 Hospital Encounter [facility] INTERNMED Yahir More M.D. [address] [place] [address] (Wo rk) Social History Tobacco Use Types Packs/Day Years Used Date Smoking Tobacco: Never Assessed Sex Assigned at Date Recorded Not on file documented as of this encounter Plan of Treatment Not on filedocumented as of this encounter Visit Diagnoses Not on filedocumented in this encounter
--- OUTSIDE RECORDS SUMMARY | 2022-10-07 07:12 | XMS_ITS | Encounter Summary ---
:1960 Author Organization [facility] Address [address] [place] [address] Care Team Providers Name Role Phone Unavailable Primary Care Provider Unavailable Encounter Details Date Type Department Care Team Description 02/25/2004 Hospital Encounter [facility] INTERNMED Yahir More M.D. [address] [place] [address] (Wo rk) Social History Tobacco Use Types Packs/Day Years Used Date Smoking Tobacco: Never Assessed Sex Assigned at Date Recorded Not on file documented as of this encounter Plan of Treatment Not on filedocumented as of this encounter Visit Diagnoses Not on filedocumented in this encounter
--- OUTSIDE RECORDS SUMMARY | 2022-10-07 07:12 | XMS_ITS | Encounter Summary ---
:1960 Author Organization [facility] Address [address] [place] [address] Care Team Providers Name Role Phone Unavailable Primary Care Provider Unavailable Encounter Details Date Type Department Care Team Description 03/09/2005 Hospital Encounter [facility] Abdelrahman Bermeo M.D. [address] [place], [place] [address] (Wo rk) Social History Tobacco Use Types Packs/Day Years Used Date Smoking Tobacco: Never Assessed Sex Assigned at Date Recorded Not on file documented as of this encounter Plan of Treatment Not on filedocumented as of this encounter Visit Diagnoses Not on filedocumented in this encounter
--- OUTSIDE RECORDS SUMMARY | 2022-10-07 07:12 | XMS_ITS | Encounter Summary ---
:1960 Author Organization [facility] Address [address] [place] [address] Care Team Providers Name Role Phone Unavailable Primary Care Provider Unavailable Encounter Details Date Type Department Care Team Description 10/26/2004 Hospital Encounter [facility] INTERNMED Yahir More M.D. [address] [place] [address] (Wo rk) Social History Tobacco Use Types Packs/Day Years Used Date Smoking Tobacco: Never Assessed Sex Assigned at Date Recorded Not on file documented as of this encounter Plan of Treatment Not on filedocumented as of this encounter Visit Diagnoses Not on filedocumented in this encounter
--- OUTSIDE RECORDS SUMMARY | 2022-10-07 07:12 | XMS_ITS | Encounter Summary ---
:[address] [facility] Address [address] [place] [address] Care Team Providers Name Role Phone Unavailable Primary Care Provider Unavailable Encounter Details Date Type Department Care Team Description 09/16/2003 Hospital Encounter [facility] INTERNMED Yahir More M.D. [address] [place] [address] (Wo rk) Social History Tobacco Use Types Packs/Day Years Used Date Smoking Tobacco: Never Assessed Sex Assigned at Date Recorded Not on file documented as of this encounter Plan of Treatment Not on filedocumented as of this encounter Visit Diagnoses Not on filedocumented in this encounter
--- OUTSIDE RECORDS SUMMARY | 2022-10-07 07:12 | XMS_ITS | Encounter Summary ---
:1960 Author Organization [facility] Address [address] [place] [address] Care Team Providers Name Role Phone Unavailable Primary Care Provider Unavailable Encounter Details Date Type Department Care Team Description 02/17/2005 Hospital Encounter [facility] INTERNMED Yahir More M.D. [address] [place] [address] (Wo rk) Social History Tobacco Use Types Packs/Day Years Used Date Smoking Tobacco: Never Assessed Sex Assigned at Date Recorded Not on file documented as of this encounter Plan of Treatment Not on filedocumented as of this encounter Visit Diagnoses Not on filedocumented in this encounter
--- OUTSIDE RECORDS SUMMARY | 2022-10-07 07:12 | XMS_ITS | Encounter Summary ---
:1960 Author Organization [facility] Address [address] [place] [address] Care Team Providers Name Role Phone Unavailable Primary Care Provider Unavailable Encounter Details Date Type Department Care Team Description 09/03/2003 Hospital Encounter [facility] INTERNMED Yahir More M.D. [address] [place] [address] (Wo rk) Social History Tobacco Use Types Packs/Day Years Used Date Smoking Tobacco: Never Assessed Sex Assigned at Date Recorded Not on file documented as of this encounter Plan of Treatment Not on filedocumented as of this encounter Visit Diagnoses Not on filedocumented in this encounter
--- OUTSIDE RECORDS SUMMARY | 2022-10-07 07:12 | XMS_ITS | Encounter Summary ---
:1960 Author Organization [facility] Address [address] [place] [address] Care Team Providers Name Role Phone Unavailable Primary Care Provider Unavailable Encounter Details Date Type Department Care Team Description 11/19/2003 Hospital Encounter [facility] Vincent Fontana M.D. [address] [place] [address] JAN Sosa [phone] (Wo rk) Social History Tobacco Use Types Packs/Day Years Used Date Smoking Tobacco: Never Assessed Sex Assigned at Date Recorded Not on file documented as of this encounter Plan of Treatment Not on filedocumented as of this encounter Visit Diagnoses Not on filedocumented in this encounter
--- OUTSIDE RECORDS SUMMARY | 2022-10-07 07:12 | XMS_ITS | Encounter Summary ---
:1960 Author Organization [facility] Address [address] [place] [address] Care Team Providers Name Role Phone Unavailable Primary Care Provider Unavailable Encounter Details Date Type Department Care Team Description 08/09/2003 Hospital Encounter [facility] Abdelrahman Bermeo M.D. [address] [place], [place] [address] (Wo rk) Social History Tobacco Use Types Packs/Day Years Used Date Smoking Tobacco: Never Assessed Sex Assigned at Date Recorded Not on file documented as of this encounter Plan of Treatment Not on filedocumented as of this encounter Visit Diagnoses Not on filedocumented in this encounter
--- OUTSIDE RECORDS SUMMARY | 2022-10-07 07:12 | XMS_ITS | Encounter Summary ---
:1960 Author Organization [facility] Address [address] [place] [address] Care Team Providers Name Role Phone Unavailable Primary Care Provider Unavailable Encounter Details Date Type Department Care Team Description 12/26/2003 Hospital [facility] Leopoldo Jarvis M.D. [address], [place] [address] (Wo rk) Social History Tobacco Use Types Packs/Day Years Used Date Smoking Tobacco: Never Assessed Sex Assigned at Date Recorded Not on file documented as of this encounter Plan of Treatment Not on filedocumented as of this encounter Visit Diagnoses Not on filedocumented in this encounter
--- OUTSIDE RECORDS SUMMARY | 2022-10-07 07:12 | XMS_ITS | Encounter Summary ---
:1960 Author Organization [facility] Address [address] [place] [address] Care Team Providers Name Role Phone Unavailable Primary Care Provider Unavailable Encounter Details Date Type Department Care Team Description 06/04/2003 Hospital Encounter [facility] INTERNMED Yahir More M.D. [address] [place] [address] (Wo rk) Social History Tobacco Use Types Packs/Day Years Used Date Smoking Tobacco: Never Assessed Sex Assigned at Date Recorded Not on file documented as of this encounter Plan of Treatment Not on filedocumented as of this encounter Visit Diagnoses Not on filedocumented in this encounter
--- OUTSIDE RECORDS SUMMARY | 2022-10-07 07:12 | XMS_ITS | Encounter Summary ---
:1960 Author Organization [facility] Address [address] [place] [address] Care Team Providers Name Role Phone Unavailable Primary Care Provider Unavailable Encounter Details Date Type Department Care Team Description 02/24/2004 Hospital Encounter [facility] Abdelrahman Bermeo M.D. [address] [place], [place] [address] (Wo rk) Social History Tobacco Use Types Packs/Day Years Used Date Smoking Tobacco: Never Assessed Sex Assigned at Date Recorded Not on file documented as of this encounter Plan of Treatment Not on filedocumented as of this encounter Visit Diagnoses Not on filedocumented in this encounter
--- OUTSIDE RECORDS SUMMARY | 2022-10-07 07:12 | XMS_ITS | Encounter Summary ---
:1960 Author Organization [facility] Address [address] [place] [address] Care Team Providers Name Role Phone Unavailable Primary Care Provider Unavailable Encounter Details Date Type Department Care Team Description 03/03/2005 Hospital Encounter [facility] Abdelrahman Bermeo M.D. [address] [place], [place] [address] (Wo rk) Social History Tobacco Use Types Packs/Day Years Used Date Smoking Tobacco: Never Assessed Sex Assigned at Date Recorded Not on file documented as of this encounter Plan of Treatment Not on filedocumented as of this encounter Visit Diagnoses Not on filedocumented in this encounter
--- OUTSIDE RECORDS SUMMARY | 2022-10-07 07:13 | XMS_ITS | Encounter Summary ---
:1960 Author Organization [facility] Address [address] [place] [address] Care Team Providers Name Role Phone Unavailable Primary Care Provider Unavailable Encounter Details Date Type Department Care Team Description 08/16/2002 Hospital Encounter [facility] Abdelrahman Bermeo M.D. [address] [place], [place] [address] (Wo rk) Social History Tobacco Use Types Packs/Day Years Used Date Smoking Tobacco: Never Assessed Sex Assigned at Date Recorded Not on file documented as of this encounter Plan of Treatment Not on filedocumented as of this encounter Visit Diagnoses Not on filedocumented in this encounter
--- OUTSIDE RECORDS SUMMARY | 2022-10-07 07:13 | XMS_ITS | Clinical Summary ---
:1960 Author Organization [employer] [facility] [place] [address] Care Team Providers Name Role Phone Loren St MD Primary Care Provider Allergies Active Allergy Reactions Severity Noted Date Comments Beta-Blockers Shortness Of Breath, High 09/09/2010 (Beta-Adrenergic Insomnia Blocking Agts) Calcium Channel Other - Describe In Medium 09/09/2010 Lip s welling Blocking Agent Comment Field Diltiazem Analogues Cats (Fur, Dander, Shortness Of Breath 10/28/2010 Saliva) Kiwi Itching 10/28/2010 Tetanus Toxoid Fever Low 09/09/2010 swelling & re dness @ Adsorbed injection site. Medications Medication Sig Dispensed Refills Start Date End Date Status FEXOFENADINE HCL Take 180 0 Act sindhu (JUVENTINO ORAL) tablets by mouth. For allergies. Only takes as needed. SUMAtriptan (IMITREX) 50 Take 2 tablets 9 tablet 3 01/16/2015 Active mg tablet by mouth one time if needed for migraine headache. mometasone (NASONEX) (50 Inhale 2 Sprays 51 g 0 9 Active mcg each actuation) into both nasal sprayIndications: nostrils once Allergic rhinitis due to daily. pollen, unspecified seasonality albuterol HFA (ProAir Inhale 2 Puffs 25.5 g 3 04/13/2021 Active HFA) 90 mcg/actuation by mouth 4 inhalerIndications: Mild times daily if intermittent asthma needed. without complication fluticasone (50 mcg per Inhale 1 [place] 48 g 2 04/13/2021 Active actuation) nasal into affected solution nostril(s) 2 (FLONASE)Indications: times daily. Mild intermittent asthma without complication fluticasone furoate Inhale 1 Puff 90 Each 04/13/2021 Active (ARNUITY ELLIPTA) 100 by mouth once mcg/actuation daily. inhalerIndications: Mild intermittent asthma without complication montelukast (SINGULAIR) Take 1 Tablet 90 tablet. 3 04/13/2021 Active 10 mg tabletIndications: (10 mg) by Mild intermittent asthma mouth at without complication bedtime. omeprazole (PRILOSEC) 20 Take 1 Capsule 90 Capsule 2 Active mg Delayed-Release (20 mg) by capsuleIndications: mouth once Gastroesophageal reflux daily before a disease without meal. esophagitis levothyroxine Take 1 Tablet 90 Tablet 3 03/10/2022 A ctive (SYNTHROID) 150 mcg (150 mcg) by tabletIndications: mouth before Hypothyroidism, breakfast. unspecified type Active Problems Problem Noted Date Bursitis of right shoulder 05/28/2020 Iliotibial band tendinitis of right side 08/16/2019 Tendinitis in region of greater trochanter of femur, r ight 08/16/2019 Trochanteric bursitis of right hip 08/16/2019 Closed fracture of tibial plateau 11/17/2016 Bimalleolar fracture 09/29/2016 Postmenopausal estrogen deficiency 12/01/2015 Mild persistent asthma 04/10/2007 Acquired hypothyroidism 04/10/2007 Allergic rhinitis 04/10/2007 Pap smear of cervix unsatisfactory Overview: LEEP Noted in Med/Surg Hx dates/results unavailable (noted 02/20/2015) 03/2021 UNS/HPV negative 06/2021 UNS ASCCP recommends senior living follow-up aft er high-grade histology or cytology: Continued surveillance at 3 year intervals is recommended for at least 25 years after treatment of high-grade histology (DONALD 2, 3, CIS or AIS) or high-grade cytology (HSIL, AGC, ASC-H, LSIL, Cannot exclude HSIL) even if beyond age 65. Provider plan: Pap due 03/2021 Resolved Problems Problem Noted Date Resolved Date Walking difficulty due to multiple sites 09/29/2016 05/23/2018 Low grade squamous intraepithelial lesion (LGSIL) on 008 07/24/2021 cervicovaginal cytologic smear Immunizations Name Administration Dates Next Due COVID-19 vaccine (Better Walk 12/16/2020, 11/25/2020 30mcg/0.3mL) PF, MDV Influenza A (H1N1), Inactivated 08/12/2012, 12/10/2009 Influenza Virus, Unspecified 09/27/2019, 09/17/2016, 015, 09/11/2013, 08/18/2011, 09/07/2010 Influenza, IIV3 (Age 6-35 mos) 09/03/2009, 10/01/2008 Influenza, IIV3 (Age >=3 years) 08/12/2012, 09/07/2010, 05/2009, 10/01/2008, 09/19/2007, 09/26/2006 Influenza, IIV4 09/04/2020, 09/18/2019, 09/11/2018, 09/05/2017, 08/30/2016 Influenza, IIV4 (=>6mos) MDV 08/26/2021 Pneumococcal Poly,23-Valent 01/16/2015, 02/13/2004 (Pneumovax) Td (Age >=7 Years) 10/26/2011, 02/13/2004 Tdap 06/02/2021 Zoster (Shingrix-RZV, recombinant) 09/22/2020, 07/14/2020 Family History Medical History Relation Name Comments Allergies Father COPD Father Heart Disease Father Hyperlipidemia Father Asthma Maternal Grandmother Diabetes Maternal Grandmother Heart Disease Mother Stroke Mother Cancer-breast No Family History Relation Name Status Comments Brother 1 Alive Brother 2 Alive Daughter 1 Alive Daughter 2 Alive Daughter 3 Alive Father Maternal Grandfather Maternal Grandmother Mother Paternal Grandfather Paternal Grandmother Sister Alive Son Alive Social History Tobacco Use Types Packs/Day Years Used Date Former Smoker Smokeless Tobacco: Never Used Tobacco Cessation: Counseling Given: Yes Alcohol Use Standard Drinks/Week Comments Yes 0 (1 standard drink = 0.6 oz pure alcoho l) social Alcohol Habits Answer Date Recorded How often do you have a drink containing alcohol? 2-4 times a month 07/14/2020 How many drinks containing alcohol do you have on a 1 or 2 07/14/2020 typical day when you are drinking? How often do you have six or more drinks on one Never 07/14/2020 occasion? Comment: social 08/04/2016 Sex Assigned at Date Recorded Not on file Obstetrics History Para Term AB IAB SAB Ectopic Multiple Living Live Births 6 4 4 2 2 4 Date Outcome GA Total Labor/2nd/3rd Weight Sex Delivery Anes PTL Ladonna A 1 A5 Name Clin Labor SAB SAB Term Term Term Term Last Filed Vital Signs Vital Sign Reading Time Taken Comments Blood Pressure 120/74 03/08/2022 6:14 PM CDT Pulse 88 03/08/2022 6:14 PM CDT Temperature 35.8 ??C (96.5 ??F) 06/02/2021 9:07 PM CDT Respiratory Rate 20 03/08/2022 6:14 PM CDT Oxygen Saturation 97% 06/02/2021 9:07 PM CDT Inhaled Oxygen Concentration - - Weight 68.4 kg (150 lb 12.8 oz) 03/08/2022 6:14 PM CDT Height 167.6 cm (5' 6) 03/08/2022 6:14 PM CDT Body Mass Index 24.34 03/08/2022 6:14 PM CDT Plan of Treatment Health Maintenance Due Date Last Done Comments Pneumococcal series for age 19-64 01/16/2016 01/16/2015, (2 - PCV) COVID-19 vaccine series (4 - 10/21/2021 08/26/2021, 021, Booster for Pfizer series) 11/25/2020 Lipids for age 45-75 04/20/2022 04/20/2017 Pap test for age 21-65 07/06/2022 07/06/2021, 04/13/2021, 04/20/2017, Additional history exists Influenza for age 50-64 07/29/2022 08/26/2021, 09/04/2020, 09/27/2019, Additional history exists BMI (ht and wt on same day) for 03/08/2023 03/08/2022, 03/28, age 18+ 07/14/2020, Additional history exists Depression screening for age 12+ 03/08/2023 03/08/2022, , 02/26/2021, Additional history exists Mammogram for age 45-75 04/06/2023 04/06/2022, 09/22/2020, 08/03/2019, Additional history exists Colonoscopy through age 75 08/28/2023 08/28/2013 Tetanus booster 06/02/2031 06/02/2021, 10/26/2011, 02/13/2004 Hepatitis C screening for age Completed 07/14/2020 18-79 Zoster (shingles) series for age Completed 09/22/2020, 50+ Medical Devices Implanted Type Area Experimental Physicist Device Shelf Expiration Model / Identifier Date Serial / Lot Sys Urethral Support Align 50cm - [id number] [employer] 07/29/2012 [id number] / Implanted: Qty: 1 on 10/28/2010 at [facility] / [id number] Results Not on filefrom Last 3 Months Insurance Payer Benefit Plan / Subscriber ID Effective Dates Phone Addre ss Type Group [facility] 2021-Presen [id number] ATTN: JAN WISEMAN [id number] WC WORKERS COMP WC BOGGS 2021-Presen [address] [place] [address] PREFERRED ONE PREFERRED ONE [id number] 2021-Presen [address] [place] [address] [facility] Effective for [address] [place] [address] (Home) [place] [phone] Catherine Styles Workers Comp Self [address] (Home) [place] [phone] Advance Directives Latest Code Status on File Code Status Date Activated Date Inactivated Comments Full Code 08/28/2013 9:36 AM 08/28/2013 3:40 PM Full Code 10/28/2010 6:04 AM 10/28/2010 4:40 PM Care Teams Accounts Payable Professional Relationship Specialty Start Date End Date Loren St MD PCP - General Family Practice 12/01/[address] [place] [address] Joss J[place]ONILLA [phone]
--- OUTSIDE RECORDS SUMMARY | 2022-10-07 07:13 | XMS_ITS | Encounter Summary ---
:1960 Author Organization [facility] Address [address] [place] [address] Care Team Providers Name Role Phone Unavailable Primary Care Provider Unavailable Encounter Details Date Type Department Care Team Description 01/14/2003 Hospital Encounter [facility]X [facility] MRI Provider, Historic al Social History Tobacco Use Types Packs/Day Years Used Date Smoking Tobacco: Never Assessed Sex Assigned at Date Recorded Not on file documented as of this encounter Plan of Treatment Not on filedocumented as of this encounter Visit Diagnoses Not on filedocumented in this encounter
--- OUTSIDE RECORDS SUMMARY | 2022-10-07 07:13 | XMS_ITS | Encounter Summary ---
:1960 Author Organization [facility] Address [address] [place] [address] Care Team Providers Name Role Phone Unavailable Primary Care Provider Unavailable Encounter Details Date Type Department Care Team Description 09/03/2002 Hospital Encounter HX [facility] INTERNMED Yahir More M.D. [address] [place] [address] (Wo rk) Social History Tobacco Use Types Packs/Day Years Used Date Smoking Tobacco: Never Assessed Sex Assigned at Date Recorded Not on file documented as of this encounter Plan of Treatment Not on filedocumented as of this encounter Visit Diagnoses Not on filedocumented in this encounter
--- OUTSIDE RECORDS SUMMARY | 2022-10-07 07:13 | XMS_ITS | Encounter Summary ---
:1960 Author Organization [facility] Address [address] [place] [address] Care Team Providers Name Role Phone Unavailable Primary Care Provider Unavailable Encounter Details Date Type Department Care Team Description 02/28/2002 Hospital [facility] Leopoldo Jarvis M.[facility]. [address], [place] [phone] (Wo rk) Social History Tobacco Use Types Packs/Day Years Used Date Smoking Tobacco: Never Assessed Sex Assigned at Date Recorded Not on file documented as of this encounter Plan of Treatment Not on filedocumented as of this encounter Visit Diagnoses Not on filedocumented in this encounter
--- OUTSIDE RECORDS SUMMARY | 2022-10-07 07:13 | XMS_ITS | Encounter Summary ---
:1960 Author Organization [facility] Address [address] [place] [address] Care Team Providers Name Role Phone Unavailable Primary Care Provider Unavailable Encounter Details Date Type Department Care Team Description 10/04/1997 - 10/05/1997 Hospital Encounter HX [facility]SELYN 4B Social History Tobacco Use Types Packs/Day Years Used Date Smoking Tobacco: Never Assessed Sex Assigned at Date Recorded Not on file documented as of this encounter Plan of Treatment Not on filedocumented as of this encounter Procedures Procedure Name Priority Date/Time Associated Diagnosis Comme nts ECG Routine 10/05/1997 8:23 AM Results f or this CORE LAYING MACHINE OPERATOR procedure are i n the results section . documented in this encounter Results ECG 12 Lead (10/05/1997 8:23 AM CORE LAYING MACHINE OPERATOR) Specimen (Source) Anatomical Collection Method Collection Time Re ceived Time Location / / Volume Laterality 10/05/1997 8:23 AM [facility] - 10/05/1997 10:35 AM CORE LAYING MACHINE OPERATOR 05Oct1997 08:23 VENTRICULAR RATE 72 NORMAL SINUS RHYTHM WITH SHORT MT OTHERWISE NORMAL ECG NO PREVIOUS ECGS AVAILABLE WES ZUÑIGA MD Procedure Note Provider, Historical - 02/21/2018Formatt ing of this note might be different from the original. 05Oct1997 08:23 VENTRICULAR RATE 72 NORMAL SINUS RHYTHM WITH SHORT MT OTHERWISE NORMAL ECG NO PREVIOUS ECGS AVAILABLE ALISON ZUÑIGA MD/ Dedra Historical Provider ECG ORDERABLES Performing Organization Address City/State/ZIP Code Phon e Number HX [facility] [address] [address], U [place] documented in this encounter Visit Diagnoses Not on filedocumented in this encounter
--- OUTSIDE RECORDS SUMMARY | 2022-10-07 07:13 | XMS_ITS | Encounter Summary ---
:1960 Author Organization [facility] Address [address] [place] [address] Care Team Providers Name Role Phone Unavailable Primary Care Provider Unavailable Encounter Details Date Type Department Care Team Description 06/20/2002 Hospital Encounter HX NO MAPPING Too Escalera Jr., M.D. [address] [phone] (Wo rk) Social History Tobacco Use Types Packs/Day Years Used Date Smoking Tobacco: Never Assessed Sex Assigned at Date Recorded Not on file documented as of this encounter Plan of Treatment Not on filedocumented as of this encounter Visit Diagnoses Not on filedocumented in this encounter
--- OUTSIDE RECORDS SUMMARY | 2022-10-07 07:13 | XMS_ITS | Encounter Summary ---
:1960 Author Organization [facility] Address [address] [place] [address] Care Team Providers Name Role Phone Unavailable Primary Care Provider Unavailable Encounter Details Date Type Department Care Team Description 05/23/2002 Hospital Encounter [facility]X [facility] INTERNMED Yahir More M.D. [address] [place] [address] (Wo rk) Social History Tobacco Use Types Packs/Day Years Used Date Smoking Tobacco: Never Assessed Sex Assigned at Date Recorded Not on file documented as of this encounter Plan of Treatment Not on filedocumented as of this encounter Visit Diagnoses Not on filedocumented in this encounter
--- OUTSIDE RECORDS SUMMARY | 2022-10-07 07:13 | XMS_ITS | Encounter Summary ---
:1960 Author Organization [facility] Address [address] [place] [address] Care Team Providers Name Role Phone Unavailable Primary Care Provider Unavailable Encounter Details Date Type Department Care Team Description 12/18/2002 Hospital Encounter [facility]X [facility] Abdelrahman Bermeo M.D. [address] [place], [place] [address] (Wo rk) Social History Tobacco Use Types Packs/Day Years Used Date Smoking Tobacco: Never Assessed Sex Assigned at Date Recorded Not on file documented as of this encounter Plan of Treatment Not on filedocumented as of this encounter Visit Diagnoses Not on filedocumented in this encounter
--- OUTSIDE RECORDS SUMMARY | 2022-10-07 07:13 | XMS_ITS | Encounter Summary ---
:1960 Author Organization [facility] Address [address] [place] [address] Care Team Providers Name Role Phone Unavailable Primary Care Provider Unavailable Encounter Details Date Type Department Care Team Description 06/05/2002 Hospital Encounter [facility]X [facility] INTERNMED Yahir More M.D. [address] [place] [address] (Wo rk) Social History Tobacco Use Types Packs/Day Years Used Date Smoking Tobacco: Never Assessed Sex Assigned at Date Recorded Not on file documented as of this encounter Plan of Treatment Not on filedocumented as of this encounter Visit Diagnoses Not on filedocumented in this encounter
--- OUTSIDE RECORDS SUMMARY | 2022-10-07 07:13 | XMS_ITS | Encounter Summary ---
:1960 Author Organization [facility] Address [address] [place] [address] Care Team Providers Name Role Phone Unavailable Primary Care Provider Unavailable Encounter Details Date Type Department Care Team Description 11/01/2002 Hospital Encounter [facility] Social History Tobacco Use Types Packs/Day Years Used Date Smoking Tobacco: Never Assessed Sex Assigned at Date Recorded Not on file documented as of this encounter Plan of Treatment Not on filedocumented as of this encounter Visit Diagnoses Not on filedocumented in this encounter
--- OUTSIDE RECORDS SUMMARY | 2022-10-07 07:13 | XMS_ITS | Encounter Summary ---
:1960 Author Organization [facility] Address [address] [place] [address] Care Team Providers Name Role Phone Unavailable Primary Care Provider Unavailable Encounter Details Date Type Department Care Team Description 04/23/2003 Hospital Encounter [facility]X [facility] Abdelrahman Bermeo M.D. [address] [place], [place] [address] (Wo rk) Social History Tobacco Use Types Packs/Day Years Used Date Smoking Tobacco: Never Assessed Sex Assigned at Date Recorded Not on file documented as of this encounter Plan of Treatment Not on filedocumented as of this encounter Visit Diagnoses Not on filedocumented in this encounter
--- OUTSIDE RECORDS SUMMARY | 2022-10-07 07:13 | XMS_ITS | Encounter Summary ---
:1960 Author Organization [facility] Address [address] [place] [address] Care Team Providers Name Role Phone Unavailable Primary Care Provider Unavailable Encounter Details Date Type Department Care Team Description 07/16/2002 Hospital Encounter [facility]X [facility] Abdelrahman Bermeo M.D. [address] [place], [place] [address] (Wo rk) Social History Tobacco Use Types Packs/Day Years Used Date Smoking Tobacco: Never Assessed Sex Assigned at Date Recorded Not on file documented as of this encounter Plan of Treatment Not on filedocumented as of this encounter Visit Diagnoses Not on filedocumented in this encounter
--- OUTSIDE RECORDS SUMMARY | 2022-10-07 07:13 | XMS_ITS | Encounter Summary ---
:1960 Author Organization [facility] Address [address] [place] [address] Care Team Providers Name Role Phone Unavailable Primary Care Provider Unavailable Encounter Details Date Type Department Care Team Description 07/10/2002 Hospital Encounter [facility]X [facility] Abdelrahman Bermeo M.D. [address] [place], [place] [address] (Wo rk) Social History Tobacco Use Types Packs/Day Years Used Date Smoking Tobacco: Never Assessed Sex Assigned at Date Recorded Not on file documented as of this encounter Plan of Treatment Not on filedocumented as of this encounter Visit Diagnoses Not on filedocumented in this encounter
--- OUTSIDE RECORDS SUMMARY | 2022-10-07 07:13 | XMS_ITS | Encounter Summary ---
:1960 Author Organization [facility] Address [address] [place] [address] Care Team Providers Name Role Phone Unavailable Primary Care Provider Unavailable Encounter Details Date Type Department Care Team Description 05/28/2003 Hospital Encounter [facility]X [facility] Vincent Fontana M.D. [address] [place] [address] JAN Sosa [phone] (Wo rk) Social History Tobacco Use Types Packs/Day Years Used Date Smoking Tobacco: Never Assessed Sex Assigned at Date Recorded Not on file documented as of this encounter Plan of Treatment Not on filedocumented as of this encounter Visit Diagnoses Not on filedocumented in this encounter
--- OUTSIDE RECORDS SUMMARY | 2022-10-07 07:13 | XMS_ITS | Encounter Summary ---
:1960 Author Organization [facility] Address [address] [place] [address] Care Team Providers Name Role Phone Unavailable Primary Care Provider Unavailable Encounter Details Date Type Department Care Team Description 01/10/2003 Hospital Encounter HX [facility] INTERNMED Yahir More M.D. [address] [place] [address] (Wo rk) Social History Tobacco Use Types Packs/Day Years Used Date Smoking Tobacco: Never Assessed Sex Assigned at Date Recorded Not on file documented as of this encounter Plan of Treatment Not on filedocumented as of this encounter Visit Diagnoses Not on filedocumented in this encounter
--- OUTSIDE RECORDS SUMMARY | 2022-10-07 07:13 | XMS_ITS | Encounter Summary ---
:1960 Author Organization [facility] Address [address] [place] [address] Care Team Providers Name Role Phone Unavailable Primary Care Provider Unavailable Encounter Details Date Type Department Care Team Description 04/03/2003 Hospital Encounter HX [facility] INTERNMED Yahir More M.D. [address] [place] [address] (Wo rk) Social History Tobacco Use Types Packs/Day Years Used Date Smoking Tobacco: Never Assessed Sex Assigned at Date Recorded Not on file documented as of this encounter Plan of Treatment Not on filedocumented as of this encounter Visit Diagnoses Not on filedocumented in this encounter
== END 2022-10-07 07:05 | disposition home or self-care (01) ==
PROVIDERS: PCP Family Medicine; Visit Provider Surgery
DX: K21.9 Gastro-esophageal reflux disease without esophagitis (principal); K44.9 Diaphragmatic hernia without obstruction or gangrene
CPT/HCPCS: 43239; 88305; J2250; J2405; J3010

== ENCOUNTER 2023-07-29 14:15 | Outpatient (CLI) | payer OTHER, SELFPAY ==
--- NOTE | 2023-07-29 15:30 | MR_ITS ---
Patient: MIRELLA SHEEHAN Facility:?[facility] Patient ID:?[id number] Site Patient ID:?[id number]. Site :?1960 Study:?MRI-Spine Lumbar W/O-07/29/2023 4:39:49 PM Ordering Physician:MICAH CARTER Final Report: INDICATION: Low back pain. TECHNIQUE: Multiplanar multisequence noncontrast MR images acquired through the lumbar spine. COMPARISON: Lumbar spine radiographs 07/19/2023. FINDINGS: Mild leftward lumbar curvature. Exaggerated lumbar lordosis. Vertebral heights maintained. No acute fracture. No T1 hypointense marrow replacing lesions. Mild discogenic marrow edema at T11-12, T12-L1, and L1-2. Normal conus terminates at L1-2. T12-L1: Mild retrolisthesis. Moderate disc degeneration and disc height loss. Shallow circumferential disc bulge. No spinal canal or neural foraminal narrowing. L1-2: Mild retrolisthesis. Gizx-ej-kjvbiybm disc degeneration and disc height loss. Shallow circumferential disc bulge. Mild facet arthropathy. No spinal canal or neural foraminal narrowing. L2-3: Mild disc degeneration and disc height loss. Shallow posterior disc bulge. Moderate facet arthropathy. No spinal canal or neural foraminal narrowing. L3-4: Moderate disc degeneration and disc height loss. Grade 1 anterolisthesis measuring 3 mm. Shallow posterior disc bulge. Advanced facet arthropathy. Mild spinal canal narrowing. No neural foraminal narrowing. L4-5: Mild disc degeneration disc height loss. Shallow posterior disc bulge. Advanced facet arthropathy. Thickening ligamentum flavum. Mild spinal canal and neural foraminal narrowing. Mild right without left neural foraminal narrowing. L5-S1: Disc degeneration and disc height loss. Minimal endplate edema. Shallow posterior disc bulge. Advanced bilateral facet arthropathy. Mild edema within the left articulating facets. No spinal canal or neural foraminal narrowing. Sacroiliac joint degenerative changes. IMPRESSION: 1. Multilevel lumbar spondylosis without spinal canal or neural foraminal stenosis. 2. Advanced multilevel facet arthropathy in the mid and lower lumbar spine. Mild edema within the left articulating facets at L5-S1 is most compatible with a stress response. 3. Exaggerated lumbar lordosis and mild leftward lumbar curvature. Dictated by Vahe Rockwell MD @ 07/30/2023 9:13:55 AM Signed by:?Vahe Rockwell MD @07/30/2023 9:13:55 AM (Electronic Signature)
== END 2023-07-29 14:16 | disposition home or self-care (01) ==
LOC: MRI 14:15
PROVIDERS: PCP Family Medicine; Visit Provider Family Medicine
DX: M54.50 Low back pain, unspecified (principal); M47.896 Other spondylosis, lumbar region
CPT/HCPCS: 72148

== ENCOUNTER 2023-08-16 13:45 | Outpatient (RCR) | payer OTHER, SELFPAY | END 2023-08-31 10:37 | disposition home or self-care (01) | PROVIDERS: PCP Family Medicine; Visit Provider Family Medicine | DX: M54.9 Dorsalgia, unspecified (principal); Z51.89 Encounter for other specified aftercare | CPT/HCPCS: 97110; 97140; 97162 ==

== ENCOUNTER 2024-04-26 14:03 | Outpatient (CLI) | payer OTHER, SELFPAY ==
--- OUTSIDE RECORDS SUMMARY | 2024-04-26 14:11 | XMS_ITS | Clinical Summary ---
Author Organization [facility] Address [place], [place] [address] Care Team Providers Care Machine Quilt Stuffer Name Role Phone Loren St MD Primary Care Provider [phone] Allergies Active Allergy Reactions Criticality Noted Date Comments Beta-Blockers (Beta-Adrenergic Blocking Agts) Shortness Of Breath,Insomnia High 09/09/2010 Calcium Channel Blocking Agent Diltiazem Analogues Other - Describe In Comment Field Medium 09/09/2010 Lip swelling Cats (Fur, Dander, Saliva) Shortness Of Breath 10/28/2010 Kiwi Itching 10/28/2010 Tetanus Toxoid Adsorbed Fever Low 09/09/2010 swelling & redness @ injection site. Medications Medication Sig Dispensed Refills Start Date End Date Status FEXOFENADINE HCL (JUVENTINO ORAL) Take 180 tablets by mouth. For allergies. Only takes as needed. Active SUMAtriptan (IMITREX) 50 mg tablet Take 2 tablets by mouth one time if needed for migraine headache. 9 tablet 3 01/16/2015 Active mometasone (NASONEX) (50 mcg each actuation) nasal sprayIndications:All ergic rhinitis due to pollen, unspecified seasonality Inhale 2 Sprays into both nostrils once daily. 51 g 03/13/2019 Active albuterol HFA (ProAir HFA) 90 mcg/actuation inhalerIndications:M ild intermittent asthma without complication Inhale 2 Puffs by mouth 4 times daily if needed. 25.5 g 3 04/13/2021 Active fluticasone (50 mcg per actuation) nasal solution (FLONASE)Indications :Mild intermittent asthma without complication Inhale 1 Burton into affected nostril(s) 2 times daily. 48 g 2 04/13/2021 Active fluticasone furoate (ARNUITY ELLIPTA) 100 mcg/actuation inhalerIndications:M ild intermittent asthma without complication Inhale 1 Puff by mouth once daily. 90 Each 04/13/2021 Active levothyroxine (SYNTHROID) 125 mcg tabletIndications:Hy pothyroidism, unspecified type Take 1 Tablet (125 mcg) by mouth before breakfast. 90 Tablet 03/30/2023 Active traMADoL (ULTRAM) 50 mg tablet Take 1 Tablet (50 mg) by mouth 3 times daily if needed for pain. 30 Tablet 07/19/2023 Active methylPREDNISolone (MEDROL DOSEPAK) 4 mg tablet Take as instructed on packaging. 21 Tablet 07/26/2023 Active celecoxib (CELEBREX) 200 mg capsule Take 1 Capsule (200 mg) by mouth 2 times daily if needed for pain. 60 Capsule 1 11/22/2023 Active celecoxib (CELEBREX) 200 mg capsule Take 1 Capsule (200 mg) by mouth 2 times daily if needed for pain. 60 Capsule 5 01/04/2024 Active omeprazole (PRILOSEC) 20 mg Delayed-Release capsuleIndications:G astroesophageal reflux disease without esophagitis Take 1 Capsule (20 mg) by mouth once daily before a meal. 90 Capsule 02/02/2024 Active Active Problems Problem Noted Date Diagnosed Date Bursitis of right shoulder 05/28/2020 Iliotibial band tendinitis of right side 019 Tendinitis in region of greater trochanter of fe mur, right 08/16/2019 Trochanteric bursitis of right hip 08/16/2019 Closed fracture of tibial plateau 11/17/2016 Bimalleolar fracture 09/29/2016 Mild persistent asthma 04/10/2007 Acquired hypothyroidism 04/10/2007 Allergic rhinitis 04/10/2007 Pap smear for cervical cancer screening Overview: LEEP Noted in Med/Surg Hx dates/results unavailable (noted 02/20/2015) 03/2021 UNS/HPV negative 06/2021 UNS 02/2023 NIL/HPV Negative Plan: Pap and HPV due 02/2026 ASCCP recommends exterminator follow-up after high-grade histology or cytology: Continued surveillance at 3 year intervals is recommended for at least 25 years after treatment of high-grade histology (DONALD 2, 3, CIS or AIS) or high-grade cytology (HSIL, AGC, ASC-H, LSIL, Cannot exclude HSIL) even if beyond age 65. 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 smear 05/13/2008 07/24/2021 Encounters Date Type Department Care Team Description 02/01/[address] [id number] MD Refill Request (Omeprazole) from Last 3 Months Immunizations Name Administration Dates Next Due COVID-19 vaccine ([facility] Plus-Bio NTech 30mcg/0.3mL) 12YO+ BIVALENT PF, MDV 03/25/2023 COVID-19 vaccine (Pfizer-Bio NTech 30mcg/0.3mL) PF, MDV 08/03/2022,08/26/2021,12/16/2020,2019 Influenza A (H1N1), Inactivated 08/12/2012,12/10 Influenza Virus, Unspecified 09/27/2019, 09/17/2016,09/09/2015,2012,08/18/2011,09/07/2010 Influenza, IIV3 (Age 6-35 mos) 09/03/2009,2007 Influenza, IIV3 (Age >=3 years) 08/12/20 12,09/07/2010,09/03/2009,2007,09/19/2007,09/26/2006 Influenza, IIV4 09/07/2022,,09/18/2019,2017,09/05/2017,08/30/2016 Influenza, IIV4 (=>6mos) MDV 08/26/2021 Pneumococcal Conj 20-valent (Prevnar 20) 03/25/2023 Pneumococcal Poly,23-Valent (Pneumovax) 01/16/2015,02/13/2004 Td (Age >=7 Years) 10/26/2011,02/13/2004 Tdap 06/02/2021 Zoster (Shingrix-RZV, recombinant) 09/22/2020, Family History Medical History Relation Name Comments [...] Types Packs/Day Years Used Date Smoking Tobacco: Former Smokeless Tobacco: Never Tobacco Cessation:Counseling Given: Yes Alcohol Use Standard Drinks/Week Comments Yes 0 (1 standard drink = 0.6 oz pur e alcohol) social PHQ-2 Answer Date Recorded PHQ-2 TOTAL SCORE 0 03/25/2023 Social Connections Answer Date Recorded Frequency of Communication with Friends and Fami ly Not on file 03/27/2024 Financial Resource Strain Answer Date R ecorded Difficulty of Paying Living Expenses 3 03/21/2023 Difficulty of Paying Living Expenses Not on file 03/21/2023 Food Insecurity Answer Date Recorded Worried About Running Out of Food in the Last Ye ar 1 03/21/2023 Transportation Needs Answer Date Record ed Lack of Transportation (Medical) 1 03/21/2023 Housing Stability Answer Date Recorded Unable to Pay for Housing in the Last Year 1 03/21/2023 Sex and Gender Information Value Date Recorded Sex Assigned at Not on file Gender Identity Not on file Sexual Orientation Not on file Obstetrics History Para Term AB IAB SAB Ectopic Multiple Livin g Live Births 6 4 4 2 2 4 Date Outcome GA Total Labor Labor/2nd/3rd Weight Sex Delivery Anes PTL Ladonna A1 A5 Name Cl in SAB SAB Term Term Term Term Last Filed Vital Signs Vital Sign Reading Time Taken Comments Blood Pressure 126/74 03/25/2023 8:40 AM CDT Pulse 90 03/25/2023 8:40 AM CDT Temperature 35.8 ??C (96.5 ??F) 06/02/2021 9:07 PM CD T Respiratory Rate 20 03/08/2022 6:14 PM CDT Oxygen Saturation 97% 06/02/2021 9:07 PM CDT Inhaled Oxygen Concentration - - Weight 70.4 kg (155 lb 3.2 oz) 03/25/2023 8:40 A M CDT Height 167.6 cm (5' 6) 03/25/2023 8:40 AM CDT Body Mass Index 25.05 03/25/2023 8:40 AM CDT Plan of Treatment Health Maintenance Due Date Last Done Comments COVID-19 vaccine series () 07/29/2023 03/25/2023, 08/03/2022, 08/26/2021, Additional history exists BMI (ht and wt on same day) for age 18+ 03/25/2024 03/25/2023, 03/08/2022, 04/13/2021, Additional history exists Depression screening for age 12+ 03/25/2024 03/25/2023, 03/08/2022, 04/13/2021, Additional history exists Mammogram for age 45-75 04/08/2024 04/08/20 23, 04/06/2022, 09/22/2020, Additional history exists Influenza for age 50-64 07/29/2024 09/07/20 22, 08/26/2021, 09/04/2020, Additional history exists Pap test for age 21-65 03/25/2026 , 03/25/2023, 07/06/2021, Additional history exists Fecal testing sDNA-FIT (Cologuard) for age 45-75 11/07/2026 11/07/2023 Lipids for age 45-75 03/25/2028 03/25/2023, 04/20/20 17 Tetanus booster 06/02/2031 06/02/2021, 09/29, 02/13/2004 Hepatitis C screening for age 18-79 Completed 07/14/2020 Zoster (shingles) series for age 50+ Completed 09/22/2020, 07/14/2020 HIV for age 15-65 Completed 03/25/2023 Pneumococcal series for age 6-64 Aged Out 03/25/2023, 01/16/2015, 02/13/2004 No longer eligible based on patient's age to complete this topic Medical Devices Implanted Type Area Business Area Director Device Identifier Shelf Expiration Date Model / Serial / Lot Sys Urethral Support Align 50cm - [id number] Implanted:Qty: 1 on 10/28/[address] [facility] 07/29/2012 [id number] / / [id number] Procedures Procedure Name Priority Date/Time Associated Diagnosis Comments SDNA-FIT EXTERNAL (COLOGUARD) Routine 11/07/2023 6:15 AM IN[employer]CTOR [employer] SPANISH Screening for colon cancer XR MAMMO BETHANY BILAT SCREEN Routine 04/08/2023 8:31 AM CDT Breast cancer screening by mammogram HPV THIN PREP Routine 03/25/2023 10:33 AM CDT Screening for cervical cancer LC HIV-1/O/2, 4TH GENERATION Routine 03/25/2023 9:38 AM CDT Screening for HIV (human immunodeficiency virus) LC LIPID PANEL AND CHOL/HDL RATIO Routine 03/25/2023 9:38 AM CDT Annual physical exam ANTI HCV Routine 07/14/2020 11:46 AM CDT Encounter for hepatitis C screening test for low risk patient from Last 3 Months or Most Recently Relevant to Health Maintenance Results * SDNA-FIT EXTERNAL (COLOGUARD) (11/07/2023 6:15 AM IN[employer]CTOR [employer] SPANISH) NONINV COLON CA DNA+OCC BLD SCRN STL-IMP Negative Negative 11/16/2023 8:23 AM IN[employer]CTOR [employer] SP[employer]ISH [employer] (CLIA #:[id number]) Comment: NEGATIVE TEST RESULT. A negative Cologuard result indicates a low likelihood that a colorectal cancer (CRC) or advanced adenoma (adenomatous polyps with more advanced pre-malignant features) ??is present. The chance that a person with a negative Cologuard test has a colorectal cancer is less than 1 in 1500 (negative predictive value >99.9%) or has an ??advanced adenoma is less than ??5.3% (negative predictive value 94.7%). These data are based on a prospective cross-sectional study of 10,000 individuals at average risk for colorectal cancer who were screened with both Cologuard and colonoscopy. (Emely Crocker al, N Engl J Med 2014;370(14):1286- 1297) The normal value (reference range) for this assay is negative. COLOGUARD RE-SCREENING RECOMMENDATION: Periodic colorectal cancer screening is an important part of preventive healthcare for asymptomatic individuals at average risk for colorectal cancer. ??Following a negative Cologuard result, the [place] [employer] Society and U.S. Multi-Society Task Force screening guidelines recommend a Cologuard re-screening interval of 3 years. References: [place] [employer] Guideline for Colorectal Cancer Screening: https://www.cancer.org/cancer/teajy-pdmquo-njwcqh/ptcyggqby-onbsaarqt-esklibp/ac s-rec ommendations.html.; Santi DK, Demetrio VALENTINO, Valarie DixonK, Colorectal Cancer Screening: Recommendations for Physicians and Patients from the U.S. Multi-Society Task Force on Colorectal Cancer Screening , Am J Gastroenterology 2017; 112:7294-6105. TEST DESCRIPTION: Composite algorithmic analysis of stool DNA-biomarkers with hemoglobin immunoassay. ?? Quantitative values of individual biomarkers are not reportable and are not associated with individual biomarker result reference ranges. Cologuard is intended for colorectal cancer screening of adults of either sex, 45 years or older, who are at average-risk for colorectal cancer (CRC). Cologuard has been approved for use by the U.S. FDA. The performance of Cologuard was established in a cross sectional study of average-risk adults aged 50-84. Cologuard performance in patients ages 45 to 49 years was estimated by sub-group analysis of near-age groups. Colonoscopies performed for a positive result may find as the most clinically significant lesion: colorectal cancer [4.0%], advanced adenoma (including sessile serrated polyps greater than or equal to 1cm diameter) [20%] or non- advanced adenoma [31%]; or no colorectal neoplasia [45%]. These estimates are derived from a prospective cross-sectional screening study of 10,000 individuals at average risk for colorectal cancer who were screened with both Cologuard and colonoscopy. (Emely Guzmán, N Engl J Med 2014;370(14):2955-2858.) Cologuard may produce a false negative or false positive result (no colorectal cancer or precancerous polyp present at colonoscopy follow up). A negative Cologuard test result does not guarantee the absence of CRC or advanced adenoma (pre-cancer). The current Cologuard screening interval is every 3 years. ([place] [employer] Society and U.S. Multi-Society Task Force). Cologuard performance data in a 10,000 patient pivotal study using colonoscopy as the reference method can be accessed at the following location: www.[employer]/results. Additional description of the Cologuard test process, warnings and precautions can be found at www.cologOrganic Societyrd.com. Stool specimen (specimen) (Rectum) 11/07/2023 6:15 AM IN[employer]CTOR OF SPANISH 11/08/2023 7:14 PM INSTRUCTOR OF SPANISH Loren St MD URINE [employer] (CLIA #:[id number]) [place] [address], * XR MAMMO BETHANY BILAT SCREEN [[id number]] (04/08/2023 8:31 AM CDT) Anatomical Region Laterality Modality BREASTS, Breast Left, Breast Right Bilateral Mammography Impressions 04/08/2023 10:02 AM CDT ??There is no radiographic evidence for malignancy. ??Recommend annual mammograms. MAMMOGRAM ASSESSMENT: ??ACR 1 Negative PATIENTS: You will also receive a letter with your examination results in an easy to read format. ??If you have questions about your results, please contact your referring provider. Narrative 04/08/2023 10:02 AM CDT For Patients: As a result of the 21st Century Cures Act, medical imaging exams and procedure reports are released immediately into your electronic medical record. You may view this report before your referring provider. If you have questions, please contact your health care provider. XR MAMMO BETHANY BILAT SCREEN [[id number]] CLINICAL HISTORY: ??This is an asymptomatic 62 y.o. patient. INDICATION FOR EXAM: Mammogram Screening. TECHNIQUE: CC & MLO views were obtained. ??This study was evaluated with the assistance of Computer-Aided Detection. Breast Tomosynthesis was used in interpretation. COMPARISON FILM: Yes 04/06/[address] [facility] ?? FINDINGS: ??The breasts have scattered areas of fibroglandular density. There are no dominant masses, suspicious micro calcifications or areas of architectural distortion. Loren St MD MAMMO * HPV HIGH RISK (03/25/2023 10:33 AM CDT) TYPE 16 Negative Negative 03/30/2023 1:46 PM CDT [facility] TYPE 18 Negative Negative 03/30/2023 1:46 PM CDT [facility] OTHER HIGH RISK TYPES Negative Negative 03/30/2023 1:46 PM CDT [facility] Other (Cervical) Non-Blood / Unknown 03/25/2023 10:33 AM CDT 03/28/2023 4:09 PM CDT Narrative [facility] - 03/30/2023 1:46 PM CDT HPV types 16, 18, 31, 33, 35, 39, 45, 51, 52, 56, 58, 59, 66 and 68 DNA were undetectable or below the pre-set threshold. Methodology: Tony Rashel [address] MD MICROBIOLOGY [facility] [address] [place] [address], * (ABNORMAL) LC LIPID PANEL AND CHOL/HDL RATIO (03/25/2023 9:38 AM CDT) Cholesterol, Total 213(H) 100 - 199 mg/dL 03/28/2023 2:08 PM CDT [facility]) Triglycerides 77 0 - 149 mg/dL 03/28/2023 2:08 PM CDT [facility]) HDL Cholesterol 62 >39 mg/dL 3 2:08 PM CDT [facility] ([facility]) VLDL Cholesterol Alex 14 5 - 40 mg/dL 03/28/2023 2:08 PM CDT [facility] ([facility] LDL Chol Calc ([facility]) 137(H) 0 - 99 mg/dL 03/28/2023 2:08 PM CDT [facility] ([facility]) T. Chol/HDL Ratio 3.4 0.0 - 4.4 ratio 03/28/2023 2:08 PM CDT [facility] ([facility]) Comment: ?T. Chol/HDL Ratio ?Men ??Women ?1/2 Avg.Risk ??3.4 ?3.3 ?Avg.Risk ??5.0 ?4.4 ? 2X Avg.Risk ??9.6 ?7.1 ? 3X Avg.Risk 23.4 ?? 11.0 Blood BLOOD SPECIMEN / Unknown Venipuncture / Unknown 03/25/2023 9:38 AM CDT 03/25/2023 9:40 AM CDT Narrative [facility] ([facility]) - 03/28/2023 2:08 PM CDT Performed at: ??[address] ??[id number] Landscape Artist: Zechariah Klein MD, Phone: ??[phone] Loren St MD SEND OUTS Performing Organization Address City/[facility]/ZIP Co de Phone Number [facility] ([facility]) [address] [place] [address], * LC HIV-1/O/2, 4TH GENERATION (03/25/2023 9:38 AM CDT) Pathologist [facility] HIV Scr 4th Gen Non Reactive Non Reactive 03/29/2023 10:06 PM CDT [facility] ([facility]) Comment: HIV Negative HIV-1/HIV-2 antibodies and HIV-1 p24 antigen were NOT detected. There is no laboratory evidence of HIV infection. Blood BLOOD SPECIMEN / Unknown Venipuncture / Unknown 03/25/2023 9:38 AM CDT 03/25/2023 9:40 AM CDT Narrative [facility] ([facility]) - 03/29/2023 10:06 PM CDT Performed at: ??[address] ??[id number] Landscape Artist: Zechariah Klein MD, Phone: ??[phone] Loren St MD LABORATORY Performing Organization Address [facility] Co de Phone Number [facility] ([facility]) [address] [place] [address] * ANTI HCV (07/14/2020 11:46 AM CDT) Pathologist [facility] HEPATITIS C ANTIBODY Non-React sindhu Non-React sindhu 07/14/2020 8:07 PM CDT [facility] Comment:Antibodies to HCV no t detected; does not exclude the possibility of exposure to HCV. Blood BLOOD SPECIMEN / Unknown Venipuncture / Unknown 07/14/2020 11:46 AM CDT 07/14/2020 11:[address] MD SEND OUTS [facility] [address] [place] [address], [place] from Last 3 Months or Most Recently Relevant to Health Maintenance Advance Directives * Full Code (Latest Code Status on File) Date Activated Date Inactivated Comments 08/28/2013 9:36 AM 08/28/2013 3:40 PM * Full Code Date Activated Date Inactivated Comments 10/28/2010 6:04 AM 10/28/2010 4:40 PM Care Teams Machine Quilt Stuffer Relationship Specialty Start Date End Date Loren St MD [address] [place] [address] [place] [address] PCP - General Family Practice 12/01/15
== END 2024-04-26 14:04 | disposition home or self-care (01) ==
PROVIDERS: PCP Family Medicine; Visit Provider Family Medicine
DX: Z00.00 Encounter for general adult medical examination without abnormal findings (principal); E03.9 Hypothyroidism, unspecified; M19.90 Unspecified osteoarthritis, unspecified site; K21.9 Gastro-esophageal reflux disease without esophagitis; M54.9 Dorsalgia, unspecified
CPT/HCPCS: 80053; 80061; 84443

== ENCOUNTER 2024-08-07 11:10 | Outpatient (CLI) | payer OTHER, SELFPAY ==
--- OUTSIDE RECORDS SUMMARY | 2024-08-11 15:30 | XMS_ITS | Clinical Summary ---
Author Organization [facility] Address [place], [place] [address] Care Team Providers Care Flitch Hanger Name Role Phone Loren St MD Primary Care Provider [phone] Allergies Active Allergy Reactions Criticality Noted Date [...] :Mild intermittent asthma without complication Inhale 1 [place] into affected nostril(s) 2 times daily. 50 [...] 04/10/2007 Pap smear for cervical cancer screening Overview (04/29/2023): LEEP Noted in Med/Surg Hx dates/results unavailable (noted 02/20/2015) 03/2021 UNS/HPV negative 06/2021 UNS 02/2023 NIL/HPV Negative Plan: Pap and HPV due 02/2026 ASCCP recommends custodial follow-up after high-grade histology or cytology: Continued [...] (LGSIL) on cervicovaginal cytologic smear 05/13/2008 07/24/2021 Immunizations Name Administration Dates Next Due COVID-19 vaccine (flatev NTech 30mcg/0.3mL) 12YO+ BIVALENT PF, MDV 03/25/2023 COVID-19 vaccine (flatev NTech 30mcg/0.3mL) PF, MDV 08/03/2022,08/26/2021,12/16/2020,2019 Influenza A [...] Outcome GA Total Labor Labor/2nd/3rd Weight Sex Type Anes PTL Ladonna A1 A5 Name Clin SAB SAB Term Term Term Term Last [...] 03/25/2023 8:40 AM CDT Plan of Treatment Upcoming Encounters Date Type Department Care Team (Late st Contact Info) Description 08/30/2024 7:40 AM CDT Office Visit [facility] [address] [place] [address] Gerald Hill MD [address] [place] [address] Health Maintenance Due Date Last Done Comments BMI (ht and wt on same day) for age 18+ 03/25/2024 03/25/2023, 03/08/2022, 04/13/2021, Additional history exists Depression screening for age 12+ 03/25/2024 03/25/2023, 03/08/2022, 04/13/2021, Additional history exists Mammogram for age 45-75 04/08/2024 04/08/20 23, 04/06/2022, 09/22/2020, Additional history exists COVID-19 vaccine series (2022- season) 2024 03/25/2023, 08/03/2022, 08/26/2021, Additional history exists Influenza for age 50-64 07/29/2024 09/07/20 22, 08/26/2021, 09/04/2020, Additional history exists Fecal testing sDNA-FIT (Cologuard) for age 45-75 11/07/2026 11/07/2023 Pap test for age 21-65 04/25/2027 4, 04/25/2024, 03/25/2023, Additional history exists Lipids for age 45-75 03/25/2028 03/25/2023, 04/20/20 17 Tetanus booster 06/02/2031 06/02/2021, 09/29, 02/13/2004 Hepatitis C screening for age 18-79 Completed 07/14/2020 Zoster (shingles) series for age 50+ Completed 09/22/2020, 07/14/2020 HIV for age 15-65 Completed 03/25/2023 Pneumococcal series for age 6-64 Aged Out 03/25/2023, 01/16/2015, 02/13/2004 No longer eligible based on patient's age to complete this topic Medical Devices Implanted Type Area Internet Designer Device Identifier Shelf Expiration Date Model / Serial / Lot Sys Urethral Support Align 50cm - [id number] Implanted:Qty: 1 on 10/28/2010 at [facility] 07/29/2012 [id number] / / [id number] Procedures Procedure Name Priority Date/Time Associated Diagnosis Comments SENIOR STOCK PLAN ADMINISTRATOR THIN PREP PAP SCREEN IMAGED Routine 04/25/2024 1:40 PM CDT SDNA-FIT EXTERNAL (COLOGUARD) Routine 11/07/2023 6:15 AM BRICK BURNER HEAD Screening for colon cancer XR MAMMO BETHANY BILAT SCREEN Routine 04/08/2023 8:31 AM CDT Breast cancer screening by mammogram LC HIV-1/O/2, 4TH GENERATION Routine 03/25/2023 9:38 AM CDT Screening for HIV (human immunodeficiency virus) LC LIPID PANEL AND CHOL/HDL RATIO Routine 03/25/2023 9:38 AM CDT Annual physical exam ANTI HCV Routine 07/14/2020 11:46 AM CDT Encounter for hepatitis C screening test for low risk patient from Last 3 Months or Most Recently Relevant to Health Maintenance Results * SENIOR STOCK PLAN ADMINISTRATOR THIN PREP PAP SCREEN IMAGED (04/25/2024 1:40 PM CDT) Case Report Gynecologic Cytology Report ? Case: [id number] ? Authorizing Provider: ??Aye Nath MD ?? Collected: ? 04/25/2024 1340 ? Ordering Location: ? [facility] ?Received: ?04/27/2024 1022 ? First Screen: ?Diamond Willingham ? Specimen: ?SENIOR STOCK PLAN ADMINISTRATOR ThinPrep Vial Screening, Cervical ? 05/07/2024 6:22 PM CDT [facility] INTERPRETATION/ RESULT NEGATIVE FOR INTRAEPITHELIAL LESION OR MALIGNANCY (NIL) (none) 05/07/2024 6:22 PM CDT [facility] [address] [facility] ENTRAL LABORATORY IMEN ADEQUACY Satisfactory for evaluation Endocervical cells cannot be evaluated due to severe atrophy 05/07/2024 6:22 PM CDT [facility] [address] [facility] ENTRAL LABORATORY HPV REQUEST HPV and PAP 05/07/2024 6:22 PM CDT [facility]- ENTRAL LABORATORY Date of LMP 05/07/2024 6:22 PM CDT [facility] [address] [facility] ENTRAL LABORATORY Comment:N/A Last Pap Date 03/25/2023 05/07/2024 6:22 PM CDT [facility] LABORATORY-C ENTRAL LABORATORY Last Pap Result NIL 6:22 PM CDT [facility] [address] [facility] ENTRAL LABORATORY Abnormal Pap or [place] Bx in last 5 years No 05/07/2024 6:22 PM CDT [facility] ENTRAL LABORATORY Menstrual Status Postmenopausal 05/07/2024 6:22 PM CDT [facility] ENTRAL LABORATORY [place] Bx Done Today No 05/07/2024 6:22 PM CDT [facility] Additional Information 05/07/2024 6:22 PM CDT [facility] Comment: Interpreted at [facility] [place] [facility] - [address], [place] [address] Automated Review Successful 05/07/2024 6:22 PM CDT [facility] Comment:Specimen processed s uccessfully by automated horticultural worker device, Bristol-Myers SquibbPrep Imaging System, [employer] ANCILLARY TESTING SENIOR STOCK PLAN ADMINISTRATOR HPV Ordered, Please see separate report 05/07/2024 6:22 PM CDT [facility] Note The pap test is a screening technique, not a diagnostic procedure. It is used primarily to screen for squamous cancers and precursor lesions. Published studies have shown that it is subject to both false negative and false positive results. The pap test should not be used as the sole means to diagnose or exclude pre-malignant and malignant lesions. 05/07/2024 6:22 PM CDT [facility] Other (Cervical) 04/25/2024 1:40 PM CDT 04/27/2024 10:22 AM CDT Aye Nath MD PATHOLOGY/CYTOLOG Y [facility] LAB[facility] [address] [place] [address], * SDNA-FIT EXTERNAL (COLOGUARD) (11/07/2023 6:15 AM BRICK BURNER HEAD) NONINV COLON CA DNA+OCC BLD SCRN STL-IMP Negative Negative 11/16/2023 8:23 AM BRICK BURNER HEAD [employer] (CLIA #:[id number]) Comment: NEGATIVE TEST RESULT. A negative Cologuard [...] cancer. ??Following a negative Cologuard result, the [place] Cancer Society and U.S. Multi-Society Task Force screening guidelines recommend a Cologuard re-screening interval of 3 years. References: [place] Cancer Society Guideline for Colorectal Cancer Screening: https://www.cancer.org/cancer/jrari-inaame-lixgih/sdvyegnvp-wiurbsxel-vptpstz/ac s-rec ommendations.html.; Santi RODRIGUEZ, Demetrio VALENTINO, Valarie DixonK, Colorectal Cancer Screening: Recommendations for Physicians and Patients from the U.S. Multi-Society Task Force on Colorectal Cancer Screening , Am J Gastroenterology 2017; 112:3505-9895. TEST DESCRIPTION: Composite algorithmic analysis of stool [...] (Emely Crocker al, N Engl J Med 2014;370(14):9131-2862.) Cologuard may produce a false negative or false positive result (no colorectal cancer or precancerous polyp present at colonoscopy follow up). A negative Cologuard test result does not guarantee the absence of CRC or advanced adenoma (pre-cancer). The current Cologuard screening interval is every 3 years. ([place] Cancer Society and U.S. Multi-Society Task Force). Cologuard performance data in a 10,000 patient pivotal study using colonoscopy as the reference method can be accessed at the following location: www.Novalys/results. Additional description of the Cologuard test process, warnings and precautions can be found at www.PartlyogRateSetterrd.com. Stool specimen (specimen) (Rectum) 11/07/2023 6:15 AM BRICK BURNER HEAD 11/08/2023 7:14 PM BRICK BURNER HEAD Loren St MD URINE [employer] (CLIA #:[id number]) [address] [place] [address], * XR MAMMO BETHANY BILAT SCREEN [[id number]] (04/08/2023 8:31 AM CDT) Anatomical Region Laterality [...] care provider. XR MAMMO BETHANY BILAT SCREEN [[id number]] CLINICAL HISTORY: ??This is an asymptomatic 62 y.o. patient. INDICATION FOR EXAM: Mammogram Screening. TECHNIQUE: CC & MLO views were obtained. ??This study was evaluated with the assistance of Computer-Aided Detection. Breast Tomosynthesis was used in interpretation. COMPARISON FILM: Yes 04/06/22 [employer] ?? FINDINGS: ??The breasts have scattered areas of fibroglandular density. There are no dominant masses, suspicious micro calcifications or areas of architectural distortion. Loren St MD MAMMO * (ABNORMAL) LC LIPID PANEL AND CHOL/HDL RATIO (03/25/2023 9:38 AM CDT) Pathologist [facility] Cholesterol, Total 213(H) 100 - 199 mg/dL 03/28/2023 2:08 PM CDT [facility] ([facility]ET) Triglycerides 77 0 - 149 mg/dL 03/28/2023 2:08 PM CDT [facility] ([facility]) HDL Cholesterol 62 >39 mg/dL 3 2:08 PM CDT [facility] ([facility]) VLDL Cholesterol Alex 14 5 - 40 mg/dL 03/28/2023 2:08 PM CDT [facility] ([facility]) LDL Chol Calc ([facility]) 137(H) 0 - 99 mg/dL 03/28/2023 2:08 PM CDT [facility] ([facility]) T. Chol/HDL Ratio 3.4 0.0 - 4.4 ratio 03/28/2023 2:08 PM T [facility] (CET) Comment: ?T. Chol/HDL Ratio ?Men ??Women ?1/2 Avg.Risk ??3.4 ?3.3 ?Avg.Risk ??5.0 ?4.4 ? 2X Avg.Risk ??9.6 ?7.1 ? 3X Avg.Risk 23.4 ?? 11.0 Blood BLOOD SPECIMEN / Unknown Venipuncture / Unknown 03/25/2023 9:38 AM CDT 03/25/2023 9:40 AM CDT [facility] TEST[facility] ([facility]) - 03/28/2023 2:08 PM CDT Performed at: ??01 - [address] ??[id number] Spot Billing Clerk: Zechariah Klein MD, Phone: ??[phone] Loren St MD SEND OUTS [facility] ([facility]) [address] [place] [address], * LC HIV-1/O/2, 4TH GENERATION (03/25/2023 9:38 AM CDT) HIV Scr 4th Gen Non Reactive Non Reactive 03/29/2023 10:06 PM CDT [facility] (CET) Comment: HIV Negative HIV-1/HIV-2 antibodies and HIV-1 p24 antigen were NOT detected. There is no laboratory evidence of HIV infection. Blood BLOOD SPECIMEN / Unknown Venipuncture / Unknown 03/25/2023 9:38 AM CDT 03/25/2023 9:40 AM CDT Narrative [facility] (CET) - 03/29/2023 10:06 PM CDT Performed at: ??01 - [facility] [place] [address] [place], [place] ??[id number] Spot Billing Clerk: Zechariah Klein MD, Phone: ??[phone] Loren St MD LABORATORY [facility] (CET) [facility] * ANTI HCV (07/14/2020 11:46 AM CDT) HEPATITIS C ANTIBODY Non-React sindhu Non-React sindhu 07/14/2020 8:07 PM CDT [facility] TRAL LABORATORY Comment:Antibodies to HCV no t detected; does not exclude the possibility of exposure to HCV. Blood BLOOD SPECIMEN / Unknown Venipuncture / Unknown 07/14/2020 11:46 AM CDT 07/14/2020 11:[address] MD SEND OUTS [facility] LABORATORY-CENTRAL LABORATORY [address] [place] [address], from Last 3 Months or Most Recently Relevant to Health Maintenance Advance Directives * Full Code (Latest Code Status on File) Date Activated Date Inactivated Comments 08/28/2013 9:36 AM 08/28/2013 3:40 PM * Full Code Date Activated Date Inactivated Comments 10/28/2010 6:04 AM 10/28/2010 4:40 PM Care Teams Flitch Hanger Relationship Specialty Start Date End Date Loren St MD [address] [facility] [place] [address] PCP - General Family Practice 12/01/15
== END 2024-08-07 11:11 | disposition home or self-care (01) ==
LOC: NFLDREF 08-11 15:27
PROVIDERS: PCP Family Medicine; Referring Provider Family Medicine; Visit Provider Family Medicine
DX: E03.9 Hypothyroidism, unspecified (principal)
CPT/HCPCS: 84439; 84443

== ENCOUNTER 2024-08-19 09:23 | Outpatient (CLI) | payer OTHER, SELFPAY ==
--- OUTSIDE RECORDS SUMMARY | 2024-08-23 09:34 | XMS_ITS | Clinical Summary ---
Author Organization [facility] [facility] Address [place], [place] [address] Care Team Providers Care Hardware Test Engineer Name Role Phone Loren St MD Primary Care Provider +1- [phone] Allergies Active Allergy Reactions Criticality Noted Date [...] :Mild intermittent asthma without complication Inhale 1 [place] into affected nostril(s) 2 times daily. 50 [...] Pap and HPV due 02/2026 ASCCP recommends residential follow-up after high-grade histology or cytology: Continued [...] Name Administration Dates Next Due COVID-19 vaccine (Pintics NTech 30mcg/0.3mL) 12YO+ BIVALENT PF, MDV 03/25/2023 COVID-19 vaccine (Pintics NTech 30mcg/0.3mL) PF, MDV 08/03/2022,08/26/2021,12/16/2020,2019 Influenza A [...] Description 08/30/2024 7:40 AM CDT Office Visit [facility] [address] [place] [address] Gerald Hill MD [address] [place] [address] Health Maintenance Due Date Last Done Comments BMI (ht and wt on same day) for age 18+ 03/25/2024 03/25/2023, 03/08/2022, 04/13/2021, Additional history exists Depression screening for age 12+ 03/25/2024 03/25/2023, 03/08/2022, 04/13/2021, Additional history exists Mammogram for age 45-75 04/08/2024 04/08/20 23, 04/06/2022, 09/22/2020, Additional history exists COVID-19 vaccine series ( season) 2024 03/25/2023, 08/03/2022, 08/26/2021, Additional history exists Influenza for age 50-64 07/29/2024 09/07/20 22, 08/26/2021, 09/04/2020, Additional history exists Fecal testing sDNA-FIT (Cologuard) for age 45-75 11/07/2026 11/07/2023 Pap test for age 21-65 04/25/2027 , 04/25/2024, 03/25/2023, Additional history exists Lipids for [...] this topic Medical Devices Implanted Type Area Cold Mill Inspector Device Identifier Shelf Expiration Date Model / Serial / Lot Sys Urethral Support Align 50cm - [id number] Implanted:Qty: 1 on 10/28/2010 at [facility] 07/29/2012 [id number] / / [id number] Procedures Procedure Name Priority Date/Time Associated Diagnosis Comments SHIFT NURSE MANAGER THIN PREP PAP SCREEN IMAGED Routine 04/25/2024 1:40 PM CDT SDNA-FIT EXTERNAL (COLOGUARD) Routine 11/07/2023 6:15 AM PECAN HULLER Screening for colon cancer XR MAMMO BETHANY [...] Recently Relevant to Health Maintenance Results * SHIFT NURSE MANAGER THIN PREP PAP SCREEN IMAGED (04/25/2024 1:40 PM CDT) Case Report Gynecologic Cytology Report ? Case: [id number] ? Authorizing Provider: ??Aye Nath MD ?? Collected: ? 04/25/2024 1340 ? Ordering Location: ? [facility] ?Received: ?04/27/2024 1022 ? First Screen: ?Diamond Willingham ? Specimen: ?SHIFT NURSE MANAGER ThinPrep Vial Screening, Cervical ? 05/07/2024 6:22 PM CDT [facility] EN[facility] INTERPRETATION/ RESULT NEGATIVE FOR INTRAEPITHELIAL LESION OR MALIGNANCY (NIL) (none) 05/07/2024 6:22 PM CDT [facility] [employer] [facility] ENTRAL LABORATORY IMEN ADEQUACY Satisfactory for evaluation Endocervical cells cannot be evaluated due to severe atrophy 05/07/2024 6:22 PM CDT [facility] [employer] [facility] EN[facility]AL LABORAT[facility] HPV REQUEST HPV and PAP 05/07/2024 6:22 PM CDT [facility] [employer] LABORATORY- ENTRAL LABORATORY Date of LMP 05/07/2024 6:22 PM CDT [facility] [employer] [facility] ENTR[facility] LAB[facility]AT[facility] Comment:N/A Last Pap Date 03/25/2023 05/07/2024 6:22 PM CDT [facility] [employer] LABORATORY-C ENTRAL LABORATORY Last Pap Result NIL 6:22 PM CDT [facility] [employer] [facility] ENTRAL LABORATORY Abnormal Pap or [place] Bx in last 5 years No 05/07/2024 6:22 PM CDT [facility] [employer] [facility]-C ENTRAL LABORATORY Menstrual Status Postmenopausal 05/07/2024 6:22 PM CDT [facility] [employer] [facility] ENTR[facility] LAB[facility]ATORY [place] Bx Done Today No 05/07/2024 6:22 PM CDT [facility] Additional Information 05/07/2024 6:22 PM CDT [facility] Comment: Interpreted at [facility] [place] Laboratory - [address], [place] [address] Automated Review Successful 05/07/2024 6:22 PM CDT [facility] Comment:Specimen processed s uccessfully by automated dinking machine operator device, Catalyst Repository SystemsPrep Imaging System, [employer] ANCILLARY TESTING SHIFT NURSE MANAGER HPV Ordered, Please see separate report 05/07/2024 6:22 PM CDT [facility] Note The pap test is a [...] and malignant lesions. 05/07/2024 6:22 PM CDT [facility] Other (Cervical) 04/25/2024 1:40 PM CDT 04/27/2024 10:22 AM CDT Aye Nath MD PATHOLOGY/CYTOLOG Y [facility] LAB[facility] [address] [place] [address], * SDNA-FIT EXTERNAL (COLOGUARD) (11/07/2023 6:15 AM PECAN HULLER) NONINV COLON CA DNA+OCC BLD SCRN STL-IMP Negative Negative 11/16/2023 8:23 AM PECAN HULLER [facility] (CLIA #:[id number]) Comment: NEGATIVE TEST RESULT. A negative Cologuard [...] cancer. ??Following a negative Cologuard result, the [place] Cancer Society and U.S. Multi-Society Task Force screening guidelines recommend a Cologuard re-screening interval of 3 years. References: [place] Cancer Society Guideline for Colorectal Cancer Screening: https://www.cancer.org/cancer/ltjdf-ytxpuz-cbnvbz/rtgxaolls-mdbiiuyno-ivbtzsm/ac s-rec ommendations.html.; Santi RODRIGUEZ, Demetrio VALENTINO, Valarie DixonK, Colorectal Cancer Screening: Recommendations for Physicians and Patients from the U.S. Multi-Society Task Force on Colorectal Cancer Screening , Am J Gastroenterology 2017; 112:4473-2983. TEST DESCRIPTION: Composite algorithmic analysis of stool [...] (Emely Crocker al, N Engl J Med 2014;370(14):0248-4789.) Cologuard may produce a false negative or false positive result (no colorectal cancer or precancerous polyp present at colonoscopy follow up). A negative Cologuard test result does not guarantee the absence of CRC or advanced adenoma (pre-cancer). The current Cologuard screening interval is every 3 years. ([place] Cancer Society and U.S. Multi-Society Task Force). Cologuard performance data in a 10,000 patient pivotal study using colonoscopy as the reference method can be accessed at the following location: www.[employer]ical/results. Additional description of the Cologuard test process, warnings and precautions can be found at www.SignifydogSigma Labsrd.com. Stool specimen (specimen) (Rectum) 11/07/2023 6:15 AM PECAN HULLER 11/08/2023 7:[address] Loren [address] MD URINE [facility] (CLIA #:[id number]) [address] [place] [address], * XR MAMMO BETHANY BILAT SCREEN [[id number]] (04/08/2023 8:31 AM CDT) Anatomical Region Laterality [...] care provider. XR MAMMO BETHANY BILAT SCREEN [[id number]] CLINICAL HISTORY: ??This is an asymptomatic 62 y.o. patient. INDICATION FOR EXAM: Mammogram Screening. TECHNIQUE: CC & MLO views were obtained. ??This study was evaluated with the assistance of Computer-Aided Detection. Breast Tomosynthesis was used in interpretation. COMPARISON FILM: Yes 04/06/22 [employer] ?? FINDINGS: ??The breasts have scattered areas of fibroglandular density. There are no dominant masses, suspicious micro calcifications or areas of architectural distortion. Loren St MD MAMMO * (ABNORMAL) LC LIPID PANEL AND CHOL/HDL RATIO (03/25/2023 9:38 AM CDT) Pathologist [facility] Cholesterol, Total 213(H) 100 - 199 mg/dL 03/28/2023 2:08 PM CDT [facility] (CET) Triglycerides 77 0 - 149 mg/dL 03/28/2023 2:08 PM CDT [facility] ([facility]) HDL Cholesterol 62 >39 mg/dL 3 2:08 PM CDT [facility] ([facility]) VLDL Cholesterol Alex 14 5 - 40 mg/dL 03/28/2023 2:08 PM CDT [facility] ([facility]ET) LDL Chol Calc ([facility]) 137(H) 0 - 99 mg/dL 03/28/2023 2:08 PM CDT [facility] ([facility]) T. Chol/HDL Ratio 3.4 0.0 - 4.4 ratio 03/28/2023 2:08 PM T [facility] ([facility]ET) Comment: ?T. Chol/HDL Ratio ?Men ??Women ?1/2 Avg.Risk ??3.4 ?3.3 ?Avg.Risk ??5.0 ?4.4 ? 2X Avg.Risk ??9.6 ?7.1 ? 3X Avg.Risk 23.4 ?? 11.0 Blood BLOOD SPECIMEN / Unknown Venipuncture / Unknown 03/25/2023 9:38 AM CDT 03/25/2023 9:40 AM CDT [facility] TESTING ([facility]) - 03/28/2023 2:08 PM CDT Performed at: ??01 - [address] ??[id number] Aircraft Fuselage Framer: Zechariah Klein MD, Phone: ??[phone] Loren St MD SEND OUTS [facility] ([facility]) [address] [place] [address], * LC HIV-1/O/2, 4TH GENERATION (03/25/2023 9:38 AM CDT) HIV Scr 4th Gen Non Reactive Non Reactive 03/29/2023 10:06 PM CDT [facility] (CET) Comment: HIV Negative HIV-1/HIV-2 antibodies and HIV-1 p24 antigen were NOT detected. There is no laboratory evidence of HIV infection. Blood BLOOD SPECIMEN / Unknown Venipuncture / Unknown 03/25/2023 9:38 AM CDT 03/25/2023 9:40 AM CDT Narrative [facility] ([facility]) - 03/29/2023 10:06 PM CDT Performed at: ??01 - [facility] [place] [address] [place], [place] ??[id number] Aircraft Fuselage Framer: Zechariah Klein MD, Phone: ??[phone] Loren St MD LABORATORY [facility] (CET) [facility] [address] * ANTI HCV (07/14/2020 11:46 AM CDT) HEPATITIS C ANTIBODY Non-React sindhu Non-React sindhu 07/14/2020 8:07 PM CDT [facility] TR[facility] LABORATORY Comment:Antibodies to HCV no t detected; does not exclude the possibility of exposure to HCV. Blood BLOOD SPECIMEN / Unknown Venipuncture / Unknown 07/14/2020 11:46 AM CDT 07/14/2020 11:[address] MD SEND OUTS [facility] LABORAT[facility]-CENTRAL LABORATORY [address] [place] [address], from Last 3 Months or Most Recently Relevant to Health Maintenance Advance Directives * Full Code (Latest Code Status on File) Date Activated Date Inactivated Comments 08/28/2013 9:36 AM 08/28/2013 3:40 PM * Full Code Date Activated Date Inactivated Comments 10/28/2010 6:04 AM 10/28/2010 4:40 PM Care Teams Hardware Test Engineer Relationship Specialty Start Date End Date Loren St MD [address] [facility] [place] [address] PCP - General Family Practice 12/01/15
== END 2024-08-19 09:24 | disposition home or self-care (01) ==
LOC: NFLDREF 08-23 09:32
PROVIDERS: PCP Family Medicine; Referring Provider Family Medicine; Visit Provider Physician Assistant
DX: N30.01 Acute cystitis with hematuria (principal); B96.20 Unspecified Escherichia coli [E. coli] as the cause of diseases classified elsewhere
CPT/HCPCS: 87086; 87186

== ENCOUNTER 2024-08-23 08:37 | Outpatient (CLI) | payer OTHER, SELFPAY ==
--- OUTSIDE RECORDS SUMMARY | 2024-08-24 13:23 | XMS_ITS | Clinical Summary ---
Author Organization [facility] [facility] Address [place], [place] [address] Care Team Providers Care Credit Control Manager Name Role Phone Loren St MD Primary Care Provider [phone]- [phone] Allergies Active Allergy Reactions Criticality Noted Date [...] :Mild intermittent asthma without complication Inhale 1 [place] into affected nostril(s) 2 times daily. 48 [...] Pap and HPV due 02/2026 ASCCP recommends fci follow-up after high-grade histology or cytology: Continued [...] Name Administration Dates Next Due COVID-19 vaccine (Occlutech NTech 30mcg/0.3mL) 12YO+ BIVALENT PF, MDV 03/25/2023 COVID-19 vaccine (Occlutech NTech 30mcg/0.3mL) PF, MDV 08/03/2022,08/26/2021,12/16/2020,2019 Influenza A [...] Description 08/30/2024 7:40 AM CDT Office Visit [facility] [address] [place] [address] Gerald Hill MD [address] [place] [address] Health Maintenance Due Date Last Done Comments [...] this topic Medical Devices Implanted Type Area Investments Manager Device Identifier Shelf Expiration Date Model / Serial / Lot Sys Urethral Support Align 50cm - [id number] Implanted:Qty: 1 on 10/28/[address] [facility] 07/29/2012 [id number] / / [id number] Procedures Procedure Name Priority Date/Time Associated Diagnosis Comments ELASTIC ATTACHER ZIGZAG THIN PREP PAP SCREEN IMAGED Routine 04/25/2024 1:40 PM CDT SDNA-FIT EXTERNAL (COLOGUARD) Routine 11/07/2023 6:15 AM WARD MAID Screening for colon cancer XR MAMMO BETHANY [...] Recently Relevant to Health Maintenance Results * ELASTIC ATTACHER ZIGZAG THIN PREP PAP SCREEN IMAGED (04/25/2024 1:40 PM CDT) Case Report Gynecologic Cytology Report ? Case: [id number] ? Authorizing Provider: ??Aye Nath MD ?? Collected: ? 04/25/2024 1340 ? Ordering Location: ? [facility] ?Received: ?04/27/2024 1022 ? First Screen: ?Diamond Willingham ? Specimen: ?ELASTIC ATTACHER ZIGZAG ThinPrep Vial Screening, Cervical ? 05/07/2024 6:22 PM CDT [facility] INTERPRETATION/ RESULT NEGATIVE FOR INTRAEPITHELIAL LESION OR MALIGNANCY (NIL) (none) 05/07/2024 6:22 PM CDT [facility] [employer] [facility] IMEN ADEQUACY Satisfactory for evaluation Endocervical cells cannot be evaluated due to severe atrophy 05/07/2024 6:22 PM CDT [facility] [employer] [facility] HPV REQUEST HPV and PAP 05/07/2024 6:22 PM CDT [facility] Date of LMP 05/07/2024 6:22 PM CDT [facility] [employer] [facility] Comment:N/A Last Pap Date 03/25/2023 05/07/2024 6:22 PM CDT [facility] [employer] LABORATORY-C ENTRAL LABORATORY Last Pap Result NIL 6:22 PM CDT [facility] [employer] [facility] Abnormal Pap or [place] Bx in last 5 years No 05/07/2024 6:22 PM CDT [facility] [employer] [facility] EN[facility]AL [facility] Menstrual Status Postmenopausal 05/07/2024 6:22 PM CDT [facility] [place] Bx Done Today No 05/07/2024 6:22 PM CDT [facility] Additional Information 05/07/2024 6:22 PM CDT [facility] Comment: Interpreted at [facility] [place] [facility] - [address], [place] [address] Automated Review Successful 05/07/2024 6:22 PM CDT [facility] Comment:Specimen processed s uccessfully by automated computer lab para professional device, EVERYWAREPrep Imaging System, [employer] ANCILLARY TESTING ELASTIC ATTACHER ZIGZAG HPV Ordered, Please see separate report 05/07/2024 [...] and malignant lesions. 05/07/2024 6:[address] [facility] Other (Cervical) 04/25/2024 1:40 PM CDT 04/27/2024 10:22 AM CDT Aye Nath MD PATHOLOGY/CYTOLOG Y [facility] [address] [place] [address], * SDNA-FIT EXTERNAL (COLOGUARD) (11/07/2023 6:15 AM WARD MAID) NONINV COLON CA DNA+OCC BLD SCRN STL-IMP Negative Negative 11/16/2023 8:23 AM WARD MAID [facility] (CLIA #:[id number]) Comment: NEGATIVE TEST RESULT. A negative Cologuard [...] cancer. ??Following a negative Cologuard result, the [place] Cancer Society and U.S. Multi-Society Task Force screening guidelines recommend a Cologuard re-screening interval of 3 years. References: [place] [employer] Guideline for Colorectal Cancer Screening: https://www.cancer.org/cancer/apxze-itwori-czkjnd/qnkueaqxy-fatgpdxqd-wlcwrbs/ac s-rec ommendations.html.; Santi RODRIGUEZ, Demetrio VALENTINO, Valarie DixonK, Colorectal Cancer Screening: Recommendations for Physicians and Patients from the U.S. Multi-Society Task Force on Colorectal Cancer Screening , Am J Gastroenterology 2017; 112:4522-5343. TEST DESCRIPTION: Composite algorithmic analysis of stool [...] (Emely Crocker al, N Engl J Med 2014;370(14):5647-3566.) Cologuard may produce a false negative or false positive result (no colorectal cancer or precancerous polyp present at colonoscopy follow up). A negative Cologuard test result does not guarantee the absence of CRC or advanced adenoma (pre-cancer). The current Cologuard screening interval is every 3 years. ([place] Cancer Society and U.S. Multi-Society Task Force). Cologuard performance data in a 10,000 patient pivotal study using colonoscopy as the reference method can be accessed at the following location: www.[employer]/results. Additional description of the Cologuard test process, warnings and precautions can be found at www.DiabeticaogSensika Technologiesrd.com. Stool specimen (specimen) (Rectum) 11/07/2023 6:15 AM WARD MAID 11/08/2023 7:[address] MD URINE [employer] (CLIA #:[id number]) [address] [place] [address], * XR MAMMO BETHANY BILAT SCREEN [[id number]] (04/08/2023 8:31 AM CDT) Anatomical Region Laterality [...] care provider. XR MAMMO BETHANY BILAT SCREEN [[id number]] CLINICAL HISTORY: ??This is an asymptomatic 62 y.o. patient. INDICATION FOR EXAM: Mammogram Screening. TECHNIQUE: CC & MLO views were obtained. ??This study was evaluated with the assistance of Computer-Aided Detection. Breast Tomosynthesis was used in interpretation. COMPARISON FILM: Yes 04/06/22 [place] ?? FINDINGS: ??The breasts have scattered areas of fibroglandular density. There are no dominant masses, suspicious micro calcifications or areas of architectural distortion. Loren St MD MAMMO * (ABNORMAL) LC LIPID PANEL AND CHOL/HDL RATIO (03/25/2023 9:38 AM CDT) Pathologist [facility] Cholesterol, Total 213(H) 100 - 199 mg/dL 03/28/2023 2:[address] [facility] (CET) Triglycerides 77 0 - 149 mg/dL 03/28/2023 2:[address] [facility] ([facility]) HDL Cholesterol 62 >39 mg/dL 3 2:[address] [facility] ([facility]) VLDL Cholesterol Alex 14 5 - 40 mg/dL 03/28/2023 2:[address] [facility] ([facility]) LDL Chol Calc ([facility]) 137(H) 0 - 99 mg/dL 03/28/2023 2:[address] [facility] ([facility]) T. Chol/HDL Ratio 3.4 0.0 - 4.4 ratio 03/28/2023 2:[address] [facility] ([facility]) Comment: ?T. Chol/HDL Ratio ?Men ??Women ?1/2 Avg.Risk ??3.4 ?3.3 ?Avg.Risk ??5.0 ?4.4 ? 2X Avg.Risk ??9.6 ?7.1 ? 3X Avg.Risk 23.4 ?? 11.0 Blood BLOOD SPECIMEN / Unknown Venipuncture / Unknown 03/25/2023 9:38 AM CDT 03/25/2023 9:40 AM CDT [facility]ERIC TESTING ([facility]) - 03/28/2023 2:08 PM CDT Performed at: ??01 - [address] ??[id number] Carbide Operator: Zechariah Klein MD, Phone: ??[phone] Loren St MD SEND OUTS [facility] ([facility]) [address] [place] [address], * LC HIV-1/O/2, 4TH GENERATION (03/25/2023 9:38 AM CDT) HIV Scr 4th Gen Non Reactive Non Reactive 03/29/2023 10:[address] [facility] (CET) Comment: HIV Negative HIV-1/HIV-2 antibodies and HIV-1 p24 antigen were NOT detected. There is no laboratory evidence of HIV infection. Blood BLOOD SPECIMEN / Unknown Venipuncture / Unknown 03/25/2023 9:38 AM CDT 03/25/2023 9:[address] [facility] ([facility]) - 03/29/2023 10:06 PM CDT Performed at: ??01 - [facility] [address], [place] ??[id number] Carbide Operator: Zechariah Klein MD, Phone: ??[phone] Loren St MD LABORATORY [facility] (CET) [facility] * ANTI HCV (07/14/2020 11:46 AM CDT) HEPATITIS C ANTIBODY Non-React sindhu Non-React sindhu 07/14/2020 8:07 PM CDT [facility] Comment:Antibodies to HCV no t detected; does not exclude the possibility of exposure to HCV. Blood BLOOD SPECIMEN / Unknown Venipuncture / Unknown 07/14/2020 11:46 AM CDT 07/14/2020 11:[address] MD SEND OUTS [facility] [address] [place] [address], from Last 3 Months or Most Recently Relevant to Health Maintenance Advance Directives * Full Code (Latest Code Status on File) Date Activated Date Inactivated Comments 08/28/2013 9:36 AM 08/28/2013 3:40 PM * Full Code Date Activated Date Inactivated Comments 10/28/2010 6:04 AM 10/28/2010 4:40 PM Care Teams Credit Control Manager Relationship Specialty Start Date End Date Loren St MD [address] [facility] [place] [address] PCP - General Family Practice 12/01/15
== END 2024-08-23 08:38 | disposition home or self-care (01) ==
LOC: NFLDREF 08-24 13:21
PROVIDERS: PCP Family Medicine; Referring Provider Family Medicine; Visit Provider Family Medicine
DX: E03.9 Hypothyroidism, unspecified (principal)
CPT/HCPCS: 84443

== ENCOUNTER 2024-10-16 08:47 | Outpatient (CLI) | payer OTHER, SELFPAY ==
--- OUTSIDE RECORDS SUMMARY | 2024-10-16 08:49 | XMS_ITS | Clinical Summary ---
Author Organization [facility] [facility] Address [place], [place] [address] Care Team Providers Care Pharmacometrician Name Role Phone Loren St MD Primary Care Provider [phone]- [phone] Allergies Active Allergy Reactions Criticality Noted Date Comments Beta-Blockers (Beta-Adrenergic Blocking Agts) Shortness Of Breath,Insomnia High 09/09/2010 Calcium Channel Blocking Agent Diltiazem Analogues Other - Describe In Comment Field Medium 09/09/2010 Lip swelling Cats (Fur, Dander, Saliva) Shortness Of Breath 10/28/2010 Celecoxib Other - Describe In Comment Field 08/30/2024 Significant leg cramps Kiwi Itching 10/28/2010 Tetanus Toxoid Adsorbed Fever [...] :Mild intermittent asthma without complication Inhale 1 [place] into affected nostril(s) 2 times daily. 48 [...] instructed on packaging. 21 Tablet 07/26/2023 Active omeprazole (PRILOSEC) 20 mg Delayed-Release capsuleIndications:G astroesophageal reflux disease without esophagitis Take 1 Capsule (20 mg) by mouth once daily before a meal. 90 Capsule 02/02/2024 Active meloxicam (MOBIC) 7.5 mg tablet TAKE 1-2 TABLETS BY MOUTH EVERY DAY 07/16/2024 Active Active Problems Problem Noted Date Diagnosed [...] Pap and HPV due 02/2026 ASCCP recommends care home follow-up after high-grade histology or cytology: Continued [...] Encounters Date Type Department Care Team Description 08/30/2024 7:40 AM CDT Office Visit [facility] [address] [place] [address] Gerald Hill MD Musculoskeletal Problem (Consult low back pain) 08/30/2024 Travel from Last 3 Months Immunizations Name Administration Dates Next Due COVID-19 vaccine ([employer] [place]-Bio NTech 30mcg/0.3mL) 12YO+ BIVALENT PF, MDV 03/25/2023 COVID-19 vaccine (Pfizer-Bio NTech 30mcg/0.3mL) PF, MDV 08/03/2022,08/26/2021,12/16/2020,2019 Influenza A (H1N1), Inactivated 08/12/2012,12/10 Influenza Virus, Unspecified 09/27/2019, 09/17/2016,09/09/2015,2012,08/18/2011,09/07/2010 Influenza, IIV3 (Age 6-35 mos) 09/03/2009,2007 Influenza, IIV3 (Age >=3 years) 08/12/20 12,09/07/2010,09/03/2009,2007,09/19/2007,09/26/2006 Influenza, IIV4 09/07/2022, 0,09/18/2019,2017,09/05/2017,08/30/2016 Influenza, IIV4 (=>6mos) MDV 08/26/2021 Pneumococcal Conj [...] of Communication with Friends and Fami ly 0 03/21/2023 Financial Resource Strain Answer Date R ecorded [...] Sign Reading Time Taken Comments Blood Pressure 109/71 08/30/2024 7:40 AM CDT Pulse 62 08/30/2024 7:40 AM CDT Temperature 36.8 C (98.3 F) 08/30/2024 7:40 AM CDT Respiratory Rate 20 03/08/2022 6:14 PM CDT Oxygen Saturation 97% 08/30/2024 7:40 AM CDT Inhaled Oxygen Concentration - - Weight 74 kg (163 lb 3.2 oz) 08/30/2024 7:40 AM CDT shoes on Height 167.6 cm (5' 6) 03/25/2023 8:40 AM CDT Body Mass Index 26.34 03/25/2023 8:40 AM CDT Plan of Treatment Health Maintenance Due Date Last Done Comments BMI (ht and wt on same day) for age 18+ 03/25/2024 03/25/2023, 03/08/2022, 04/13/2021, Additional history exists Depression screening for age 12+ 03/25/2024 03/25/2023, 03/08/2022, 04/13/2021, Additional history exists Mammogram for age 45-75 04/08/2024 04/08/20 23, 04/06/2022, 09/22/2020, Additional history exists COVID-19 vaccine series ( season) 2024 10/03/2023, 03/25/2023, 08/03/2022, Additional history exists Influenza for age 50-64 [...] this topic Medical Devices Implanted Type Area Gas Compressor Turbine Operator Device Identifier Shelf Expiration Date Model / Serial / Lot Sys Urethral Support Align 50cm - [id number] Implanted:Qty: 1 on 10/28/2010 at [facility] 07/29/2012 [id number] / / [id number] Procedures Procedure Name Priority Date/Time Associated Diagnosis Comments GUIDANCE SECRETARY THIN PREP PAP SCREEN IMAGED Routine 04/25/2024 1:40 PM CDT SDNA-FIT EXTERNAL (COLOGUARD) Routine 11/07/2023 6:15 AM COLDFUSION Screening for colon cancer XR MAMMO BETHANY [...] Recently Relevant to Health Maintenance Results * GUIDANCE SECRETARY THIN PREP PAP SCREEN IMAGED (04/25/2024 1:40 PM CDT) Case Report Gynecologic Cytology Report Case: [id number] Authorizing Provider: Aye Nath MD Collected: 04/25/2024 1340 Ordering Location: [facility] Received: 04/27/2024 1022 First Screen: Diamond Willingham Specimen: GUIDANCE SECRETARY ThinPrep Vial Screening, Cervical 05/07/2024 6:22 PM CDT [facility] LAB[facility]AT[facility] ENTRAL LABORATORY INTERPRETATION/ RESULT NEGATIVE FOR INTRAEPITHELIAL LESION OR MALIGNANCY (NIL) (none) 05/07/2024 6:22 PM CDT [facility] LAB[facility]AT[facility] ENTRAL LABORATORY IMEN ADEQUACY Satisfactory for evaluation Endocervical cells cannot be evaluated due to severe atrophy 05/07/2024 6:22 PM CDT [facility] HPV REQUEST HPV and PAP 05/07/2024 6:22 PM CDT [facility] Date of LMP 05/07/2024 6:22 PM CDT [facility] Comment:N/A Last Pap Date 03/25/2023 05/07/2024 6:22 PM CDT [facility] Last Pap Result NIL 6:22 PM CDT [facility] Abnormal Pap or [place] Bx in last 5 years No 05/07/2024 6:22 PM CDT [facility] Menstrual Status Postmenopausal 05/07/2024 6:22 PM CDT [facility] [place] Bx Done Today No 05/07/2024 6:22 PM CDT [facility] Additional Information 05/07/2024 6:22 PM CDT [facility] Comment: Interpreted at [facility], Central Laboratory - [address], [place] [address] Automated Review Successful 05/07/2024 6:22 PM CDT [facility] Comment:Specimen processed s uccessfully by automated sharepoint manager device, ThinPrep Imaging System, [employer] ANCILLARY TESTING GUIDANCE SECRETARY HPV Ordered, Please see separate report 05/07/2024 6:22 PM CDT [facility] Note The pap test is [...] and malignant lesions. 05/07/2024 6:22 PM CDT [facility] Other (Cervical) 04/25/2024 1:40 PM CDT 04/27/2024 10:22 AM CDT Aye Nath MD PATHOLOGY/CYTOLOG Y [facility] LABORATORY-CENTRAL LABORATORY [address] [place] [address], [place] * SDNA-FIT EXTERNAL (COLOGUARD) (11/07/2023 6:15 AM COLDFUSION) NONINV COLON CA DNA+OCC BLD SCRN STL-IMP Negative Negative 11/16/2023 8:23 AM COLDFUSION [facility] (CLIA #:[id number]) Comment: NEGATIVE TEST RESULT. A negative Cologuard result indicates a low likelihood that a colorectal cancer (CRC) or advanced adenoma (adenomatous polyps with more advanced pre-malignant features) is present. The chance that a person with a negative Cologuard test has a colorectal cancer is less than 1 in 1500 (negative predictive value >99.9%) or has an advanced adenoma is less than 5.3% (negative predictive value 94.7%). These data are based on a prospective cross-sectional study of 10,000 individuals at average risk for colorectal cancer who were screened with both Cologuard and colonoscopy. (Emely Whipple et al, N Engl J Med 2014;370(14):2274-2878) The normal value (reference range) for this assay is negative. COLOGUARD RE-SCREENING RECOMMENDATION: Periodic colorectal cancer screening is an important part of preventive healthcare for asymptomatic individuals at average risk for colorectal cancer. Following a negative Cologuard result, the [place] Cancer Society and U.S. Multi-Society Task Force screening guidelines recommend a Cologuard re-screening interval of 3 years. References: [place] Cancer Society Guideline for Colorectal Cancer Screening: https://www.cancer.org/cancer/yvxzj-qrputv-gypqxe/pcskilcvj-kxhbvjeyn-xeltqqf/ac s-rec ommendations.html.; Santi DK, Demetrio CR, Valarie DixonK, Colorectal Cancer Screening: Recommendations for Physicians and Patients from the U.S. Multi-Society Task Force on Colorectal Cancer Screening , Am J Gastroenterology 2017; 112:4559-9819. TEST DESCRIPTION: Composite algorithmic analysis of stool DNA-biomarkers with hemoglobin immunoassay. Quantitative values of individual biomarkers are not [...] (Emely Crocker al, N Engl J Med 2014;370(14):7560-8814.) Cologuard may produce a false negative or false positive result (no colorectal cancer or precancerous polyp present at colonoscopy follow up). A negative Cologuard test result does not guarantee the absence of CRC or advanced adenoma (pre-cancer). The current Cologuard screening interval is every 3 years. ([place] Cancer Society and U.S. Multi-Society Task Force). Cologuard performance data in a 10,000 patient pivotal study using colonoscopy as the reference method can be accessed at the following location: www.[employer]/results. Additional description of the Cologuard test process, warnings and precautions can be found at www.TRAKLOKogEmay Softcomrd.com. Stool specimen (specimen) (Rectum) 11/07/2023 6:15 AM COLDFUSION 11/08/2023 7:[address] MD URINE [facility] (CLIA #:[id number]) [place] [address], * XR MAMMO BETHANY BILAT SCREEN [[id number]] (04/08/2023 8:31 AM CDT) Anatomical Region Laterality Modality BREASTS, Breast Left, Breast Right Bilateral Mammography Impressions 04/08/2023 10:02 AM CDT There is no radiographic evidence for malignancy. Recommend annual mammograms. MAMMOGRAM ASSESSMENT: ACR 1 Negative PATIENTS: You will also receive a letter with your examination results in an easy to read format. If you have questions about your results, please contact your referring provider. Narrative 04/08/2023 10:02 AM CDT For Patients: As a result of the Century Cures Act, medical imaging exams and procedure reports are released immediately into your electronic medical record. You may view this report before your referring provider. If you have questions, please contact your health care provider. XR MAMMO BETHANY BILAT SCREEN [[id number]] CLINICAL HISTORY: This is an asymptomatic 62 y.o. patient. INDICATION FOR EXAM: Mammogram Screening. TECHNIQUE: CC & MLO views were obtained. This study was evaluated with the assistance of Computer-Aided Detection. Breast Tomosynthesis was used in interpretation. COMPARISON FILM: Yes 04/06/22 [facility] FINDINGS: The breasts have scattered areas of fibroglandular density. There are no dominant masses, suspicious micro calcifications or areas of architectural distortion. Loren St MD MAMMO * (ABNORMAL) LC LIPID PANEL AND CHOL/HDL RATIO (03/25/2023 9:38 AM CDT) Cholesterol, Total 213(H) 100 - 199 mg/dL 03/28/2023 2:08 PM CDT [facility] ([facility]) Triglycerides 77 0 - 149 mg/dL 03/28/2023 2:08 PM CDT [facility] ([facility]) HDL Cholesterol 62 >39 mg/dL 3 2:08 PM CDT [facility] ([facility]) VLDL Cholesterol Alex 14 5 - 40 mg/dL 03/28/2023 2:08 PM CDT [facility] ([facility]) LDL Chol Calc ([facility]) 137(H) 0 - 99 mg/dL 03/28/2023 2:08 PM CDT FOR ESOTERIC TESTING (CET) T. Chol/HDL Ratio 3.4 0.0 - 4.4 ratio 03/28/2023 2:08 PM CDT [facility] ESOTERIC TESTING (CET) Comment: T. Chol/HDL Ratio Men Women 1/2 Avg.Risk 3.4 3.3 Avg.Risk 5.0 4.4 2X Avg.Risk 9.6 7.1 3X Avg.Risk 23.4 11.0 Blood BLOOD SPECIMEN / Unknown Venipuncture / Unknown 03/25/2023 9:38 AM CDT 03/25/2023 9:40 AM CDT [facility] ESOTERIC TESTING (CET) - 03/28/2023 2:08 PM CDT Performed at: [address] [place] [id number] Cue Selector: Zechariah Klein MD, Phone: [phone] Loren St MD SEND OUTS [facility] TESTING ([facility]) [address] [place] [address], * HIV-1/O/2, 4TH GENERATION (03/25/2023 9:38 AM CDT) [facility] HIV Scr 4th Gen Non Reactive Non Reactive 03/29/2023 10:06 PM CDT [facility] ESOTERIC TESTING (CET) Comment: HIV Negative HIV-1/HIV-2 antibodies and HIV-1 p24 antigen were NOT detected. There is no laboratory evidence of HIV infection. Blood BLOOD SPECIMEN / Unknown Venipuncture / Unknown 03/25/2023 9:38 AM CDT 03/25/2023 9:40 AM CDT [facility] ESOTERIC TESTING (CET) - 03/29/2023 10:06 PM CDT Performed at: [address] [place] [id number] Cue Selector: Zechariah Klein MD, Phone: [phone] Loren St MD LABORATORY [facility] ([facility]) [address] [place] [address], * ANTI HCV (07/14/2020 11:46 AM CDT) HEPATITIS C ANTIBODY Non-React sindhu Non-React sindhu 07/14/2020 8:07 PM CDT [facility] Comment:Antibodies to HCV no t detected; does not exclude the possibility of exposure to HCV. Blood BLOOD SPECIMEN / Unknown Venipuncture / Unknown 07/14/2020 11:46 AM CDT 07/14/2020 11:[address] MD SEND OUTS [facility] LABORATORY-CENTRAL LABORATORY [address] [place] [address], from Last 3 Months or Most Recently Relevant to Health Maintenance Advance Directives * Full Code (Latest Code Status on File) Date Activated Date Inactivated Comments 08/28/2013 9:36 AM 08/28/2013 3:40 PM * Full Code Date Activated Date Inactivated Comments 10/28/2010 6:04 AM 10/28/2010 4:40 PM Care Teams Pharmacometrician Relationship Specialty Start Date End Date Loren St MD [address] [place] [address] PCP - General Family Practice 12/01/15
--- NOTE | 2024-10-16 10:03 | W.ANESCHARGE ---
Anesthesia Charges Start Date/Time Anesthesia Start Date: 10/16/24 Anesthesia Start Time: 09:26 Stop Date/Time Anesthesia Stop Date: 10/16/24 Anesthesia Stop Time: 10:16
--- NOTE | 2024-10-16 10:21 | W.ANESCHARGE ---
Anesthesia Charges Start Date/Time Anesthesia Start Date: 10/16/24 Anesthesia Start Time: 09:26 Stop Date/Time Anesthesia Stop Date: 10/16/24 Anesthesia Stop Time: 10:16
== END 2024-10-16 08:48 | disposition home or self-care (01) ==
LOC: OP CLINIC 08:48
PROVIDERS: PCP Family Medicine; Visit Provider Surgery
DX: Z12.11 Encounter for screening for malignant neoplasm of colon (principal)
CPT/HCPCS: 00811; 00812; 45378; J2704

== ENCOUNTER 2024-12-18 09:42 | Outpatient (CLI) | payer OTHER, SELFPAY | END 2024-12-18 09:43 | disposition home or self-care (01) | LOC: NFLDREF 12-19 01:49 | PROVIDERS: PCP Family Medicine; Referring Provider Family Medicine; Visit Provider Family Medicine | DX: E03.9 Hypothyroidism, unspecified (principal) | CPT/HCPCS: 84443 ==

== ENCOUNTER 2024-12-31 13:22 | Outpatient (CLI) | payer OTHER, SELFPAY ==
--- NOTE | 2024-12-31 13:40 | CRLHL7_ITS ---
For Patients: As a result of the Cures Act, medical imaging exams and procedure reports are released immediately into your electronic medical record. You may view this report before your referring provider. If you have questions, please contact your health care provider. BILATERAL SCREENING MAMMOGRAM WITH COMPUTER-AIDED DETECTION AND TOMOSYNTHESIS TECHNIQUE: CC and MLO views were obtained. These mammographic images have been obtained using full-field digital technique. These mammographic images were interpreted with the benefit of computer-aided detection. Breast Tomosynthesis was used in this interpretation. COMPARISON FILM: 04/08/23, 04/06/22, 09/22/20. FINDINGS: There are scattered areas of fibroglandular density IMPRESSION: There is no radiographic evidence for malignancy. ASSESSMENT: BI-RADS Category 1: Negative RECOMMENDATION: Routine screening mammogram in 1 year. A lay language report of this examination will be provided to the patient. David Powell M.D. Diagnostic Radiologist [email or web address] Transcribed: 4:23 p.mSandi maxwell/Dictated by: David Powell MD @ 01/01/2025 11:06:00 AM (Electronically Signed)
== END 2024-12-31 13:23 | disposition home or self-care (01) ==
LOC: MAMMO 13:23
PROVIDERS: PCP Family Medicine; Visit Provider Obstetrics & Gynecology
DX: Z12.31 Encounter for screening mammogram for malignant neoplasm of breast (principal)
CPT/HCPCS: 77063; 77067

== ENCOUNTER 2025-02-05 14:04 | Outpatient (CLI) | payer OTHER, SELFPAY | END 2025-02-05 14:05 | disposition home or self-care (01) | PROVIDERS: PCP Family Medicine; Visit Provider Family Medicine | DX: Z13.0 Encounter for screening for diseases of the blood and blood-forming organs and certain disorders involving the immune mechanism (principal); M25.531 Pain in right wrist; M25.532 Pain in left wrist; M25.59 Pain in other specified joint | CPT/HCPCS: 86038; 86140; 86431 ==

== ENCOUNTER 2025-05-01 13:09 | Outpatient (CLI) | payer OTHER, SELFPAY | END 2025-05-01 13:10 | disposition home or self-care (01) | PROVIDERS: PCP Family Medicine; Visit Provider Obstetrics & Gynecology | DX: E78.00 Pure hypercholesterolemia, unspecified (principal); Z79.899 Other long term (current) drug therapy | CPT/HCPCS: 80061; 82306 ==

== ENCOUNTER 2025-06-18 08:00 | Outpatient (CLI) | payer OTHER, SELFPAY | END 2025-06-18 08:01 | disposition home or self-care (01) | LOC: NFLDREF 06-19 16:18 | PROVIDERS: PCP Family Medicine; Referring Provider Family Medicine; Visit Provider Emergency Medicine | DX: N39.0 Urinary tract infection, site not specified (principal); B96.1 Klebsiella pneumoniae [K. pneumoniae] as the cause of diseases classified elsewhere | CPT/HCPCS: 87086 ==

== ENCOUNTER 2025-09-10 13:36 | Outpatient (CLI) | payer OTHER, SELFPAY | END 2025-09-10 13:37 | disposition home or self-care (01) | PROVIDERS: PCP Family Medicine; Visit Provider Family Medicine | DX: E03.9 Hypothyroidism, unspecified (principal); L65.9 Nonscarring hair loss, unspecified; M54.9 Dorsalgia, unspecified; R53.83 Other fatigue; Z78.9 Other specified health status | CPT/HCPCS: 80053; 82607; 84439; 84443; 84481 ==